=== PATIENT | male | born 1950 ===

== ENCOUNTER 2020-10-08 19:02 | Inpatient (IN) | payer MEDICARE ==
[~2020-10-08] VITALS: Ht 172.7 cm; Wt 64.8 kg
[2020-10-08 20:00] VITALS: BP 137/70
--- NOTE | 2020-10-08 20:15 | NUR ---
The patient, OLGA LIDIA MCCABE, 70 y/o, M admitted by SRINIVAS PERES MD, was given written information regarding hospital policies, unit procedures and contact persons. Pt arrived via EMS with soft restraints on a gurney. Pt was aggressive and combative with EMT's on ride her. Pt continued to be aggressive and combative upon admission. notified of pts behaviors. Orders received Haldol 5mg prn 4hrs until pt calms down. Called for report from [facility]. Talked to Mariana who took care of pt the previous night. Mariana reported that the pt can be aggressive and combative if approached to quickly and no not bombard him. Pt is known to yell and scream at time can also be verbally abusive. Also pt is demanding of his space. Valuables were checked and vitals obtained. Pt is currently in bed will continue to monitor.
[2020-10-08] MEDS: VALPROATE ACID 250 MG/5 ML ORAL SOLUTION PO SCH ×2 (21:30→22:54)
[2020-10-08] MEDS ORDERED: chlorproMAZINE HCL 25 MG TABLET PO SCH (21:30)
[2020-10-08] MEDS ORDERED: chlorproMAZINE HCL 10 MG TABLET PO SCH (21:30)
[2020-10-08 22:26] VITALS: BP 146/72
[2020-10-08] MEDS: metFORMIN 500 MG TABLET PO SCH (22:54)
[2020-10-08] MEDS: amLODIPine BESYLATE 10 MG TABLET PO SCH (22:54)
[2020-10-08] MEDS: LOSARTAN 50 MG TABLET. PO SCH (22:54)
[2020-10-08] MEDS: ZIPRASIDONE 60 MG CAPSULE. PO SCH (22:54)
[2020-10-08] MEDS: chlorproMAZINE HCL 25 MG TABLET PO SCH (22:55)
[2020-10-08] MEDS: INSULIN GLARGINE SYRINGE. SQ SCH (22:56)
--- NOTE | 2020-10-09 01:08 | NUR ---
Pt can be very demanding of his space. Pt will be cooperative if given what he wants when he wants it. Things will be done at his pace when he wants and how he wants them done.
[2020-10-09] MEDS ORDERED: METF500T16 PO ×2 (01:40→12:40)
[2020-10-09] MEDS ORDERED: LEVO100T PO (01:40)
[2020-10-09] MEDS ORDERED: TAMS0.4C97 PO (01:40)
[2020-10-09] MEDS ORDERED: CHLO50TA6 PO ×3 (01:40→12:40)
[2020-10-09] MEDS ORDERED: CLON0.1T PO (01:40)
[2020-10-09] MEDS ORDERED: LIOT50TA5 PO (01:40)
[2020-10-09] MEDS ORDERED: INSU100V8 SQ (01:40)
[2020-10-09] MEDS ORDERED: DEXTROSE 50% 25 GM / 50ML DISP.SYRIN. IV PRN (01:45)
[2020-10-09] MEDS: HALOPERIDOL LACT 5 MG/ML VIAL. IM PRN (03:36)
[2020-10-09 04:19] LABS: BILIRUBIN,URINE NEG (NEG); CLARITY,URINE CLEAR; COLOR,URINE YELLOW; GLUCOSE,URINE NEG (NEG)
[2020-10-09 04:20] LABS: BACTERIA,URINE 0 /HPF (0-FEW); NITRITE,URINE NEG (NEG); RBC,URINE OCC /HPF (0-2); SQUAMOUS EPITHELIAL CELL,UR OCC /LPF; UROBILINOGEN,URINE 0.2 mg/dL (0.2 mg/dL); WBC,URINE OCC /HPF (0-4)
--- NOTE | 2020-10-09 04:49 | NUR ---
Pt received haldol per order due to pt not staying in bed, throwing objects in room and yelling at staff. Pt is currently awake in bed. Will continue to monitor.
[2020-10-09 05:09] VITALS: BP 135/72
[2020-10-09 05:53] LABS: BASO % 1 % (0-3); EOS # 0.1 x10^3/uL (0.0-0.7); EOS % 2 % (0-3); HEMATOCRIT 31.9 % (39.0-53.0); HEMOGLOBIN 10.5 g/dL (13.0-17.5); LYMPH # 2.1 x10^3/uL (1.0-4.8); LYMPH % 34 % (24-48); MEAN CORPUSCULAR HEMOGLOBIN 31 pg (25-35); MEAN CORPUSCULAR HGB CONC 33 g/dL (31-37); MEAN CORPUSCULAR VOLUME 95 fL (79-100); MONO # 0.8 x10^3/uL (0.0-1.1); MONO % 12 % (0-9); NEUT # 3.2 x10^3uL (1.8-7.7); NEUT % 51 % (31-73); PLATELET COUNT 294 x10^3/uL (140-400); RED BLOOD COUNT 3.37 x10^6/uL (4.30-5.70); RED CELL DISTRIBUTION WIDTH 14.1 % (11.5-14.5); WHITE BLOOD COUNT 6.3 x10^3/uL (4.0-11.0)
[2020-10-09 06:07] LABS: ALBUMIN 3.1 g/dL (3.4-5.0); ALBUMIN/GLOBULIN RATIO 0.8 (1.0-1.7); CALCIUM 8.8 mg/dL (8.5-10.1); CREATININE 1.2 mg/dL (0.7-1.3); GFR 59.9; MAGNESIUM 1.7 mg/dL (1.8-2.4); POTASSIUM 3.6 mmol/L (3.5-5.1); TOTAL BILIRUBIN 0.2 mg/dL (0.2-1.0); TOTAL PROTEIN 7.2 g/dL (6.4-8.2)
[2020-10-09 06:19] LABS: VAL ACID < 3 mcg/mL (50-100)
--- NOTE | 2020-10-09 06:27 | EKG ---
[address] [address] Test Date: 2020-10-09 Test Time: 05:09:59 Pat Name: OLGA LIDIA MCCABE Department: Room: 105 A Gender: M Solid Waste Manager: : [id number] Requested By: SRINIVAS PERES Order Number: [id number] Reading MD: Measurements Intervals [place] Rate: 77 P: MN: QRS: 47 QRSD: 88 T: 67 QT: 380 QTc: 432 Interpretive Statements IRREGULAR RHYTHM, NO P-WAVE FOUND QRS(T) CONTOUR ABNORMALITY CONSIDER ANTEROLATERAL MYOCARDIAL DAMAGE POSSIBLY ABNORMAL ECG RI6.01 No previous ECG available for comparison
[2020-10-09] MEDS: ZIPRASIDONE 60 MG CAPSULE. PO SCH ×2 (07:31→21:19)
[2020-10-09] MEDS: VALPROATE ACID 250 MG/5 ML ORAL SOLUTION PO SCH (07:31)
[2020-10-09] MEDS: LOSARTAN 50 MG TABLET. PO SCH ×2 (07:31→21:19)
[2020-10-09] MEDS: INSULIN LISPRO 300 UNITS/3 ML VIAL. SQ SCH ×3 (08:00→16:52)
[2020-10-09] MEDS: VALPROIC ACID 250 MG CAPSULE. PO SCH ×2 (08:31→21:20)
--- NOTE | 2020-10-09 11:14 | NUR ---
NSG NOTE; PT UP TO BATHROOM AFTER STOOL INCONTINENCE WHICH MORE BM IN TOILET. STEADY ON FEET. SITTING UP IN CHAIR AFTER GETTING CLEANED UP. PT RESPONDS BETTER TO STAFF SLOWLY APPROACHING HIM IN HIS ROOM AND USING QUIET RESPECTFUL SPEECH WHICH HE THEN USES. HE IS PARANOID AT TIMES WANTING STAFF TO WALK AHEAD OF HIM, NOT GO INTO HIS ROOM WHILE HE IS ON THE TOILET AND NOT TOUCHING HIS BED OR ITEMS ON HIS BEDSIDE TABLE.
[2020-10-09] MEDS ORDERED: LOSA50TA86 PO (11:56)
[2020-10-09] MEDS ORDERED: BENZ1TAB5 PO (11:56)
[2020-10-09] MEDS ORDERED: HYDR-2145 PO (11:56)
[2020-10-09] MEDS ORDERED: DIPHENHYDRAMINE 50 MG/ML IM (11:56)
[2020-10-09] MEDS ORDERED: INSU100I46 SQ (11:56)
[2020-10-09] MEDS ORDERED: METO25TA2 PO (11:56)
[2020-10-09] MEDS ORDERED: OXCA600T9 PO (11:56)
[2020-10-09] MEDS ORDERED: CHLORPROMAZINE 50 MG/2 ML IM (11:56)
[2020-10-09] MEDS ORDERED: LEVO75TA5 PO (11:56)
--- NOTE | 2020-10-09 12:22 | HP ---
ADMIT DATE: 10/08/2020 ATTENDING PHYSICIAN: Dr. Peres HISTORY OF PRESENT ILLNESS: We are asked to see this patient for medical admission prior to going to the Senior Behavior Unit. The patient is a 70-year-old gentleman who has been institutionalized most of his life. He comes from a assisted close to [place], [place]. He has a longstanding history of schizoaffective disorder with psychosis, Parkinson's disease, dementia, hypertension and debilitation. He spent a long time _[facility] hospital for many years. He has been refusing meds at the time, verbally aggressive and having behavioral issues. He is slated to go to the Senior Behavior Unit. PAST MEDICAL HISTORY: Significant for type 2 diabetes, essential hypertension and degenerative arthritis along with hypothyroidism. CURRENT MEDICATIONS: Reviewed. ALLERGIES: He has allergies to PORK CONTAINING PRODUCTS, LAMICTAL. CURRENT MEDICINES: Include amlodipine, chlorpromazine, dextrose, Haldol, insulin regular and Lantus, losartan, metformin, Depakote and Geodon. FAMILY HISTORY: Unobtainable. REVIEW OF SYSTEMS: Unobtainable due to the patient's confusion. PHYSICAL EXAMINATION: GENERAL: When I saw him, this is a pleasant demented gentleman. He is fixated on his bowel, spends a lot of time in the toilet. VITAL SIGNS: Showed a blood pressure of 135/72, pulse is 80 and regular. He is afebrile. Oxygen saturation 98% on room air. HEENT: Head is without trauma. Pupils are reactive. Sclerae nonicteric. Oropharynx clear. I did notice some tardive dyskinesia. NECK: Supple, no bruits identified. LUNGS: Good breath sounds. CARDIOVASCULAR: Showed distant heart tones. No gallops. ABDOMEN: Soft, no guarding or rebound tenderness. EXTREMITIES: Without edema. NEUROLOGIC: Pleasantly confused. Focally intact. He is ambulatory. We cannot assess a full neurologic exam due to the patient's psychiatric state. LABORATORY DATA: Admission hemoglobin was 10.5 g/dL with a white count of 6300. Electrolytes within normal range. Nonfasting blood sugar 111, creatinine 1.2. Transaminases are normal. Serology and coronavirus swab are pending at this time. ASSESSMENT: 1. A 70-year-old gentleman with longstanding schizoaffective disorder for most of his life. He has been institutionalized and hospitalized. 2. Type 2 diabetes mellitus with fairly good glucose control. 3. Essential hypertension. 4. Hypothyroidism. PLAN: 1. Admit to the inpatient unit. 2. Diet as tolerated. 3. Home meds were continued without any changes. 4. Await results of serology and coronavirus swabs. When those are available, he can go upstairs to the Senior Behavior Unit. SRINIVAS PERES MD DR: TADEO/néstor JOB#: [id number] / [id number]
[2020-10-09] MEDS ORDERED: CHLO100T6 PO (12:40)
[2020-10-09] MEDS ORDERED: INSU100I13 SQ (12:40)
[2020-10-09] MEDS ORDERED: TRAZ-120 PO (12:51)
[2020-10-09] MEDS ORDERED: VALP500S PO (12:51)
[2020-10-09] MEDS ORDERED: CALC625T PO (12:51)
[2020-10-09] MEDS ORDERED: ACET325T21 PO (12:51)
[2020-10-09] MEDS ORDERED: DIPH50CA PO (12:51)
[2020-10-09] MEDS ORDERED: KETO120S4 TP (12:51)
[2020-10-09] MEDS ORDERED: FERR325T14 PO (12:51)
[2020-10-09] MEDS ORDERED: DONE10TA7 PO (12:51)
[2020-10-09] MEDS ORDERED: ZIPR20CA2 PO (12:51)
[2020-10-09] MEDS ORDERED: HALO100A2 IM (12:51)
[2020-10-09] MEDS ORDERED: ACET500T68 PO (12:51)
[2020-10-09] MEDS ORDERED: AMLO-187 PO (12:51)
[2020-10-09] MEDS ORDERED: CALC-56 PO (12:51)
[2020-10-09 16:36] VITALS: BP 144/72
[2020-10-09 19:14] VITALS: BP 148/74
[2020-10-09 19:53] LABS: HDLC 51 mg/dL (40-60); LDLC 62 mg/dL (0-100); TRIGLYCERIDES 210 mg/dL (0-150); VLDLC 42 mg/dL (0-40)
[2020-10-09 19:54] LABS: THYROID STIM HORMONE (TSH) < 0.007 uIU/mL (0.358-3.740)
[2020-10-09] MEDS: chlorproMAZINE HCL 25 MG TABLET PO SCH (21:19)
[2020-10-09] MEDS: metFORMIN 500 MG TABLET PO SCH (21:19)
[2020-10-09] MEDS: amLODIPine BESYLATE 10 MG TABLET PO SCH (21:20)
[2020-10-09] MEDS: INSULIN GLARGINE SYRINGE. SQ SCH (21:21)
[2020-10-09 22:16] VITALS: BP 158/82
[2020-10-10 00:09] LABS: HEMOGLOBIN A1C 6.6 % (4.8-5.6)
[2020-10-10] MEDS: HALOPERIDOL LACT 5 MG/ML VIAL. IM PRN (05:22)
--- NOTE | 2020-10-10 05:40 | NUR ---
PT INCREASINGLY AGITATED THROUGH NIGHT. PT PHYSICALLY AND VERBALLY AGGRESSIVE W/ STAFF, ESPECIALLY WITH ATTEMPTS TO REDIRECT. PT DEMANDING TO HAVE A SHOWER, REPEATEDLY APPROACHING NURSE'S STATION WITHOUT MASK. WHEN STAFF INSTRUCTED PT TO PUT ON HIS MASK WHILE OUTSIDE OF PT ROOM, PT YELLING OUT. [facility] STAFF HERE TO ASSIST WITH DE-ESCALATION AND TRANSFER UPSTAIRS. PRN HALDOL IM GIVEN PER ORDER. PT ASSISTED X3 UP TO PSYCH UNIT. BEDSIDE REPORT GIVEN TO VASHTI MOON. ALL BELONGINGS SENT WITH PT.
[2020-10-10] MEDS ORDERED: SEMA1PEN3 SQ (08:03)
[2020-10-10] MEDS ORDERED: VITA1TAB31 PO (08:04)
== END 2020-10-10 05:40 | DRG 948 ==
LOC: 1 SOUTH 20:14
PROVIDERS: ADMIT Hospitalist; ATTEND Hospitalist
DX: R53.81 Other malaise (principal); G20 Parkinson's disease; F25.9 Schizoaffective disorder, unspecified; E03.9 Hypothyroidism, unspecified; I10 Essential (primary) hypertension; F02.80 Dementia in other diseases classified elsewhere, unspecified severity, without behavioral disturbance, psychotic disturbance, mood disturbance, and anxiety; E11.9 Type 2 diabetes mellitus without complications; M19.90 Unspecified osteoarthritis, unspecified site; Z20.822 Contact with and (suspected) exposure to COVID-19; Z79.899 Other long term (current) drug therapy; Z88.8 Allergy status to other drugs, medicaments and biological substances; Z91.018 Allergy to other foods
CPT/HCPCS: 36415; 80053; 80061; 80164; 81001; 82306; 82607; 82947; 83036; 83735; 84443; 85025; 85379; 86592; 93005; J1630; J1815; Q0161; U0003

== ENCOUNTER 2020-10-10 06:18 | Inpatient (IN) | payer MEDICARE, MEDICAID ==
[~2020-10-10] VITALS: Ht 172.7 cm; Wt 66.7 kg
[~2020-10-10 06:18] MED LIST: ACET325T21 PO; ACET500T68 PO; AMLO-187 PO; BENZ1TAB5 PO; CALC-56 PO; CALC625T PO; CHLO100T6 PO; CHLO50TA6 PO; CHLORPROMAZINE 50 MG/2 ML IM; CLON0.1T PO; DIPH50CA PO; DIPHENHYDRAMINE 50 MG/ML IM; DONE10TA7 PO; FERR325T14 PO; HALO100A2 IM; HYDR-2145 PO; INSU100I13 SQ; INSU100I46 SQ; INSU100V8 SQ; KETO120S4 TP; LEVO100T PO; LEVO75TA5 PO; LIOT50TA5 PO; LOSA50TA86 PO; METF500T16 PO; METO25TA2 PO; OXCA600T9 PO; TAMS0.4C97 PO; TRAZ-120 PO; VALP500S PO; ZIPR20CA2 PO
[2020-10-10] MEDS ORDERED: MAG HYDROX/AL HYDROX/SIMETH 30 ML ORAL.SUSP PO PRN (06:30)
[2020-10-10] MEDS ORDERED: MAGNESIUM HYDROXIDE 2,400 MG/30 ML ORAL.SUSP. PO PRN (06:30)
[2020-10-10] MEDS ORDERED: METHYL SALICYLATE/MENTHOL TOPICAL OINTMENT 57GM TUBE. TP PRN (06:30)
[2020-10-10] MEDS ORDERED: ACETAMINOPHEN 325 MG TABLET PO PRN ×2 (06:30→07:45)
--- NOTE | 2020-10-10 07:24 | NUR ---
Admission Note with Justification for Admission to [facility] Patient admitted to [facility] for protective oversight for emergency stabilization of acute psychiatric crisis. Pt admitted from: [address] Mode of arrival: wheel chair Accompanied By: [facility] Staff Precipitating behaviors that initiated intake and admission: failure of placement Description of failure of out patient attempts at stabilization in previous setting list behavior and medication trials: med adjutments etc Behaviors and assessment findings upon admission: agitated angry combative yelling violent. Plan: Admit for protective oversight for adjustment and stabilization of medications, behaviors and mood. Intense treatment regimen including groups, medication adjustments, therapy, consistent regimen for ADL's, self care, and sleep hygiene. Daily monitoring by Inpatient staff, Psychiatry, and Medical Physician.
[2020-10-10] MEDS ORDERED: cloNIDine HCL 0.1 MG TABLET PO PRN (07:45)
[2020-10-10] MEDS ORDERED: CHLORPROMAZINE IM PRN (07:45)
[2020-10-10] MEDS ORDERED: DIPHENHYDRAMINE HCL PO PRN (07:45)
[2020-10-10] MEDS ORDERED: DIPHENHYDRAMINE IM PRN (07:45)
[2020-10-10] MEDS ORDERED: ACETAMINOPHEN 500 MG TABLET PO PRN (07:45)
[2020-10-10] MEDS ORDERED: SEMA1PEN3 SQ (08:03)
[2020-10-10] MEDS ORDERED: VITA1TAB31 PO (08:04)
[2020-10-10] MEDS: NON FORMULARY ITEM (Semaglutide (Ozempic) 1 MG) SQ SCH (09:00)
[2020-10-10] MEDS ORDERED: FLU VACC QS 2020-21(6MOS+)/PF 0.5 ML SYRINGE. VAX IM ONE (09:00)
[2020-10-10] MEDS: KETOCONAZOLE 2% SHAMPOO 120ML BOTTLE. TP SCH (09:00)
[2020-10-10] MEDS: chlorproMAZINE HCL 25 MG TABLET PO SCH ×2 (09:00→21:09)
[2020-10-10] MEDS ORDERED: LIOTHYRONINE SODIUM PO SCH (09:00)
[2020-10-10] MEDS ORDERED: LEVOTHYROXINE 100 MCG TABLET PO SCH (09:00)
[2020-10-10] MEDS: NICOTINE 21MG PATCH. TD SCH (09:00)
[2020-10-10] MEDS ORDERED: NON FORMULARY ITEM (Vitamin D3/Vitamin K2 (D3 + K2 Dots 1,000 Units Tab) 1 TAB) PO SCH (09:00)
[2020-10-10] MEDS ORDERED: VALPROATE ACID 250 MG/5 ML ORAL SOLUTION PO SCH (09:30)
[2020-10-10] MEDS: INSULIN GLARGINE SYRINGE. SQ SCH ×2 (10:00→21:12)
--- NOTE | 2020-10-10 10:02 | NUR ---
Pt. denied smoking. Said he quit 40 years ago.
[2020-10-10] MEDS: hydroCHLOROthiazide 25 MG TABLET PO SCH (11:15)
[2020-10-10] MEDS: metFORMIN 500 MG TABLET PO SCH ×2 (11:16→18:11)
[2020-10-10] MEDS: CALCIUM POLYCARBOPHIL 625 MG TABLET PO SCH ×2 (11:16→20:57)
[2020-10-10] MEDS: TAMSULOSIN 0.4 MG CAP.ER.24H. PO SCH (11:16)
[2020-10-10] MEDS: ZIPRASIDONE 20 MG CAPSULE. PO SCH ×2 (11:16→21:04)
[2020-10-10] MEDS: CALCIUM CARB/VIT D3 500/200 TABLET PO SCH (11:16)
[2020-10-10] MEDS: BENZTROPINE MESYLATE 1 MG TABLET PO SCH (11:17)
[2020-10-10] MEDS: FERROUS SULFATE 325 MG TABLET. PO SCH ×2 (11:17→20:57)
[2020-10-10] MEDS: METOPROLOL SUCC 24HR ER 25 MG TAB.ER.24H. PO SCH (11:22)
[2020-10-10] MEDS: LOSARTAN 50 MG TABLET. PO SCH ×2 (11:22→20:57)
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
[2020-10-10] MEDS ORDERED: DEXTROSE 50% 25 GM / 50ML DISP.SYRIN. IV PRN (16:00)
[2020-10-10] MEDS: chlorproMAZINE HCL 25 MG TABLET PO PRN (16:08)
[2020-10-10] MEDS: INSULIN LISPRO 300 UNITS/3 ML VIAL. SQ SCH (17:00)
[2020-10-10] MEDS: CHOLECALCIFEROL (VITAMIN D3) 50,000 UNIT CAPSULE PO SCH (18:11)
--- NOTE | 2020-10-10 20:56 | HP ---
ADMIT DATE: 10/10/2020 PSYCHIATRIC ADMISSION HISTORY/EVALUATION This note covers elements not covered in my initial note 10/10/2020. IDENTIFYING DATA: The patient is a 70-year-old -[place] male referred to us from [facility] where he was at the nursing facility for about 1 week, having spent an extensive period of time prior to that at [facility] for his schizoaffective disorder, bipolar type, with psychotic features. At the facility, the patient was refusing his medications, being verbally aggressive, voicing suicidal ideation, agitated, combative, hallucinating and delusional. He had failed outpatient psychiatric interventions. Behaviors were deemed dangerous, unmanageable at the facility resulting in this referral. CHIEF COMPLAINT: "I came here today. I was in the [place]." HISTORY OF PRESENT ILLNESS: The patient has a long history of schizoaffective disorder, bipolar type. He has been residing at the nursing facility for about a week prior to which he was at [facility] for many months. He has been more psychotic, paranoid, having sleep and appetite changes, agitated, aggressive as noted above. He denies active suicidal ideation at this time. PAST PSYCHIATRIC HISTORY: As above. MEDICAL HISTORY: Positive for diabetes mellitus, hypertension, Parkinson's disease, memory deficits. He is a smoker. ALLERGIES: PORK AND LAMOTRIGINE. CODE STATUS: Full code. ACCU-CHEKS: Before meals and at bedtime. DIET: Diabetic, takes medications whole with water. Ambulates ad lakshmi. UA, 10/10/2020 was negative. CURRENT PSYCHOTROPICS: Thorazine 50 mg a.m., 300 mg at bedtime, 50 mg q. 6 hours p.r.n. psychosis; Aricept 10 mg at bedtime; Haldol 100 mg IM every 30 days; Trileptal 600 mg b.i.d.; trazodone 50 mg at bedtime p.r.n.; Depakene 1000 mg b.i.d., but valproic acid level is 15, subtherapeutic probably due to noncompliance and we will repeat it in 2 days. He is also on Geodon 60 mg b.i.d. and Zyprexa was added p.r.n. following admission and p.r.n. Thorazine was discontinued. We have been unable to get an EKG as I ordered because of the patient's marked paranoia, delusions about the EKG machine. FAMILY HISTORY: Noncontributory. SOCIAL HISTORY: No alcohol or drug abuse, physical, sexual or elder abuse history is noted. He is not known to be a perpetrator. REACTION TO HOSPITALIZATION: The patient accepting of it. ASSETS: Supportive living at the facility. He is reasonably cognitively intact, but has short-term memory deficits. MENTAL STATUS EXAMINATION: The patient was seen individually evening of 10/10/2020. He is oriented to himself and situation. Speech is coherent, abstraction fair, computation impaired, language function intact. He is quite paranoid, psychotic, distractable. No active suicidal or homicidal ideation. Short-term memory is impaired, remote is better. LABORATORY DATA: Reviewed. IMPRESSION: Schizoaffective disorder, bipolar type, mixed with psychotic features, mild cognitive impairment; anxiety disorder, unspecified; impulse control disorder, unspecified. Rest unchanged as noted above. PLAN: Admit to Geropsychiatry Unit at [facility]. I will see the patient daily individually from a psychiatric standpoint. Medical followup with Dr. Faria/Dr. Davis. Continue current psychotropics, stop the p.r.n. Thorazine. Get past psychiatric records from [facility]. Check an EKG. Repeat valproic acid level in 2 days since his initial level is probably subtherapeutic at 15 due to noncompliance. ESTIMATED LENGTH OF STAY: 10-12 days. DISPOSITION: Plans back to nursing facility when stable. MAN Rosanne REN MD DR: EVA/néstor JOB#: [id number] / [id number]
[2020-10-10] MEDS: DONEPEZIL HCL 10 MG TABLET PO SCH (21:11)
[2020-10-10] MEDS: amLODIPine BESYLATE 10 MG TABLET PO SCH (21:11)
[2020-10-10] MEDS: DIVALPROEX 125 MG CAP.SPRINK PO SCH (21:20)
[2020-10-10 22:42] VITALS: BP 159/76
--- NOTE | 2020-10-10 22:52 | PDOC ---
Exam Note: Devin Note: Please also refer to the separate dictated note~for this date of service dictated separately.~Patient seen individually. Discussed the patient with Nursing staff reviewed the chart.~Reviewed interim history and current functioning. Reviewed vital signs,~Labs/ Radiology~and current medications noted below. Continue current treatment with the changes noted in the dictated addendum note Assessment: Vital Signs/I&O: Vital Signs Date Time Temp Pulse Resp B/P (MAP) Pulse Ox O2 Delivery O2 Flow Rate FiO2 10/10/20 22:42 97.9 74 18 159/76 (103) 99 Labs: Laboratory Tests Test 10/10/20 11:43 10/10/20 17:09 10/10/20 19:10 Glucose (Fingerstick) 196 mg/dL (70-99) H 169 mg/dL (70-99) H 202 mg/dL (70-99) H Current Medications: Meds: Current Medications Medications (Trade) Dose Ordered Sig/Nancy Route PRN Reason Start Time Stop Time Status Last Admin Dose Admin Influenza Virus Vaccine Quadrival (Fluzone Quad Syringe) 0.5 ml ONCE ONCE VAX IM 10/10/20 09:00 10/10/20 09:01 DC 10/10/20 14:04 Amlodipine Besylate (Norvasc) 10 mg HS PO 10/10/20 21:00 10/10/20 21:11 Benztropine Mesylate (Cogentin) 1 mg DAILY PO 10/10/20 09:00 10/10/20 11:17 Calcium/Vitamin D (Oscal D 500mg/ 200uts) 1 tab DAILY PO 10/10/20 09:00 10/10/20 11:16 Calcium Polycarbophil (Fibercon) 625 mg BID PO 10/10/20 09:00 10/10/20 20:57 Donepezil HCl (Aricept) 10 mg HS PO 10/10/20 21:00 10/10/20 21:11 Ferrous Sulfate (Feosol) 325 mg BID PO 10/10/20 09:00 10/10/20 20:57 Hydrochlorothiazide (Hydrodiuril) 25 mg DAILY PO 10/10/20 09:00 10/10/20 11:15 Insulin Glargine (Lantus Syringe) 5 unit HS SQ 10/10/20 21:00 10/10/20 21:12 Losartan Potassium (Cozaar) 50 mg BID PO 10/10/20 09:00 10/10/20 20:57 Metformin HCl (Glucophage) 500 mg DAILYBFRSUP PO 10/10/20 17:00 10/10/20 18:11 Metformin HCl (Glucophage) 1,500 mg DAILY PO 10/10/20 09:00 10/10/20 11:16 Metoprolol Succinate (Toprol Xl) 25 mg DAILY PO 10/10/20 09:00 10/10/20 11:22 Tamsulosin HCl (Flomax) 0.4 mg DAILY PO 10/10/20 09:30 10/10/20 11:16 Ziprasidone (Geodon) 60 mg BID PO 10/10/20 09:30 10/10/20 21:04 Chlorpromazine HCl (Thorazine) 50 mg DAILY PO 10/10/20 09:00 10/10/20 09:00 Chlorpromazine HCl (Thorazine) 50 mg PRN Q6HRS PRN PO AGITATION 10/10/20 09:00 10/10/20 16:08 Chlorpromazine HCl (Thorazine) 300 mg HS PO 10/10/20 21:00 10/10/20 21:09 Insulin Glargine (Lantus Syringe) 8 unit DAILY SQ 10/10/20 10:00 10/10/20 10:00 Oxcarbazepine (Trileptal) 600 mg BID PO 10/10/20 09:30 10/10/20 20:57 Valproic Acid (Depakene) 1,000 mg BID PO 10/10/20 09:30 10/10/20 20:12 DC 10/10/20 11:15 Vitamin D (Vitamin D3) 50,000 unit WEEKLY PO 10/10/20 17:30 10/10/20 18:11 Divalproex Sodium (Depakote Sprinkles) 1,000 mg HS PO 10/10/20 21:00 10/10/20 21:20 I have reviewed the current psychotropics carefully including drug interactions. Risk benefit ratio favors no change other than as noted in my dictated progress note. Diagnosis: Problems: (1) Schizoaffective disorder, bipolar type (2) Bipolar disorder, current episode mixed, severe, with psychotic features (3) Anxiety disorder, unspecified (4) Impulse control disorder, unspecified (5) Mild cognitive impairment KALEN REN MD Oct 10, 2020 22:52
--- NOTE | 2020-10-11 00:06 | CONS ---
DATE OF CONSULTATION: 10/10/2020 REASON FOR CONSULTATION: Medical management. HISTORY OF PRESENT ILLNESS: The patient is a 70-year-old -[place] male patient who was residing at [facility] close to [place], [place]. He has a longstanding history of schizoaffective disorder with psychosis, Parkinson's disease, dementia, hypertension and debilitation. He spent a long time at [facility] for [facility], has been refusing meds at this time, verbally aggressive and having behavioral issues. He was admitted to Medical Surgical Unit in [address] [place] [address] in [facility] where he was screened for coronavirus while not detectable and was admitted to [facility] Unit for inpatient psychiatric stabilization. The patient himself does not really give any useful information. PAST MEDICAL HISTORY: Significant for type 2 diabetes mellitus, essential hypertension, degenerative arthritis, hypothyroidism and Parkinson's disease. PAST SURGICAL HISTORY: Unobtainable. ALLERGIES: He is allergic to PORK CONTAINING PRODUCTS and LAMICTAL. FAMILY HISTORY: Unobtainable. SOCIAL HISTORY: He is apparently a resident at [facility]iary close to [place], [place]. No further information available. MEDICATIONS: He is currently on following medications: He is on haloperidol decanoate 100 mg intramuscular every month, levothyroxine 75 mcg once a day, chlorpromazine 300 mg at bedtime, Lantus insulin 5 units at bedtime, Aricept 10 mg at bedtime, amlodipine besylate 10 mg at bedtime. He is on Humalog insulin as insulin sliding scale 3 times a day before meals, metformin 500 mg once a day and Lantus insulin 8 units daily in the morning, valproic acid 1000 mg twice a day, oxcarbazepine, Trileptal 600 mg twice a day, ziprasidone 60 mg twice a day, tamsulosin 0.4 mg daily. He is on vitamin D one tablet once a day, Ozempic 1 mg once a week, liothyronine sodium or Cytomel one tablet daily. He is on chlorpromazine 50 mg every 6 hours, chlorpromazine 50 mg daily, metoprolol succinate 25 mg once a day, metformin 1500 mg daily, losartan potassium 50 mg twice a day, levothyroxine 100 mcg twice a day and levothyroxine sodium 100 mcg daily, ketoconazole or Nizoral shampoo applied every other day, hydrochlorothiazide 25 mg daily, ferrous sulfate 325 mg twice a day, calcium carbonate 625 mg twice a day, calcium with vitamin D daily, benztropine mesylate 1 mg daily and nicotine patch 21 mg topically daily. He is also on trazodone 50 mg at bedtime, clonidine 0.1 mg as needed for agitation, acetaminophen 500 mg every 6 hours, Mylanta 15 mL after meals and milk of magnesia 30 mL p.o. daily p.r.n. for constipation, and acetaminophen 650 mg every 6 hours as needed. PHYSICAL EXAMINATION: GENERAL: On examining him, he looked well and was clearly in no apparent respiratory distress. VITAL SIGNS: His heart rate was 102, blood pressure was 150/68, temperature was 98.2, respiratory rate 20, and oxygen saturation was 97% on room air. HEAD, EYES, EARS, NOSE AND THROAT: Showed normocephalic, atraumatic. NECK: Supple. HEART: Normal first and second heart sounds. No gallop, rub or murmur. CHEST: Clear to auscultation. No crepitation or rhonchi. ABDOMEN: Scaphoid, soft, nontender. NEUROLOGIC: He was grossly intact. LABORATORY DATA: Showed a white cell count 6300, hemoglobin 10.5, hematocrit 32, MCV 95, and a platelet count 294,000 with normal manual differential. His chemistry showed a serum sodium of 144, potassium 3.6, chloride 106, bicarbonate 24, anion gap of 14, BUN 26, creatinine 1.2, estimated GFR was 59 mL per minute, his glucose 164. Hemoglobin A1c was 6.6, calcium was 8.8, magnesium was 1.7. Total bilirubin, AST, ALT, alkaline phosphatase were normal. Total protein 7.2, albumin 3.1. Serum triglycerides were 210, total cholesterol 155, LDL cholesterol was 62, VLDL was 42, HDL was 51 and the ratio was 3. His vitamin B12 was 457 pg/mL and 25-hydroxy vitamin D was 23, which is low. TSH was almost undetectable at less than 0.007. His D-dimer was 0.64. Urinalysis was essentially unremarkable. Toxic screen was also unremarkable and his treponema pallidum antibodies were nonreactive and coronavirus PCR was not detectable. ASSESSMENT AND PLAN: In summary, this is a 70-year-old -[place] male patient who was admitted on account of having longstanding schizoaffective disorder with psychosis. He has been refusing medication at times verbally aggressive and having behavioral issues and was admitted to [facility] Unit for inpatient psychiatric stabilization. Medically, the patient has type 2 diabetes mellitus that seemed to be reasonably controlled. His hemoglobin A1c was 6.6%. Blood pressure seems to be also reasonably controlled. He seemed to be biochemically thyrotoxic. His TSH is 0.007. He is on a huge amount of both liothyronine and levothyroxine. In fact, he is getting 75 mcg together with levothyroxine 100 mcg. PLAN: My plan is to check his T3, T4, free T4 and probably discontinue the liothyronine and also cut down his levothyroxine. His vitamin D is also low and he probably needs supplements. Thank you, Dr. Rogers for allowing me to participate in the care of this patient. JENISE FAN MD DR: CARMELITA/néstor JOB#: [id number] / [id number]
--- NOTE | 2020-10-11 00:07 | NUR ---
Patient watching tv in television while listening to tablet with headphones. He was polite and cooperative, interactive and med compliant. Patient took medications whole with water. Patient asked for coke over ice and had it for a snack. He was in bed listening to music on the tablet and has gone to sleep. Patient was talking about [place] and told nurse several times that he is a "self med" man. It was determined that he was saying he gives himself medications and does not need help. 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 He also stated that "October 29 will be his discharge day". Patient refused the depakene, he does not drink red beverages. Switched to depakote sprinkles and he was compliant.
[2020-10-11 00:10] LABS: THYROXINE 4.2 ug/dL (4.5-12.0)
[2020-10-11] MEDS: traZODone 50 MG TABLET. PO PRN (01:37)
[2020-10-11] MEDS: chlorproMAZINE HCL 25 MG TABLET PO PRN (01:38)
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
[2020-10-11 05:44] VITALS: BP 160/84
[2020-10-11] MEDS ORDERED: LEVOTHYROXINE 75 MCG TABLET PO SCH (06:00)
[2020-10-11] MEDS: INSULIN LISPRO 300 UNITS/3 ML VIAL. SQ SCH ×3 (08:00→17:00)
[2020-10-11] MEDS: CALCIUM CARB/VIT D3 500/200 TABLET PO SCH (08:30)
[2020-10-11] MEDS: BENZTROPINE MESYLATE 1 MG TABLET PO SCH (08:30)
[2020-10-11] MEDS: ZIPRASIDONE 20 MG CAPSULE. PO SCH ×2 (08:30→21:44)
[2020-10-11] MEDS: metFORMIN 500 MG TABLET PO SCH ×2 (08:30→17:26)
[2020-10-11] MEDS: TAMSULOSIN 0.4 MG CAP.ER.24H. PO SCH (08:30)
[2020-10-11] MEDS: METOPROLOL SUCC 24HR ER 25 MG TAB.ER.24H. PO SCH (08:31)
[2020-10-11] MEDS: FERROUS SULFATE 325 MG TABLET. PO SCH ×2 (08:31→21:44)
[2020-10-11] MEDS: CALCIUM POLYCARBOPHIL 625 MG TABLET PO SCH ×2 (08:31→21:45)
[2020-10-11] MEDS: LOSARTAN 50 MG TABLET. PO SCH ×2 (08:31→21:45)
[2020-10-11] MEDS: hydroCHLOROthiazide 25 MG TABLET PO SCH (08:32)
[2020-10-11] MEDS: LEVOTHYROXINE 175 MCG TABLET PO SCH (08:41)
[2020-10-11] MEDS: chlorproMAZINE HCL 25 MG TABLET PO SCH ×2 (08:42→21:50)
[2020-10-11] MEDS: INSULIN GLARGINE SYRINGE. SQ SCH ×2 (09:00→21:51)
[2020-10-11] MEDS ORDERED: LIOTHYRONINE 5 MCG TABLET. PO SCH (09:00)
[2020-10-11] MEDS: NICOTINE 21MG PATCH. TD SCH ×2 (09:00→11:14)
--- NOTE | 2020-10-11 09:29 | NUR ---
Pt has been appropriate on the unit so far. Absent of disruptive or intimidating behaviors on the unit. His thought process still appears disorganized, at times he will switch from one topic of conversation to another unrelated one. He has been compliant with medications while this nurse stood by and appeared pre-occupied with another task so he could remain focused on his medications and not distracted by me. His interactions with staff and other patients have been appropriate so far; no need for verbal redirection or PRN medications thus far. Will pass on to next shift.
--- NOTE | 2020-10-11 11:27 | NUR ---
WEEKLY ACTIVITY THERAPY NOTE Date of Admission: 10/10/20 Date of AT Assessment: TBD Precipitating behaviors that initiated intake and admission: failure of placement Goal aimed: TBD Initial Goal: TBD Weekly progress towards goal: NA Group participation level: 1 mod Weekly highlights: arrived on unit, shared and answered questions Thursday Behaviors observed: repeated al debra, guarded m&m bowl Thursday Plan: meet/ assess Pt Beneficial adaptations:
--- NOTE | 2020-10-11 13:36 | NUR ---
Pt's gait is becoming more unsteady as the day goes by. On 10/10 (yesterday) he was amb ad lakshmi without difficulty or need of assistance. He is now amb with a hard lean; holding onto the wall and railing, requesting staff assistance to amb. When providing assistance he will lean heavily which in turn will pull/push staff in the direction his body is going. Upon admission mouth/tongue/arm wiggling was observable (possible TD or EPS). Will pass on to Dr Rogers and the next shift. Will pass on to current nursing staff to be present when pt attempts to amb and to not amb unsupervised.
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
[2020-10-11 16:31] VITALS: BP 132/75
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
--- NOTE | 2020-10-11 21:04 | PDOC ---
Exam Note: Devin Note: Please also refer to the separate dictated note~for this date of service dictated separately.~Patient seen individually. Discussed the patient with Nursing staff reviewed the chart.~Reviewed interim history and current functioning. Reviewed vital signs,~Labs/ Radiology~and current medications noted below. Continue current treatment with the changes noted in the dictated addendum note Assessment: Vital Signs/I&O: Vital Signs Date Time Temp Pulse Resp B/P (MAP) Pulse Ox O2 Delivery O2 Flow Rate FiO2 10/11/20 16:31 98.7 87 20 132/75 (94) 97 10/11/20 05:44 Room Air I & O 10/10/20 10/10/20 10/11/20 15:00 23:00 07:00 Intake Total 600 ml 840 ml Balance 600 ml 840 ml Labs: Laboratory Tests Test 10/11/20 06:23 10/11/20 07:51 10/11/20 12:20 10/11/20 17:13 Free Thyroxine 0.67 ng/dL (0.76-1.46) L Free Triiodothyronine (T3) pg/mL 1.57 pg/mL (2.18-3.98) L Glucose (Fingerstick) 145 mg/dL (70-99) H 162 mg/dL (70-99) H 119 mg/dL (70-99) H Test 10/11/20 19:23 Glucose (Fingerstick) 154 mg/dL (70-99) H Current Medications: Meds: Laboratory Tests Test 10/11/20 06:23 10/11/20 07:51 10/11/20 12:20 10/11/20 17:13 Free Thyroxine 0.67 ng/dL Free Triiodothyronine (T3) pg/mL 1.57 pg/mL Glucose (Fingerstick) 145 mg/dL 162 mg/dL 119 mg/dL Test 10/11/20 19:23 Glucose (Fingerstick) 154 mg/dL Current Medications Medications (Trade) Dose Ordered Sig/Nancy Route PRN Reason Start Time Stop Time Status Last Admin Dose Admin Acetaminophen (Tylenol) 650 mg PRN Q6HRS PRN PO MILD PAIN / TEMP > 100.3'F 10/10/20 06:30 10/10/20 17:40 DC Multi-Ingredient Ointment (Analgesic [place]) 1 nayla PRN QID PRN TP MUSCLE PAIN 10/10/20 06:30 Al Hydroxide/Mg Hydroxide (Mylanta Plus Xs) 15 ml PRN AFTMEALHC PRN PO DYSPEPSIA 10/10/20 06:30 Magnesium Hydroxide (Milk Of Magnesia) 2,400 mg PRN QHS PRN PO CONSTIPATION 10/10/20 06:30 Nicotine (Nicoderm Cq 21mg Patch) 1 patch DAILY TD 10/10/20 09:00 Influenza Virus Vaccine Quadrival (Fluzone Quad Syringe) 0.5 ml ONCE ONCE VAX IM 10/10/20 09:00 10/10/20 09:01 DC 10/10/20 14:04 Acetaminophen (Tylenol) 650 mg PRN DAILY PRN PO PAIN OR FEVER 10/10/20 07:45 10/10/20 17:40 DC Acetaminophen (Tylenol) 500 mg PRN Q6HRS PRN PO MILD PAIN / TEMP > 100.3'F 10/10/20 07:45 Amlodipine Besylate (Norvasc) 10 mg HS PO 10/10/20 21:00 10/10/20 21:11 Benztropine Mesylate (Cogentin) 1 mg DAILY PO 10/10/20 09:00 10/11/20 08:30 Calcium/Vitamin D (Oscal D 500mg/ 200uts) 1 tab DAILY PO 10/10/20 09:00 10/11/20 08:30 Calcium Polycarbophil (Fibercon) 625 mg BID PO 10/10/20 09:00 10/11/20 08:31 Clonidine HCl (Catapres) 0.1 mg PRN Q1HR PRN PO AGITATION 10/10/20 07:45 Donepezil HCl (Aricept) 10 mg HS PO 10/10/20 21:00 10/10/20 21:11 Ferrous Sulfate (Feosol) 325 mg BID PO 10/10/20 09:00 10/11/20 08:31 Hydrochlorothiazide (Hydrodiuril) 25 mg DAILY PO 10/10/20 09:00 10/11/20 08:32 Insulin Glargine (Lantus Syringe) 5 unit HS SQ 10/10/20 21:00 10/10/20 21:12 Ketoconazole (Nizoral 2% Shampoo) 1 nayla QODAY TP 10/10/20 09:00 Levothyroxine Sodium (Synthroid) 75 mcg DAILY06 PO 10/11/20 06:00 UNV Levothyroxine Sodium (Synthroid) 100 mcg DAILY PO 10/10/20 09:00 10/11/20 05:50 DC Losartan Potassium (Cozaar) 50 mg BID PO 10/10/20 09:00 10/11/20 08:31 Metformin HCl (Glucophage) 500 mg DAILYBFRSUP PO 10/10/20 17:00 10/11/20 17:26 Metformin HCl (Glucophage) 1,500 mg DAILY PO 10/10/20 09:00 10/11/20 08:30 Metoprolol Succinate (Toprol Xl) 25 mg DAILY PO 10/10/20 09:00 10/11/20 08:31 Tamsulosin HCl (Flomax) 0.4 mg DAILY PO 10/10/20 09:30 10/11/20 08:30 Trazodone HCl (Desyrel) 50 mg PRN QHS PRN PO SLEEP AID 10/10/20 07:45 10/11/20 01:37 Ziprasidone (Geodon) 60 mg BID PO 10/10/20 09:30 10/11/20 08:30 Chlorpromazine HCl (Thorazine) 50 mg DAILY PO 10/10/20 09:00 10/11/20 08:42 Chlorpromazine HCl (Thorazine) 50 mg PRN Q6HRS PRN PO AGITATION 10/10/20 09:00 10/11/20 10:04 DC 10/11/20 01:38 Chlorpromazine HCl (Thorazine) 300 mg HS PO 10/10/20 21:00 10/10/20 21:09 Non-Formulary Medication (Diphenhydramine Hcl ) 1 cap Q6HRS PRN PO AGITATION 10/10/20 07:45 UNV Haloperidol Decanoate (Haldol Decanoate Im Extended Release) 100 mg QMONTH IM 10/26/20 09:00 Insulin Glargine (Lantus Syringe) 8 unit DAILY SQ 10/10/20 10:00 10/11/20 09:00 Non-Formulary Medication (Liothyronine Sodium (Cytomel)) 1 tab DAILY PO 10/10/20 09:00 10/11/20 07:29 DC Oxcarbazepine (Trileptal) 600 mg BID PO 10/10/20 09:30 10/11/20 08:30 Valproic Acid (Depakene) 1,000 mg BID PO 10/10/20 09:30 10/10/20 20:12 DC 10/10/20 11:15 Non-Formulary Medication ([[id number]/ 2ML] ) 50 mg Q6HRS PRN IM AGITATION 10/10/20 07:45 UNV Non-Formulary Medication ([[id number]/ Ml] ) 50 mg Q6HRS PRN IM AGITATION 10/10/20 07:45 UNV Non-Formulary Medication (Semaglutide (Ozempic)) 1 mg WEEKLY SQ 10/10/20 09:00 UNV Non-Formulary Medication (Vitamin D3/ Vitamin K2 (D3 + K2 Dots 1,000 Units Tab)) 1 tab DAILY PO 10/10/20 09:00 10/10/20 17:36 DC Insulin Human Lispro (HumaLOG) 0-4 UNITS TIDWMEALS SQ 10/10/20 17:00 Dextrose (Dextrose 50%-Water Syringe) 12.5 gm PRN Q15MIN PRN IV SEE COMMENTS 10/10/20 16:00 Vitamin D (Vitamin D3) 50,000 unit WEEKLY PO 10/10/20 17:30 10/10/20 18:11 Olanzapine (ZyPREXA ZYDIS) 5 mg PRN Q2HRS PRN PO PSYCHOSIS 10/10/20 18:00 10/11/20 01:38 Divalproex Sodium (Depakote Sprinkles) 1,000 mg HS PO 10/10/20 21:00 10/10/20 21:20 Levothyroxine Sodium (Synthroid) 175 mcg DAILY06 PO 10/11/20 07:30 10/11/20 08:41 Liothyronine Sodium (Cytomel) 50 mcg DAILY PO 10/11/20 09:00 10/11/20 10:48 DC Clozapine (Clozaril) 25 mg HS PO 10/11/20 21:00 Ascorbic Acid (Vitamin C) 500 mg BID PO 10/11/20 21:00 Current Medications Medications (Trade) Dose Ordered Sig/Nancy Route PRN Reason Start Time Stop Time Status Last Admin Dose Admin Levothyroxine Sodium (Synthroid) 175 mcg DAILY06 PO 10/11/20 07:30 10/11/20 08:41 I have reviewed the current psychotropics carefully including drug interactions. Risk benefit ratio favors no change other than as noted in my dictated progress note. Diagnosis: Problems: (1) Schizoaffective disorder, bipolar type (2) Impulse control disorder, unspecified (3) Mild cognitive impairment (4) Anxiety disorder, unspecified (5) Bipolar disorder, current episode mixed, severe, with psychotic features KALEN REN MD Oct 11, 2020 21:04
[2020-10-11] MEDS: amLODIPine BESYLATE 10 MG TABLET PO SCH (21:44)
[2020-10-11] MEDS: DIVALPROEX 125 MG CAP.SPRINK PO SCH (21:45)
[2020-10-11] MEDS: DONEPEZIL HCL 10 MG TABLET PO SCH (21:45)
[2020-10-11] MEDS: cloZAPine 25 MG TABLET PO SCH (21:50)
[2020-10-11] MEDS: ASCORBIC ACID 500 MG TABLET PO SCH (21:50)
--- NOTE | 2020-10-12 00:40 | NUR ---
Nursing Note The patient was located in his room when approached for medication pass and assessment. The patient was resistive and argumentative. The patient bargained for several minutes and would only take his medication if given 2 desmond. The patient received two desmond and was compliant with his medication whole. The patient refused to answer assessment questions. The patient is currently asleep in his room.
[2020-10-12] MEDS: LEVOTHYROXINE 175 MCG TABLET PO SCH (05:52)
[2020-10-12 06:12] VITALS: BP 185/77
[2020-10-12] MEDS: INSULIN LISPRO 300 UNITS/3 ML VIAL. SQ SCH ×3 (07:42→17:00)
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
[2020-10-12] MEDS: CALCIUM CARB/VIT D3 500/200 TABLET PO SCH (08:50)
[2020-10-12] MEDS: metFORMIN 500 MG TABLET PO SCH ×2 (08:50→17:07)
[2020-10-12] MEDS: ZIPRASIDONE 20 MG CAPSULE. PO SCH ×2 (08:50→21:07)
[2020-10-12] MEDS: METOPROLOL SUCC 24HR ER 25 MG TAB.ER.24H. PO SCH (08:51)
[2020-10-12] MEDS: CALCIUM POLYCARBOPHIL 625 MG TABLET PO SCH ×2 (08:51→21:08)
[2020-10-12] MEDS: ASCORBIC ACID 500 MG TABLET PO SCH ×2 (08:51→21:10)
[2020-10-12] MEDS: BENZTROPINE MESYLATE 1 MG TABLET PO SCH (08:51)
[2020-10-12] MEDS: FERROUS SULFATE 325 MG TABLET. PO SCH ×2 (08:51→21:09)
[2020-10-12] MEDS: chlorproMAZINE HCL 25 MG TABLET PO SCH ×2 (08:51→21:13)
[2020-10-12] MEDS: LOSARTAN 50 MG TABLET. PO SCH ×2 (08:51→21:10)
[2020-10-12] MEDS: TAMSULOSIN 0.4 MG CAP.ER.24H. PO SCH (08:51)
[2020-10-12] MEDS: hydroCHLOROthiazide 25 MG TABLET PO SCH (08:52)
[2020-10-12] MEDS: KETOCONAZOLE 2% SHAMPOO 120ML BOTTLE. TP SCH (09:00)
[2020-10-12] MEDS: INSULIN GLARGINE SYRINGE. SQ SCH ×2 (09:00→21:15)
--- NOTE | 2020-10-12 09:23 | NUR ---
Pt has been resistant and argumentative with nursing staff regarding cares, in particular medication compliance. Morning medications given with pop by this nurse d/t pt's preference of the drink and apparent bargaining of medication compliance with style advisor nurse concerning the drink. Pt refused to take medications with pop, stating he wanted water instead. Pop switched with water, to which pt then refused to take medications with water and wanted pop instead. Pt has been displaying a frequent pattern of bargaining and playing a game with staff regarding medications. Medication compliance reinforced to pt and this nurse set clear boundaries of expectations of pt, including not playing games concerning treatment compliance. Pt began to yell in a threatening/intimidating manner to which this nurse stepped back and replied that I would not engage in a conversation that was hostile in nature. Pt began to engage in rambling self talk out loud about pop for approx 5 minutes until he complied and took medications. Pop was given to pt afterwords by this nurse. He would not answer assessment questions; but has been absent of overt SI/HI behaviors. He has displayed verbal aggression, but not physical so far. He ate 100% of his breakfast, appetite appears adequate. His morning dose of Insulin per sliding scale has been held d/t pt's CBG being below sliding scale range (145). Will pass on to next shift
--- NOTE | 2020-10-12 14:30 | NUR ---
PSYCHOSOCIAL ASSESSMENT ADMISSION DATE: 10/10/20 CONTACT INFORMATION: DPOA/Guardian Contact Name: Natalie Paredes Contact Address: [place], [place] Contact Phone #: ETHNIC ORIGIN: REASONS FOR ADMISSION: Aggressive Agitated Combative Delusions Hallucinations Suicidal ideation Other ADDITIONAL ADMISSION COMMENTS: According to the intake, pt was refusing meds at times, verbally aggressive, using foul language, suicidal, agitated, combative, physically aggressive, hallucinating and delusional REASON FOR ADMISSION IN PATIENT/FAMILY'S OWN WORDS: He had a change from an environment he got comfortable in. PATIENT/FAMILY EXPECTATIONS FOR ADMISSION: Medication and behavioral mgmt LIVING SITUATION: Patient lives with: Fdc Other living arrangements: Contact Name: [facility] Contact Address: [employer] [facility]; [place], [place] Contact Phone #: Contact Fax #: FAMILY RELATIONS: Marital Status: Single # of Marriages: 0 # of Children: 1 [facility] Family Support: Unavailable Additional Comments r/t Family: Pt has a court appointed guardian. Pt has a dtr who does not live in the area. SIGNIFICANT PSYCHIATRIC/MEDICAL HISTORY: Psychiatric/Treatment History: Pt lived in [facility] for over 2 years until they decided that he was ready to leave. Pertinent Family History: Unknown HISTORICAL DATA: Childhood Environment: Other-see below Childhood Environment Additional Comments: Unknown about pt environment. Pt has mentioned a brother but moved on to a different subject. Trauma History: None Is Trauma: Additional Comments: Unknown Drug Abuse History last 12 months: No Comment: PERSONAL HISTORY: Vocational history: Unknown service: Y unsure of branch and how long [employer]-Is[employer] background: Unknown Sexual orientation: Heterosexual Educational Level: Unknown Past/Present Interests/Hobbies: Unknown Financial support/resources: SS Disability VA Benefits Monthly income: Person handling finances: Pt has a court appointed conservator Do you have a history of legal problems: N Cultural considerations: None SOCIAL RELATIONSHIPS-CURRENT/PAST: Psychiatrist: None PCP: Lc Cao Counselor/Therapist: None [facility]: [facility] Support Group: None Customer Liaison/Retail Leader: GENESIS at [facility] and [facility] Other relationships: SW at [facility] STRENGTHS & WEAKNESSES: Patient's strengths: Other Ambulatory Other patient strengths: Patient's weaknesses: Poor family support Impulsive Health problems Physically Aggressive Verbally Aggressive Other patient weaknesses: PRELIMINARY PLAN OF TREATMENT: Preliminary plan: Dec. Hallucination/Delus Promote Coping Skill Medication Stabilization Monitor Med Effects Dec. Outbursts Dec. Aggression Other preliminary treatment comments: DISCHARGE PLANNING: Discharge planning/disposition: Current Living Arrange. Additional discharge needs identified: ADDITIONAL INFORMATION: Other Pertinent Data: SW contacted pt guardian to get further information on pt. Pt guardian was appointed to pt case almost 11 years ago. Pt was at a different place at the time he came into care in [facility]. Once pt was placed in [facility], pt guardian felt it was the best place for him. But because he was doing so well; the team there thought that he needed to try in a "less restrictive environment". Natalie felt that was a bad idea and believes this is exactly what is happening. She reports that often times, he wants to return to [facility] and get his own apartment; however, he does not thrive in that environment and needs the structure. Natalie is concerned that the facility is not going to take him back; however, it was noted on the intake, pt facility is quoted that they are taking pt back once stabilized. GENESIS will continue to update Natalie on pt progression.
[2020-10-12 15:34] VITALS: BP 137/79
[2020-10-12] MEDS: cloZAPine 25 MG TABLET PO SCH (21:08)
[2020-10-12] MEDS: DONEPEZIL HCL 10 MG TABLET PO SCH (21:08)
--- NOTE | 2020-10-12 21:08 | PDOC ---
Exam Note: Devin Note: Please also refer to the separate dictated note~for this date of service dictated separately.~Patient seen individually. Discussed the patient with Nursing staff reviewed the chart.~Reviewed interim history and current functioning. Reviewed vital signs,~Labs/ Radiology~and current medications noted below. Continue current treatment with the changes noted in the dictated addendum note Assessment: Vital Signs/I&O: Vital Signs Date Time Temp Pulse Resp B/P (MAP) Pulse Ox O2 Delivery O2 Flow Rate FiO2 10/12/20 15:34 97.8 79 20 137/79 (98) 98 Room Air I & O 10/11/20 10/11/20 10/12/20 15:00 23:00 07:00 Intake Total 840 ml 480 ml Balance 840 ml 480 ml Labs: Laboratory Tests Test 10/12/20 07:29 10/12/20 12:03 10/12/20 17:06 10/12/20 19:21 Glucose (Fingerstick) 145 mg/dL (70-99) H 182 mg/dL (70-99) H 164 mg/dL (70-99) H 198 mg/dL (70-99) H Current Medications: Meds: Laboratory Tests Test 10/12/20 07:29 10/12/20 12:03 10/12/20 17:06 10/12/20 19:21 Glucose (Fingerstick) 145 mg/dL 182 mg/dL 164 mg/dL 198 mg/dL Current Medications Medications (Trade) Dose Ordered Sig/Nancy Route PRN Reason Start Time Stop Time Status Last Admin Dose Admin Acetaminophen (Tylenol) 650 mg PRN Q6HRS PRN PO MILD PAIN / TEMP > 100.3'F 10/10/20 06:30 10/10/20 17:40 DC Multi-Ingredient Ointment (Analgesic [place]) 1 nayla PRN QID PRN TP MUSCLE PAIN 10/10/20 06:30 Al Hydroxide/Mg Hydroxide (Mylanta Plus Xs) 15 ml PRN AFTMEALHC PRN PO DYSPEPSIA 10/10/20 06:30 Magnesium Hydroxide (Milk Of Magnesia) 2,400 mg PRN QHS PRN PO CONSTIPATION 10/10/20 06:30 Nicotine (Nicoderm Cq 21mg Patch) 1 patch DAILY TD 10/10/20 09:00 Influenza Virus Vaccine Quadrival (Fluzone Quad Syringe) 0.5 ml ONCE ONCE VAX IM 10/10/20 09:00 10/10/20 09:01 DC 10/10/20 14:04 Acetaminophen (Tylenol) 650 mg PRN DAILY PRN PO PAIN OR FEVER 10/10/20 07:45 10/10/20 17:40 DC Acetaminophen (Tylenol) 500 mg PRN Q6HRS PRN PO MILD PAIN / TEMP > 100.3'F 10/10/20 07:45 Amlodipine Besylate (Norvasc) 10 mg HS PO 10/10/20 21:00 10/11/20 21:44 Benztropine Mesylate (Cogentin) 1 mg DAILY PO 10/10/20 09:00 10/12/20 08:51 Calcium/Vitamin D (Oscal D 500mg/ 200uts) 1 tab DAILY PO 10/10/20 09:00 10/12/20 08:50 Calcium Polycarbophil (Fibercon) 625 mg BID PO 10/10/20 09:00 10/12/20 08:51 Clonidine HCl (Catapres) 0.1 mg PRN Q1HR PRN PO AGITATION 10/10/20 07:45 Donepezil HCl (Aricept) 10 mg HS PO 10/10/20 21:00 10/11/20 21:45 Ferrous Sulfate (Feosol) 325 mg BID PO 10/10/20 09:00 10/12/20 08:51 Hydrochlorothiazide (Hydrodiuril) 25 mg DAILY PO 10/10/20 09:00 10/12/20 08:52 Insulin Glargine (Lantus Syringe) 5 unit HS SQ 10/10/20 21:00 10/11/20 21:51 Ketoconazole (Nizoral 2% Shampoo) 1 nayla QODAY TP 10/10/20 09:00 Levothyroxine Sodium (Synthroid) 75 mcg DAILY06 PO 10/11/20 06:00 UNV Levothyroxine Sodium (Synthroid) 100 mcg DAILY PO 10/10/20 09:00 10/11/20 05:50 DC Losartan Potassium (Cozaar) 50 mg BID PO 10/10/20 09:00 10/12/20 08:51 Metformin HCl (Glucophage) 500 mg DAILYBFRSUP PO 10/10/20 17:00 10/12/20 17:07 Metformin HCl (Glucophage) 1,500 mg DAILY PO 10/10/20 09:00 10/12/20 08:50 Metoprolol Succinate (Toprol Xl) 25 mg DAILY PO 10/10/20 09:00 10/12/20 08:51 Tamsulosin HCl (Flomax) 0.4 mg DAILY PO 10/10/20 09:30 10/12/20 08:51 Trazodone HCl (Desyrel) 50 mg PRN QHS PRN PO SLEEP AID 10/10/20 07:45 10/11/20 01:37 Ziprasidone (Geodon) 60 mg BID PO 10/10/20 09:30 10/12/20 08:50 Chlorpromazine HCl (Thorazine) 50 mg DAILY PO 10/10/20 09:00 10/12/20 08:51 Chlorpromazine HCl (Thorazine) 50 mg PRN Q6HRS PRN PO AGITATION 10/10/20 09:00 10/11/20 10:04 DC 10/11/20 01:38 Chlorpromazine HCl (Thorazine) 300 mg HS PO 10/10/20 21:00 10/11/20 21:50 Non-Formulary Medication (Diphenhydramine Hcl ) 1 cap Q6HRS PRN PO AGITATION 10/10/20 07:45 UNV Haloperidol Decanoate (Haldol Decanoate Im Extended Release) 100 mg QMONTH IM 10/26/20 09:00 Insulin Glargine (Lantus Syringe) 8 unit DAILY SQ 10/10/20 10:00 10/12/20 09:00 Non-Formulary Medication (Liothyronine Sodium (Cytomel)) 1 tab DAILY PO 10/10/20 09:00 10/11/20 07:29 DC Oxcarbazepine (Trileptal) 600 mg BID PO 10/10/20 09:30 10/12/20 08:51 Valproic Acid (Depakene) 1,000 mg BID PO 10/10/20 09:30 10/10/20 20:12 DC 10/10/20 11:15 Non-Formulary Medication ([[id number]/ 2ML] ) 50 mg Q6HRS PRN IM AGITATION 10/10/20 07:45 UNV Non-Formulary Medication ([Awquxlnucfkv39lt/ Ml] ) 50 mg Q6HRS PRN IM AGITATION 10/10/20 07:45 UNV Non-Formulary Medication (Semaglutide (Ozempic)) 1 mg WEEKLY SQ 10/10/20 09:00 UNV Non-Formulary Medication (Vitamin D3/ Vitamin K2 (D3 + K2 Dots 1,000 Units Tab)) 1 tab DAILY PO 10/10/20 09:00 10/10/20 17:36 DC Insulin Human Lispro (HumaLOG) 0-4 UNITS TIDWMEALS SQ 10/10/20 17:00 Dextrose (Dextrose 50%-Water Syringe) 12.5 gm PRN Q15MIN PRN IV SEE COMMENTS 10/10/20 16:00 Vitamin D (Vitamin D3) 50,000 unit WEEKLY PO 10/10/20 17:30 10/10/20 18:11 Olanzapine (ZyPREXA ZYDIS) 5 mg PRN Q2HRS PRN PO PSYCHOSIS 10/10/20 18:00 10/11/20 01:38 Divalproex Sodium (Depakote Sprinkles) 1,000 mg HS PO 10/10/20 21:00 10/11/20 21:45 Levothyroxine Sodium (Synthroid) 175 mcg DAILY06 PO 10/11/20 07:30 10/12/20 05:52 Liothyronine Sodium (Cytomel) 50 mcg DAILY PO 10/11/20 09:00 10/11/20 10:48 DC Clozapine (Clozaril) 25 mg HS PO 10/11/20 21:00 10/11/20 21:50 Ascorbic Acid (Vitamin C) 500 mg BID PO 10/11/20 21:00 10/12/20 08:51 I have reviewed the current psychotropics carefully including drug interactions. Risk benefit ratio favors no change other than as noted in my dictated progress note. Diagnosis: Problems: (1) Schizoaffective disorder, bipolar type (2) Impulse control disorder, unspecified (3) Mild cognitive impairment (4) Anxiety disorder, unspecified (5) Bipolar disorder, current episode mixed, severe, with psychotic features KALEN REN MD Oct 12, 2020 21:08
[2020-10-12] MEDS: DIVALPROEX 125 MG CAP.SPRINK PO SCH (21:11)
[2020-10-12] MEDS: amLODIPine BESYLATE 10 MG TABLET PO SCH (21:11)
--- NOTE | 2020-10-12 23:09 | NUR ---
The patient was located in the day room on assumption of care, watching TV with his peers. Took his medications whole after rambling on for a bit. Very difficult to understand patients speech. The patient refused to answer assessment questions. Refused to take a shower, becoming very agitated and yelling loudly. Does not appear to be experiencing any pain or discomfort. He is currently sitting quietly in his room. Will continue to monitor.
[2020-10-13] MEDS: LEVOTHYROXINE 175 MCG TABLET PO SCH (04:45)
--- NOTE | 2020-10-13 06:40 | NUR ---
Patient woke up at 0300, walked to the [facility] nurses station, and yelled loudly at the CN, unintelligible. This nurse walked down and asked the patient to return to his room. He responded "I am always up at this time, every day!" He then closed his eyes and continued to sit on the chair. He got up several minutes later, yelled unintelligibly to the CNAs again, and walked back to his room. During morning get-ups, CNAs noted patient to be awake in his chair. He had been incontinent of a very large amount of urine, and his pants were soaked. When asked to change, patient became very angry, gesturing and yelling and attempting to intimidate staff. He stated "I ain't putting no fucking diaper on, there's rods in it. Who are you anyway, the FBI coming to kill me? Room 07, [facility]!" Patient was given sprite with Zydis in it at that time. (0445) Decision to allow PRN to take effect and for patient to deescalate before attempting again to get him to change into clean clothing. This nurse approached him approximately 45 minutes later, and asked him if he would please change into clean clothing. He insisted he was unable to do so and demanded that this nurse do it for him. Nurse responded that she would need more staff to assist, and patient yelled loudly "Not that fucking white pau, I don't want him touching me." Male RN and this nurse continued to try to convince the patient to change independently, and he just continued to ramble nonsensically. Intermittently yelling loudly and making threatening gestures. Staff assist of 5 required to change patient into clean clothing. He was able to wrench his left hand free briefly and ripped off staff members glasses. Once patient changed, this nurse and male RN escorted patient to the [facility]. He -weighted chcf down the hallway, and staff carried him the remainder of the way. He is presently in the [facility], pacing, yelling, swearing, insulting staff. Will continue to monitor and report to oncoming staff.
[2020-10-13] MEDS: INSULIN LISPRO 300 UNITS/3 ML VIAL. SQ SCH ×3 (08:00→16:55)
[2020-10-13] MEDS: CALCIUM POLYCARBOPHIL 625 MG TABLET PO SCH ×2 (08:17→19:55)
[2020-10-13] MEDS: ZIPRASIDONE 20 MG CAPSULE. PO SCH (08:17)
[2020-10-13] MEDS: CALCIUM CARB/VIT D3 500/200 TABLET PO SCH (08:17)
[2020-10-13] MEDS: metFORMIN 500 MG TABLET PO SCH ×2 (08:17→17:00)
[2020-10-13] MEDS: METOPROLOL SUCC 24HR ER 25 MG TAB.ER.24H. PO SCH (08:18)
[2020-10-13] MEDS: ASCORBIC ACID 500 MG TABLET PO SCH ×2 (08:18→19:55)
[2020-10-13] MEDS: hydroCHLOROthiazide 25 MG TABLET PO SCH (08:18)
[2020-10-13] MEDS: LOSARTAN 50 MG TABLET. PO SCH ×2 (08:19→19:56)
[2020-10-13] MEDS: NICOTINE 21MG PATCH. TD SCH (08:19)
[2020-10-13] MEDS: FERROUS SULFATE 325 MG TABLET. PO SCH ×2 (08:19→19:55)
[2020-10-13] MEDS: BENZTROPINE MESYLATE 1 MG TABLET PO SCH (08:19)
[2020-10-13] MEDS: TAMSULOSIN 0.4 MG CAP.ER.24H. PO SCH (08:19)
[2020-10-13] MEDS: chlorproMAZINE HCL 25 MG TABLET PO SCH ×2 (08:22→19:53)
[2020-10-13] MEDS: INSULIN GLARGINE SYRINGE. SQ SCH ×2 (09:00→19:58)
[2020-10-13 10:13] LABS: VAL ACID 61 mcg/mL (50-100)
[2020-10-13 16:05] VITALS: BP 161/74
--- NOTE | 2020-10-13 16:55 | NUR ---
Pt drowsy on and off today. Has been compliant with meds and cares. Compliant with shower. Pt more awake this marc and is more verbal. Will continue to monitor.
[2020-10-13] MEDS: DIVALPROEX 125 MG CAP.SPRINK PO SCH (19:51)
[2020-10-13] MEDS: ZIPRASIDONE 60 MG CAPSULE. PO SCH (19:54)
[2020-10-13] MEDS: amLODIPine BESYLATE 10 MG TABLET PO SCH (19:55)
[2020-10-13] MEDS: DONEPEZIL HCL 10 MG TABLET PO SCH (19:57)
[2020-10-13] MEDS: cloZAPine 25 MG TABLET PO SCH (19:57)
[2020-10-13] MEDS: traZODone 50 MG TABLET. PO PRN (19:57)
--- NOTE | 2020-10-13 20:56 | PDOC ---
Exam Note: Devin Note: Please also refer to the separate dictated note~for this date of service dictated separately.~Patient seen individually. Discussed the patient with Nursing staff reviewed the chart.~Reviewed interim history and current functioning. Reviewed vital signs,~Labs/ Radiology~and current medications noted below. Continue current treatment with the changes noted in the dictated addendum note Assessment: Vital Signs/I&O: Vital Signs Date Time Temp Pulse Resp B/P (MAP) Pulse Ox O2 Delivery O2 Flow Rate FiO2 10/13/20 19:56 89 161/74 10/13/20 16:05 97.4 17 97 Room Air I & O 10/12/20 10/12/20 10/13/20 15:00 23:00 07:00 Intake Total 925 ml 720 ml Balance 925 ml 720 ml Labs: Laboratory Tests Test 10/13/20 07:30 10/13/20 09:50 10/13/20 11:38 10/13/20 16:41 Glucose (Fingerstick) 158 mg/dL (70-99) H 211 mg/dL (70-99) H 116 mg/dL (70-99) H Valproic Acid Level 61 mcg/mL (50-100) Valproic Acid Last Dose Date 10/12/2020 Valproic Acid Last Dose Time 2100 Test 10/13/20 19:17 Glucose (Fingerstick) 228 mg/dL (70-99) H Current Medications: Meds: Current Medications Medications (Trade) Dose Ordered Sig/Nancy Route PRN Reason Start Time Stop Time Status Last Admin Dose Admin Ziprasidone (Geodon) 60 mg BID PO 10/13/20 21:00 10/13/20 19:54 I have reviewed the current psychotropics carefully including drug interactions. Risk benefit ratio favors no change other than as noted in my dictated progress note. Diagnosis: Problems: (1) Schizoaffective disorder, bipolar type (2) Impulse control disorder, unspecified (3) Mild cognitive impairment (4) Anxiety disorder, unspecified (5) Bipolar disorder, current episode mixed, severe, with psychotic features KALEN REN MD Oct 13, 2020 20:56
--- NOTE | 2020-10-13 22:40 | NUR ---
The patient was located outside the [facility] on assumption of care, sitting and eating a snack. Took his medications whole after rambling on for a bit. Very difficult to understand patients speech. He continues to be very demanding and continues to attempt to intimidate staff into doing what he wants. The patient refused to answer assessment questions. Patient incontinent of urine and very resistive to being changed, but was less combative and agitated than previous attempts. He overflowed his toilet, having flushed paper towels down it. Very large puddle of water on the floor, coming out from under the door. He was angry at staff who responded to clean up the mess. Does not appear to be experiencing any pain or discomfort. He is currently sitting quietly in his room. Will continue to monitor.
[2020-10-14] MEDS: LEVOTHYROXINE 175 MCG TABLET PO SCH (04:58)
[2020-10-14 06:23] VITALS: BP 177/75
[2020-10-14] MEDS: TAMSULOSIN 0.4 MG CAP.ER.24H. PO SCH (07:56)
[2020-10-14] MEDS: CALCIUM CARB/VIT D3 500/200 TABLET PO SCH (07:56)
[2020-10-14] MEDS: METOPROLOL SUCC 24HR ER 25 MG TAB.ER.24H. PO SCH (07:56)
[2020-10-14] MEDS: metFORMIN 500 MG TABLET PO SCH ×2 (07:56→17:00)
[2020-10-14] MEDS: CALCIUM POLYCARBOPHIL 625 MG TABLET PO SCH ×2 (07:56→20:19)
[2020-10-14] MEDS: hydroCHLOROthiazide 25 MG TABLET PO SCH (07:57)
[2020-10-14] MEDS: ZIPRASIDONE 60 MG CAPSULE. PO SCH ×2 (07:57→20:19)
[2020-10-14] MEDS: FERROUS SULFATE 325 MG TABLET. PO SCH ×2 (07:57→20:20)
[2020-10-14] MEDS: LOSARTAN 50 MG TABLET. PO SCH ×2 (07:57→20:23)
[2020-10-14] MEDS: NICOTINE 21MG PATCH. TD SCH (07:58)
[2020-10-14] MEDS: ASCORBIC ACID 500 MG TABLET PO SCH ×2 (07:58→20:21)
[2020-10-14] MEDS: BENZTROPINE MESYLATE 1 MG TABLET PO SCH (07:58)
[2020-10-14] MEDS: chlorproMAZINE HCL 25 MG TABLET PO SCH ×2 (07:58→20:25)
[2020-10-14] MEDS: INSULIN LISPRO 300 UNITS/3 ML VIAL. SQ SCH ×3 (08:00→17:00)
[2020-10-14] MEDS: KETOCONAZOLE 2% SHAMPOO 120ML BOTTLE. TP SCH (08:01)
--- NOTE | 2020-10-14 08:30 | PDOC ---
Exam Note: Devin Note: This note is a late entry for 10/12/2020 covers elements not covered in my initial note. Subjective: The patient was seen individually in the evening of 10/12/2020 with Carlene MOON, discussed and reviewed the chart. He slept 4-1/2 hours previous night. Previous night he was arguing loudly with the nursing staff, abrasive. He was constantly obsessed about wanting pop and food. He is tolerating Clozaril. Valproic acid level is 13 subtherapeutic and Depakote is being adjusted. Review of Systems: No CV, , pulmonary, eye system symptoms on review. Reliability poor. Mental Status Exam: The patient is oriented to himself and situation. Speech rapid, low in volume, difficult to understand at times. Attention span is short. Mood and affect remains labile. No suicidal or homicidal ideation. He is very paranoid, suspicious. Laboratory Data: Reviewed. Impression: Schizoaffective disorder bipolar type mixed with psychotic features. Anxiety disorder unspecified. Impulse control disorder unspecified. Plan: Continue current psychotropics. We are gradually adjusting the Clozaril and Depakote is being adjusted post labs level. Assessment: Vital Signs/I&O: Vital Signs Date Time Temp Pulse Resp B/P (MAP) Pulse Ox O2 Delivery O2 Flow Rate FiO2 10/14/20 07:57 95 177/75 10/14/20 06:23 97.5 20 97 10/13/20 16:05 Room Air I & O 10/13/20 10/13/20 10/14/20 15:00 23:00 07:00 Intake Total 600 ml 840 ml Balance 600 ml 840 ml Labs: Laboratory Tests Test 10/13/20 09:50 10/13/20 11:38 10/13/20 16:41 10/13/20 19:17 Valproic Acid Level 61 mcg/mL (50-100) Valproic Acid Last Dose Date 10/12/2020 Valproic Acid Last Dose Time 2100 Glucose (Fingerstick) 211 mg/dL (70-99) H 116 mg/dL (70-99) H 228 mg/dL (70-99) H Test 10/14/20 08:13 Glucose (Fingerstick) 101 mg/dL (70-99) H Current Medications: Meds: Laboratory Tests Test 10/13/20 09:50 10/13/20 11:38 10/13/20 16:41 10/13/20 19:17 Valproic Acid (Depakene) Level 61 mcg/mL Valproic Acid Last Dose Date 10/12/2020 Valproic Acid Last Dose Time 2100 Glucose (Fingerstick) 211 mg/dL 116 mg/dL 228 mg/dL Test 10/14/20 08:13 Glucose (Fingerstick) 101 mg/dL Current Medications Medications (Trade) Dose Ordered Sig/Nancy Route PRN Reason Start Time Stop Time Status Last Admin Dose Admin Acetaminophen (Tylenol) 650 mg PRN Q6HRS PRN PO MILD PAIN / TEMP > 100.3'F 10/10/20 06:30 10/10/20 17:40 DC Multi-Ingredient Ointment (Analgesic [place]) 1 nayla PRN QID PRN TP MUSCLE PAIN 10/10/20 06:30 Al Hydroxide/Mg Hydroxide (Mylanta Plus Xs) 15 ml PRN AFTMEALHC PRN PO DYSPEPSIA 10/10/20 06:30 Magnesium Hydroxide (Milk Of Magnesia) 2,400 mg PRN QHS PRN PO CONSTIPATION 10/10/20 06:30 Nicotine (Nicoderm Cq 21mg Patch) 1 patch DAILY TD 10/10/20 09:00 10/14/20 07:58 Influenza Virus Vaccine Quadrival (Fluzone Quad Syringe) 0.5 ml ONCE ONCE VAX IM 10/10/20 09:00 10/10/20 09:01 DC 10/10/20 14:04 Acetaminophen (Tylenol) 650 mg PRN DAILY PRN PO PAIN OR FEVER 10/10/20 07:45 10/10/20 17:40 DC Acetaminophen (Tylenol) 500 mg PRN Q6HRS PRN PO MILD PAIN / TEMP > 100.3'F 10/10/20 07:45 Amlodipine Besylate (Norvasc) 10 mg HS PO 10/10/20 21:00 10/13/20 19:55 Benztropine Mesylate (Cogentin) 1 mg DAILY PO 10/10/20 09:00 10/14/20 07:58 Calcium/Vitamin D (Oscal D 500mg/ 200uts) 1 tab DAILY PO 10/10/20 09:00 10/14/20 07:56 Calcium Polycarbophil (Fibercon) 625 mg BID PO 10/10/20 09:00 10/14/20 07:56 Clonidine HCl (Catapres) 0.1 mg PRN Q1HR PRN PO AGITATION 10/10/20 07:45 Donepezil HCl (Aricept) 10 mg HS PO 10/10/20 21:00 10/13/20 19:57 Ferrous Sulfate (Feosol) 325 mg BID PO 10/10/20 09:00 10/14/20 07:57 Hydrochlorothiazide (Hydrodiuril) 25 mg DAILY PO 10/10/20 09:00 10/14/20 07:57 Insulin Glargine (Lantus Syringe) 5 unit HS SQ 10/10/20 21:00 10/13/20 19:58 Ketoconazole (Nizoral 2% Shampoo) 1 nayla QODAY TP 10/10/20 09:00 10/14/20 08:01 Levothyroxine Sodium (Synthroid) 75 mcg DAILY06 PO 10/11/20 06:00 UNV Levothyroxine Sodium (Synthroid) 100 mcg DAILY PO 10/10/20 09:00 10/11/20 05:50 DC Losartan Potassium (Cozaar) 50 mg BID PO 10/10/20 09:00 10/14/20 07:57 Metformin HCl (Glucophage) 500 mg DAILYBFRSUP PO 10/10/20 17:00 10/13/20 17:00 Metformin HCl (Glucophage) 1,500 mg DAILY PO 10/10/20 09:00 10/14/20 07:56 Metoprolol Succinate (Toprol Xl) 25 mg DAILY PO 10/10/20 09:00 10/14/20 07:56 Tamsulosin HCl (Flomax) 0.4 mg DAILY PO 10/10/20 09:30 10/14/20 07:56 Trazodone HCl (Desyrel) 50 mg PRN QHS PRN PO SLEEP AID 10/10/20 07:45 10/13/20 19:57 Ziprasidone (Geodon) 60 mg BID PO 10/10/20 09:30 10/13/20 14:38 DC 10/13/20 08:17 Chlorpromazine HCl (Thorazine) 50 mg DAILY PO 10/10/20 09:00 10/14/20 07:58 Chlorpromazine HCl (Thorazine) 50 mg PRN Q6HRS PRN PO AGITATION 10/10/20 09:00 10/11/20 10:04 DC 10/11/20 01:38 Chlorpromazine HCl (Thorazine) 300 mg HS PO 10/10/20 21:00 10/13/20 19:53 Non-Formulary Medication (Diphenhydramine Hcl ) 1 cap Q6HRS PRN PO AGITATION 10/10/20 07:45 UNV Haloperidol Decanoate (Haldol Decanoate Im Extended Release) 100 mg QMONTH IM 10/26/20 09:00 Insulin Glargine (Lantus Syringe) 8 unit DAILY SQ 10/10/20 10:00 10/13/20 09:00 Non-Formulary Medication (Liothyronine Sodium (Cytomel)) 1 tab DAILY PO 10/10/20 09:00 10/11/20 07:29 DC Oxcarbazepine (Trileptal) 600 mg BID PO 10/10/20 09:30 10/14/20 07:57 Valproic Acid (Depakene) 1,000 mg BID PO 10/10/20 09:30 10/10/20 20:12 DC 10/10/20 11:15 Non-Formulary Medication ([[id number]/ 2ML] ) 50 mg Q6HRS PRN IM AGITATION 10/10/20 07:45 UNV Non-Formulary Medication ([[id number]/ Ml] ) 50 mg Q6HRS PRN IM AGITATION 10/10/20 07:45 UNV Non-Formulary Medication (Semaglutide (Ozempic)) 1 mg WEEKLY SQ 10/10/20 09:00 UNV Non-Formulary Medication (Vitamin D3/ Vitamin K2 (D3 + K2 Dots 1,000 Units Tab)) 1 tab DAILY PO 10/10/20 09:00 10/10/20 17:36 DC Insulin Human Lispro (HumaLOG) 0-4 UNITS TIDWMEALS SQ 10/10/20 17:00 Dextrose (Dextrose 50%-Water Syringe) 12.5 gm PRN Q15MIN PRN IV SEE COMMENTS 10/10/20 16:00 Vitamin D (Vitamin D3) 50,000 unit WEEKLY PO 10/10/20 17:30 10/10/20 18:11 Olanzapine (ZyPREXA ZYDIS) 5 mg PRN Q2HRS PRN PO PSYCHOSIS 10/10/20 18:00 10/13/20 19:57 Divalproex Sodium (Depakote Sprinkles) 1,000 mg HS PO 10/10/20 21:00 10/13/20 19:51 Levothyroxine Sodium (Synthroid) 175 mcg DAILY06 PO 10/11/20 07:30 10/14/20 04:58 Liothyronine Sodium (Cytomel) 50 mcg DAILY PO 10/11/20 09:00 10/11/20 10:48 DC Clozapine (Clozaril) 25 mg HS PO 10/11/20 21:00 10/13/20 19:57 Ascorbic Acid (Vitamin C) 500 mg BID PO 10/11/20 21:00 10/14/20 07:58 Ziprasidone (Geodon) 60 mg BID PO 10/13/20 21:00 10/14/20 07:57 Current Medications Medications (Trade) Dose Ordered Sig/Nancy Route PRN Reason Start Time Stop Time Status Last Admin Dose Admin Ziprasidone (Geodon) 60 mg BID PO 10/13/20 21:00 10/14/20 07:57 I have reviewed the current psychotropics carefully including drug interactions. Risk benefit ratio favors no change other than as noted in my dictated progress note. Diagnosis: Problems: (1) Schizoaffective disorder, bipolar type (2) Impulse control disorder, unspecified (3) Mild cognitive impairment (4) Anxiety disorder, unspecified (5) Bipolar disorder, current episode mixed, severe, with psychotic features KALEN REN MD Oct 14, 2020 08:30
--- NOTE | 2020-10-14 08:45 | PDOC ---
Exam Note: Devin Note: This note is a late entry for 10/13/2020 covers elements not covered in my initial note. Subjective: The patient was seen individually in the evening of 10/13/2020 with Carlene MOON, discussed and reviewed the chart. He slept 4-1/4 hours previous night. He is somewhat sedated today. Previous night he had to be [address] hallway to reduce stimuli and he was yelling since 3 a.m. this morning. He did eat breakfast, took a shower and compliant with his medications. Review of Systems: No CV, , pulmonary, eye system symptoms on review. Mental Status Exam: The patient is oriented to himself and situation. I met with him at length. He remains extremely paranoid and this was evident as I met with him. Abstraction is fair. Computation is impaired. Attention span is short. Mood and affect remains somewhat labile. Laboratory Data: Reviewed. Impression: Schizoaffective disorder bipolar type mixed with psychotic features. Anxiety disorder unspecified. Impulse control disorder unspecified. Plan: No change from initial note. Assessment: Vital Signs/I&O: Vital Signs Date Time Temp Pulse Resp B/P (MAP) Pulse Ox O2 Delivery O2 Flow Rate FiO2 10/14/20 07:57 95 177/75 10/14/20 06:23 97.5 20 97 10/13/20 16:05 Room Air I & O 10/13/20 10/13/20 10/14/20 14:59 22:59 06:59 Intake Total 600 ml 840 ml Balance 600 ml 840 ml Labs: Laboratory Tests Test 10/13/20 09:50 10/13/20 11:38 10/13/20 16:41 10/13/20 19:17 Valproic Acid Level 61 mcg/mL (50-100) Valproic Acid Last Dose Date 10/12/2020 Valproic Acid Last Dose Time 2100 Glucose (Fingerstick) 211 mg/dL (70-99) H 116 mg/dL (70-99) H 228 mg/dL (70-99) H Test 10/14/20 08:13 Glucose (Fingerstick) 101 mg/dL (70-99) H Current Medications: Meds: Laboratory Tests Test 10/13/20 09:50 10/13/20 11:38 10/13/20 16:41 10/13/20 19:17 Valproic Acid (Depakene) Level 61 mcg/mL Valproic Acid Last Dose Date 10/12/2020 Valproic Acid Last Dose Time 2100 Glucose (Fingerstick) 211 mg/dL 116 mg/dL 228 mg/dL Test 10/14/20 08:13 Glucose (Fingerstick) 101 mg/dL Current Medications Medications (Trade) Dose Ordered Sig/Nancy Route PRN Reason Start Time Stop Time Status Last Admin Dose Admin Acetaminophen (Tylenol) 650 mg PRN Q6HRS PRN PO MILD PAIN / TEMP > 100.3'F 10/10/20 06:30 10/10/20 17:40 DC Multi-Ingredient Ointment (Analgesic [place]) 1 nayla PRN QID PRN TP MUSCLE PAIN 10/10/20 06:30 Al Hydroxide/Mg Hydroxide (Mylanta Plus Xs) 15 ml PRN AFTMEALHC PRN PO DYSPEPSIA 10/10/20 06:30 Magnesium Hydroxide (Milk Of Magnesia) 2,400 mg PRN QHS PRN PO CONSTIPATION 10/10/20 06:30 Nicotine (Nicoderm Cq 21mg Patch) 1 patch DAILY TD 10/10/20 09:00 10/14/20 07:58 Influenza Virus Vaccine Quadrival (Fluzone Quad Syringe) 0.5 ml ONCE ONCE VAX IM 10/10/20 09:00 10/10/20 09:01 DC 10/10/20 14:04 Acetaminophen (Tylenol) 650 mg PRN DAILY PRN PO PAIN OR FEVER 10/10/20 07:45 10/10/20 17:40 DC Acetaminophen (Tylenol) 500 mg PRN Q6HRS PRN PO MILD PAIN / TEMP > 100.3'F 10/10/20 07:45 Amlodipine Besylate (Norvasc) 10 mg HS PO 10/10/20 21:00 10/13/20 19:55 Benztropine Mesylate (Cogentin) 1 mg DAILY PO 10/10/20 09:00 10/14/20 07:58 Calcium/Vitamin D (Oscal D 500mg/ 200uts) 1 tab DAILY PO 10/10/20 09:00 10/14/20 07:56 Calcium Polycarbophil (Fibercon) 625 mg BID PO 10/10/20 09:00 10/14/20 07:56 Clonidine HCl (Catapres) 0.1 mg PRN Q1HR PRN PO AGITATION 10/10/20 07:45 Donepezil HCl (Aricept) 10 mg HS PO 10/10/20 21:00 10/13/20 19:57 Ferrous Sulfate (Feosol) 325 mg BID PO 10/10/20 09:00 10/14/20 07:57 Hydrochlorothiazide (Hydrodiuril) 25 mg DAILY PO 10/10/20 09:00 10/14/20 07:57 Insulin Glargine (Lantus Syringe) 5 unit HS SQ 10/10/20 21:00 10/13/20 19:58 Ketoconazole (Nizoral 2% Shampoo) 1 nayla QODAY TP 10/10/20 09:00 10/14/20 08:01 Levothyroxine Sodium (Synthroid) 75 mcg DAILY06 PO 10/11/20 06:00 UNV Levothyroxine Sodium (Synthroid) 100 mcg DAILY PO 10/10/20 09:00 10/11/20 05:50 DC Losartan Potassium (Cozaar) 50 mg BID PO 10/10/20 09:00 10/14/20 07:57 Metformin HCl (Glucophage) 500 mg DAILYBFRSUP PO 10/10/20 17:00 10/13/20 17:00 Metformin HCl (Glucophage) 1,500 mg DAILY PO 10/10/20 09:00 10/14/20 07:56 Metoprolol Succinate (Toprol Xl) 25 mg DAILY PO 10/10/20 09:00 10/14/20 07:56 Tamsulosin HCl (Flomax) 0.4 mg DAILY PO 10/10/20 09:30 10/14/20 07:56 Trazodone HCl (Desyrel) 50 mg PRN QHS PRN PO SLEEP AID 10/10/20 07:45 10/13/20 19:57 Ziprasidone (Geodon) 60 mg BID PO 10/10/20 09:30 10/13/20 14:38 DC 10/13/20 08:17 Chlorpromazine HCl (Thorazine) 50 mg DAILY PO 10/10/20 09:00 10/14/20 07:58 Chlorpromazine HCl (Thorazine) 50 mg PRN Q6HRS PRN PO AGITATION 10/10/20 09:00 10/11/20 10:04 DC 10/11/20 01:38 Chlorpromazine HCl (Thorazine) 300 mg HS PO 10/10/20 21:00 10/13/20 19:53 Non-Formulary Medication (Diphenhydramine Hcl ) 1 cap Q6HRS PRN PO AGITATION 10/10/20 07:45 UNV Haloperidol Decanoate (Haldol Decanoate Im Extended Release) 100 mg QMONTH IM 10/26/20 09:00 Insulin Glargine (Lantus Syringe) 8 unit DAILY SQ 10/10/20 10:00 10/13/20 09:00 Non-Formulary Medication (Liothyronine Sodium (Cytomel)) 1 tab DAILY PO 10/10/20 09:00 10/11/20 07:29 DC Oxcarbazepine (Trileptal) 600 mg BID PO 10/10/20 09:30 10/14/20 07:57 Valproic Acid (Depakene) 1,000 mg BID PO 10/10/20 09:30 10/10/20 20:12 DC 10/10/20 11:15 Non-Formulary Medication ([Orgsswlaottr51vy/ 2ML] ) 50 mg Q6HRS PRN IM AGITATION 10/10/20 07:45 UNV Non-Formulary Medication ([Expnmksjltjj84lg/ Ml] ) 50 mg Q6HRS PRN IM AGITATION 10/10/20 07:45 UNV Non-Formulary Medication (Semaglutide (Ozempic)) 1 mg WEEKLY SQ 10/10/20 09:00 UNV Non-Formulary Medication (Vitamin D3/ Vitamin K2 (D3 + K2 Dots 1,000 Units Tab)) 1 tab DAILY PO 10/10/20 09:00 10/10/20 17:36 DC Insulin Human Lispro (HumaLOG) 0-4 UNITS TIDWMEALS SQ 10/10/20 17:00 Dextrose (Dextrose 50%-Water Syringe) 12.5 gm PRN Q15MIN PRN IV SEE COMMENTS 10/10/20 16:00 Vitamin D (Vitamin D3) 50,000 unit WEEKLY PO 10/10/20 17:30 10/10/20 18:11 Olanzapine (ZyPREXA ZYDIS) 5 mg PRN Q2HRS PRN PO PSYCHOSIS 10/10/20 18:00 10/13/20 19:57 Divalproex Sodium (Depakote Sprinkles) 1,000 mg HS PO 10/10/20 21:00 10/13/20 19:51 Levothyroxine Sodium (Synthroid) 175 mcg DAILY06 PO 10/11/20 07:30 10/14/20 04:58 Liothyronine Sodium (Cytomel) 50 mcg DAILY PO 10/11/20 09:00 10/11/20 10:48 DC Clozapine (Clozaril) 25 mg HS PO 10/11/20 21:00 10/13/20 19:57 Ascorbic Acid (Vitamin C) 500 mg BID PO 10/11/20 21:00 10/14/20 07:58 Ziprasidone (Geodon) 60 mg BID PO 10/13/20 21:00 10/14/20 07:57 Current Medications Medications (Trade) Dose Ordered Sig/Nancy Route PRN Reason Start Time Stop Time Status Last Admin Dose Admin Ziprasidone (Geodon) 60 mg BID PO 10/13/20 21:00 10/14/20 07:57 I have reviewed the current psychotropics carefully including drug interactions. Risk benefit ratio favors no change other than as noted in my dictated progress note. Diagnosis: Problems: (1) Schizoaffective disorder, bipolar type (2) Impulse control disorder, unspecified (3) Mild cognitive impairment (4) Anxiety disorder, unspecified (5) Bipolar disorder, current episode mixed, severe, with psychotic features KALEN REN MD Oct 14, 2020 08:45
[2020-10-14] MEDS: INSULIN GLARGINE SYRINGE. SQ SCH ×2 (09:00→20:18)
[2020-10-14 09:11] LABS: THYROXINE 4.7 ug/dL (4.5-12.0)
[2020-10-14 15:52] VITALS: BP 186/78
--- NOTE | 2020-10-14 19:11 | NUR ---
Pt up adl to meals and groups. Has been compliant and very polite with staff. Has been extra drowsy intermittently. Was found asleep on toilet.
[2020-10-14] MEDS: traZODone 50 MG TABLET. PO PRN (20:20)
[2020-10-14] MEDS: amLODIPine BESYLATE 10 MG TABLET PO SCH (20:21)
[2020-10-14] MEDS: DONEPEZIL HCL 10 MG TABLET PO SCH (20:22)
[2020-10-14] MEDS: cloZAPine 25 MG TABLET PO SCH (20:22)
[2020-10-14] MEDS: DIVALPROEX 125 MG CAP.SPRINK PO SCH (20:27)
--- NOTE | 2020-10-14 22:00 | PDOC ---
Exam Note: Devin Note: Please also refer to the separate dictated note~for this date of service dictated separately.~Patient seen individually. Discussed the patient with Nursing staff reviewed the chart.~Reviewed interim history and current functioning. Reviewed vital signs,~Labs/ Radiology~and current medications noted below. Continue current treatment with the changes noted in the dictated addendum note Assessment: Vital Signs/I&O: Vital Signs Date Time Temp Pulse Resp B/P (MAP) Pulse Ox O2 Delivery O2 Flow Rate FiO2 10/14/20 20:23 74 186/78 10/14/20 15:52 97.6 19 100 10/13/20 16:05 Room Air I & O 10/13/20 10/13/20 10/14/20 15:00 23:00 07:00 Intake Total 600 ml 840 ml Balance 600 ml 840 ml Labs: Laboratory Tests Test 10/14/20 08:13 10/14/20 11:42 10/14/20 17:26 10/14/20 19:40 Glucose (Fingerstick) 101 mg/dL (70-99) H 148 mg/dL (70-99) H 156 mg/dL (70-99) H 199 mg/dL (70-99) H Current Medications: I have reviewed the current psychotropics carefully including drug interactions. Risk benefit ratio favors no change other than as noted in my dictated progress note. Diagnosis: Problems: (1) Schizoaffective disorder, bipolar type (2) Impulse control disorder, unspecified (3) Mild cognitive impairment (4) Anxiety disorder, unspecified (5) Bipolar disorder, current episode mixed, severe, with psychotic features KALEN REN MD Oct 14, 2020 22:00
--- NOTE | 2020-10-14 23:37 | NUR ---
Patient located outside the [facility] on assumption of care, sitting quietly. He was compliant with assessments and medications whole. Speech is more intelligible this evening. Patient very polite and cooperative, saying please and thank you. Patient continues to mess around with his toilet, though. Tried flushing a styrofoam cup down the toilet and clogged it up again. No agitation or outbursts so far this shift. Patient denies any pain or discomfort. He appears to be sleeping comfortably at present time. Will continue to monitor.
[2020-10-15] MEDS: LEVOTHYROXINE 175 MCG TABLET PO SCH (05:10)
[2020-10-15 06:43] VITALS: BP 160/81
[2020-10-15 07:11] LABS: BASO % 1 % (0-3); EOS # 0.2 x10^3/uL (0.0-0.7); EOS % 4 % (0-3); HEMATOCRIT 30.7 % (39.0-53.0); HEMOGLOBIN 10.1 g/dL (13.0-17.5); LYMPH # 2.5 x10^3/uL (1.0-4.8); LYMPH % 42 % (24-48); MEAN CORPUSCULAR HEMOGLOBIN 31 pg (25-35); MEAN CORPUSCULAR HGB CONC 33 g/dL (31-37); MEAN CORPUSCULAR VOLUME 95 fL (79-100); MONO # 0.6 x10^3/uL (0.0-1.1); MONO % 10 % (0-9); NEUT # 2.7 x10^3uL (1.8-7.7); NEUT % 44 % (31-73); PLATELET COUNT 332 x10^3/uL (140-400); RED BLOOD COUNT 3.25 x10^6/uL (4.30-5.70); RED CELL DISTRIBUTION WIDTH 14.2 % (11.5-14.5); WHITE BLOOD COUNT 6.1 x10^3/uL (4.0-11.0)
[2020-10-15] MEDS: INSULIN LISPRO 300 UNITS/3 ML VIAL. SQ SCH ×3 (08:00→17:00)
--- NOTE | 2020-10-15 08:00 | NUR ---
PT IS LOCATED IN DINING ROOM AT TIME OF ASSESSMENT AND MEDICATION ADMINISTRATION. PT IS PLEASANT AND COOPERATIVE WITH STAFF. PT IS COMPLIANT WITH MEDICATIONS WHOLE WITH WATER. PT IS RESTING IN DAY ROOM AT THIS TIME WILL CONTINUE TO MONITOR.
[2020-10-15] MEDS: hydroCHLOROthiazide 25 MG TABLET PO SCH (08:18)
[2020-10-15] MEDS: ZIPRASIDONE 60 MG CAPSULE. PO SCH ×2 (08:18→21:05)
[2020-10-15] MEDS: TAMSULOSIN 0.4 MG CAP.ER.24H. PO SCH (08:18)
[2020-10-15] MEDS: NICOTINE 21MG PATCH. TD SCH (08:18)
[2020-10-15] MEDS: LOSARTAN 50 MG TABLET. PO SCH ×2 (08:19→21:04)
[2020-10-15] MEDS: CALCIUM POLYCARBOPHIL 625 MG TABLET PO SCH ×2 (08:19→21:03)
[2020-10-15] MEDS: ASCORBIC ACID 500 MG TABLET PO SCH ×2 (08:20→21:04)
[2020-10-15] MEDS: CALCIUM CARB/VIT D3 500/200 TABLET PO SCH (08:20)
[2020-10-15] MEDS: METOPROLOL SUCC 24HR ER 25 MG TAB.ER.24H. PO SCH (08:21)
[2020-10-15] MEDS: FERROUS SULFATE 325 MG TABLET. PO SCH ×2 (08:21→21:03)
[2020-10-15] MEDS: BENZTROPINE MESYLATE 1 MG TABLET PO SCH (08:21)
[2020-10-15] MEDS: metFORMIN 500 MG TABLET PO SCH ×2 (08:22→17:00)
[2020-10-15] MEDS: chlorproMAZINE HCL 25 MG TABLET PO SCH ×2 (08:23→21:09)
[2020-10-15] MEDS: INSULIN GLARGINE SYRINGE. SQ SCH ×2 (08:39→21:18)
--- NOTE | 2020-10-15 08:52 | PDOC ---
Exam Note: Devin Note: This note is a late entry for 10/14/2020 covers elements not covered in my initial note. Subjective: The patient was seen individually in the evening of 10/14/2020 with Carlene MOON, discussed and reviewed the chart. He slept 4-1/4 hours previous night. The patients TSH was extremely low, somewhat hyperthyroid. Dr. Faria stopped the Cytomel, reduced the Synthroid. We will repeat the TSH and follow. He has been somewhat drowsy at times, slept off in the toilet. Review of Systems: No CV, , pulmonary, eye system symptoms on review. Mental Status Exam: The patient is oriented to himself and situation. He is able to recognize as doctor. Abstraction is fair. Computation is impaired. Attention span is short. Mood and affect remains withdrawn. He remains paranoid, rambling in his speech. Laboratory Data: Reviewed. Impression: Schizoaffective disorder bipolar type mixed with psychotic features. Anxiety disorder unspecified. Impulse control disorder unspecified. Plan: Continue to adjust his Clozaril. We will check CBC, absolute neutrophil counts on 10/15/20. Increase Clozaril further, then reduce some of his other antipsychotics. Rest unchanged. Assessment: Vital Signs/I&O: Vital Signs Date Time Temp Pulse Resp B/P (MAP) Pulse Ox O2 Delivery O2 Flow Rate FiO2 10/15/20 08:21 76 160/81 10/15/20 06:43 97.9 18 99 Room Air I & O 10/14/20 10/14/20 10/15/20 15:00 23:00 07:00 Intake Total 600 ml 480 ml Balance 600 ml 480 ml Labs: Laboratory Tests Test 10/14/20 11:42 10/14/20 17:26 10/14/20 19:40 10/15/20 06:59 Glucose (Fingerstick) 148 mg/dL (70-99) H 156 mg/dL (70-99) H 199 mg/dL (70-99) H White Blood Count 6.1 x10^3/uL (4.0-11.0) Red Blood Count 3.25 x10^6/uL (4.30-5.70) L Hemoglobin 10.1 g/dL (13.0-17.5) L Hematocrit 30.7 % (39.0-53.0) L Mean Corpuscular Volume 95 fL (79-100) Mean Corpuscular Hemoglobin 31 pg (25-35) Mean Corpuscular Hemoglobin Concent 33 g/dL (31-37) Red Cell Distribution Width 14.2 % (11.5-14.5) Platelet Count 332 x10^3/uL (140-400) Neutrophils (%) (Auto) 44 % (31-73) Lymphocytes (%) (Auto) 42 % (24-48) Monocytes (%) (Auto) 10 % (0-9) H Eosinophils (%) (Auto) 4 % (0-3) H Basophils (%) (Auto) 1 % (0-3) Neutrophils # (Auto) 2.7 x10^3uL (1.8-7.7) Lymphocytes # (Auto) 2.5 x10^3/uL (1.0-4.8) Monocytes # (Auto) 0.6 x10^3/uL (0.0-1.1) Eosinophils # (Auto) 0.2 x10^3/uL (0.0-0.7) Basophils # (Auto) 0.0 x10^3/uL (0.0-0.2) Test 10/15/20 07:58 Glucose (Fingerstick) 264 mg/dL (70-99) H Current Medications: Meds: Laboratory Tests Test 10/14/20 11:42 10/14/20 17:26 10/14/20 19:40 10/15/20 06:59 Glucose (Fingerstick) 148 mg/dL 156 mg/dL 199 mg/dL White Blood Count 6.1 x10^3/uL Red Blood Count 3.25 x10^6/uL Hemoglobin 10.1 g/dL Hematocrit 30.7 % Mean Corpuscular Volume 95 fL Mean Corpuscular Hemoglobin 31 pg Mean Corpuscular Hemoglobin Concent 33 g/dL Red Cell Distribution Width 14.2 % Platelet Count 332 x10^3/uL Neutrophils (%) (Auto) 44 % Lymphocytes (%) (Auto) 42 % Monocytes (%) (Auto) 10 % Eosinophils (%) (Auto) 4 % Basophils (%) (Auto) 1 % Neutrophils # (Auto) 2.7 x10^3uL Lymphocytes # (Auto) 2.5 x10^3/uL Monocytes # (Auto) 0.6 x10^3/uL Eosinophils # (Auto) 0.2 x10^3/uL Basophils # (Auto) 0.0 x10^3/uL Test 10/15/20 07:58 Glucose (Fingerstick) 264 mg/dL Current Medications Medications (Trade) Dose Ordered Sig/Nancy Route PRN Reason Start Time Stop Time Status Last Admin Dose Admin Acetaminophen (Tylenol) 650 mg PRN Q6HRS PRN PO MILD PAIN / TEMP > 100.3'F 10/10/20 06:30 10/10/20 17:40 DC Multi-Ingredient Ointment (Analgesic [place]) 1 nayla PRN QID PRN TP MUSCLE PAIN 10/10/20 06:30 Al Hydroxide/Mg Hydroxide (Mylanta Plus Xs) 15 ml PRN AFTMEALHC PRN PO DYSPEPSIA 10/10/20 06:30 Magnesium Hydroxide (Milk Of Magnesia) 2,400 mg PRN QHS PRN PO CONSTIPATION 10/10/20 06:30 Nicotine (Nicoderm Cq 21mg Patch) 1 patch DAILY TD 10/10/20 09:00 10/15/20 08:18 Influenza Virus Vaccine Quadrival (Fluzone Quad [id number] Syringe) 0.5 ml ONCE ONCE VAX IM 10/10/20 09:00 10/10/20 09:01 DC 10/10/20 14:04 Acetaminophen (Tylenol) 650 mg PRN DAILY PRN PO PAIN OR FEVER 10/10/20 07:45 10/10/20 17:40 DC Acetaminophen (Tylenol) 500 mg PRN Q6HRS PRN PO MILD PAIN / TEMP > 100.3'F 10/10/20 07:45 Amlodipine Besylate (Norvasc) 10 mg HS PO 10/10/20 21:00 10/14/20 20:21 Benztropine Mesylate (Cogentin) 1 mg DAILY PO 10/10/20 09:00 10/15/20 08:21 Calcium/Vitamin D (Oscal D 500mg/ 200uts) 1 tab DAILY PO 10/10/20 09:00 10/15/20 08:20 Calcium Polycarbophil (Fibercon) 625 mg BID PO 10/10/20 09:00 10/15/20 08:19 Clonidine HCl (Catapres) 0.1 mg PRN Q1HR PRN PO AGITATION 10/10/20 07:45 Donepezil HCl (Aricept) 10 mg HS PO 10/10/20 21:00 10/14/20 20:22 Ferrous Sulfate (Feosol) 325 mg BID PO 10/10/20 09:00 10/15/20 08:21 Hydrochlorothiazide (Hydrodiuril) 25 mg DAILY PO 10/10/20 09:00 10/15/20 08:18 Insulin Glargine (Lantus Syringe) 5 unit HS SQ 10/10/20 21:00 10/14/20 20:18 Ketoconazole (Nizoral 2% Shampoo) 1 nayla QODAY TP 10/10/20 09:00 10/14/20 08:01 Levothyroxine Sodium (Synthroid) 75 mcg DAILY06 PO 10/11/20 06:00 UNV Levothyroxine Sodium (Synthroid) 100 mcg DAILY PO 10/10/20 09:00 10/11/20 05:50 DC Losartan Potassium (Cozaar) 50 mg BID PO 10/10/20 09:00 10/15/20 08:19 Metformin HCl (Glucophage) 500 mg DAILYBFRSUP PO 10/10/20 17:00 10/14/20 17:00 Metformin HCl (Glucophage) 1,500 mg DAILY PO 10/10/20 09:00 10/15/20 08:22 Metoprolol Succinate (Toprol Xl) 25 mg DAILY PO 10/10/20 09:00 10/15/20 08:21 Tamsulosin HCl (Flomax) 0.4 mg DAILY PO 10/10/20 09:30 10/15/20 08:18 Trazodone HCl (Desyrel) 50 mg PRN QHS PRN PO SLEEP AID 10/10/20 07:45 10/14/20 20:20 Ziprasidone (Geodon) 60 mg BID PO 10/10/20 09:30 10/13/20 14:38 DC 10/13/20 08:17 Chlorpromazine HCl (Thorazine) 50 mg DAILY PO 10/10/20 09:00 10/15/20 08:23 Chlorpromazine HCl (Thorazine) 50 mg PRN Q6HRS PRN PO AGITATION 10/10/20 09:00 10/11/20 10:04 DC 10/11/20 01:38 Chlorpromazine HCl (Thorazine) 300 mg HS PO 10/10/20 21:00 10/14/20 20:25 Non-Formulary Medication (Diphenhydramine Hcl ) 1 cap Q6HRS PRN PO AGITATION 10/10/20 07:45 UNV Haloperidol Decanoate (Haldol Decanoate Im Extended Release) 100 mg QMONTH IM 10/26/20 09:00 Insulin Glargine (Lantus Syringe) 8 unit DAILY SQ 10/10/20 10:00 10/15/20 08:39 Non-Formulary Medication (Liothyronine Sodium (Cytomel)) 1 tab DAILY PO 10/10/20 09:00 10/11/20 07:29 DC Oxcarbazepine (Trileptal) 600 mg BID PO 10/10/20 09:30 10/15/20 08:19 Valproic Acid (Depakene) 1,000 mg BID PO 10/10/20 09:30 10/10/20 20:12 DC 10/10/20 11:15 Non-Formulary Medication ([Pjrajfkmunao43gl/ 2ML] ) 50 mg Q6HRS PRN IM AGITATION 10/10/20 07:45 UNV Non-Formulary Medication ([Wavfqmykhtlg66ly/ Ml] ) 50 mg Q6HRS PRN IM AGITATION 10/10/20 07:45 UNV Non-Formulary Medication (Semaglutide (Ozempic)) 1 mg WEEKLY SQ 10/10/20 09:00 UNV Non-Formulary Medication (Vitamin D3/ Vitamin K2 (D3 + K2 Dots 1,000 Units Tab)) 1 tab DAILY PO 10/10/20 09:00 10/10/20 17:36 DC Insulin Human Lispro (HumaLOG) 0-4 UNITS TIDWMEALS SQ 10/10/20 17:00 Dextrose (Dextrose 50%-Water Syringe) 12.5 gm PRN Q15MIN PRN IV SEE COMMENTS 10/10/20 16:00 Vitamin D (Vitamin D3) 50,000 unit WEEKLY PO 10/10/20 17:30 10/10/20 18:11 Olanzapine (ZyPREXA ZYDIS) 5 mg PRN Q2HRS PRN PO PSYCHOSIS 10/10/20 18:00 10/13/20 19:57 Divalproex Sodium (Depakote Sprinkles) 1,000 mg HS PO 10/10/20 21:00 10/14/20 20:27 Levothyroxine Sodium (Synthroid) 175 mcg DAILY06 PO 10/11/20 07:30 10/15/20 05:10 Liothyronine Sodium (Cytomel) 50 mcg DAILY PO 10/11/20 09:00 10/11/20 10:48 DC Clozapine (Clozaril) 25 mg HS PO 10/11/20 21:00 10/14/20 20:22 Ascorbic Acid (Vitamin C) 500 mg BID PO 10/11/20 21:00 10/15/20 08:20 Ziprasidone (Geodon) 60 mg BID PO 10/13/20 21:00 10/15/20 08:18 I have reviewed the current psychotropics carefully including drug interactions. Risk benefit ratio favors no change other than as noted in my dictated progress note. Diagnosis: Problems: (1) Schizoaffective disorder, bipolar type (2) Impulse control disorder, unspecified (3) Mild cognitive impairment (4) Anxiety disorder, unspecified (5) Bipolar disorder, current episode mixed, severe, with psychotic features KALEN REN MD Oct 15, 2020 08:52
[2020-10-15 15:32] VITALS: BP 152/77
[2020-10-15 21:00] VITALS: BP 171/80
[2020-10-15] MEDS: DONEPEZIL HCL 10 MG TABLET PO SCH (21:03)
[2020-10-15] MEDS: DIVALPROEX 125 MG CAP.SPRINK PO SCH (21:03)
[2020-10-15] MEDS: amLODIPine BESYLATE 10 MG TABLET PO SCH (21:04)
[2020-10-15] MEDS: cloZAPine 25 MG TABLET PO SCH (21:07)
--- NOTE | 2020-10-15 22:07 | PDOC ---
Exam Note: Devin Note: Please also refer to the separate dictated note~for this date of service dictated separately.~Patient seen individually. Discussed the patient with Nursing staff reviewed the chart.~Reviewed interim history and current functioning. Reviewed vital signs,~Labs/ Radiology~and current medications noted below. Continue current treatment with the changes noted in the dictated addendum note Assessment: Vital Signs/I&O: Vital Signs Date Time Temp Pulse Resp B/P (MAP) Pulse Ox O2 Delivery O2 Flow Rate FiO2 10/15/20 21:04 89 195/78 10/15/20 15:32 98.8 18 97 10/15/20 06:43 Room Air I & O 10/14/20 10/14/20 10/15/20 15:00 23:00 07:00 Intake Total 600 ml 480 ml Balance 600 ml 480 ml Labs: Laboratory Tests Test 10/15/20 06:59 10/15/20 07:58 10/15/20 11:43 10/15/20 17:11 White Blood Count 6.1 x10^3/uL (4.0-11.0) Red Blood Count 3.25 x10^6/uL (4.30-5.70) L Hemoglobin 10.1 g/dL (13.0-17.5) L Hematocrit 30.7 % (39.0-53.0) L Mean Corpuscular Volume 95 fL (79-100) Mean Corpuscular Hemoglobin 31 pg (25-35) Mean Corpuscular Hemoglobin Concent 33 g/dL (31-37) Red Cell Distribution Width 14.2 % (11.5-14.5) Platelet Count 332 x10^3/uL (140-400) Neutrophils (%) (Auto) 44 % (31-73) Lymphocytes (%) (Auto) 42 % (24-48) Monocytes (%) (Auto) 10 % (0-9) H Eosinophils (%) (Auto) 4 % (0-3) H Basophils (%) (Auto) 1 % (0-3) Neutrophils # (Auto) 2.7 x10^3uL (1.8-7.7) Lymphocytes # (Auto) 2.5 x10^3/uL (1.0-4.8) Monocytes # (Auto) 0.6 x10^3/uL (0.0-1.1) Eosinophils # (Auto) 0.2 x10^3/uL (0.0-0.7) Basophils # (Auto) 0.0 x10^3/uL (0.0-0.2) Glucose (Fingerstick) 264 mg/dL (70-99) H 117 mg/dL (70-99) H 131 mg/dL (70-99) H Test 10/15/20 19:00 Glucose (Fingerstick) 311 mg/dL (70-99) H Current Medications: Meds: Current Medications Medications (Trade) Dose Ordered Sig/Nancy Route PRN Reason Start Time Stop Time Status Last Admin Dose Admin Clozapine (Clozaril) 50 mg HS PO 10/15/20 21:00 10/15/20 21:07 I have reviewed the current psychotropics carefully including drug interactions. Risk benefit ratio favors no change other than as noted in my dictated progress note. Diagnosis: Problems: (1) Schizoaffective disorder, bipolar type (2) Impulse control disorder, unspecified (3) Mild cognitive impairment (4) Anxiety disorder, unspecified (5) Bipolar disorder, current episode mixed, severe, with psychotic features KALEN REN MD Oct 15, 2020 22:07
--- NOTE | 2020-10-16 00:03 | NUR ---
Patient had been in the day room and then went to his room where he sat in the dark. Patient compliant with medications, it took him a long time to swallow them all. Patient has a pronounced tremor to left hand and leg. He does not seem to be aware of it. Patient calm and cooperative this shift.
--- NOTE | 2020-10-16 03:45 | NUR ---
Patient had an incontinent episode of stool in his bed, in his clothes and it also clogged his toilet. Patient was laying on the floor (he laid down) in the entrance of his bathroom, he was very resistive to get up and go to shower to clean up. Staff encouraged patient to get up into the shower chair and then he was showered. Linens were changed and room was cleaned. Patient was slightly resistive in the shower but was not combative. After shower patient did not want to lay back down and he is now sitting in the chair in his room.
[2020-10-16] MEDS: LEVOTHYROXINE 175 MCG TABLET PO SCH (05:06)
[2020-10-16] MEDS: LOSARTAN 50 MG TABLET. PO SCH ×2 (05:06→21:03)
--- NOTE | 2020-10-16 05:06 | NUR ---
Patients morning BP 195/78 P 89. Will give 0900 Losartan now and advise dayshift nurse that patients BP's have been trending up.
[2020-10-16 06:02] VITALS: BP 171/80
[2020-10-16] MEDS: INSULIN LISPRO 300 UNITS/3 ML VIAL. SQ SCH ×3 (08:00→17:00)
[2020-10-16] MEDS: NICOTINE 21MG PATCH. TD SCH (08:36)
[2020-10-16] MEDS: BENZTROPINE MESYLATE 1 MG TABLET PO SCH (08:36)
[2020-10-16] MEDS: metFORMIN 500 MG TABLET PO SCH ×2 (08:36→17:00)
[2020-10-16] MEDS: ZIPRASIDONE 60 MG CAPSULE. PO SCH ×2 (08:36→20:36)
[2020-10-16] MEDS: FERROUS SULFATE 325 MG TABLET. PO SCH ×2 (08:36→20:36)
[2020-10-16] MEDS: METOPROLOL SUCC 24HR ER 25 MG TAB.ER.24H. PO SCH ×2 (08:36→18:00)
[2020-10-16] MEDS: CALCIUM POLYCARBOPHIL 625 MG TABLET PO SCH ×2 (08:36→20:35)
[2020-10-16] MEDS: hydroCHLOROthiazide 25 MG TABLET PO SCH (08:36)
[2020-10-16] MEDS: ASCORBIC ACID 500 MG TABLET PO SCH ×2 (08:37→20:36)
[2020-10-16] MEDS: TAMSULOSIN 0.4 MG CAP.ER.24H. PO SCH (08:37)
[2020-10-16] MEDS: CALCIUM CARB/VIT D3 500/200 TABLET PO SCH (08:37)
[2020-10-16] MEDS: INSULIN GLARGINE SYRINGE. SQ SCH ×2 (08:50→21:02)
[2020-10-16] MEDS: KETOCONAZOLE 2% SHAMPOO 120ML BOTTLE. TP SCH (08:52)
--- NOTE | 2020-10-16 10:56 | PDOC ---
Exam Note: Devin Note: This note is a late entry for 10/15/2020 covers elements not covered in my initial note. Subjective: The patient was seen individually in the evening of 10/15/2020 with Debi MOON, discussed and reviewed the chart. He slept 4-3/4 hours previous night. The patient is doing better, still remains psychotic, hyperverbal in his speech. He has been ambulating, leaning forward somewhat. WBC is 6.1, neutrophil is 44%. Absolute neutrophil count is within normal limits and we will increase Clozaril from 25 mg h.s. to 50 mg h.s. Review of Systems: No CV, , pulmonary, eye system symptoms on review. Mental Status Exam: The patient is oriented to himself and situation. Speech is low in rate and rhythm, rapid, difficult to understand. Abstraction is fair. Computation is impaired. Language function is intact. Attention span is short. Mood and affect somewhat labile. He can be threatening at times but seems slightly improved. Laboratory Data: Reviewed. Impression: Schizoaffective disorder bipolar type mixed with psychotic features. Anxiety disorder unspecified. Impulse control disorder unspecified. Plan: We will increase Clozaril to 50 mg h.s. Follow absolute neutrophil counts. Discontinue the a.m Thorazine. Hopefully we can stabilize his antipsychotics to minimize any extrapyramidal side effects causing his gait disturbance, most likely culprit would be Haldol and second likely the Thorazine. Geodon is being tapered to be discontinued. We will adjust further as clinically indicated. Valproic acid level is 61 therapeutic. Maintain Depakote unchanged. Assessment: Vital Signs/I&O: Vital Signs Date Time Temp Pulse Resp B/P (MAP) Pulse Ox O2 Delivery O2 Flow Rate FiO2 10/16/20 08:36 91 171/80 10/16/20 06:02 97.7 20 99 Room Air I & O 10/15/20 10/15/20 10/16/20 14:59 22:59 06:59 Intake Total 840 ml 480 ml Balance 840 ml 480 ml Labs: Laboratory Tests Test 10/15/20 11:43 10/15/20 17:11 10/15/20 19:00 10/16/20 08:14 Glucose (Fingerstick) 117 mg/dL (70-99) H 131 mg/dL (70-99) H 311 mg/dL (70-99) H 150 mg/dL (70-99) H Current Medications: Meds: Laboratory Tests Test 10/15/20 11:43 10/15/20 17:11 10/15/20 19:00 10/16/20 08:14 Glucose (Fingerstick) 117 mg/dL 131 mg/dL 311 mg/dL 150 mg/dL Current Medications Medications (Trade) Dose Ordered Sig/Nancy Route PRN Reason Start Time Stop Time Status Last Admin Dose Admin Acetaminophen (Tylenol) 650 mg PRN Q6HRS PRN PO MILD PAIN / TEMP > 100.3'F 10/10/20 06:30 10/10/20 17:40 DC Multi-Ingredient Ointment (Analgesic [place]) 1 nayla PRN QID PRN TP MUSCLE PAIN 10/10/20 06:30 Al Hydroxide/Mg Hydroxide (Mylanta Plus Xs) 15 ml PRN AFTMEALHC PRN PO DYSPEPSIA 10/10/20 06:30 Magnesium Hydroxide (Milk Of Magnesia) 2,400 mg PRN QHS PRN PO CONSTIPATION 10/10/20 06:30 Nicotine (Nicoderm Cq 21mg Patch) 1 patch DAILY TD 10/10/20 09:00 10/16/20 08:36 Influenza Virus Vaccine Quadrival (Fluzone Quad Syringe) 0.5 ml ONCE ONCE VAX IM 10/10/20 09:00 10/10/20 09:01 DC 10/10/20 14:04 Acetaminophen (Tylenol) 650 mg PRN DAILY PRN PO PAIN OR FEVER 10/10/20 07:45 10/10/20 17:40 DC Acetaminophen (Tylenol) 500 mg PRN Q6HRS PRN PO MILD PAIN / TEMP > 100.3'F 10/10/20 07:45 Amlodipine Besylate (Norvasc) 10 mg HS PO 10/10/20 21:00 10/15/20 21:04 Benztropine Mesylate (Cogentin) 1 mg DAILY PO 10/10/20 09:00 10/16/20 08:36 Calcium/Vitamin D (Oscal D 500mg/ 200uts) 1 tab DAILY PO 10/10/20 09:00 10/16/20 08:37 Calcium Polycarbophil (Fibercon) 625 mg BID PO 10/10/20 09:00 10/16/20 08:36 Clonidine HCl (Catapres) 0.1 mg PRN Q1HR PRN PO AGITATION 10/10/20 07:45 Donepezil HCl (Aricept) 10 mg HS PO 10/10/20 21:00 10/15/20 21:03 Ferrous Sulfate (Feosol) 325 mg BID PO 10/10/20 09:00 10/16/20 08:36 Hydrochlorothiazide (Hydrodiuril) 25 mg DAILY PO 10/10/20 09:00 10/16/20 08:36 Insulin Glargine (Lantus Syringe) 5 unit HS SQ 10/10/20 21:00 10/15/20 21:18 Ketoconazole (Nizoral 2% Shampoo) 1 nayla QODAY TP 10/10/20 09:00 10/16/20 08:52 Levothyroxine Sodium (Synthroid) 75 mcg DAILY06 PO 10/11/20 06:00 UNV Levothyroxine Sodium (Synthroid) 100 mcg DAILY PO 10/10/20 09:00 10/11/20 05:50 DC Losartan Potassium (Cozaar) 50 mg BID PO 10/10/20 09:00 10/16/20 05:06 Metformin HCl (Glucophage) 500 mg DAILYBFRSUP PO 10/10/20 17:00 10/15/20 17:00 Metformin HCl (Glucophage) 1,500 mg DAILY PO 10/10/20 09:00 10/16/20 08:36 Metoprolol Succinate (Toprol Xl) 25 mg DAILY PO 10/10/20 09:00 10/16/20 08:36 Tamsulosin HCl (Flomax) 0.4 mg DAILY PO 10/10/20 09:30 10/16/20 08:37 Trazodone HCl (Desyrel) 50 mg PRN QHS PRN PO SLEEP AID 10/10/20 07:45 10/14/20 20:20 Ziprasidone (Geodon) 60 mg BID PO 10/10/20 09:30 10/13/20 14:38 DC 10/13/20 08:17 Chlorpromazine HCl (Thorazine) 50 mg DAILY PO 10/10/20 09:00 10/15/20 17:56 DC 10/15/20 08:23 Chlorpromazine HCl (Thorazine) 50 mg PRN Q6HRS PRN PO AGITATION 10/10/20 09:00 10/11/20 10:04 DC 10/11/20 01:38 Chlorpromazine HCl (Thorazine) 300 mg HS PO 10/10/20 21:00 10/15/20 21:09 Non-Formulary Medication (Diphenhydramine Hcl ) 1 cap Q6HRS PRN PO AGITATION 10/10/20 07:45 UNV Haloperidol Decanoate (Haldol Decanoate Im Extended Release) 100 mg QMONTH IM 10/26/20 09:00 Insulin Glargine (Lantus Syringe) 8 unit DAILY SQ 10/10/20 10:00 10/16/20 08:50 Non-Formulary Medication (Liothyronine Sodium (Cytomel)) 1 tab DAILY PO 10/10/20 09:00 10/11/20 07:29 DC Oxcarbazepine (Trileptal) 600 mg BID PO 10/10/20 09:30 10/16/20 08:36 Valproic Acid (Depakene) 1,000 mg BID PO 10/10/20 09:30 10/10/20 20:12 DC 10/10/20 11:15 Non-Formulary Medication ([Wwisxdulvrox51so/ 2ML] ) 50 mg Q6HRS PRN IM AGITATION 10/10/20 07:45 UNV Non-Formulary Medication ([[id number]/ Ml] ) 50 mg Q6HRS PRN IM AGITATION 10/10/20 07:45 UNV Non-Formulary Medication (Semaglutide (Ozempic)) 1 mg WEEKLY SQ 10/10/20 09:00 UNV Non-Formulary Medication (Vitamin D3/ Vitamin K2 (D3 + K2 Dots 1,000 Units Tab)) 1 tab DAILY PO 10/10/20 09:00 10/10/20 17:36 DC Insulin Human Lispro (HumaLOG) 0-4 UNITS TIDWMEALS SQ 10/10/20 17:00 Dextrose (Dextrose 50%-Water Syringe) 12.5 gm PRN Q15MIN PRN IV SEE COMMENTS 10/10/20 16:00 Vitamin D (Vitamin D3) 50,000 unit WEEKLY PO 10/10/20 17:30 3/10/21 18:11 Olanzapine (ZyPREXA ZYDIS) 5 mg PRN Q2HRS PRN PO PSYCHOSIS 10/10/20 18:00 10/13/20 19:57 Divalproex Sodium (Depakote Sprinkles) 1,000 mg HS PO 10/10/20 21:00 10/15/20 21:03 Levothyroxine Sodium (Synthroid) 175 mcg DAILY06 PO 10/11/20 07:30 10/16/20 05:06 Liothyronine Sodium (Cytomel) 50 mcg DAILY PO 10/11/20 09:00 10/11/20 10:48 DC Clozapine (Clozaril) 25 mg HS PO 10/11/20 21:00 10/15/20 17:52 DC 10/14/20 20:22 Ascorbic Acid (Vitamin C) 500 mg BID PO 10/11/20 21:00 10/16/20 08:37 Ziprasidone (Geodon) 60 mg BID PO 10/13/20 21:00 10/16/20 08:36 Clozapine (Clozaril) 50 mg HS PO 10/15/20 21:00 10/15/20 21:07 Current Medications Medications (Trade) Dose Ordered Sig/Nancy Route PRN Reason Start Time Stop Time Status Last Admin Dose Admin Clozapine (Clozaril) 50 mg HS PO 10/15/20 21:00 10/15/20 21:07 I have reviewed the current psychotropics carefully including drug interactions. Risk benefit ratio favors no change other than as noted in my dictated progress note. Diagnosis: Problems: (1) Schizoaffective disorder, bipolar type (2) Impulse control disorder, unspecified (3) Mild cognitive impairment (4) Anxiety disorder, unspecified (5) Bipolar disorder, current episode mixed, severe, with psychotic features KALEN REN MD Oct 16, 2020 10:56
--- NOTE | 2020-10-16 13:59 | NUR ---
SW sent over all updated notes to pt facility. GENESIS will follow up with staff tomorrow re: a more defined discharge date and plan.
[2020-10-16 16:23] VITALS: BP 190/83
[2020-10-16] MEDS: cloZAPine 25 MG TABLET PO SCH (20:35)
[2020-10-16] MEDS: DONEPEZIL HCL 10 MG TABLET PO SCH (20:35)
[2020-10-16] MEDS: DIVALPROEX 125 MG CAP.SPRINK PO SCH (20:35)
[2020-10-16] MEDS: chlorproMAZINE HCL 25 MG TABLET PO SCH (20:59)
[2020-10-16] MEDS: amLODIPine BESYLATE 10 MG TABLET PO SCH (21:03)
[2020-10-16 21:04] VITALS: BP 186/73
--- NOTE | 2020-10-16 22:00 | PDOC ---
Exam Note: Devin Note: Please also refer to the separate dictated note~for this date of service dictated separately.~Patient seen individually. Discussed the patient with Nursing staff reviewed the chart.~Reviewed interim history and current functioning. Reviewed vital signs,~Labs/ Radiology~and current medications noted below. Continue current treatment with the changes noted in the dictated addendum note Assessment: Vital Signs/I&O: Vital Signs Date Time Temp Pulse Resp B/P (MAP) Pulse Ox O2 Delivery O2 Flow Rate FiO2 10/16/20 21:04 81 186/73 (110) 10/16/20 16:23 98.5 18 98 10/16/20 06:02 Room Air I & O 10/15/20 10/15/20 10/16/20 15:00 23:00 07:00 Intake Total 840 ml 480 ml Balance 840 ml 480 ml Labs: Laboratory Tests Test 10/16/20 08:14 10/16/20 11:28 10/16/20 17:03 10/16/20 19:04 Glucose (Fingerstick) 150 mg/dL (70-99) H 256 mg/dL (70-99) H 203 mg/dL (70-99) H 261 mg/dL (70-99) H Current Medications: Meds: Current Medications Medications (Trade) Dose Ordered Sig/Nancy Route PRN Reason Start Time Stop Time Status Last Admin Dose Admin Metoprolol Succinate (Toprol Xl) 50 mg DAILY PO 10/16/20 18:00 10/16/20 18:00 I have reviewed the current psychotropics carefully including drug interactions. Risk benefit ratio favors no change other than as noted in my dictated progress note. Diagnosis: Problems: (1) Schizoaffective disorder, bipolar type (2) Impulse control disorder, unspecified (3) Mild cognitive impairment (4) Anxiety disorder, unspecified (5) Bipolar disorder, current episode mixed, severe, with psychotic features KALEN REN MD Oct 16, 2020 22:00
--- NOTE | 2020-10-17 00:09 | NUR ---
Patient is more cooperative than he was last night. Patient took medications whole, he dumped them into his mouth all at one time. Patient told nurse that he wanted to be called "Keith Sierra or Keith Midnight Rigo". Patient has a pronounced tremor to left hand and right foot while at rest.
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
[2020-10-17] MEDS: LEVOTHYROXINE 175 MCG TABLET PO SCH (05:33)
[2020-10-17 06:05] VITALS: BP 137/76
[2020-10-17] MEDS: INSULIN LISPRO 300 UNITS/3 ML VIAL. SQ SCH ×3 (08:00→17:00)
[2020-10-17] MEDS: ZIPRASIDONE 60 MG CAPSULE. PO SCH ×2 (08:22→19:44)
[2020-10-17] MEDS: CALCIUM POLYCARBOPHIL 625 MG TABLET PO SCH ×2 (08:23→19:44)
[2020-10-17] MEDS: METOPROLOL SUCC 24HR ER 25 MG TAB.ER.24H. PO SCH (08:23)
[2020-10-17] MEDS: ASCORBIC ACID 500 MG TABLET PO SCH ×2 (08:23→19:43)
[2020-10-17] MEDS: LOSARTAN 50 MG TABLET. PO SCH ×2 (08:24→19:44)
[2020-10-17] MEDS: FERROUS SULFATE 325 MG TABLET. PO SCH ×2 (08:24→19:43)
[2020-10-17] MEDS: metFORMIN 500 MG TABLET PO SCH ×2 (08:24→17:00)
[2020-10-17] MEDS: BENZTROPINE MESYLATE 1 MG TABLET PO SCH (08:24)
[2020-10-17] MEDS: TAMSULOSIN 0.4 MG CAP.ER.24H. PO SCH (08:25)
[2020-10-17] MEDS: CHOLECALCIFEROL (VITAMIN D3) 50,000 UNIT CAPSULE PO SCH (08:25)
[2020-10-17] MEDS: chlorproMAZINE HCL 25 MG TABLET PO SCH (08:25)
[2020-10-17] MEDS: CALCIUM CARB/VIT D3 500/200 TABLET PO SCH (08:25)
[2020-10-17] MEDS: hydroCHLOROthiazide 25 MG TABLET PO SCH (08:26)
[2020-10-17] MEDS: NICOTINE 21MG PATCH. TD SCH (08:35)
[2020-10-17] MEDS: NON FORMULARY ITEM (Semaglutide (Ozempic) 1 MG) SQ SCH (09:00)
[2020-10-17] MEDS: INSULIN GLARGINE SYRINGE. SQ SCH ×2 (09:00→21:13)
--- NOTE | 2020-10-17 09:08 | PDOC ---
Exam Note: Devin Note: This note is a late entry for 10/16/2020 covers elements not covered in my initial note. Subjective: The patient was seen individually in the evening of 10/16/2020 with Nereyda MOON, discussed and reviewed the chart. He slept 5-1/2 hours previous night. The patient has had a large bowel movement, was incontinent around 3.30 a.m. He clogged the toilet demanding, yelling, screaming but then seemed to settle down. He was uncooperative for a repeat EKG for QT corrected interval but previous one on 10/06 showed QTc of 429 which is unremarkable. Review of Systems: Positive for some tiredness. No CV, , pulmonary, eye system symptoms on review. Mental Status Exam: The patient is reasonably oriented. Speech is coherent, low in volume. Abstraction is fair. Computation is impaired. Language function is intact. No suicidal or homicidal ideation. He remains somewhat paranoid. Laboratory Data: Reviewed. Impression: Schizoaffective disorder bipolar type mixed with psychotic features. Anxiety disorder unspecified. Impulse control disorder unspecified. Plan: No change from initial note. Assessment: Vital Signs/I&O: Vital Signs Date Time Temp Pulse Resp B/P (MAP) Pulse Ox O2 Delivery O2 Flow Rate FiO2 10/17/20 08:24 71 137/76 10/17/20 06:05 97.2 20 99 10/16/20 06:02 Room Air I & O 10/16/20 10/16/20 10/17/20 15:00 23:00 07:00 Intake Total 840 ml 600 ml Balance 840 ml 600 ml Labs: Laboratory Tests Test 10/16/20 11:28 10/16/20 17:03 10/16/20 19:04 10/17/20 07:55 Glucose (Fingerstick) 256 mg/dL (70-99) H 203 mg/dL (70-99) H 261 mg/dL (70-99) H 177 mg/dL (70-99) H Current Medications: Meds: Current Medications Medications (Trade) Dose Ordered Sig/Nancy Route PRN Reason Start Time Stop Time Status Last Admin Dose Admin Metoprolol Succinate (Toprol Xl) 50 mg DAILY PO 10/16/20 18:00 10/17/20 08:23 I have reviewed the current psychotropics carefully including drug interactions. Risk benefit ratio favors no change other than as noted in my dictated progress note. Diagnosis: Problems: (1) Schizoaffective disorder, bipolar type (2) Impulse control disorder, unspecified (3) Mild cognitive impairment (4) Anxiety disorder, unspecified (5) Bipolar disorder, current episode mixed, severe, with psychotic features KALEN REN MD Oct 17, 2020 09:08
--- NOTE | 2020-10-17 12:22 | NUR ---
Patient in dining room at time of assessment. Patient is cooperative and calm. takes his medications whole with no problems. Patient has no complaints this AM. Patient can be irritable at times and does tend to blurt things out at times. He is hard to understand at times as well. There are no further concerns at this time.
--- NOTE | 2020-10-17 15:15 | NUR ---
Patient in room at time of assessment. Patient is alert and can answer some orientation questions. He is calm and cooperative but irritable and agitated at times. Patient stays out of room until ready for lunch, Takes medication whole fine with no problem. Patient has no further problems at this time.
[2020-10-17 16:01] VITALS: BP 113/68
[2020-10-17] MEDS: DONEPEZIL HCL 10 MG TABLET PO SCH (19:43)
[2020-10-17] MEDS: amLODIPine BESYLATE 10 MG TABLET PO SCH (19:44)
[2020-10-17] MEDS: cloZAPine 25 MG TABLET PO SCH (19:44)
[2020-10-17] MEDS: DIVALPROEX 125 MG CAP.SPRINK PO SCH (19:45)
--- NOTE | 2020-10-17 22:11 | PDOC ---
Exam Note: Devin Note: Please also refer to the separate dictated note~for this date of service dictated separately.~Patient seen individually. Discussed the patient with Nursing staff reviewed the chart.~Reviewed interim history and current functioning. Reviewed vital signs,~Labs/ Radiology~and current medications noted below. Continue current treatment with the changes noted in the dictated addendum note Assessment: Vital Signs/I&O: Vital Signs Date Time Temp Pulse Resp B/P (MAP) Pulse Ox O2 Delivery O2 Flow Rate FiO2 10/17/20 19:44 75 113/68 10/17/20 16:01 98.2 20 97 Room Air I & O 10/16/20 10/16/20 10/17/20 15:00 23:00 07:00 Intake Total 840 ml 600 ml Balance 840 ml 600 ml Labs: Laboratory Tests Test 10/17/20 07:55 10/17/20 11:27 10/17/20 17:14 10/17/20 19:07 Glucose (Fingerstick) 177 mg/dL (70-99) H 202 mg/dL (70-99) H 133 mg/dL (70-99) H 234 mg/dL (70-99) H Current Medications: I have reviewed the current psychotropics carefully including drug interactions. Risk benefit ratio favors no change other than as noted in my dictated progress note. Diagnosis: Problems: (1) Schizoaffective disorder, bipolar type (2) Impulse control disorder, unspecified (3) Mild cognitive impairment (4) Anxiety disorder, unspecified (5) Bipolar disorder, current episode mixed, severe, with psychotic features KALEN REN MD Oct 17, 2020 22:11
--- NOTE | 2020-10-17 23:08 | NUR ---
Pt located in the dayroom this evening watching TV. Pt refused assessment questions, however was compliant with whole medications. No agitation or aggression this evening. Pt currently sleeping in bed.
[2020-10-18 05:50] VITALS: BP 165/69
[2020-10-18] MEDS: LEVOTHYROXINE 175 MCG TABLET PO SCH (05:55)
[2020-10-18] MEDS: INSULIN LISPRO 300 UNITS/3 ML VIAL. SQ SCH ×3 (08:00→17:00)
--- NOTE | 2020-10-18 08:35 | PDOC ---
Exam Note: Devin Note: This note is a late entry for 10/17/2020 covers elements not covered in my initial note. Subjective: The patient was seen individually in the evening of 10/17/2020 with Larisa MOON, discussed and reviewed the chart. He slept 1-1/2 hours previous night. The patient did reasonably well previous night, less anxious today, woke up early. He is obsessed and paranoid, feels he is having court on Thursday. Review of Systems: No CV, , pulmonary, eye system symptoms on review. Mental Status Exam: The patient is reasonably oriented. Speech is coherent, low in volume, rapid at times, difficult to understand. Abstraction is fair. Computation is impaired. Language function is intact. Mood and affect remains somewhat labile. He remains paranoid, not aggressive. Laboratory Data: Reviewed. Impression: Schizoaffective disorder bipolar type mixed with psychotic features. Anxiety disorder unspecified. Impulse control disorder unspecified. Plan: No change from initial note. Adjust further as clinically indicated. Assessment: Vital Signs/I&O: Vital Signs Date Time Temp Pulse Resp B/P (MAP) Pulse Ox O2 Delivery O2 Flow Rate FiO2 10/18/20 05:50 97.0 73 18 165/69 (101) 98 10/17/20 16:01 Room Air I & O 10/17/20 10/17/20 10/18/20 15:00 23:00 07:00 Intake Total 440 ml 120 ml Balance 440 ml 120 ml Labs: Laboratory Tests Test 10/17/20 11:27 10/17/20 17:14 10/17/20 19:07 10/18/20 07:51 Glucose (Fingerstick) 202 mg/dL (70-99) H 133 mg/dL (70-99) H 234 mg/dL (70-99) H 74 mg/dL (70-99) Current Medications: Meds: Laboratory Tests Test 10/17/20 11:27 10/17/20 17:14 10/17/20 19:07 10/18/20 07:51 Glucose (Fingerstick) 202 mg/dL 133 mg/dL 234 mg/dL 74 mg/dL Current Medications Medications (Trade) Dose Ordered Sig/Nancy Route PRN Reason Start Time Stop Time Status Last Admin Dose Admin Acetaminophen (Tylenol) 650 mg PRN Q6HRS PRN PO MILD PAIN / TEMP > 100.3'F 10/10/20 06:30 10/10/20 17:40 DC Multi-Ingredient Ointment (Analgesic [place]) 1 nayla PRN QID PRN TP MUSCLE PAIN 10/10/20 06:30 Al Hydroxide/Mg Hydroxide (Mylanta Plus Xs) 15 ml PRN AFTMEALHC PRN PO DYSPEPSIA 10/10/20 06:30 Magnesium Hydroxide (Milk Of Magnesia) 2,400 mg PRN QHS PRN PO CONSTIPATION 10/10/20 06:30 Nicotine (Nicoderm Cq 21mg Patch) 1 patch DAILY TD 10/10/20 09:00 10/18/20 01:35 DC 10/17/20 08:35 Influenza Virus Vaccine Quadrival (Fluzone Quad Syringe) 0.5 ml ONCE ONCE VAX IM 10/10/20 09:00 10/10/20 09:01 DC 10/10/20 14:04 Acetaminophen (Tylenol) 650 mg PRN DAILY PRN PO PAIN OR FEVER 10/10/20 07:45 10/10/20 17:40 DC Acetaminophen (Tylenol) 500 mg PRN Q6HRS PRN PO MILD PAIN / TEMP > 100.3'F 10/10/20 07:45 10/17/20 02:51 Amlodipine Besylate (Norvasc) 10 mg HS PO 10/10/20 21:00 10/17/20 19:44 Benztropine Mesylate (Cogentin) 1 mg DAILY PO 10/10/20 09:00 10/17/20 08:24 Calcium/Vitamin D (Oscal D 500mg/ 200uts) 1 tab DAILY PO 10/10/20 09:00 10/17/20 08:25 Calcium Polycarbophil (Fibercon) 625 mg BID PO 10/10/20 09:00 10/17/20 19:44 Clonidine HCl (Catapres) 0.1 mg PRN Q1HR PRN PO AGITATION 10/10/20 07:45 Donepezil HCl (Aricept) 10 mg HS PO 10/10/20 21:00 10/17/20 19:43 Ferrous Sulfate (Feosol) 325 mg BID PO 10/10/20 09:00 10/17/20 19:43 Hydrochlorothiazide (Hydrodiuril) 25 mg DAILY PO 10/10/20 09:00 10/17/20 08:26 Insulin Glargine (Lantus Syringe) 5 unit HS SQ 10/10/20 21:00 10/17/20 21:13 Ketoconazole (Nizoral 2% Shampoo) 1 nayla QODAY TP 10/10/20 09:00 10/16/20 08:52 Levothyroxine Sodium (Synthroid) 75 mcg DAILY06 PO 10/11/20 06:00 UNV Levothyroxine Sodium (Synthroid) 100 mcg DAILY PO 10/10/20 09:00 10/11/20 05:50 DC Losartan Potassium (Cozaar) 50 mg BID PO 10/10/20 09:00 10/17/20 19:44 Metformin HCl (Glucophage) 500 mg DAILYBFRSUP PO 10/10/20 17:00 10/17/20 17:00 Metformin HCl (Glucophage) 1,500 mg DAILY PO 10/10/20 09:00 10/17/20 08:24 Metoprolol Succinate (Toprol Xl) 25 mg DAILY PO 10/10/20 09:00 10/16/20 17:59 DC 10/16/20 08:36 Tamsulosin HCl (Flomax) 0.4 mg DAILY PO 10/10/20 09:30 10/17/20 08:25 Trazodone HCl (Desyrel) 50 mg PRN QHS PRN PO SLEEP AID 10/10/20 07:45 10/14/20 20:20 Ziprasidone (Geodon) 60 mg BID PO 10/10/20 09:30 10/13/20 14:38 DC 10/13/20 08:17 Chlorpromazine HCl (Thorazine) 50 mg DAILY PO 10/10/20 09:00 10/15/20 17:56 DC 10/15/20 08:23 Chlorpromazine HCl (Thorazine) 50 mg PRN Q6HRS PRN PO AGITATION 10/10/20 09:00 10/11/20 10:04 DC 10/11/20 01:38 Chlorpromazine HCl (Thorazine) 300 mg HS PO 10/10/20 21:00 10/17/20 08:25 Non-Formulary Medication (Diphenhydramine Hcl ) 1 cap Q6HRS PRN PO AGITATION 10/10/20 07:45 UNV Haloperidol Decanoate (Haldol Decanoate Im Extended Release) 100 mg QMONTH IM 10/26/20 09:00 Insulin Glargine (Lantus Syringe) 8 unit DAILY SQ 10/10/20 10:00 10/17/20 09:00 Non-Formulary Medication (Liothyronine Sodium (Cytomel)) 1 tab DAILY PO 10/10/20 09:00 10/11/20 07:29 DC Oxcarbazepine (Trileptal) 600 mg BID PO 10/10/20 09:30 10/17/20 19:44 Valproic Acid (Depakene) 1,000 mg BID PO 10/10/20 09:30 10/10/20 20:12 DC 10/10/20 11:15 Non-Formulary Medication ([Ljaslyrpyzfc14qq/ 2ML] ) 50 mg Q6HRS PRN IM AGITATION 10/10/20 07:45 UNV Non-Formulary Medication ([Ksopxdcminsg41sa/ Ml] ) 50 mg Q6HRS PRN IM AGITATION 10/10/20 07:45 UNV Non-Formulary Medication (Semaglutide (Ozempic)) 1 mg WEEKLY SQ 10/10/20 09:00 UNV Non-Formulary Medication (Vitamin D3/ Vitamin K2 (D3 + K2 Dots 1,000 Units Tab)) 1 tab DAILY PO 10/10/20 09:00 10/10/20 17:36 DC Insulin Human Lispro (HumaLOG) 0-4 UNITS TIDWMEALS SQ 10/10/20 17:00 10/16/20 12:00 Dextrose (Dextrose 50%-Water Syringe) 12.5 gm PRN Q15MIN PRN IV SEE COMMENTS 10/10/20 16:00 Vitamin D (Vitamin D3) 50,000 unit WEEKLY PO 10/10/20 17:30 10/17/20 08:25 Olanzapine (ZyPREXA ZYDIS) 5 mg PRN Q2HRS PRN PO PSYCHOSIS 10/10/20 18:00 10/17/20 08:24 Divalproex Sodium (Depakote Sprinkles) 1,000 mg HS PO 10/10/20 21:00 10/17/20 19:45 Levothyroxine Sodium (Synthroid) 175 mcg DAILY06 PO 10/11/20 07:30 10/18/20 05:55 Liothyronine Sodium (Cytomel) 50 mcg DAILY PO 10/11/20 09:00 10/11/20 10:48 DC Clozapine (Clozaril) 25 mg HS PO 10/11/20 21:00 10/15/20 17:52 DC 10/14/20 20:22 Ascorbic Acid (Vitamin C) 500 mg BID PO 10/11/20 21:00 10/17/20 19:43 Ziprasidone (Geodon) 60 mg BID PO 10/13/20 21:00 10/17/20 19:44 Clozapine (Clozaril) 50 mg HS PO 10/15/20 21:00 10/17/20 19:44 Metoprolol Succinate (Toprol Xl) 50 mg DAILY PO 10/16/20 18:00 10/17/20 08:23 Nicotine (Nicoderm Cq 14mg Patch) 1 patch DAILY TD 10/18/20 09:00 I have reviewed the current psychotropics carefully including drug interactions. Risk benefit ratio favors no change other than as noted in my dictated progress note. Diagnosis: Problems: (1) Schizoaffective disorder, bipolar type (2) Impulse control disorder, unspecified (3) Mild cognitive impairment (4) Anxiety disorder, unspecified (5) Bipolar disorder, current episode mixed, severe, with psychotic features KALEN REN MD Oct 18, 2020 08:35
[2020-10-18] MEDS: KETOCONAZOLE 2% SHAMPOO 120ML BOTTLE. TP SCH (09:00)
[2020-10-18] MEDS: INSULIN GLARGINE SYRINGE. SQ SCH ×2 (09:00→21:03)
[2020-10-18] MEDS: metFORMIN 500 MG TABLET PO SCH ×2 (09:13→17:23)
[2020-10-18] MEDS: NICOTINE 14MG PATCH. TD SCH (09:13)
[2020-10-18] MEDS: hydroCHLOROthiazide 25 MG TABLET PO SCH (09:13)
[2020-10-18] MEDS: CALCIUM CARB/VIT D3 500/200 TABLET PO SCH (09:14)
[2020-10-18] MEDS: METOPROLOL SUCC 24HR ER 25 MG TAB.ER.24H. PO SCH (09:14)
[2020-10-18] MEDS: LOSARTAN 50 MG TABLET. PO SCH ×2 (09:14→20:39)
[2020-10-18] MEDS: ZIPRASIDONE 60 MG CAPSULE. PO SCH ×2 (09:14→20:38)
[2020-10-18] MEDS: BENZTROPINE MESYLATE 1 MG TABLET PO SCH (09:14)
[2020-10-18] MEDS: ASCORBIC ACID 500 MG TABLET PO SCH ×2 (09:14→20:38)
[2020-10-18] MEDS: CALCIUM POLYCARBOPHIL 625 MG TABLET PO SCH ×2 (09:14→20:38)
[2020-10-18] MEDS: TAMSULOSIN 0.4 MG CAP.ER.24H. PO SCH (09:14)
[2020-10-18] MEDS: FERROUS SULFATE 325 MG TABLET. PO SCH ×2 (09:14→20:38)
--- NOTE | 2020-10-18 11:14 | NUR ---
Nursing note: Pt was in his room at time of AM med pass and assessment. He was asleep in his chair but awoke pleasantly to his name and was compliant with his meds whole. Pt was very calm throughout interaction with no yelling. He was allowed to continue resting quietly in the chair in his room. Will continue to monitor.
--- NOTE | 2020-10-18 11:53 | NUR ---
WEEKLY ACTIVITY THERAPY NOTE Date of Admission: 10/10/2020 Date of AT Assessment: 10/11/20 Precipitating behaviors that initiated intake and admission: failure of placement Goal aimed: increase socialization and relaxation skills Initial Goal: Pt will participate in at least three individual or group Activity Therapy sessions per week. Weekly progress towards goal: doubled, 01/03 Group participation level: 1 mod, 5 min Weekly highlights: sang during 60's bingo, talked about dealing with change Thursday Behaviors observed: loud during Thursday, fixated on al debra Thursday, referring to AT as Keith during Thursday group, combative with staff during Thursday group Plan: no change to goal at this time Beneficial adaptations:
[2020-10-18 13:10] LABS: THYROXINE 4.4 ug/dL (4.5-12.0)
--- NOTE | 2020-10-18 13:15 | TX PLAN ---
Interdisciplinary Tx Plan Admission Information Oct 10, 2020 at 06:18 Legal Status (on Admission): Voluntary DPOA/Guardian Name: Natalie Paredes Contact Other [facility] Contact Verified Code Status: Full Code Allergies: Coded Allergies: Pork/Porcine Containing Products (Verified Allergy, Unknown, 10/08/20) lamotrigine (Verified Allergy, Unknown, 10/08/20) Diagnoses Primary Diagnosis: Schizoaffective D/O, Bipolar type mixed with psychotic features Reasons for Admission: Aggressive, Delusions, Agitated, Hallucinations, Suicidal ideation, Combative, Other Problem in Patient's Words: He had a change from an environment he got comfortable in. Additional Admission Comments: According to the intake, pt was refusing meds at times, verbally aggressive, using foul language, suicidal, agitated, combative, physically aggressive, hallucinating and delusional Problems Active Problems: verbally aggressive resistive to cares agitated delusional Inactive Problems: mostly medication compliant Pt Strengths/Limitations Ability for [place]: Poor Cognitive Functioning/Ability: Poor Communication Skills/Ability: Poor Financial Resources: Fair Insight/Judgement: Poor Intellectual Ability: Poor Physical Health: Fair Social Skills: Fair Stability in Family: Poor Stability in School/Work: Poor Verbal Skills: Poor Discharge Criteria Discharge Criteria: No need for close observ., Adequate arrangements @DC, Improved behavior, Improved mood/thought Preliminary Discharge Plan Preliminary DC Plan: Current Living Arrange. Special Precautions Fall Risk: Low Initial D/C Plan Pt to return to placement at [facility]. Identified Discharge Needs: Psychiatric services Currently Utilized Resources Currently Utilized Resources/P: Primary Care Physician Referrals Community Resources: Psychiatric services Identified Problems/Hx/Goals Objectives/Short-Term Goals Short Term Goals: Dec. Aggression, Dec. Hallucination/Delus, Dec. Outbursts, Medication Stabilization, Monitor Med Effects, Promote Coping Skill Short Term Goals in Patient's: N/A Interventions/Frequency Staff Interventions/Frequency&: Psychiatrist to assess pt at least 3x per week for medication management. Social Work to assess pt at least 2x per week to identify barriers to care and discharge planning goals. Nursing to assess medication effects, behavior management and completion of 15 minute checks. Encourage group participation in activities (if applicable) or 1:1 engagement based off activity department goals. History Vocational History: Unknown Education: Unknown Community Follow-up Primary Care Physician Community Provider/Family Inpu: Pt has had a court appointed guardian for the last 11 years. It is the guardian's belief that she should have never been moved from [facility]. Treatment Plan Explained Patient/Exotic Dancer had this treatment plan explained to him/her as indicated by the signature below and has been given the opportunity to ask questions and make suggestions: Date: Patient/Exotic Dancer Signature: Patient/Exotic Dancer Decline: No (Guardian is available as needed.) Status Update Update Pt first Interdisciplinary Treatment Team was 10/11. Today, pt is eating roughly 75% of meals and sleeping on average 3.75 hours per night. Pt tends to be mostly compliant with medications, but at times restless and agit ated. Pt can be combative with staff during cares and found at times, verbally aggressive. Pt has attended 6 activity groups with minimal to moderate participation. Pt was found to be singing loudly to the music and often heard talking about Al Marshall. Upon admission, it was found that pt had Thyroid toxicity and had his Synthroid decreased and other medications evaluated. Pt is to return to [facility] once stable. MYKEL URIARTE Oct 18, 2020 13:15
[2020-10-18 14:01] LABS: FREE T4 0.59 ng/dL (0.76-1.46); THYROID STIM HORMONE (TSH) 0.044 uIU/mL (0.358-3.740)
[2020-10-18 16:11] VITALS: BP 165/73
--- NOTE | 2020-10-18 16:40 | NUR ---
Pt requested to speak with SW as she walked down the hallway. SW approached pt and had to lean into pt as he was speaking in a low murmur. He reported to SW that she looked very pretty today and proceeded to inform SW that he know that she is his dtr. SW questioned how old his dtr was and he reported that SW was 13 and pt himself was 25 years old. He stated "you look more and more like your grandma everyday". Pt then requested to have another bracelet as the one around his wrist was too small. SW notified staff of pt request. Pt asked SW how long before dinner and thanked SW for her time. "Don't be a stranger and come talk to your Dad more often".
[2020-10-18] MEDS: cloZAPine 25 MG TABLET PO SCH (20:39)
[2020-10-18] MEDS: DONEPEZIL HCL 10 MG TABLET PO SCH (20:40)
[2020-10-18] MEDS: amLODIPine BESYLATE 10 MG TABLET PO SCH (20:40)
[2020-10-18] MEDS: DIVALPROEX 125 MG CAP.SPRINK PO SCH (20:41)
[2020-10-18] MEDS: chlorproMAZINE HCL 25 MG TABLET PO SCH (20:42)
--- NOTE | 2020-10-18 21:33 | PDOC ---
Exam Note: Devin Note: Please also refer to the separate dictated note~for this date of service dictated separately.~Patient seen individually. Discussed the patient with Nursing staff reviewed the chart.~Reviewed interim history and current functioning. Reviewed vital signs,~Labs/ Radiology~and current medications noted below. Continue current treatment with the changes noted in the dictated addendum note Assessment: Vital Signs/I&O: Vital Signs Date Time Temp Pulse Resp B/P (MAP) Pulse Ox O2 Delivery O2 Flow Rate FiO2 10/18/20 20:40 83 165/73 10/18/20 16:11 97.6 16 99 Room Air I & O 10/17/20 10/17/20 10/18/20 15:00 23:00 07:00 Intake Total 440 ml 120 ml Balance 440 ml 120 ml Labs: Laboratory Tests Test 10/18/20 05:55 10/18/20 07:51 10/18/20 11:56 10/18/20 16:36 Thyroid Stimulating Hormone (TSH) 0.044 uIU/mL (0.358-3.740) Free Thyroxine 0.59 ng/dL (0.76-1.46) L Thyroxine (T4) 4.4 ug/dL (4.5-12.0) L Total Triiodothyronine (TT3) 54 ng/dL (71-180) L Glucose (Fingerstick) 74 mg/dL (70-99) 160 mg/dL (70-99) H 110 mg/dL (70-99) H Test 10/18/20 19:10 Glucose (Fingerstick) 183 mg/dL (70-99) H Current Medications: Meds: Current Medications Medications (Trade) Dose Ordered Sig/Nancy Route PRN Reason Start Time Stop Time Status Last Admin Dose Admin Nicotine (Nicoderm Cq 14mg Patch) 1 patch DAILY TD 10/18/20 09:00 10/18/20 09:13 Ziprasidone (Geodon) 60 mg QHS PO 10/18/20 21:00 10/21/20 23:00 10/18/20 20:38 I have reviewed the current psychotropics carefully including drug interactions. Risk benefit ratio favors no change other than as noted in my dictated progress note. Diagnosis: Problems: (1) Schizoaffective disorder, bipolar type (2) Impulse control disorder, unspecified (3) Mild cognitive impairment (4) Anxiety disorder, unspecified (5) Bipolar disorder, current episode mixed, severe, with psychotic features KALEN REN MD Oct 18, 2020 21:33
--- NOTE | 2020-10-18 23:38 | NUR ---
Patient located outside the [facility] nurses station on assumption of care, sitting quietly. He was compliant with assessments and medications whole. Patient very polite and cooperative, saying please and thank you. No agitation or outbursts so far this shift. Patient denies any pain or discomfort. He appears to be sleeping comfortably at present time. Will continue to monitor.
[2020-10-19] MEDS: LEVOTHYROXINE 175 MCG TABLET PO SCH (05:17)
--- NOTE | 2020-10-19 05:55 | NUR ---
Patient was supposed to take a shower last night. He asked if he could take one in the morning, telling AMELIA "I pinky promise that I will take a shower." Patient woke up in an irritable mood, and refused the shower. This nurse approached him and explained that I would be returning in 15 minutes to administer his thyroid medication, and asked if he would take a shower afterwards, to which he agreed if he could have some cola. Told him he would get cola AFTER his shower. When I returned with his medication, he regressed to previous behavior when I walked over to throw away his medication cup, suddenly yelling out "Get the hell away from my window, Earlene! What the hell do you think you're doing?" This nurse explained the patient that I was just disposing of the trash. Explained Covid swab procedure to patient, and he angrily refused, stating "There's a fucking needle on that isn't there? I ain't taking no needles. I'll knock you out." Tried to reassure the patient that it was standard procedure and that there were no needles involved. Continued to refuse. Will continue to monitor and report to oncoming staff.
[2020-10-19 06:00] VITALS: BP 132/80
[2020-10-19 06:17] LABS: BASO % 1 % (0-3); EOS # 0.2 x10^3/uL (0.0-0.7); EOS % 3 % (0-3); HEMOGLOBIN 10.4 g/dL (13.0-17.5); LYMPH # 3.3 x10^3/uL (1.0-4.8); LYMPH % 51 % (24-48); MEAN CORPUSCULAR HEMOGLOBIN 31 pg (25-35); MEAN CORPUSCULAR HGB CONC 32 g/dL (31-37); MEAN CORPUSCULAR VOLUME 95 fL (79-100); MONO # 0.7 x10^3/uL (0.0-1.1); MONO % 10 % (0-9); NEUT # 2.3 x10^3uL (1.8-7.7); NEUT % 35 % (31-73); PLATELET COUNT 300 x10^3/uL (140-400); RED BLOOD COUNT 3.38 x10^6/uL (4.30-5.70); RED CELL DISTRIBUTION WIDTH 14.5 % (11.5-14.5); WHITE BLOOD COUNT 6.5 x10^3/uL (4.0-11.0)
[2020-10-19 06:34] LABS: ALBUMIN 3.2 g/dL (3.4-5.0); ALBUMIN/GLOBULIN RATIO 0.7 (1.0-1.7); CREATININE 1.1 mg/dL (0.7-1.3); GFR 66.2; POTASSIUM 4.3 mmol/L (3.5-5.1); TOTAL BILIRUBIN 0.2 mg/dL (0.2-1.0); TOTAL PROTEIN 7.6 g/dL (6.4-8.2)
[2020-10-19] MEDS: INSULIN LISPRO 300 UNITS/3 ML VIAL. SQ SCH ×3 (08:00→17:00)
[2020-10-19] MEDS: NICOTINE 14MG PATCH. TD SCH (08:41)
[2020-10-19] MEDS: ASCORBIC ACID 500 MG TABLET PO SCH ×2 (08:41→21:14)
[2020-10-19] MEDS: TAMSULOSIN 0.4 MG CAP.ER.24H. PO SCH (08:41)
[2020-10-19] MEDS: CALCIUM CARB/VIT D3 500/200 TABLET PO SCH (08:42)
[2020-10-19] MEDS: FERROUS SULFATE 325 MG TABLET. PO SCH ×2 (08:42→21:14)
[2020-10-19] MEDS: BENZTROPINE MESYLATE 1 MG TABLET PO SCH (08:42)
[2020-10-19] MEDS: hydroCHLOROthiazide 25 MG TABLET PO SCH (08:42)
[2020-10-19] MEDS: CALCIUM POLYCARBOPHIL 625 MG TABLET PO SCH ×2 (08:42→21:14)
[2020-10-19] MEDS: METOPROLOL SUCC 24HR ER 25 MG TAB.ER.24H. PO SCH (08:43)
[2020-10-19] MEDS: LOSARTAN 50 MG TABLET. PO SCH ×2 (08:43→21:15)
[2020-10-19] MEDS: metFORMIN 500 MG TABLET PO SCH ×2 (08:45→16:58)
[2020-10-19] MEDS: INSULIN GLARGINE SYRINGE. SQ SCH ×2 (08:48→21:00)
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
--- NOTE | 2020-10-19 15:25 | NUR ---
Nursing note: Pt in the hallway at time of AM med pass and assessment. He was calm, med compliant and cooperative at that time. He quickly became angry when mentioned to him that a COVID swab was needed. Pt was allowed time to calm down and attempt at a later time. Pt calmed, but became angry at lunch when he was given Adger Cola instead of Coca-Cola. Pt was escorted to the quiet whatley after becoming combative towards staff in the dining [place]. PRN was given with good effect. Pt was later compliant with his COVID swab and replied "thank you" after it was complete. Pt is now sitting quietly in the day room. Will continue to monitor.
[2020-10-19 15:49] VITALS: BP 175/76
[2020-10-19] MEDS: chlorproMAZINE HCL 25 MG TABLET PO SCH ×2 (18:15→21:17)
[2020-10-19] MEDS: DONEPEZIL HCL 10 MG TABLET PO SCH (21:00)
[2020-10-19] MEDS: cloZAPine 25 MG TABLET PO SCH (21:14)
[2020-10-19] MEDS: traZODone 50 MG TABLET. PO PRN (21:14)
[2020-10-19] MEDS: amLODIPine BESYLATE 10 MG TABLET PO SCH (21:15)
[2020-10-19] MEDS: ZIPRASIDONE 60 MG CAPSULE. PO SCH (21:15)
[2020-10-19] MEDS: DIVALPROEX 125 MG CAP.SPRINK PO SCH (21:16)
--- NOTE | 2020-10-19 22:09 | PDOC ---
Exam Note: Devin Note: Please also refer to the separate dictated note~for this date of service dictated separately.~Patient seen individually. Discussed the patient with Nursing staff reviewed the chart.~Reviewed interim history and current functioning. Reviewed vital signs,~Labs/ Radiology~and current medications noted below. Continue current treatment with the changes noted in the dictated addendum note Assessment: Vital Signs/I&O: Vital Signs Date Time Temp Pulse Resp B/P (MAP) Pulse Ox O2 Delivery O2 Flow Rate FiO2 10/19/20 21:15 81 175/76 10/19/20 15:49 97.1 16 96 Room Air I & O 10/18/20 10/18/20 10/19/20 15:00 23:00 07:00 Intake Total 480 ml 600 ml Balance 480 ml 600 ml Labs: Laboratory Tests Test 10/19/20 06:05 10/19/20 07:50 10/19/20 11:50 10/19/20 16:49 White Blood Count 6.5 x10^3/uL (4.0-11.0) Red Blood Count 3.38 x10^6/uL (4.30-5.70) L Hemoglobin 10.4 g/dL (13.0-17.5) L Hematocrit 32.0 % (39.0-53.0) L Mean Corpuscular Volume 95 fL (79-100) Mean Corpuscular Hemoglobin 31 pg (25-35) Mean Corpuscular Hemoglobin Concent 32 g/dL (31-37) Red Cell Distribution Width 14.5 % (11.5-14.5) Platelet Count 300 x10^3/uL (140-400) Neutrophils (%) (Auto) 35 % (31-73) Lymphocytes (%) (Auto) 51 % (24-48) H Monocytes (%) (Auto) 10 % (0-9) H Eosinophils (%) (Auto) 3 % (0-3) Basophils (%) (Auto) 1 % (0-3) Neutrophils # (Auto) 2.3 x10^3uL (1.8-7.7) Lymphocytes # (Auto) 3.3 x10^3/uL (1.0-4.8) Monocytes # (Auto) 0.7 x10^3/uL (0.0-1.1) Eosinophils # (Auto) 0.2 x10^3/uL (0.0-0.7) Basophils # (Auto) 0.0 x10^3/uL (0.0-0.2) Sodium Level 144 mmol/L (136-145) Potassium Level 4.3 mmol/L (3.5-5.1) Chloride Level 106 mmol/L (98-107) Carbon Dioxide Level 29 mmol/L (21-32) Anion Gap 9 (6-14) Blood Urea Nitrogen 26 mg/dL (8-26) Creatinine 1.1 mg/dL (0.7-1.3) Estimated GFR (Cockcroft-Gault) 66.2 BUN/Creatinine Ratio 24 (6-20) H Glucose Level 115 mg/dL (70-99) H Calcium Level 9.0 mg/dL (8.5-10.1) Total Bilirubin 0.2 mg/dL (0.2-1.0) Aspartate Amino Transferase (AST) 20 U/L (15-37) Alanine Aminotransferase (ALT) 24 U/L (16-63) Alkaline Phosphatase 97 U/L (46-116) Total Protein 7.6 g/dL (6.4-8.2) Albumin 3.2 g/dL (3.4-5.0) L Albumin/Globulin Ratio 0.7 (1.0-1.7) L Glucose (Fingerstick) 89 mg/dL (70-99) 90 mg/dL (70-99) 89 mg/dL (70-99) Test 10/19/20 19:57 Glucose (Fingerstick) 103 mg/dL (70-99) H Current Medications: Meds: Current Medications Medications (Trade) Dose Ordered Sig/Nancy Route PRN Reason Start Time Stop Time Status Last Admin Dose Admin Chlorpromazine HCl (Thorazine) 50 mg DAILY PO 10/19/20 18:00 10/19/20 18:15 I have reviewed the current psychotropics carefully including drug interactions. Risk benefit ratio favors no change other than as noted in my dictated progress note. Diagnosis: Problems: (1) Schizoaffective disorder, bipolar type (2) Impulse control disorder, unspecified (3) Mild cognitive impairment (4) Anxiety disorder, unspecified (5) Bipolar disorder, current episode mixed, severe, with psychotic features KALEN REN MD Oct 19, 2020 22:09
--- NOTE | 2020-10-19 23:36 | NUR ---
Patient located outside the [facility] nurses station on assumption of care, sitting quietly. He was compliant with assessments and medications whole. Patient very polite and cooperative, saying please and thank you. No agitation or outbursts so far this shift. Patient denies any pain or discomfort. He appears to be sleeping comfortably at present time. Will continue to monitor.
[2020-10-20] MEDS: LEVOTHYROXINE 175 MCG TABLET PO SCH (04:51)
[2020-10-20 06:16] VITALS: BP 165/77
[2020-10-20] MEDS: INSULIN LISPRO 300 UNITS/3 ML VIAL. SQ SCH ×3 (08:00→17:00)
[2020-10-20] MEDS: METOPROLOL SUCC 24HR ER 25 MG TAB.ER.24H. PO SCH (08:18)
[2020-10-20] MEDS: hydroCHLOROthiazide 25 MG TABLET PO SCH (08:19)
[2020-10-20] MEDS: metFORMIN 500 MG TABLET PO SCH ×2 (08:19→17:10)
[2020-10-20] MEDS: CALCIUM CARB/VIT D3 500/200 TABLET PO SCH (08:19)
[2020-10-20] MEDS: FERROUS SULFATE 325 MG TABLET. PO SCH ×2 (08:20→20:31)
[2020-10-20] MEDS: CALCIUM POLYCARBOPHIL 625 MG TABLET PO SCH ×2 (08:20→20:32)
[2020-10-20] MEDS: LOSARTAN 50 MG TABLET. PO SCH ×2 (08:20→20:34)
[2020-10-20] MEDS: TAMSULOSIN 0.4 MG CAP.ER.24H. PO SCH (08:20)
[2020-10-20] MEDS: ASCORBIC ACID 500 MG TABLET PO SCH ×2 (08:20→20:32)
[2020-10-20] MEDS: BENZTROPINE MESYLATE 1 MG TABLET PO SCH (08:20)
[2020-10-20] MEDS: cloZAPine 25 MG TABLET PO SCH (08:23)
[2020-10-20] MEDS: NICOTINE 14MG PATCH. TD SCH (08:26)
[2020-10-20] MEDS: chlorproMAZINE HCL 25 MG TABLET PO SCH ×2 (08:26→20:35)
[2020-10-20] MEDS: KETOCONAZOLE 2% SHAMPOO 120ML BOTTLE. TP SCH (09:00)
--- NOTE | 2020-10-20 09:23 | PDOC ---
Exam Note: Devin Note: This note is a late entry for 10/19/2020 covers elements not covered in my initial note. Subjective: The patient was seen individually in the evening of 10/19/2020 with Brittanie MOON, discussed and reviewed the chart. He slept 3-3/4 hours previous night. Overall per nursing report, the patient has had a rough day. He has been paranoid, psychotic, agitated, threatening, combative. Staff attempted to give him p.r.n. by offering him a Coca Cola but he was not accepting this. He refused COVID swab initially and had to be in the [facility] due to his marked agitation and marked mood lability. He was shouting in the dining room at dinner time. Review of Systems: No CV, , pulmonary, eye system symptoms on review. Mental Status Exam: The patient is reasonably oriented to himself and situation. Speech is coherent, rapid, low in volume. Abstraction is fair. Computation is impaired. Language function is intact. Mood and affect remains labile. He remains quite psychotic, paranoid. No suicidal or homicidal ideation. Laboratory Data: Reviewed. Impression: Schizoaffective disorder bipolar type mixed with psychotic features. Anxiety disorder unspecified. Impulse control disorder unspecified. Plan: No change from initial note. We will restart Thorazine 50 mg a.m. Continue rest unchanged. Geodon is being reduced and we will continue with this as we are increasing the Clozaril. Valproic acid level is therapeutic. Adjust further as clinically indicated. Assessment: Vital Signs/I&O: Vital Signs Date Time Temp Pulse Resp B/P (MAP) Pulse Ox O2 Delivery O2 Flow Rate FiO2 10/20/20 08:20 69 165/77 10/20/20 06:16 97.1 16 98 10/19/20 15:49 Room Air I & O 10/19/20 10/19/20 10/20/20 15:00 23:00 07:00 Intake Total 600 ml 480 ml Balance 600 ml 480 ml Labs: Laboratory Tests Test 10/19/20 11:50 10/19/20 16:49 10/19/20 19:57 10/20/20 07:47 Glucose (Fingerstick) 90 mg/dL (70-99) 89 mg/dL (70-99) 103 mg/dL (70-99) H 161 mg/dL (70-99) H Current Medications: Meds: Current Medications Medications (Trade) Dose Ordered Sig/Nancy Route PRN Reason Start Time Stop Time Status Last Admin Dose Admin Chlorpromazine HCl (Thorazine) 50 mg DAILY PO 10/19/20 18:00 10/20/20 08:26 I have reviewed the current psychotropics carefully including drug interactions. Risk benefit ratio favors no change other than as noted in my dictated progress note. Diagnosis: Problems: (1) Schizoaffective disorder, bipolar type (2) Impulse control disorder, unspecified (3) Mild cognitive impairment (4) Anxiety disorder, unspecified (5) Bipolar disorder, current episode mixed, severe, with psychotic features KALEN REN MD Oct 20, 2020 09:23
[2020-10-20] MEDS: INSULIN GLARGINE SYRINGE. SQ SCH ×2 (10:22→20:40)
[2020-10-20 15:58] VITALS: BP 158/88
--- NOTE | 2020-10-20 18:10 | NUR ---
Pt irritable in am. Didn't want to take meds because he thought the nurse put his nicotine on wrong. Another staff member was able to get pt to take his meds. Has been pleasant rest of day.
[2020-10-20] MEDS: DIVALPROEX 125 MG CAP.SPRINK PO SCH (20:31)
[2020-10-20] MEDS: amLODIPine BESYLATE 10 MG TABLET PO SCH (20:33)
[2020-10-20] MEDS: ZIPRASIDONE 60 MG CAPSULE. PO SCH (20:33)
[2020-10-20] MEDS: traZODone 50 MG TABLET. PO PRN (20:34)
[2020-10-20] MEDS: DONEPEZIL HCL 10 MG TABLET PO SCH (20:34)
--- NOTE | 2020-10-20 21:31 | PDOC ---
Exam Note: Devin Note: Please also refer to the separate dictated note~for this date of service dictated separately.~Patient seen individually. Discussed the patient with Nursing staff reviewed the chart.~Reviewed interim history and current functioning. Reviewed vital signs,~Labs/ Radiology~and current medications noted below. Continue current treatment with the changes noted in the dictated addendum note Assessment: Vital Signs/I&O: Vital Signs Date Time Temp Pulse Resp B/P (MAP) Pulse Ox O2 Delivery O2 Flow Rate FiO2 10/20/20 20:34 74 158/88 10/20/20 15:58 97.8 18 98 Room Air I & O 10/19/20 10/19/20 10/20/20 15:00 23:00 07:00 Intake Total 600 ml 480 ml Balance 600 ml 480 ml Labs: Laboratory Tests Test 10/20/20 07:47 10/20/20 12:16 10/20/20 17:16 10/20/20 19:21 Glucose (Fingerstick) 161 mg/dL (70-99) H 113 mg/dL (70-99) H 113 mg/dL (70-99) H 132 mg/dL (70-99) H Current Medications: Meds: Laboratory Tests Test 10/20/20 07:47 10/20/20 12:16 10/20/20 17:16 10/20/20 19:21 Glucose (Fingerstick) 161 mg/dL 113 mg/dL 113 mg/dL 132 mg/dL Current Medications Medications (Trade) Dose Ordered Sig/Nancy Route PRN Reason Start Time Stop Time Status Last Admin Dose Admin Acetaminophen (Tylenol) 650 mg PRN Q6HRS PRN PO MILD PAIN / TEMP > 100.3'F 10/10/20 06:30 10/10/20 17:40 DC Multi-Ingredient Ointment (Analgesic [place]) 1 nayla PRN QID PRN TP MUSCLE PAIN 10/10/20 06:30 Al Hydroxide/Mg Hydroxide (Mylanta Plus Xs) 15 ml PRN AFTMEALHC PRN PO DYSPEPSIA 10/10/20 06:30 Magnesium Hydroxide (Milk Of Magnesia) 2,400 mg PRN QHS PRN PO CONSTIPATION 10/10/20 06:30 Nicotine (Nicoderm Cq 21mg Patch) 1 patch DAILY TD 10/10/20 09:00 10/18/20 01:35 DC 10/17/20 08:35 Influenza Virus Vaccine Quadrival (Fluzone Quad Syringe) 0.5 ml ONCE ONCE VAX IM 10/10/20 09:00 10/10/20 09:01 DC 10/10/20 14:04 Acetaminophen (Tylenol) 650 mg PRN DAILY PRN PO PAIN OR FEVER 10/10/20 07:45 10/10/20 17:40 DC Acetaminophen (Tylenol) 500 mg PRN Q6HRS PRN PO MILD PAIN / TEMP > 100.3'F 10/10/20 07:45 10/17/20 02:51 Amlodipine Besylate (Norvasc) 10 mg HS PO 10/10/20 21:00 10/20/20 20:33 Benztropine Mesylate (Cogentin) 1 mg DAILY PO 10/10/20 09:00 10/20/20 08:20 Calcium/Vitamin D (Oscal D 500mg/ 200uts) 1 tab DAILY PO 10/10/20 09:00 10/20/20 08:19 Calcium Polycarbophil (Fibercon) 625 mg BID PO 10/10/20 09:00 10/20/20 20:32 Clonidine HCl (Catapres) 0.1 mg PRN Q1HR PRN PO AGITATION 10/10/20 07:45 Donepezil HCl (Aricept) 10 mg HS PO 10/10/20 21:00 10/20/20 20:34 Ferrous Sulfate (Feosol) 325 mg BID PO 10/10/20 09:00 10/20/20 20:31 Hydrochlorothiazide (Hydrodiuril) 25 mg DAILY PO 10/10/20 09:00 10/20/20 08:19 Insulin Glargine (Lantus Syringe) 5 unit HS SQ 10/10/20 21:00 10/20/20 20:40 Ketoconazole (Nizoral 2% Shampoo) 1 nayla QODAY TP 10/10/20 09:00 10/18/20 09:00 Levothyroxine Sodium (Synthroid) 75 mcg DAILY06 PO 10/11/20 06:00 UNV Levothyroxine Sodium (Synthroid) 100 mcg DAILY PO 10/10/20 09:00 10/11/20 05:50 DC Losartan Potassium (Cozaar) 50 mg BID PO 10/10/20 09:00 10/20/20 20:34 Metformin HCl (Glucophage) 500 mg DAILYBFRSUP PO 10/10/20 17:00 10/20/20 17:10 Metformin HCl (Glucophage) 1,500 mg DAILY PO 10/10/20 09:00 10/20/20 08:19 Metoprolol Succinate (Toprol Xl) 25 mg DAILY PO 10/10/20 09:00 10/16/20 17:59 DC 10/16/20 08:36 Tamsulosin HCl (Flomax) 0.4 mg DAILY PO 10/10/20 09:30 10/20/20 08:20 Trazodone HCl (Desyrel) 50 mg PRN QHS PRN PO SLEEP AID 10/10/20 07:45 10/20/20 20:34 Ziprasidone (Geodon) 60 mg BID PO 10/10/20 09:30 10/13/20 14:38 DC 10/13/20 08:17 Chlorpromazine HCl (Thorazine) 50 mg DAILY PO 10/10/20 09:00 10/15/20 17:56 DC 10/15/20 08:23 Chlorpromazine HCl (Thorazine) 50 mg PRN Q6HRS PRN PO AGITATION 10/10/20 09:00 10/11/20 10:04 DC 10/11/20 01:38 Chlorpromazine HCl (Thorazine) 300 mg HS PO 10/10/20 21:00 10/20/20 20:35 Non-Formulary Medication (Diphenhydramine Hcl ) 1 cap Q6HRS PRN PO AGITATION 10/10/20 07:45 UNV Haloperidol Decanoate (Haldol Decanoate Im Extended Release) 100 mg QMONTH IM 10/26/20 09:00 Insulin Glargine (Lantus Syringe) 8 unit DAILY SQ 10/10/20 10:00 10/20/20 10:22 Non-Formulary Medication (Liothyronine Sodium (Cytomel)) 1 tab DAILY PO 10/10/20 09:00 10/11/20 07:29 DC Oxcarbazepine (Trileptal) 600 mg BID PO 10/10/20 09:30 10/20/20 20:33 Valproic Acid (Depakene) 1,000 mg BID PO 10/10/20 09:30 10/10/20 20:12 DC 10/10/20 11:15 Non-Formulary Medication ([Xwltlauyogmg16mw/ 2ML] ) 50 mg Q6HRS PRN IM AGITATION 10/10/20 07:45 UNV Non-Formulary Medication ([Mknrewbxvydi26br/ Ml] ) 50 mg Q6HRS PRN IM AGITATION 10/10/20 07:45 UNV Non-Formulary Medication (Semaglutide (Ozempic)) 1 mg WEEKLY SQ 10/10/20 09:00 UNV Non-Formulary Medication (Vitamin D3/ Vitamin K2 (D3 + K2 Dots 1,000 Units Tab)) 1 tab DAILY PO 10/10/20 09:00 10/10/20 17:36 DC Insulin Human Lispro (HumaLOG) 0-4 UNITS TIDWMEALS SQ 10/10/20 17:00 10/16/20 12:00 Dextrose (Dextrose 50%-Water Syringe) 12.5 gm PRN Q15MIN PRN IV SEE COMMENTS 10/10/20 16:00 Vitamin D (Vitamin D3) 50,000 unit WEEKLY PO 10/10/20 17:30 10/17/20 08:25 Olanzapine (ZyPREXA ZYDIS) 5 mg PRN Q2HRS PRN PO PSYCHOSIS 10/10/20 18:00 10/20/20 20:30 Divalproex Sodium (Depakote Sprinkles) 1,000 mg HS PO 10/10/20 21:00 10/20/20 20:31 Levothyroxine Sodium (Synthroid) 175 mcg DAILY06 PO 10/11/20 07:30 10/20/20 04:51 Liothyronine Sodium (Cytomel) 50 mcg DAILY PO 10/11/20 09:00 10/11/20 10:48 DC Clozapine (Clozaril) 25 mg HS PO 10/11/20 21:00 10/15/20 17:52 DC 10/14/20 20:22 Ascorbic Acid (Vitamin C) 500 mg BID PO 10/11/20 21:00 10/20/20 20:32 Ziprasidone (Geodon) 60 mg BID PO 10/13/20 21:00 10/18/20 11:27 DC 10/18/20 09:14 Clozapine (Clozaril) 50 mg HS PO 10/15/20 21:00 10/20/20 08:23 Metoprolol Succinate (Toprol Xl) 50 mg DAILY PO 10/16/20 18:00 10/20/20 08:18 Nicotine (Nicoderm Cq 14mg Patch) 1 patch DAILY TD 10/18/20 09:00 10/20/20 08:26 Ziprasidone (Geodon) 60 mg QHS PO 10/18/20 21:00 10/21/20 23:00 10/20/20 20:33 Chlorpromazine HCl (Thorazine) 50 mg DAILY PO 10/19/20 18:00 10/20/20 08:26 I have reviewed the current psychotropics carefully including drug interactions. Risk benefit ratio favors no change other than as noted in my dictated progress note. Diagnosis: Problems: (1) Schizoaffective disorder, bipolar type (2) Impulse control disorder, unspecified (3) Mild cognitive impairment (4) Anxiety disorder, unspecified (5) Bipolar disorder, current episode mixed, severe, with psychotic features KALEN REN MD Oct 20, 2020 21:31
--- NOTE | 2020-10-20 23:18 | NUR ---
Patient located outside the [facility] nurses station on assumption of care, sitting quietly. He was compliant with assessments and medications whole. Patient very polite and cooperative, saying please and thank you. No agitation or outbursts so far this shift. Patient denies any pain or discomfort. He appears to be sleeping comfortably at present time. Will continue to monitor.
[2020-10-21] MEDS: LEVOTHYROXINE 175 MCG TABLET PO SCH (05:01)
[2020-10-21 06:35] VITALS: BP 128/73
[2020-10-21] MEDS: NICOTINE 14MG PATCH. TD SCH (07:51)
[2020-10-21] MEDS: ASCORBIC ACID 500 MG TABLET PO SCH ×2 (07:51→20:37)
[2020-10-21] MEDS: LOSARTAN 50 MG TABLET. PO SCH ×2 (07:51→20:36)
[2020-10-21] MEDS: CALCIUM CARB/VIT D3 500/200 TABLET PO SCH (07:51)
[2020-10-21] MEDS: BENZTROPINE MESYLATE 1 MG TABLET PO SCH (07:51)
[2020-10-21] MEDS: metFORMIN 500 MG TABLET PO SCH ×2 (07:52→17:00)
[2020-10-21] MEDS: METOPROLOL SUCC 24HR ER 25 MG TAB.ER.24H. PO SCH (07:52)
[2020-10-21] MEDS: hydroCHLOROthiazide 25 MG TABLET PO SCH (07:53)
[2020-10-21] MEDS: TAMSULOSIN 0.4 MG CAP.ER.24H. PO SCH (07:53)
[2020-10-21] MEDS: FERROUS SULFATE 325 MG TABLET. PO SCH ×2 (07:53→20:36)
[2020-10-21] MEDS: CALCIUM POLYCARBOPHIL 625 MG TABLET PO SCH ×2 (07:53→20:37)
[2020-10-21] MEDS: INSULIN GLARGINE SYRINGE. SQ SCH ×2 (07:54→20:41)
[2020-10-21] MEDS: chlorproMAZINE HCL 25 MG TABLET PO SCH ×2 (07:57→20:37)
[2020-10-21] MEDS: INSULIN LISPRO 300 UNITS/3 ML VIAL. SQ SCH ×3 (08:00→17:00)
[2020-10-21 16:13] VITALS: BP 186/68
--- NOTE | 2020-10-21 16:50 | NUR ---
Pt up adl to meals and day room. Has been compliant with meds and cares. Was irritable after lunch. Zydis given. Has been more pleasant this afternoon.
[2020-10-21] MEDS: ZIPRASIDONE 60 MG CAPSULE. PO SCH (20:36)
[2020-10-21] MEDS: DIVALPROEX 125 MG CAP.SPRINK PO SCH (20:36)
[2020-10-21] MEDS: cloZAPine 25 MG TABLET PO SCH (20:36)
[2020-10-21] MEDS: DONEPEZIL HCL 10 MG TABLET PO SCH (20:36)
[2020-10-21] MEDS: amLODIPine BESYLATE 10 MG TABLET PO SCH (20:37)
[2020-10-21] MEDS: traZODone 50 MG TABLET. PO PRN (20:42)
--- NOTE | 2020-10-21 22:10 | PDOC ---
Exam Note: Devin Note: Please also refer to the separate dictated note~for this date of service dictated separately.~Patient seen individually. Discussed the patient with Nursing staff reviewed the chart.~Reviewed interim history and current functioning. Reviewed vital signs,~Labs/ Radiology~and current medications noted below. Continue current treatment with the changes noted in the dictated addendum note Assessment: Vital Signs/I&O: Vital Signs Date Time Temp Pulse Resp B/P (MAP) Pulse Ox O2 Delivery O2 Flow Rate FiO2 10/21/20 20:37 83 186/68 10/21/20 16:13 98.1 18 97 10/21/20 06:35 Room Air I & O 10/20/20 10/20/20 10/21/20 15:00 23:00 07:00 Intake Total 720 ml 720 ml Balance 720 ml 720 ml Labs: Laboratory Tests Test 10/21/20 08:16 10/21/20 12:13 10/21/20 17:26 10/21/20 19:40 Glucose (Fingerstick) 215 mg/dL (70-99) H 131 mg/dL (70-99) H 141 mg/dL (70-99) H 275 mg/dL (70-99) H Current Medications: Meds: Laboratory Tests Test 10/21/20 08:16 10/21/20 12:13 10/21/20 17:26 10/21/20 19:40 Glucose (Fingerstick) 215 mg/dL 131 mg/dL 141 mg/dL 275 mg/dL Current Medications Medications (Trade) Dose Ordered Sig/Nancy Route PRN Reason Start Time Stop Time Status Last Admin Dose Admin Acetaminophen (Tylenol) 650 mg PRN Q6HRS PRN PO MILD PAIN / TEMP > 100.3'F 10/10/20 06:30 10/10/20 17:40 DC Multi-Ingredient Ointment (Analgesic [place]) 1 nayla PRN QID PRN TP MUSCLE PAIN 10/10/20 06:30 Al Hydroxide/Mg Hydroxide (Mylanta Plus Xs) 15 ml PRN AFTMEALHC PRN PO DYSPEPSIA 10/10/20 06:30 Magnesium Hydroxide (Milk Of Magnesia) 2,400 mg PRN QHS PRN PO CONSTIPATION 10/10/20 06:30 Nicotine (Nicoderm Cq 21mg Patch) 1 patch DAILY TD 10/10/20 09:00 10/18/20 01:35 DC 10/17/20 08:35 Influenza Virus Vaccine Quadrival (Fluzone Quad Syringe) 0.5 ml ONCE ONCE VAX IM 10/10/20 09:00 10/10/20 09:01 DC 10/10/20 14:04 Acetaminophen (Tylenol) 650 mg PRN DAILY PRN PO PAIN OR FEVER 10/10/20 07:45 10/10/20 17:40 DC Acetaminophen (Tylenol) 500 mg PRN Q6HRS PRN PO MILD PAIN / TEMP > 100.3'F 10/10/20 07:45 10/17/20 02:51 Amlodipine Besylate (Norvasc) 10 mg HS PO 10/10/20 21:00 10/21/20 20:37 Benztropine Mesylate (Cogentin) 1 mg DAILY PO 10/10/20 09:00 10/21/20 07:51 Calcium/Vitamin D (Oscal D 500mg/ 200uts) 1 tab DAILY PO 10/10/20 09:00 10/21/20 07:51 Calcium Polycarbophil (Fibercon) 625 mg BID PO 10/10/20 09:00 10/21/20 20:37 Clonidine HCl (Catapres) 0.1 mg PRN Q1HR PRN PO AGITATION 10/10/20 07:45 Donepezil HCl (Aricept) 10 mg HS PO 10/10/20 21:00 10/21/20 20:36 Ferrous Sulfate (Feosol) 325 mg BID PO 10/10/20 09:00 10/21/20 20:36 Hydrochlorothiazide (Hydrodiuril) 25 mg DAILY PO 10/10/20 09:00 10/21/20 07:53 Insulin Glargine (Lantus Syringe) 5 unit HS SQ 10/10/20 21:00 10/21/20 20:41 Ketoconazole (Nizoral 2% Shampoo) 1 nayla QODAY TP 10/10/20 09:00 10/18/20 09:00 Levothyroxine Sodium (Synthroid) 75 mcg DAILY06 PO 10/11/20 06:00 UNV Levothyroxine Sodium (Synthroid) 100 mcg DAILY PO 10/10/20 09:00 10/11/20 05:50 DC Losartan Potassium (Cozaar) 50 mg BID PO 10/10/20 09:00 10/21/20 20:36 Metformin HCl (Glucophage) 500 mg DAILYBFRSUP PO 10/10/20 17:00 10/21/20 17:00 Metformin HCl (Glucophage) 1,500 mg DAILY PO 10/10/20 09:00 10/21/20 07:52 Metoprolol Succinate (Toprol Xl) 25 mg DAILY PO 10/10/20 09:00 10/16/20 17:59 DC 10/16/20 08:36 Tamsulosin HCl (Flomax) 0.4 mg DAILY PO 10/10/20 09:30 10/21/20 07:53 Trazodone HCl (Desyrel) 50 mg PRN QHS PRN PO SLEEP AID 10/10/20 07:45 10/21/20 20:42 Ziprasidone (Geodon) 60 mg BID PO 10/10/20 09:30 10/13/20 14:38 DC 10/13/20 08:17 Chlorpromazine HCl (Thorazine) 50 mg DAILY PO 10/10/20 09:00 10/15/20 17:56 DC 10/15/20 08:23 Chlorpromazine HCl (Thorazine) 50 mg PRN Q6HRS PRN PO AGITATION 10/10/20 09:00 10/11/20 10:04 DC 10/11/20 01:38 Chlorpromazine HCl (Thorazine) 300 mg HS PO 10/10/20 21:00 10/21/20 20:37 Non-Formulary Medication (Diphenhydramine Hcl ) 1 cap Q6HRS PRN PO AGITATION 10/10/20 07:45 UNV Haloperidol Decanoate (Haldol Decanoate Im Extended Release) 100 mg QMONTH IM 10/26/20 09:00 Insulin Glargine (Lantus Syringe) 8 unit DAILY SQ 10/10/20 10:00 10/21/20 07:54 Non-Formulary Medication (Liothyronine Sodium (Cytomel)) 1 tab DAILY PO 10/10/20 09:00 10/11/20 07:29 DC Oxcarbazepine (Trileptal) 600 mg BID PO 10/10/20 09:30 10/21/20 20:36 Valproic Acid (Depakene) 1,000 mg BID PO 10/10/20 09:30 10/10/20 20:12 DC 10/10/20 11:15 Non-Formulary Medication ([Mdarifmtxcpi33hb/ 2ML] ) 50 mg Q6HRS PRN IM AGITATION 10/10/20 07:45 UNV Non-Formulary Medication ([Nfbaqfpnsuch94nx/ Ml] ) 50 mg Q6HRS PRN IM AGITATION 10/10/20 07:45 UNV Non-Formulary Medication (Semaglutide (Ozempic)) 1 mg WEEKLY SQ 10/10/20 09:00 UNV Non-Formulary Medication (Vitamin D3/ Vitamin K2 (D3 + K2 Dots 1,000 Units Tab)) 1 tab DAILY PO 10/10/20 09:00 10/10/20 17:36 DC Insulin Human Lispro (HumaLOG) 0-4 UNITS TIDWMEALS SQ 10/10/20 17:00 10/16/20 12:00 Dextrose (Dextrose 50%-Water Syringe) 12.5 gm PRN Q15MIN PRN IV SEE COMMENTS 10/10/20 16:00 Vitamin D (Vitamin D3) 50,000 unit WEEKLY PO 10/10/20 17:30 10/17/20 08:25 Olanzapine (ZyPREXA ZYDIS) 5 mg PRN Q2HRS PRN PO PSYCHOSIS 10/10/20 18:00 10/21/20 20:42 Divalproex Sodium (Depakote Sprinkles) 1,000 mg HS PO 10/10/20 21:00 10/21/20 20:36 Levothyroxine Sodium (Synthroid) 175 mcg DAILY06 PO 10/11/20 07:30 10/21/20 05:01 Liothyronine Sodium (Cytomel) 50 mcg DAILY PO 10/11/20 09:00 10/11/20 10:48 DC Clozapine (Clozaril) 25 mg HS PO 10/11/20 21:00 10/15/20 17:52 DC 10/14/20 20:22 Ascorbic Acid (Vitamin C) 500 mg BID PO 10/11/20 21:00 10/21/20 20:37 Ziprasidone (Geodon) 60 mg BID PO 10/13/20 21:00 10/18/20 11:27 DC 10/18/20 09:14 Clozapine (Clozaril) 50 mg HS PO 10/15/20 21:00 10/21/20 20:36 Metoprolol Succinate (Toprol Xl) 50 mg DAILY PO 10/16/20 18:00 10/21/20 07:52 Nicotine (Nicoderm Cq 14mg Patch) 1 patch DAILY TD 10/18/20 09:00 10/21/20 07:51 Ziprasidone (Geodon) 60 mg QHS PO 10/18/20 21:00 10/21/20 23:00 10/21/20 20:36 Chlorpromazine HCl (Thorazine) 50 mg DAILY PO 10/19/20 18:00 10/21/20 07:57 I have reviewed the current psychotropics carefully including drug interactions. Risk benefit ratio favors no change other than as noted in my dictated progress note. Diagnosis: Problems: (1) Schizoaffective disorder, bipolar type (2) Impulse control disorder, unspecified (3) Mild cognitive impairment (4) Anxiety disorder, unspecified (5) Bipolar disorder, current episode mixed, severe, with psychotic features KALEN REN MD Oct 21, 2020 22:10
[2020-10-22] MEDS: LEVOTHYROXINE 175 MCG TABLET PO SCH (05:58)
[2020-10-22 06:22] LABS: BASO % 1 % (0-3); EOS # 0.1 x10^3/uL (0.0-0.7); EOS % 2 % (0-3); HEMATOCRIT 30.8 % (39.0-53.0); LYMPH # 3.1 x10^3/uL (1.0-4.8); LYMPH % 50 % (24-48); MEAN CORPUSCULAR HEMOGLOBIN 30 pg (25-35); MEAN CORPUSCULAR HGB CONC 32 g/dL (31-37); MEAN CORPUSCULAR VOLUME 94 fL (79-100); MONO # 0.7 x10^3/uL (0.0-1.1); MONO % 11 % (0-9); NEUT # 2.3 x10^3uL (1.8-7.7); NEUT % 37 % (31-73); PLATELET COUNT 260 x10^3/uL (140-400); RED CELL DISTRIBUTION WIDTH 13.8 % (11.5-14.5); WHITE BLOOD COUNT 6.3 x10^3/uL (4.0-11.0)
[2020-10-22 06:35] LABS: ALBUMIN 3.1 g/dL (3.4-5.0); ALBUMIN/GLOBULIN RATIO 0.7 (1.0-1.7); CALCIUM 9.5 mg/dL (8.5-10.1); GFR 73.9; POTASSIUM 4.7 mmol/L (3.5-5.1); TOTAL BILIRUBIN 0.1 mg/dL (0.2-1.0); TOTAL PROTEIN 7.3 g/dL (6.4-8.2)
[2020-10-22 06:53] VITALS: BP 148/95
[2020-10-22] MEDS: TAMSULOSIN 0.4 MG CAP.ER.24H. PO SCH (07:31)
[2020-10-22] MEDS: METOPROLOL SUCC 24HR ER 25 MG TAB.ER.24H. PO SCH (07:32)
[2020-10-22] MEDS: hydroCHLOROthiazide 25 MG TABLET PO SCH (07:33)
[2020-10-22] MEDS: ASCORBIC ACID 500 MG TABLET PO SCH ×2 (07:33→21:04)
[2020-10-22] MEDS: NICOTINE 14MG PATCH. TD SCH (07:33)
[2020-10-22] MEDS: CALCIUM CARB/VIT D3 500/200 TABLET PO SCH (07:33)
[2020-10-22] MEDS: metFORMIN 500 MG TABLET PO SCH ×2 (07:33→17:03)
[2020-10-22] MEDS: LOSARTAN 50 MG TABLET. PO SCH ×2 (07:33→21:01)
[2020-10-22] MEDS: BENZTROPINE MESYLATE 1 MG TABLET PO SCH (07:33)
[2020-10-22] MEDS: CALCIUM POLYCARBOPHIL 625 MG TABLET PO SCH ×2 (07:33→21:00)
[2020-10-22] MEDS: FERROUS SULFATE 325 MG TABLET. PO SCH ×2 (07:33→21:03)
--- NOTE | 2020-10-22 07:35 | NUR ---
pt was standing outside of nurse station screaming at staff for breakfast. staff informed pt that breakfast was in 30 min. pt continued to scream at staff. staff asked pt to stop yelling and go chill out in his room. pt then screamed at staff to "fuck off" and that he did not have to listen to us. pt raised hand to staff as if he was going to hit staff. staff then assisted pt to the locked [place], while doing so pt kicked, scratched, grabbed staffs arm breaking through the skin. once in the [place], pt grabbed staffs leg pulling them to the floor. staff left the locked what[place], leaving pt sitting down to calm down.
[2020-10-22] MEDS: chlorproMAZINE HCL 25 MG TABLET PO SCH ×2 (07:40→21:04)
[2020-10-22] MEDS: KETOCONAZOLE 2% SHAMPOO 120ML BOTTLE. TP SCH (07:47)
[2020-10-22] MEDS: INSULIN LISPRO 300 UNITS/3 ML VIAL. SQ SCH ×3 (08:00→17:00)
[2020-10-22] MEDS: INSULIN GLARGINE SYRINGE. SQ SCH ×2 (09:44→21:00)
--- NOTE | 2020-10-22 12:52 | NUR ---
Nursing note: Pt awake at shift change demanding to go into the dining room for breakfast. Pt was informed that breakfast was not for another hour, but he continued to demand to go into the dining room. He became increasingly agitated and aggressive with staff. Pt was escorted to the quiet what[place] where he proceeded to grab staff and scratched [employer]'s arm. Pt continued to yell and call staff names. Pt was given a PRN along with AM meds. He calmly took his meds and was cooperative with assessment, but was angry with staff and stated "they cut my throat". Pt was eventually able to relax and was brought to the day room. He is currently in the dining room eating lunch. Will continue to monitor.
[2020-10-22 15:50] VITALS: BP 155/71
[2020-10-22] MEDS: amLODIPine BESYLATE 10 MG TABLET PO SCH (21:01)
[2020-10-22] MEDS: cloZAPine 25 MG TABLET PO SCH (21:03)
[2020-10-22] MEDS: DONEPEZIL HCL 10 MG TABLET PO SCH (21:03)
[2020-10-22] MEDS: DIVALPROEX 125 MG CAP.SPRINK PO SCH (21:04)
--- NOTE | 2020-10-22 22:03 | PDOC ---
Exam Note: Devin Note: Please also refer to the separate dictated note~for this date of service dictated separately.~Patient seen individually. Discussed the patient with Nursing staff reviewed the chart.~Reviewed interim history and current functioning. Reviewed vital signs,~Labs/ Radiology~and current medications noted below. Continue current treatment with the changes noted in the dictated addendum note Assessment: Vital Signs/I&O: Vital Signs Date Time Temp Pulse Resp B/P (MAP) Pulse Ox O2 Delivery O2 Flow Rate FiO2 10/22/20 21:01 71 155/71 10/22/20 15:50 98.1 19 100 10/21/20 06:35 Room Air I & O 10/21/20 10/21/20 10/22/20 15:00 23:00 07:00 Intake Total 560 ml 240 ml Balance 560 ml 240 ml Labs: Laboratory Tests Test 10/22/20 06:10 10/22/20 09:21 10/22/20 12:00 10/22/20 17:10 White Blood Count 6.3 x10^3/uL (4.0-11.0) Red Blood Count 3.30 x10^6/uL (4.30-5.70) L Hemoglobin 10.0 g/dL (13.0-17.5) L Hematocrit 30.8 % (39.0-53.0) L Mean Corpuscular Volume 94 fL (79-100) Mean Corpuscular Hemoglobin 30 pg (25-35) Mean Corpuscular Hemoglobin Concent 32 g/dL (31-37) Red Cell Distribution Width 13.8 % (11.5-14.5) Platelet Count 260 x10^3/uL (140-400) Neutrophils (%) (Auto) 37 % (31-73) Lymphocytes (%) (Auto) 50 % (24-48) H Monocytes (%) (Auto) 11 % (0-9) H Eosinophils (%) (Auto) 2 % (0-3) Basophils (%) (Auto) 1 % (0-3) Neutrophils # (Auto) 2.3 x10^3uL (1.8-7.7) Lymphocytes # (Auto) 3.1 x10^3/uL (1.0-4.8) Monocytes # (Auto) 0.7 x10^3/uL (0.0-1.1) Eosinophils # (Auto) 0.1 x10^3/uL (0.0-0.7) Basophils # (Auto) 0.0 x10^3/uL (0.0-0.2) Sodium Level 145 mmol/L (136-145) Potassium Level 4.7 mmol/L (3.5-5.1) Chloride Level 106 mmol/L (98-107) Carbon Dioxide Level 33 mmol/L (21-32) H Anion Gap 6 (6-14) Blood Urea Nitrogen 19 mg/dL (8-26) Creatinine 1.0 mg/dL (0.7-1.3) Estimated GFR (Cockcroft-Gault) 73.9 BUN/Creatinine Ratio 19 (6-20) Glucose Level 105 mg/dL (70-99) H Calcium Level 9.5 mg/dL (8.5-10.1) Total Bilirubin 0.1 mg/dL (0.2-1.0) L Aspartate Amino Transferase (AST) 30 U/L (15-37) Alanine Aminotransferase (ALT) 39 U/L (16-63) Alkaline Phosphatase 108 U/L (46-116) Total Protein 7.3 g/dL (6.4-8.2) Albumin 3.1 g/dL (3.4-5.0) L Albumin/Globulin Ratio 0.7 (1.0-1.7) L Glucose (Fingerstick) 115 mg/dL (70-99) H 110 mg/dL (70-99) H 124 mg/dL (70-99) H Test 10/22/20 19:08 Glucose (Fingerstick) 191 mg/dL (70-99) H Current Medications: Meds: Current Medications Medications (Trade) Dose Ordered Sig/Nancy Route PRN Reason Start Time Stop Time Status Last Admin Dose Admin Clozapine (Clozaril) 75 mg HS PO 10/22/20 21:00 10/22/20 21:03 Oxcarbazepine (Trileptal) 900 mg BID PO 10/22/20 21:00 10/22/20 21:03 I have reviewed the current psychotropics carefully including drug interactions. Risk benefit ratio favors no change other than as noted in my dictated progress note. Diagnosis: Problems: (1) Schizoaffective disorder, bipolar type (2) Impulse control disorder, unspecified (3) Mild cognitive impairment (4) Anxiety disorder, unspecified (5) Bipolar disorder, current episode mixed, severe, with psychotic features KALEN REN MD Oct 22, 2020 22:03
--- NOTE | 2020-10-23 03:12 | NUR ---
Nursing Note The patient was located in the day room for his assessment and medication pass. The patient was disorganized and was difficult to assess due to flight of ideas and labile mood. The patient took his medication whole. The patient was agitated after HS and refused to dress himself. Patient was told he needed to dress himself and eventually he did cloth himself. Patient is currently located in his room laying in bed.
[2020-10-23] MEDS: LEVOTHYROXINE 175 MCG TABLET PO SCH (05:33)
[2020-10-23 06:10] VITALS: BP 159/85
[2020-10-23] MEDS: INSULIN LISPRO 300 UNITS/3 ML VIAL. SQ SCH ×3 (08:00→16:56)
[2020-10-23] MEDS: NICOTINE 14MG PATCH. TD SCH (08:24)
[2020-10-23] MEDS: BENZTROPINE MESYLATE 1 MG TABLET PO SCH (08:24)
[2020-10-23] MEDS: ASCORBIC ACID 500 MG TABLET PO SCH ×2 (08:25→21:16)
[2020-10-23] MEDS: FERROUS SULFATE 325 MG TABLET. PO SCH ×2 (08:25→21:16)
[2020-10-23] MEDS: CALCIUM POLYCARBOPHIL 625 MG TABLET PO SCH ×2 (08:25→21:16)
[2020-10-23] MEDS: CALCIUM CARB/VIT D3 500/200 TABLET PO SCH (08:26)
[2020-10-23] MEDS: hydroCHLOROthiazide 25 MG TABLET PO SCH (08:26)
[2020-10-23] MEDS: METOPROLOL SUCC 24HR ER 25 MG TAB.ER.24H. PO SCH (08:26)
[2020-10-23] MEDS: metFORMIN 500 MG TABLET PO SCH ×2 (08:26→17:27)
[2020-10-23] MEDS: TAMSULOSIN 0.4 MG CAP.ER.24H. PO SCH (08:26)
[2020-10-23] MEDS: LOSARTAN 50 MG TABLET. PO SCH ×2 (08:26→21:16)
[2020-10-23] MEDS: chlorproMAZINE HCL 25 MG TABLET PO SCH ×2 (08:27→21:15)
--- NOTE | 2020-10-23 08:40 | PDOC ---
Exam Note: Devin Note: This note is a late entry for 10/20/2020 covers elements not covered in my initial note. Subjective: The patient was seen individually in the morning of 10/20/2020 with Carlene MOON, discussed and reviewed the chart. He slept 4 hours previous night. The patient has been intermittently psychotic, cursing at staff, agitated, especially around breakfast. Review of Systems: No CV, , pulmonary, eye system symptoms on review. Mental Status Exam: The patient is reasonably oriented to himself and situation. Speech is coherent. Abstraction is fair. Computation is impaired. Language function is intact. Mood and affect remains labile. He remains psychotic. No suicidal or homicidal ideation. Laboratory Data: Reviewed. Impression: Schizoaffective disorder bipolar type mixed with psychotic features. Anxiety disorder unspecified. Impulse control disorder unspecified. Plan: We will continue to increase the Clozaril after weekly blood counts and absolute neutrophil counts. He remains psychotic but I think as the Clozaril is adjusted this should stabilize. Assessment: Vital Signs/I&O: Vital Signs Date Time Temp Pulse Resp B/P (MAP) Pulse Ox O2 Delivery O2 Flow Rate FiO2 10/23/20 08:26 70 159/85 10/23/20 06:10 97.2 16 97 10/21/20 06:35 Room Air I & O 10/22/20 10/22/20 10/23/20 15:00 23:00 07:00 Intake Total 960 ml 720 ml Balance 960 ml 720 ml Labs: Laboratory Tests Test 10/22/20 09:21 10/22/20 12:00 10/22/20 17:10 10/22/20 19:08 Glucose (Fingerstick) 115 mg/dL (70-99) H 110 mg/dL (70-99) H 124 mg/dL (70-99) H 191 mg/dL (70-99) H Test 10/23/20 08:00 Glucose (Fingerstick) 117 mg/dL (70-99) H Current Medications: Meds: Laboratory Tests Test 10/22/20 09:21 10/22/20 12:00 10/22/20 17:10 10/22/20 19:08 Glucose (Fingerstick) 115 mg/dL 110 mg/dL 124 mg/dL 191 mg/dL Test 10/23/20 08:00 Glucose (Fingerstick) 117 mg/dL Current Medications Medications (Trade) Dose Ordered Sig/Nancy Route PRN Reason Start Time Stop Time Status Last Admin Dose Admin Acetaminophen (Tylenol) 650 mg PRN Q6HRS PRN PO MILD PAIN / TEMP > 100.3'F 10/10/20 06:30 10/10/20 17:40 DC Multi-Ingredient Ointment (Analgesic [place]) 1 nayla PRN QID PRN TP MUSCLE PAIN 10/10/20 06:30 Al Hydroxide/Mg Hydroxide (Mylanta Plus Xs) 15 ml PRN AFTMEALHC PRN PO DYSPEPSIA 10/10/20 06:30 Magnesium Hydroxide (Milk Of Magnesia) 2,400 mg PRN QHS PRN PO CONSTIPATION 10/10/20 06:30 Nicotine (Nicoderm Cq 21mg Patch) 1 patch DAILY TD 10/10/20 09:00 10/18/20 01:35 DC 10/17/20 08:35 Influenza Virus Vaccine Quadrival (Fluzone Quad Syringe) 0.5 ml ONCE ONCE VAX IM 10/10/20 09:00 10/10/20 09:01 DC 10/10/20 14:04 Acetaminophen (Tylenol) 650 mg PRN DAILY PRN PO PAIN OR FEVER 10/10/20 07:45 10/10/20 17:40 DC Acetaminophen (Tylenol) 500 mg PRN Q6HRS PRN PO MILD PAIN / TEMP > 100.3'F 10/10/20 07:45 10/17/20 02:51 Amlodipine Besylate (Norvasc) 10 mg HS PO 10/10/20 21:00 10/22/20 21:01 Benztropine Mesylate (Cogentin) 1 mg DAILY PO 10/10/20 09:00 10/23/20 08:24 Calcium/Vitamin D (Oscal D 500mg/ 200uts) 1 tab DAILY PO 10/10/20 09:00 10/23/20 08:26 Calcium Polycarbophil (Fibercon) 625 mg BID PO 10/10/20 09:00 10/23/20 08:25 Clonidine HCl (Catapres) 0.1 mg PRN Q1HR PRN PO AGITATION 10/10/20 07:45 Donepezil HCl (Aricept) 10 mg HS PO 10/10/20 21:00 10/22/20 21:03 Ferrous Sulfate (Feosol) 325 mg BID PO 10/10/20 09:00 10/23/20 08:25 Hydrochlorothiazide (Hydrodiuril) 25 mg DAILY PO 10/10/20 09:00 10/23/20 08:26 Insulin Glargine (Lantus Syringe) 5 unit HS SQ 10/10/20 21:00 10/22/20 21:00 Ketoconazole (Nizoral 2% Shampoo) 1 nayla QODAY TP 10/10/20 09:00 10/22/20 07:47 Levothyroxine Sodium (Synthroid) 75 mcg DAILY06 PO 10/11/20 06:00 UNV Levothyroxine Sodium (Synthroid) 100 mcg DAILY PO 10/10/20 09:00 10/11/20 05:50 DC Losartan Potassium (Cozaar) 50 mg BID PO 10/10/20 09:00 10/23/20 08:26 Metformin HCl (Glucophage) 500 mg DAILYBFRSUP PO 10/10/20 17:00 10/22/20 17:03 Metformin HCl (Glucophage) 1,500 mg DAILY PO 10/10/20 09:00 10/23/20 08:26 Metoprolol Succinate (Toprol Xl) 25 mg DAILY PO 10/10/20 09:00 10/16/20 17:59 DC 10/16/20 08:36 Tamsulosin HCl (Flomax) 0.4 mg DAILY PO 10/10/20 09:30 10/23/20 08:26 Trazodone HCl (Desyrel) 50 mg PRN QHS PRN PO SLEEP AID 10/10/20 07:45 10/21/20 20:42 Ziprasidone (Geodon) 60 mg BID PO 10/10/20 09:30 10/13/20 14:38 DC 10/13/20 08:17 Chlorpromazine HCl (Thorazine) 50 mg DAILY PO 10/10/20 09:00 10/15/20 17:56 DC 10/15/20 08:23 Chlorpromazine HCl (Thorazine) 50 mg PRN Q6HRS PRN PO AGITATION 10/10/20 09:00 10/11/20 10:04 DC 10/11/20 01:38 Chlorpromazine HCl (Thorazine) 300 mg HS PO 10/10/20 21:00 10/22/20 21:04 Non-Formulary Medication (Diphenhydramine Hcl ) 1 cap Q6HRS PRN PO AGITATION 10/10/20 07:45 UNV Haloperidol Decanoate (Haldol Decanoate Im Extended Release) 100 mg QMONTH IM 10/26/20 09:00 Insulin Glargine (Lantus Syringe) 8 unit DAILY SQ 10/10/20 10:00 10/22/20 09:44 Non-Formulary Medication (Liothyronine Sodium (Cytomel)) 1 tab DAILY PO 10/10/20 09:00 10/11/20 07:29 DC Oxcarbazepine (Trileptal) 600 mg BID PO 10/10/20 09:30 10/22/20 17:52 DC 10/22/20 07:32 Valproic Acid (Depakene) 1,000 mg BID PO 10/10/20 09:30 10/10/20 20:12 DC 10/10/20 11:15 Non-Formulary Medication ([[id number]/ 2ML] ) 50 mg Q6HRS PRN IM AGITATION 10/10/20 07:45 UNV Non-Formulary Medication ([Bqkecsshkadh71ji/ Ml] ) 50 mg Q6HRS PRN IM AGITATION 10/10/20 07:45 UNV Non-Formulary Medication (Semaglutide (Ozempic)) 1 mg WEEKLY SQ 10/10/20 09:00 UNV Non-Formulary Medication (Vitamin D3/ Vitamin K2 (D3 + K2 Dots 1,000 Units Tab)) 1 tab DAILY PO 10/10/20 09:00 10/10/20 17:36 DC Insulin Human Lispro (HumaLOG) 0-4 UNITS TIDWMEALS SQ 10/10/20 17:00 10/16/20 12:00 Dextrose (Dextrose 50%-Water Syringe) 12.5 gm PRN Q15MIN PRN IV SEE COMMENTS 10/10/20 16:00 Vitamin D (Vitamin D3) 50,000 unit WEEKLY PO 10/10/20 17:30 10/17/20 08:25 Olanzapine (ZyPREXA ZYDIS) 5 mg PRN Q2HRS PRN PO PSYCHOSIS 10/10/20 18:00 10/23/20 08:26 Divalproex Sodium (Depakote Sprinkles) 1,000 mg HS PO 10/10/20 21:00 10/22/20 21:04 Levothyroxine Sodium (Synthroid) 175 mcg DAILY06 PO 10/11/20 07:30 10/23/20 05:33 Liothyronine Sodium (Cytomel) 50 mcg DAILY PO 10/11/20 09:00 10/11/20 10:48 DC Clozapine (Clozaril) 25 mg HS PO 10/11/20 21:00 10/15/20 17:52 DC 10/14/20 20:22 Ascorbic Acid (Vitamin C) 500 mg BID PO 10/11/20 21:00 10/23/20 08:25 Ziprasidone (Geodon) 60 mg BID PO 10/13/20 21:00 10/18/20 11:27 DC 10/18/20 09:14 Clozapine (Clozaril) 50 mg HS PO 10/15/20 21:00 10/22/20 17:52 DC 10/21/20 20:36 Metoprolol Succinate (Toprol Xl) 50 mg DAILY PO 10/16/20 18:00 10/23/20 08:26 Nicotine (Nicoderm Cq 14mg Patch) 1 patch DAILY TD 10/18/20 09:00 10/23/20 08:24 Ziprasidone (Geodon) 60 mg QHS PO 10/18/20 21:00 10/21/20 23:00 DC 10/21/20 20:36 Chlorpromazine HCl (Thorazine) 50 mg DAILY PO 10/19/20 18:00 10/23/20 08:27 Clozapine (Clozaril) 75 mg HS PO 10/22/20 21:00 10/22/20 21:03 Oxcarbazepine (Trileptal) 900 mg BID PO 10/22/20 21:00 10/23/20 08:25 Current Medications Medications (Trade) Dose Ordered Sig/Nancy Route PRN Reason Start Time Stop Time Status Last Admin Dose Admin Clozapine (Clozaril) 75 mg HS PO 10/22/20 21:00 10/22/20 21:03 Oxcarbazepine (Trileptal) 900 mg BID PO 10/22/20 21:00 10/23/20 08:25 I have reviewed the current psychotropics carefully including drug interactions. Risk benefit ratio favors no change other than as noted in my dictated progress note. Diagnosis: Problems: (1) Schizoaffective disorder, bipolar type (2) Impulse control disorder, unspecified (3) Mild cognitive impairment (4) Anxiety disorder, unspecified (5) Bipolar disorder, current episode mixed, severe, with psychotic features KALEN REN MD Oct 23, 2020 08:40
--- NOTE | 2020-10-23 08:57 | PDOC ---
Exam Note: Devin Note: This note is a late entry for 10/21/2020 covers elements not covered in my initial note. Subjective: The patient was seen individually in the evening of 10/21/2020 with Carlene MOON, discussed and reviewed the chart. He slept 4 hours previous night. He is labile in his mood. He is pleasant at times and agitated, restless, quite irritable previous night. He remains hyperverbal with low volume of speech but rapid. Review of Systems: No CV, , pulmonary, eye system symptoms on review. Mental Status Exam: The patient is reasonably oriented to himself and sit uation. Speech is coherent, rapid, low in volume. Abstraction is fair. Computation is impaired. Language function is intact. Mood and affect remains paranoid. He remains quite psychotic, paranoid. No suicidal or homicidal ideation. Laboratory Data: Reviewed. Impression: Schizoaffective disorder bipolar type mixed with psychotic features. Anxiety disorder unspecified. Impulse control disorder unspecified. Plan: No change from initial note. We will continue to increase the patients Clozaril after weekly absolute neutrophil counts till the psychosis and mood lability stabilizes. Assessment: Vital Signs/I&O: Vital Signs Date Time Temp Pulse Resp B/P (MAP) Pulse Ox O2 Delivery O2 Flow Rate FiO2 10/23/20 08:26 70 159/85 10/23/20 06:10 97.2 16 97 10/21/20 06:35 Room Air I & O 10/22/20 10/22/20 10/23/20 14:59 22:59 06:59 Intake Total 960 ml 720 ml Balance 960 ml 720 ml Labs: Laboratory Tests Test 10/22/20 09:21 10/22/20 12:00 10/22/20 17:10 10/22/20 19:08 Glucose (Fingerstick) 115 mg/dL (70-99) H 110 mg/dL (70-99) H 124 mg/dL (70-99) H 191 mg/dL (70-99) H Test 10/23/20 08:00 Glucose (Fingerstick) 117 mg/dL (70-99) H Current Medications: Meds: Laboratory Tests Test 10/22/20 09:21 10/22/20 12:00 10/22/20 17:10 10/22/20 19:08 Glucose (Fingerstick) 115 mg/dL 110 mg/dL 124 mg/dL 191 mg/dL Test 10/23/20 08:00 Glucose (Fingerstick) 117 mg/dL Current Medications Medications (Trade) Dose Ordered Sig/Nancy Route PRN Reason Start Time Stop Time Status Last Admin Dose Admin Acetaminophen (Tylenol) 650 mg PRN Q6HRS PRN PO MILD PAIN / TEMP > 100.3'F 10/10/20 06:30 10/10/20 17:40 DC Multi-Ingredient Ointment (Analgesic [place]) 1 nayla PRN QID PRN TP MUSCLE PAIN 10/10/20 06:30 Al Hydroxide/Mg Hydroxide (Mylanta Plus Xs) 15 ml PRN AFTMEALHC PRN PO DYSPEPSIA 10/10/20 06:30 Magnesium Hydroxide (Milk Of Magnesia) 2,400 mg PRN QHS PRN PO CONSTIPATION 10/10/20 06:30 Nicotine (Nicoderm Cq 21mg Patch) 1 patch DAILY TD 10/10/20 09:00 10/18/20 01:35 DC 10/17/20 08:35 Influenza Virus Vaccine Quadrival (Fluzone Quad Syringe) 0.5 ml ONCE ONCE VAX IM 10/10/20 09:00 10/10/20 09:01 DC 10/10/20 14:04 Acetaminophen (Tylenol) 650 mg PRN DAILY PRN PO PAIN OR FEVER 10/10/20 07:45 10/10/20 17:40 DC Acetaminophen (Tylenol) 500 mg PRN Q6HRS PRN PO MILD PAIN / TEMP > 100.3'F 10/10/20 07:45 10/17/20 02:51 Amlodipine Besylate (Norvasc) 10 mg HS PO 10/10/20 21:00 10/22/20 21:01 Benztropine Mesylate (Cogentin) 1 mg DAILY PO 10/10/20 09:00 10/23/20 08:24 Calcium/Vitamin D (Oscal D 500mg/ 200uts) 1 tab DAILY PO 10/10/20 09:00 10/23/20 08:26 Calcium Polycarbophil (Fibercon) 625 mg BID PO 10/10/20 09:00 10/23/20 08:25 Clonidine HCl (Catapres) 0.1 mg PRN Q1HR PRN PO AGITATION 10/10/20 07:45 Donepezil HCl (Aricept) 10 mg HS PO 10/10/20 21:00 10/22/20 21:03 Ferrous Sulfate (Feosol) 325 mg BID PO 10/10/20 09:00 10/23/20 08:25 Hydrochlorothiazide (Hydrodiuril) 25 mg DAILY PO 10/10/20 09:00 10/23/20 08:26 Insulin Glargine (Lantus Syringe) 5 unit HS SQ 10/10/20 21:00 10/22/20 21:00 Ketoconazole (Nizoral 2% Shampoo) 1 nayla QODAY TP 10/10/20 09:00 10/22/20 07:47 Levothyroxine Sodium (Synthroid) 75 mcg DAILY06 PO 10/11/20 06:00 UNV Levothyroxine Sodium (Synthroid) 100 mcg DAILY PO 10/10/20 09:00 10/11/20 05:50 DC Losartan Potassium (Cozaar) 50 mg BID PO 10/10/20 09:00 10/23/20 08:26 Metformin HCl (Glucophage) 500 mg DAILYBFRSUP PO 10/10/20 17:00 10/22/20 17:03 Metformin HCl (Glucophage) 1,500 mg DAILY PO 10/10/20 09:00 10/23/20 08:26 Metoprolol Succinate (Toprol Xl) 25 mg DAILY PO 10/10/20 09:00 10/16/20 17:59 DC 10/16/20 08:36 Tamsulosin HCl (Flomax) 0.4 mg DAILY PO 10/10/20 09:30 10/23/20 08:26 Trazodone HCl (Desyrel) 50 mg PRN QHS PRN PO SLEEP AID 10/10/20 07:45 10/21/20 20:42 Ziprasidone (Geodon) 60 mg BID PO 10/10/20 09:30 10/13/20 14:38 DC 10/13/20 08:17 Chlorpromazine HCl (Thorazine) 50 mg DAILY PO 10/10/20 09:00 10/15/20 17:56 DC 10/15/20 08:23 Chlorpromazine HCl (Thorazine) 50 mg PRN Q6HRS PRN PO AGITATION 10/10/20 09:00 10/11/20 10:04 DC 10/11/20 01:38 Chlorpromazine HCl (Thorazine) 300 mg HS PO 10/10/20 21:00 10/22/20 21:04 Non-Formulary Medication (Diphenhydramine Hcl ) 1 cap Q6HRS PRN PO AGITATION 10/10/20 07:45 UNV Haloperidol Decanoate (Haldol Decanoate Im Extended Release) 100 mg QMONTH IM 10/26/20 09:00 Insulin Glargine (Lantus Syringe) 8 unit DAILY SQ 10/10/20 10:00 10/22/20 09:44 Non-Formulary Medication (Liothyronine Sodium (Cytomel)) 1 tab DAILY PO 10/10/20 09:00 10/11/20 07:29 DC Oxcarbazepine (Trileptal) 600 mg BID PO 10/10/20 09:30 10/22/20 17:52 DC 10/22/20 07:32 Valproic Acid (Depakene) 1,000 mg BID PO 10/10/20 09:30 10/10/20 20:12 DC 10/10/20 11:15 Non-Formulary Medication ([[id number]/ 2ML] ) 50 mg Q6HRS PRN IM AGITATION 10/10/20 07:45 UNV Non-Formulary Medication ([Brvxrulfiaok74jf/ Ml] ) 50 mg Q6HRS PRN IM AGITATION 10/10/20 07:45 UNV Non-Formulary Medication (Semaglutide (Ozempic)) 1 mg WEEKLY SQ 10/10/20 09:00 UNV Non-Formulary Medication (Vitamin D3/ Vitamin K2 (D3 + K2 Dots 1,000 Units Tab)) 1 tab DAILY PO 10/10/20 09:00 10/10/20 17:36 DC Insulin Human Lispro (HumaLOG) 0-4 UNITS TIDWMEALS SQ 10/10/20 17:00 10/16/20 12:00 Dextrose (Dextrose 50%-Water Syringe) 12.5 gm PRN Q15MIN PRN IV SEE COMMENTS 10/10/20 16:00 Vitamin D (Vitamin D3) 50,000 unit WEEKLY PO 10/10/20 17:30 10/17/20 08:25 Olanzapine (ZyPREXA ZYDIS) 5 mg PRN Q2HRS PRN PO PSYCHOSIS 10/10/20 18:00 10/23/20 08:26 Divalproex Sodium (Depakote Sprinkles) 1,000 mg HS PO 10/10/20 21:00 10/22/20 21:04 Levothyroxine Sodium (Synthroid) 175 mcg DAILY06 PO 10/11/20 07:30 10/23/20 05:33 Liothyronine Sodium (Cytomel) 50 mcg DAILY PO 10/11/20 09:00 10/11/20 10:48 DC Clozapine (Clozaril) 25 mg HS PO 10/11/20 21:00 10/15/20 17:52 DC 10/14/20 20:22 Ascorbic Acid (Vitamin C) 500 mg BID PO 10/11/20 21:00 10/23/20 08:25 Ziprasidone (Geodon) 60 mg BID PO 10/13/20 21:00 10/18/20 11:27 DC 10/18/20 09:14 Clozapine (Clozaril) 50 mg HS PO 10/15/20 21:00 10/22/20 17:52 DC 10/21/20 20:36 Metoprolol Succinate (Toprol Xl) 50 mg DAILY PO 10/16/20 18:00 10/23/20 08:26 Nicotine (Nicoderm Cq 14mg Patch) 1 patch DAILY TD 10/18/20 09:00 10/23/20 08:24 Ziprasidone (Geodon) 60 mg QHS PO 10/18/20 21:00 10/21/20 23:00 DC 10/21/20 20:36 Chlorpromazine HCl (Thorazine) 50 mg DAILY PO 10/19/20 18:00 10/23/20 08:27 Clozapine (Clozaril) 75 mg HS PO 10/22/20 21:00 10/22/20 21:03 Oxcarbazepine (Trileptal) 900 mg BID PO 10/22/20 21:00 10/23/20 08:25 Current Medications Medications (Trade) Dose Ordered Sig/Nancy Route PRN Reason Start Time Stop Time Status Last Admin Dose Admin Clozapine (Clozaril) 75 mg HS PO 10/22/20 21:00 10/22/20 21:03 Oxcarbazepine (Trileptal) 900 mg BID PO 10/22/20 21:00 10/23/20 08:25 I have reviewed the current psychotropics carefully including drug interactions. Risk benefit ratio favors no change other than as noted in my dictated progress note. Diagnosis: Problems: (1) Schizoaffective disorder, bipolar type (2) Impulse control disorder, unspecified (3) Mild cognitive impairment (4) Anxiety disorder, unspecified (5) Bipolar disorder, current episode mixed, severe, with psychotic features KALEN REN MD Oct 23, 2020 08:57
--- NOTE | 2020-10-23 09:19 | PDOC ---
Exam Note: Devin Note: This note is a late entry for 10/22/2020 covers elements not covered in my initial note. Subjective: The patient was seen individually in the evening of 10/22/2020 with Brittanie MOON, discussed and reviewed the chart. He slept 2-3/4 hours previous night. He was quite agitated this morning. Reportedly in a bad mood. Last night he urinated on the floor in his room, aggressive and staff were there to clean it and change him since he was wet. He was yelling and cursing in the dining room, grabbing at [employer]OR[employer] staff member when he was taken to the [facility] and pulled the staff member down to the floor, yelling later. Review of Systems: No CV, , pulmonary, eye system symptoms on review. Mental Status Exam: The patient is oriented to himself and situation. Speech is coherent, rapid at times. Abstraction is fair. Computation is impaired. Language function is intact. Attention span is short. Mood and affect extremely labile and is quite paranoid. Laboratory Data: Reviewed. Impression: Schizoaffective disorder bipolar type mixed with psychotic features. Anxiety disorder unspecified. Impulse control disorder unspecified. Plan: Increase Trileptal from 600 mg b.i.d. to 900 mg b.i.d. Absolute neutrophil count is 2300. We will increase Clozaril from 50 mg h.s. to 75 mg h.s. Valproic acid level is therapeutic at 61. Adjust further as clinically indicated. Assessment: Vital Signs/I&O: Vital Signs Date Time Temp Pulse Resp B/P (MAP) Pulse Ox O2 Delivery O2 Flow Rate FiO2 10/23/20 08:26 70 159/85 10/23/20 06:10 97.2 16 97 10/21/20 06:35 Room Air I & O 10/22/20 10/22/20 10/23/20 15:00 23:00 07:00 Intake Total 960 ml 720 ml Balance 960 ml 720 ml Labs: Laboratory Tests Test 10/22/20 09:21 10/22/20 12:00 10/22/20 17:10 10/22/20 19:08 Glucose (Fingerstick) 115 mg/dL (70-99) H 110 mg/dL (70-99) H 124 mg/dL (70-99) H 191 mg/dL (70-99) H Test 10/23/20 08:00 Glucose (Fingerstick) 117 mg/dL (70-99) H Current Medications: Meds: Laboratory Tests Test 10/22/20 09:21 10/22/20 12:00 10/22/20 17:10 10/22/20 19:08 Glucose (Fingerstick) 115 mg/dL 110 mg/dL 124 mg/dL 191 mg/dL Test 10/23/20 08:00 Glucose (Fingerstick) 117 mg/dL Current Medications Medications (Trade) Dose Ordered Sig/Nancy Route PRN Reason Start Time Stop Time Status Last Admin Dose Admin Acetaminophen (Tylenol) 650 mg PRN Q6HRS PRN PO MILD PAIN / TEMP > 100.3'F 10/10/20 06:30 10/10/20 17:40 DC Multi-Ingredient Ointment (Analgesic [place]) 1 nayla PRN QID PRN TP MUSCLE PAIN 10/10/20 06:30 Al Hydroxide/Mg Hydroxide (Mylanta Plus Xs) 15 ml PRN AFTMEALHC PRN PO DYSPEPSIA 10/10/20 06:30 Magnesium Hydroxide (Milk Of Magnesia) 2,400 mg PRN QHS PRN PO CONSTIPATION 10/10/20 06:30 Nicotine (Nicoderm Cq 21mg Patch) 1 patch DAILY TD 10/10/20 09:00 10/18/20 01:35 DC 10/17/20 08:35 Influenza Virus Vaccine Quadrival (Fluzone Quad [id number] Syringe) 0.5 ml ONCE ONCE VAX IM 10/10/20 09:00 10/10/20 09:01 DC 10/10/20 14:04 Acetaminophen (Tylenol) 650 mg PRN DAILY PRN PO PAIN OR FEVER 10/10/20 07:45 10/10/20 17:40 DC Acetaminophen (Tylenol) 500 mg PRN Q6HRS PRN PO MILD PAIN / TEMP > 100.3'F 10/10/20 07:45 10/17/20 02:51 Amlodipine Besylate (Norvasc) 10 mg HS PO 10/10/20 21:00 10/22/20 21:01 Benztropine Mesylate (Cogentin) 1 mg DAILY PO 10/10/20 09:00 10/23/20 08:24 Calcium/Vitamin D (Oscal D 500mg/ 200uts) 1 tab DAILY PO 10/10/20 09:00 10/23/20 08:26 Calcium Polycarbophil (Fibercon) 625 mg BID PO 10/10/20 09:00 10/23/20 08:25 Clonidine HCl (Catapres) 0.1 mg PRN Q1HR PRN PO AGITATION 10/10/20 07:45 Donepezil HCl (Aricept) 10 mg HS PO 10/10/20 21:00 10/22/20 21:03 Ferrous Sulfate (Feosol) 325 mg BID PO 10/10/20 09:00 10/23/20 08:25 Hydrochlorothiazide (Hydrodiuril) 25 mg DAILY PO 10/10/20 09:00 10/23/20 08:26 Insulin Glargine (Lantus Syringe) 5 unit HS SQ 10/10/20 21:00 10/22/20 21:00 Ketoconazole (Nizoral 2% Shampoo) 1 nayla QODAY TP 10/10/20 09:00 10/22/20 07:47 Levothyroxine Sodium (Synthroid) 75 mcg DAILY06 PO 10/11/20 06:00 UNV Levothyroxine Sodium (Synthroid) 100 mcg DAILY PO 10/10/20 09:00 10/11/20 05:50 DC Losartan Potassium (Cozaar) 50 mg BID PO 10/10/20 09:00 10/23/20 08:26 Metformin HCl (Glucophage) 500 mg DAILYBFRSUP PO 10/10/20 17:00 10/22/20 17:03 Metformin HCl (Glucophage) 1,500 mg DAILY PO 10/10/20 09:00 10/23/20 08:26 Metoprolol Succinate (Toprol Xl) 25 mg DAILY PO 10/10/20 09:00 10/16/20 17:59 DC 10/16/20 08:36 Tamsulosin HCl (Flomax) 0.4 mg DAILY PO 10/10/20 09:30 10/23/20 08:26 Trazodone HCl (Desyrel) 50 mg PRN QHS PRN PO SLEEP AID 10/10/20 07:45 10/21/20 20:42 Ziprasidone (Geodon) 60 mg BID PO 10/10/20 09:30 10/13/20 14:38 DC 10/13/20 08:17 Chlorpromazine HCl (Thorazine) 50 mg DAILY PO 10/10/20 09:00 10/15/20 17:56 DC 10/15/20 08:23 Chlorpromazine HCl (Thorazine) 50 mg PRN Q6HRS PRN PO AGITATION 10/10/20 09:00 10/11/20 10:04 DC 10/11/20 01:38 Chlorpromazine HCl (Thorazine) 300 mg HS PO 10/10/20 21:00 10/22/20 21:04 Non-Formulary Medication (Diphenhydramine Hcl ) 1 cap Q6HRS PRN PO AGITATION 10/10/20 07:45 UNV Haloperidol Decanoate (Haldol Decanoate Im Extended Release) 100 mg QMONTH IM 10/26/20 09:00 Insulin Glargine (Lantus Syringe) 8 unit DAILY SQ 10/10/20 10:00 10/22/20 09:44 Non-Formulary Medication (Liothyronine Sodium (Cytomel)) 1 tab DAILY PO 10/10/20 09:00 10/11/20 07:29 DC Oxcarbazepine (Trileptal) 600 mg BID PO 10/10/20 09:30 10/22/20 17:52 DC 10/22/20 07:32 Valproic Acid (Depakene) 1,000 mg BID PO 10/10/20 09:30 10/10/20 20:12 DC 10/10/20 11:15 Non-Formulary Medication ([Inmxjerivcwt52up/ 2ML] ) 50 mg Q6HRS PRN IM AGITATION 10/10/20 07:45 UNV Non-Formulary Medication ([Klnoyhldztvw28yh/ Ml] ) 50 mg Q6HRS PRN IM AGITATION 10/10/20 07:45 UNV Non-Formulary Medication (Semaglutide (Ozempic)) 1 mg WEEKLY SQ 10/10/20 09:00 UNV Non-Formulary Medication (Vitamin D3/ Vitamin K2 (D3 + K2 Dots 1,000 Units Tab)) 1 tab DAILY PO 10/10/20 09:00 10/10/20 17:36 DC Insulin Human Lispro (HumaLOG) 0-4 UNITS TIDWMEALS SQ 10/10/20 17:00 10/16/20 12:00 Dextrose (Dextrose 50%-Water Syringe) 12.5 gm PRN Q15MIN PRN IV SEE COMMENTS 10/10/20 16:00 Vitamin D (Vitamin D3) 50,000 unit WEEKLY PO 10/10/20 17:30 10/17/20 08:25 Olanzapine (ZyPREXA ZYDIS) 5 mg PRN Q2HRS PRN PO PSYCHOSIS 10/10/20 18:00 10/23/20 08:26 Divalproex Sodium (Depakote Sprinkles) 1,000 mg HS PO 10/10/20 21:00 10/22/20 21:04 Levothyroxine Sodium (Synthroid) 175 mcg DAILY06 PO 10/11/20 07:30 10/23/20 05:33 Liothyronine Sodium (Cytomel) 50 mcg DAILY PO 10/11/20 09:00 10/11/20 10:48 DC Clozapine (Clozaril) 25 mg HS PO 10/11/20 21:00 10/15/20 17:52 DC 10/14/20 20:22 Ascorbic Acid (Vitamin C) 500 mg BID PO 10/11/20 21:00 10/23/20 08:25 Ziprasidone (Geodon) 60 mg BID PO 10/13/20 21:00 10/18/20 11:27 DC 10/18/20 09:14 Clozapine (Clozaril) 50 mg HS PO 10/15/20 21:00 10/22/20 17:52 DC 10/21/20 20:36 Metoprolol Succinate (Toprol Xl) 50 mg DAILY PO 10/16/20 18:00 10/23/20 08:26 Nicotine (Nicoderm Cq 14mg Patch) 1 patch DAILY TD 10/18/20 09:00 10/23/20 08:24 Ziprasidone (Geodon) 60 mg QHS PO 10/18/20 21:00 10/21/20 23:00 DC 10/21/20 20:36 Chlorpromazine HCl (Thorazine) 50 mg DAILY PO 10/19/20 18:00 10/23/20 08:27 Clozapine (Clozaril) 75 mg HS PO 10/22/20 21:00 10/22/20 21:03 Oxcarbazepine (Trileptal) 900 mg BID PO 10/22/20 21:00 10/23/20 08:25 Current Medications Medications (Trade) Dose Ordered Sig/Nancy Route PRN Reason Start Time Stop Time Status Last Admin Dose Admin Clozapine (Clozaril) 75 mg HS PO 10/22/20 21:00 10/22/20 21:03 Oxcarbazepine (Trileptal) 900 mg BID PO 10/22/20 21:00 10/23/20 08:25 I have reviewed the current psychotropics carefully including drug interactions. Risk benefit ratio favors no change other than as noted in my dictated progress note. Diagnosis: Problems: (1) Schizoaffective disorder, bipolar type (2) Impulse control disorder, unspecified (3) Mild cognitive impairment (4) Anxiety disorder, unspecified (5) Bipolar disorder, current episode mixed, severe, with psychotic features KALEN REN MD Oct 23, 2020 09:19
[2020-10-23] MEDS: INSULIN GLARGINE SYRINGE. SQ SCH ×2 (09:29→21:00)
--- NOTE | 2020-10-23 11:15 | NUR ---
Nursing note: Pt in day room at time of AM med pass and assessment. He is pleasant, med compliant and cooperative. Pt has no complaints at time of assessment. He is currently asleep in the day room. Will continue to monitor.
[2020-10-23 16:31] VITALS: BP 132/79
[2020-10-23] MEDS: DONEPEZIL HCL 10 MG TABLET PO SCH (21:16)
[2020-10-23] MEDS: amLODIPine BESYLATE 10 MG TABLET PO SCH (21:16)
[2020-10-23] MEDS: DIVALPROEX 125 MG CAP.SPRINK PO SCH (21:16)
[2020-10-23] MEDS: cloZAPine 25 MG TABLET PO SCH (21:16)
--- NOTE | 2020-10-23 22:06 | PDOC ---
Exam Note: Devin Note: Please also refer to the separate dictated note~for this date of service dictated separately.~Patient seen individually. Discussed the patient with Nursing staff reviewed the chart.~Reviewed interim history and current functioning. Reviewed vital signs,~Labs/ Radiology~and current medications noted below. Continue current treatment with the changes noted in the dictated addendum note Assessment: Vital Signs/I&O: Vital Signs Date Time Temp Pulse Resp B/P (MAP) Pulse Ox O2 Delivery O2 Flow Rate FiO2 10/23/20 21:16 78 132/79 10/23/20 16:31 97.8 18 99 10/21/20 06:35 Room Air I & O 10/22/20 10/22/20 10/23/20 15:00 23:00 07:00 Intake Total 960 ml 720 ml Balance 960 ml 720 ml Labs: Laboratory Tests Test 10/23/20 08:00 10/23/20 11:26 10/23/20 16:40 10/23/20 19:16 Glucose (Fingerstick) 117 mg/dL (70-99) H 142 mg/dL (70-99) H 74 mg/dL (70-99) 136 mg/dL (70-99) H Current Medications: Meds: Laboratory Tests Test 10/23/20 08:00 10/23/20 11:26 10/23/20 16:40 10/23/20 19:16 Glucose (Fingerstick) 117 mg/dL 142 mg/dL 74 mg/dL 136 mg/dL Current Medications Medications (Trade) Dose Ordered Sig/Nancy Route PRN Reason Start Time Stop Time Status Last Admin Dose Admin Acetaminophen (Tylenol) 650 mg PRN Q6HRS PRN PO MILD PAIN / TEMP > 100.3'F 10/10/20 06:30 10/10/20 17:40 DC Multi-Ingredient Ointment (Analgesic [employer]) 1 nayla PRN QID PRN TP MUSCLE PAIN 10/10/20 06:30 Al Hydroxide/Mg Hydroxide (Mylanta Plus Xs) 15 ml PRN AFTMEALHC PRN PO DYSPEPSIA 10/10/20 06:30 Magnesium Hydroxide (Milk Of Magnesia) 2,400 mg PRN QHS PRN PO CONSTIPATION 10/10/20 06:30 Nicotine (Nicoderm Cq 21mg Patch) 1 patch DAILY TD 10/10/20 09:00 10/18/20 01:35 DC 10/17/20 08:35 Influenza Virus Vaccine Quadrival (Fluzone Quad Syringe) 0.5 ml ONCE ONCE VAX IM 10/10/20 09:00 10/10/20 09:01 DC 10/10/20 14:04 Acetaminophen (Tylenol) 650 mg PRN DAILY PRN PO PAIN OR FEVER 10/10/20 07:45 10/10/20 17:40 DC Acetaminophen (Tylenol) 500 mg PRN Q6HRS PRN PO MILD PAIN / TEMP > 100.3'F 10/10/20 07:45 10/17/20 02:51 Amlodipine Besylate (Norvasc) 10 mg HS PO 10/10/20 21:00 10/23/20 21:16 Benztropine Mesylate (Cogentin) 1 mg DAILY PO 10/10/20 09:00 10/23/20 08:24 Calcium/Vitamin D (Oscal D 500mg/ 200uts) 1 tab DAILY PO 10/10/20 09:00 10/23/20 08:26 Calcium Polycarbophil (Fibercon) 625 mg BID PO 10/10/20 09:00 10/23/20 21:16 Clonidine HCl (Catapres) 0.1 mg PRN Q1HR PRN PO AGITATION 10/10/20 07:45 Donepezil HCl (Aricept) 10 mg HS PO 10/10/20 21:00 10/23/20 21:16 Ferrous Sulfate (Feosol) 325 mg BID PO 10/10/20 09:00 10/23/20 21:16 Hydrochlorothiazide (Hydrodiuril) 25 mg DAILY PO 10/10/20 09:00 10/23/20 08:26 Insulin Glargine (Lantus Syringe) 5 unit HS SQ 10/10/20 21:00 10/23/20 21:00 Ketoconazole (Nizoral 2% Shampoo) 1 nayla QODAY TP 10/10/20 09:00 10/22/20 07:47 Levothyroxine Sodium (Synthroid) 75 mcg DAILY06 PO 10/11/20 06:00 UNV Levothyroxine Sodium (Synthroid) 100 mcg DAILY PO 10/10/20 09:00 10/11/20 05:50 DC Losartan Potassium (Cozaar) 50 mg BID PO 10/10/20 09:00 10/23/20 21:16 Metformin HCl (Glucophage) 500 mg DAILYBFRSUP PO 10/10/20 17:00 10/23/20 17:27 Metformin HCl (Glucophage) 1,500 mg DAILY PO 10/10/20 09:00 10/23/20 08:26 Metoprolol Succinate (Toprol Xl) 25 mg DAILY PO 10/10/20 09:00 10/16/20 17:59 DC 10/16/20 08:36 Tamsulosin HCl (Flomax) 0.4 mg DAILY PO 10/10/20 09:30 10/23/20 08:26 Trazodone HCl (Desyrel) 50 mg PRN QHS PRN PO SLEEP AID 10/10/20 07:45 10/21/20 20:42 Ziprasidone (Geodon) 60 mg BID PO 10/10/20 09:30 10/13/20 14:38 DC 10/13/20 08:17 Chlorpromazine HCl (Thorazine) 50 mg DAILY PO 10/10/20 09:00 10/15/20 17:56 DC 10/15/20 08:23 Chlorpromazine HCl (Thorazine) 50 mg PRN Q6HRS PRN PO AGITATION 10/10/20 09:00 10/11/20 10:04 DC 10/11/20 01:38 Chlorpromazine HCl (Thorazine) 300 mg HS PO 10/10/20 21:00 10/23/20 21:15 Non-Formulary Medication (Diphenhydramine Hcl ) 1 cap Q6HRS PRN PO AGITATION 10/10/20 07:45 UNV Haloperidol Decanoate (Haldol Decanoate Im Extended Release) 100 mg QMONTH IM 10/26/20 09:00 Insulin Glargine (Lantus Syringe) 8 unit DAILY SQ 10/10/20 10:00 10/23/20 09:29 Non-Formulary Medication (Liothyronine Sodium (Cytomel)) 1 tab DAILY PO 10/10/20 09:00 10/11/20 07:29 DC Oxcarbazepine (Trileptal) 600 mg BID PO 10/10/20 09:30 10/22/20 17:52 DC 10/22/20 07:32 Valproic Acid (Depakene) 1,000 mg BID PO 10/10/20 09:30 10/10/20 20:12 DC 10/10/20 11:15 Non-Formulary Medication ([[id number]/ 2ML] ) 50 mg Q6HRS PRN IM AGITATION 10/10/20 07:45 UNV Non-Formulary Medication ([[id number]/ Ml] ) 50 mg Q6HRS PRN IM AGITATION 10/10/20 07:45 UNV Non-Formulary Medication (Semaglutide (Ozempic)) 1 mg WEEKLY SQ 10/10/20 09:00 UNV Non-Formulary Medication (Vitamin D3/ Vitamin K2 (D3 + K2 Dots 1,000 Units Tab)) 1 tab DAILY PO 10/10/20 09:00 10/10/20 17:36 DC Insulin Human Lispro (HumaLOG) 0-4 UNITS TIDWMEALS SQ 10/10/20 17:00 10/16/20 12:00 Dextrose (Dextrose 50%-Water Syringe) 12.5 gm PRN Q15MIN PRN IV SEE COMMENTS 10/10/20 16:00 Vitamin D (Vitamin D3) 50,000 unit WEEKLY PO 10/10/20 17:30 10/17/20 08:25 Olanzapine (ZyPREXA ZYDIS) 5 mg PRN Q2HRS PRN PO PSYCHOSIS 10/10/20 18:00 10/23/20 08:26 Divalproex Sodium (Depakote Sprinkles) 1,000 mg HS PO 10/10/20 21:00 10/23/20 21:16 Levothyroxine Sodium (Synthroid) 175 mcg DAILY06 PO 10/11/20 07:30 10/23/20 05:33 Liothyronine Sodium (Cytomel) 50 mcg DAILY PO 10/11/20 09:00 10/11/20 10:48 DC Clozapine (Clozaril) 25 mg HS PO 10/11/20 21:00 10/15/20 17:52 DC 10/14/20 20:22 Ascorbic Acid (Vitamin C) 500 mg BID PO 10/11/20 21:00 10/23/20 21:16 Ziprasidone (Geodon) 60 mg BID PO 10/13/20 21:00 10/18/20 11:27 DC 10/18/20 09:14 Clozapine (Clozaril) 50 mg HS PO 10/15/20 21:00 10/22/20 17:52 DC 10/21/20 20:36 Metoprolol Succinate (Toprol Xl) 50 mg DAILY PO 10/16/20 18:00 10/23/20 08:26 Nicotine (Nicoderm Cq 14mg Patch) 1 patch DAILY TD 10/18/20 09:00 10/23/20 08:24 Ziprasidone (Geodon) 60 mg QHS PO 10/18/20 21:00 10/21/20 23:00 DC 10/21/20 20:36 Chlorpromazine HCl (Thorazine) 50 mg DAILY PO 10/19/20 18:00 10/23/20 08:27 Clozapine (Clozaril) 75 mg HS PO 10/22/20 21:00 10/23/20 21:16 Oxcarbazepine (Trileptal) 900 mg BID PO 10/22/20 21:00 10/23/20 21:15 I have reviewed the current psychotropics carefully including drug interactions. Risk benefit ratio favors no change other than as noted in my dictated progress note. Diagnosis: Problems: (1) Schizoaffective disorder, bipolar type (2) Impulse control disorder, unspecified (3) Mild cognitive impairment (4) Anxiety disorder, unspecified (5) Bipolar disorder, current episode mixed, severe, with psychotic features KALEN REN MD Oct 23, 2020 22:06
--- NOTE | 2020-10-24 03:18 | NUR ---
Nursing Note The patient was calm and compliant with assessments and medications. The patient took his medication whole and was pleasant and appropriate during cares. The patient is currently sleeping in his room.
[2020-10-24] MEDS: LEVOTHYROXINE 175 MCG TABLET PO SCH ×2 (06:00→07:55)
[2020-10-24 06:24] VITALS: BP 140/78
[2020-10-24] MEDS: CALCIUM CARB/VIT D3 500/200 TABLET PO SCH ×2 (07:53→09:00)
[2020-10-24] MEDS: NICOTINE 14MG PATCH. TD SCH (07:54)
[2020-10-24] MEDS: hydroCHLOROthiazide 25 MG TABLET PO SCH ×2 (07:54→09:00)
[2020-10-24] MEDS: BENZTROPINE MESYLATE 1 MG TABLET PO SCH ×2 (07:54→09:00)
[2020-10-24] MEDS: METOPROLOL SUCC 24HR ER 25 MG TAB.ER.24H. PO SCH ×2 (07:54→09:00)
[2020-10-24] MEDS: FERROUS SULFATE 325 MG TABLET. PO SCH ×3 (07:54→21:28)
[2020-10-24] MEDS: TAMSULOSIN 0.4 MG CAP.ER.24H. PO SCH ×2 (07:54→09:00)
[2020-10-24] MEDS: LOSARTAN 50 MG TABLET. PO SCH ×3 (07:55→21:28)
[2020-10-24] MEDS: CALCIUM POLYCARBOPHIL 625 MG TABLET PO SCH ×3 (07:55→21:28)
[2020-10-24] MEDS: ASCORBIC ACID 500 MG TABLET PO SCH ×3 (07:56→21:28)
[2020-10-24] MEDS: chlorproMAZINE HCL 25 MG TABLET PO SCH ×3 (07:57→21:27)
[2020-10-24] MEDS: INSULIN GLARGINE SYRINGE. SQ SCH ×2 (07:58→22:17)
[2020-10-24] MEDS: NON FORMULARY ITEM (Semaglutide (Ozempic) 1 MG) SQ SCH (07:58)
[2020-10-24] MEDS: INSULIN LISPRO 300 UNITS/3 ML VIAL. SQ SCH ×3 (07:58→17:00)
[2020-10-24] MEDS: metFORMIN 500 MG TABLET PO SCH ×2 (07:58→17:21)
[2020-10-24] MEDS: KETOCONAZOLE 2% SHAMPOO 120ML BOTTLE. TP SCH (07:59)
[2020-10-24] MEDS: CHOLECALCIFEROL (VITAMIN D3) 50,000 UNIT CAPSULE PO SCH ×2 (08:01→09:00)
--- NOTE | 2020-10-24 09:02 | PDOC ---
Exam Note: Devin Note: This note is a late entry for 10/23/2020 covers elements not covered in my initial note. Subjective: The patient was seen individually in the evening of 10/23/2020 with Brittanie MOON, discussed and reviewed the chart. He slept 4-1/2 hours previous night. The patient has had occasional yelling, obsessive, paranoid, perhaps less so than before. He is more redirectable later. Review of Systems: No CV, , pulmonary, eye, ENT system symptoms on review. Mental Status Exam: The patient is oriented to himself and situation. Speech is coherent, low in volume, rapid. Abstraction is fair. Computation is impaired. Language function is intact. Attention span is short. Mood and affect remains somewhat anxious, labile. He is paranoid. No suicidal or homicidal ideation. Laboratory Data: Reviewed. Impression: Schizoaffective disorder bipolar type mixed with psychotic features. Anxiety disorder unspecified. Impulse control disorder unspecified. Plan: No change from initial note. We will continue to increase the Clozaril depending on the absolute neutrophil counts. Rest unchanged. Maintain Haldol Decanoate as well. Assessment: Vital Signs/I&O: Vital Signs Date Time Temp Pulse Resp B/P (MAP) Pulse Ox O2 Delivery O2 Flow Rate FiO2 10/24/20 07:55 73 140/78 10/24/20 06:24 97.2 18 100 10/21/20 06:35 Room Air I & O 10/23/20 10/23/20 10/24/20 15:00 23:00 07:00 Intake Total 720 ml 560 ml Balance 720 ml 560 ml Labs: Laboratory Tests Test 10/23/20 11:26 10/23/20 16:40 10/23/20 19:16 10/24/20 07:39 Glucose (Fingerstick) 142 mg/dL (70-99) H 74 mg/dL (70-99) 136 mg/dL (70-99) H 58 mg/dL (70-99) L Test 10/24/20 07:55 Glucose (Fingerstick) 64 mg/dL (70-99) L Current Medications: Meds: Laboratory Tests Test 10/23/20 11:26 10/23/20 16:40 10/23/20 19:16 10/24/20 07:39 Glucose (Fingerstick) 142 mg/dL 74 mg/dL 136 mg/dL 58 mg/dL Test 10/24/20 07:55 Glucose (Fingerstick) 64 mg/dL Current Medications Medications (Trade) Dose Ordered Sig/Nancy Route PRN Reason Start Time Stop Time Status Last Admin Dose Admin Acetaminophen (Tylenol) 650 mg PRN Q6HRS PRN PO MILD PAIN / TEMP > 100.3'F 10/10/20 06:30 10/10/20 17:40 DC Multi-Ingredient Ointment (Analgesic [place]) 1 anyla PRN QID PRN TP MUSCLE PAIN 10/10/20 06:30 Al Hydroxide/Mg Hydroxide (Mylanta Plus Xs) 15 ml PRN AFTMEALHC PRN PO DYSPEPSIA 10/10/20 06:30 Magnesium Hydroxide (Milk Of Magnesia) 2,400 mg PRN QHS PRN PO CONSTIPATION 10/10/20 06:30 Nicotine (Nicoderm Cq 21mg Patch) 1 patch DAILY TD 10/10/20 09:00 10/18/20 01:35 DC 10/17/20 08:35 Influenza Virus Vaccine Quadrival (Fluzone Quad Syringe) 0.5 ml ONCE ONCE VAX IM 10/10/20 09:00 10/10/20 09:01 DC 10/10/20 14:04 Acetaminophen (Tylenol) 650 mg PRN DAILY PRN PO PAIN OR FEVER 10/10/20 07:45 10/10/20 17:40 DC Acetaminophen (Tylenol) 500 mg PRN Q6HRS PRN PO MILD PAIN / TEMP > 100.3'F 10/10/20 07:45 10/17/20 02:51 Amlodipine Besylate (Norvasc) 10 mg HS PO 10/10/20 21:00 10/23/20 21:16 Benztropine Mesylate (Cogentin) 1 mg DAILY PO 10/10/20 09:00 10/24/20 07:54 Calcium/Vitamin D (Oscal D 500mg/ 200uts) 1 tab DAILY PO 10/10/20 09:00 10/24/20 07:53 Calcium Polycarbophil (Fibercon) 625 mg BID PO 10/10/20 09:00 10/24/20 07:55 Clonidine HCl (Catapres) 0.1 mg PRN Q1HR PRN PO AGITATION 10/10/20 07:45 Donepezil HCl (Aricept) 10 mg HS PO 10/10/20 21:00 10/23/20 21:16 Ferrous Sulfate (Feosol) 325 mg BID PO 10/10/20 09:00 10/24/20 07:54 Hydrochlorothiazide (Hydrodiuril) 25 mg DAILY PO 10/10/20 09:00 10/24/20 07:54 Insulin Glargine (Lantus Syringe) 5 unit HS SQ 10/10/20 21:00 10/23/20 21:00 Ketoconazole (Nizoral 2% Shampoo) 1 nayla QODAY TP 10/10/20 09:00 10/22/20 07:47 Levothyroxine Sodium (Synthroid) 75 mcg DAILY06 PO 10/11/20 06:00 UNV Levothyroxine Sodium (Synthroid) 100 mcg DAILY PO 10/10/20 09:00 10/11/20 05:50 DC Losartan Potassium (Cozaar) 50 mg BID PO 10/10/20 09:00 10/24/20 07:55 Metformin HCl (Glucophage) 500 mg DAILYBFRSUP PO 10/10/20 17:00 10/23/20 17:27 Metformin HCl (Glucophage) 1,500 mg DAILY PO 10/10/20 09:00 10/23/20 08:26 Metoprolol Succinate (Toprol Xl) 25 mg DAILY PO 10/10/20 09:00 10/16/20 17:59 DC 10/16/20 08:36 Tamsulosin HCl (Flomax) 0.4 mg DAILY PO 10/10/20 09:30 10/24/20 07:54 Trazodone HCl (Desyrel) 50 mg PRN QHS PRN PO SLEEP AID 10/10/20 07:45 10/21/20 20:42 Ziprasidone (Geodon) 60 mg BID PO 10/10/20 09:30 10/13/20 14:38 DC 10/13/20 08:17 Chlorpromazine HCl (Thorazine) 50 mg DAILY PO 10/10/20 09:00 10/15/20 17:56 DC 10/15/20 08:23 Chlorpromazine HCl (Thorazine) 50 mg PRN Q6HRS PRN PO AGITATION 10/10/20 09:00 10/11/20 10:04 DC 10/11/20 01:38 Chlorpromazine HCl (Thorazine) 300 mg HS PO 10/10/20 21:00 10/23/20 21:15 Non-Formulary Medication (Diphenhydramine Hcl ) 1 cap Q6HRS PRN PO AGITATION 10/10/20 07:45 UNV Haloperidol Decanoate (Haldol Decanoate Im Extended Release) 100 mg QMONTH IM 10/26/20 09:00 Insulin Glargine (Lantus Syringe) 8 unit DAILY SQ 10/10/20 10:00 10/23/20 09:29 Non-Formulary Medication (Liothyronine Sodium (Cytomel)) 1 tab DAILY PO 10/10/20 09:00 10/11/20 07:29 DC Oxcarbazepine (Trileptal) 600 mg BID PO 10/10/20 09:30 10/22/20 17:52 DC 10/22/20 07:32 Valproic Acid (Depakene) 1,000 mg BID PO 10/10/20 09:30 10/10/20 20:12 DC 10/10/20 11:15 Non-Formulary Medication ([[id number]/ 2ML] ) 50 mg Q6HRS PRN IM AGITATION 10/10/20 07:45 UNV Non-Formulary Medication ([Lgsfovcxmlpq23ek/ Ml] ) 50 mg Q6HRS PRN IM AGITATION 10/10/20 07:45 UNV Non-Formulary Medication (Semaglutide (Ozempic)) 1 mg WEEKLY SQ 10/10/20 09:00 UNV Non-Formulary Medication (Vitamin D3/ Vitamin K2 (D3 + K2 Dots 1,000 Units Tab)) 1 tab DAILY PO 10/10/20 09:00 10/10/20 17:36 DC Insulin Human Lispro (HumaLOG) 0-4 UNITS TIDWMEALS SQ 10/10/20 17:00 10/16/20 12:00 Dextrose (Dextrose 50%-Water Syringe) 12.5 gm PRN Q15MIN PRN IV SEE COMMENTS 10/10/20 16:00 Vitamin D (Vitamin D3) 50,000 unit WEEKLY PO 10/10/20 17:30 10/24/20 08:01 Olanzapine (ZyPREXA ZYDIS) 5 mg PRN Q2HRS PRN PO PSYCHOSIS 10/10/20 18:00 10/23/20 08:26 Divalproex Sodium (Depakote Sprinkles) 1,000 mg HS PO 10/10/20 21:00 10/23/20 21:16 Levothyroxine Sodium (Synthroid) 175 mcg DAILY06 PO 10/11/20 07:30 10/24/20 07:55 Liothyronine Sodium (Cytomel) 50 mcg DAILY PO 10/11/20 09:00 10/11/20 10:48 DC Clozapine (Clozaril) 25 mg HS PO 10/11/20 21:00 10/15/20 17:52 DC 10/14/20 20:22 Ascorbic Acid (Vitamin C) 500 mg BID PO 10/11/20 21:00 10/24/20 07:56 Ziprasidone (Geodon) 60 mg BID PO 10/13/20 21:00 10/18/20 11:27 DC 10/18/20 09:14 Clozapine (Clozaril) 50 mg HS PO 10/15/20 21:00 10/22/20 17:52 DC 10/21/20 20:36 Metoprolol Succinate (Toprol Xl) 50 mg DAILY PO 10/16/20 18:00 10/24/20 07:54 Nicotine (Nicoderm Cq 14mg Patch) 1 patch DAILY TD 10/18/20 09:00 10/24/20 07:54 Ziprasidone (Geodon) 60 mg QHS PO 10/18/20 21:00 10/21/20 23:00 DC 10/21/20 20:36 Chlorpromazine HCl (Thorazine) 50 mg DAILY PO 10/19/20 18:00 10/24/20 07:57 Clozapine (Clozaril) 75 mg HS PO 10/22/20 21:00 10/23/20 21:16 Oxcarbazepine (Trileptal) 900 mg BID PO 10/22/20 21:00 10/24/20 07:53 I have reviewed the current psychotropics carefully including drug interactions. Risk benefit ratio favors no change other than as noted in my dictated progress note. Diagnosis: Problems: (1) Schizoaffective disorder, bipolar type (2) Impulse control disorder, unspecified (3) Mild cognitive impairment (4) Anxiety disorder, unspecified (5) Bipolar disorder, current episode mixed, severe, with psychotic features KALEN REN MD Oct 24, 2020 09:02
--- NOTE | 2020-10-24 13:52 | NUR ---
NURSING NOTE PT HAS BEEN VERBALLY AGGRESSIVE ALL DAY. PT REFUSED MORNING MEDS X4 ATTEMPTS. PT YELLING, DEMANDING, REFUSING CARES. WILL NOTIFY DR REN DURING ROUNDS TO ASSESS NEED FOR IM INTERVENTION. ALL MORNING MEDICATIONS NON-ADMINISTERED. RED MANTILLA.
[2020-10-24 16:16] VITALS: BP 142/84
--- NOTE | 2020-10-24 17:15 | NUR ---
NURSING NOTE MEDICATIONS ORDER FOR HALDOL 10 MG DAILY IM TO BE GIVEN IN ADDITIN TO HALDOL DECONATE. PER DR REN, PHARMACY CONSULT TO CHECK FOR INTERACTION. SPOKE WITH JUDIE IN PHARMACY, INTERACTION WITH ARICEPT AND THORIZINE, WHICH IS A HOME MEDICATION AND PT CAME TO HOSPITAL ON THESE MEDICATIONS. PT HAS BEEN TOLERATING FINE WITH THE DECONATE. OKAY PER PHARMACY FOR APPROVAL. RED MANTILLA
[2020-10-24] MEDS: DIVALPROEX 125 MG CAP.SPRINK PO SCH (21:27)
[2020-10-24] MEDS: cloZAPine 25 MG TABLET PO SCH (21:28)
[2020-10-24] MEDS: amLODIPine BESYLATE 10 MG TABLET PO SCH (21:28)
[2020-10-24] MEDS: DONEPEZIL HCL 10 MG TABLET PO SCH (21:28)
--- NOTE | 2020-10-24 22:02 | PDOC ---
Exam Note: Devin Note: Please also refer to the separate dictated note~for this date of service dictated separately.~Patient seen individually. Discussed the patient with Nursing staff reviewed the chart.~Reviewed interim history and current functioning. Reviewed vital signs,~Labs/ Radiology~and current medications noted below. Continue current treatment with the changes noted in the dictated addendum note Assessment: Vital Signs/I&O: Vital Signs Date Time Temp Pulse Resp B/P (MAP) Pulse Ox O2 Delivery O2 Flow Rate FiO2 10/24/20 21:28 83 142/84 10/24/20 16:16 97.6 18 96 10/21/20 06:35 Room Air I & O 10/23/20 10/23/20 10/24/20 15:00 23:00 07:00 Intake Total 720 ml 560 ml Balance 720 ml 560 ml Labs: Laboratory Tests Test 10/24/20 07:39 10/24/20 07:55 10/24/20 12:05 10/24/20 17:03 Glucose (Fingerstick) 58 mg/dL (70-99) L 64 mg/dL (70-99) L 176 mg/dL (70-99) H 165 mg/dL (70-99) H Test 10/24/20 19:16 Glucose (Fingerstick) 204 mg/dL (70-99) H Current Medications: Meds: Laboratory Tests Test 10/24/20 07:39 10/24/20 07:55 10/24/20 12:05 10/24/20 17:03 Glucose (Fingerstick) 58 mg/dL 64 mg/dL 176 mg/dL 165 mg/dL Test 10/24/20 19:16 Glucose (Fingerstick) 204 mg/dL Current Medications Medications (Trade) Dose Ordered Sig/Nancy Route PRN Reason Start Time Stop Time Status Last Admin Dose Admin Acetaminophen (Tylenol) 650 mg PRN Q6HRS PRN PO MILD PAIN / TEMP > 100.3'F 10/10/20 06:30 10/10/20 17:40 DC Multi-Ingredient Ointment (Analgesic [place]) 1 nayla PRN QID PRN TP MUSCLE PAIN 10/10/20 06:30 Al Hydroxide/Mg Hydroxide (Mylanta Plus Xs) 15 ml PRN AFTMEALHC PRN PO DYSPEPSIA 10/10/20 06:30 Magnesium Hydroxide (Milk Of Magnesia) 2,400 mg PRN QHS PRN PO CONSTIPATION 10/10/20 06:30 Nicotine (Nicoderm Cq 21mg Patch) 1 patch DAILY TD 10/10/20 09:00 10/18/20 01:35 DC 10/17/20 08:35 Influenza Virus Vaccine Quadrival (Fluzone Quad [id number] Syringe) 0.5 ml ONCE ONCE VAX IM 10/10/20 09:00 10/10/20 09:01 DC 10/10/20 14:04 Acetaminophen (Tylenol) 650 mg PRN DAILY PRN PO PAIN OR FEVER 10/10/20 07:45 10/10/20 17:40 DC Acetaminophen (Tylenol) 500 mg PRN Q6HRS PRN PO MILD PAIN / TEMP > 100.3'F 10/10/20 07:45 10/17/20 02:51 Amlodipine Besylate (Norvasc) 10 mg HS PO 10/10/20 21:00 10/24/20 21:28 Benztropine Mesylate (Cogentin) 1 mg DAILY PO 10/10/20 09:00 10/23/20 08:24 Calcium/Vitamin D (Oscal D 500mg/ 200uts) 1 tab DAILY PO 10/10/20 09:00 10/23/20 08:26 Calcium Polycarbophil (Fibercon) 625 mg BID PO 10/10/20 09:00 10/24/20 21:28 Clonidine HCl (Catapres) 0.1 mg PRN Q1HR PRN PO AGITATION 10/10/20 07:45 Donepezil HCl (Aricept) 10 mg HS PO 10/10/20 21:00 10/24/20 21:28 Ferrous Sulfate (Feosol) 325 mg BID PO 10/10/20 09:00 10/24/20 21:28 Hydrochlorothiazide (Hydrodiuril) 25 mg DAILY PO 10/10/20 09:00 10/23/20 08:26 Insulin Glargine (Lantus Syringe) 5 unit HS SQ 10/10/20 21:00 10/23/20 21:00 Ketoconazole (Nizoral 2% Shampoo) 1 nayla QODAY TP 10/10/20 09:00 10/22/20 07:47 Levothyroxine Sodium (Synthroid) 75 mcg DAILY06 PO 10/11/20 06:00 UNV Levothyroxine Sodium (Synthroid) 100 mcg DAILY PO 10/10/20 09:00 10/11/20 05:50 DC Losartan Potassium (Cozaar) 50 mg BID PO 10/10/20 09:00 10/24/20 21:28 Metformin HCl (Glucophage) 500 mg DAILYBFRSUP PO 10/10/20 17:00 10/24/20 17:21 Metformin HCl (Glucophage) 1,500 mg DAILY PO 10/10/20 09:00 10/23/20 08:26 Metoprolol Succinate (Toprol Xl) 25 mg DAILY PO 10/10/20 09:00 10/16/20 17:59 DC 10/16/20 08:36 Tamsulosin HCl (Flomax) 0.4 mg DAILY PO 10/10/20 09:30 10/23/20 08:26 Trazodone HCl (Desyrel) 50 mg PRN QHS PRN PO SLEEP AID 10/10/20 07:45 10/21/20 20:42 Ziprasidone (Geodon) 60 mg BID PO 10/10/20 09:30 10/13/20 14:38 DC 10/13/20 08:17 Chlorpromazine HCl (Thorazine) 50 mg DAILY PO 10/10/20 09:00 10/15/20 17:56 DC 10/15/20 08:23 Chlorpromazine HCl (Thorazine) 50 mg PRN Q6HRS PRN PO AGITATION 10/10/20 09:00 10/11/20 10:04 DC 10/11/20 01:38 Chlorpromazine HCl (Thorazine) 300 mg HS PO 10/10/20 21:00 10/24/20 21:27 Non-Formulary Medication (Diphenhydramine Hcl ) 1 cap Q6HRS PRN PO AGITATION 10/10/20 07:45 UNV Haloperidol Decanoate (Haldol Decanoate Im Extended Release) 100 mg QMONTH IM 10/26/20 09:00 Insulin Glargine (Lantus Syringe) 8 unit DAILY SQ 10/10/20 10:00 10/23/20 09:29 Non-Formulary Medication (Liothyronine Sodium (Cytomel)) 1 tab DAILY PO 10/10/20 09:00 10/11/20 07:29 DC Oxcarbazepine (Trileptal) 600 mg BID PO 10/10/20 09:30 10/22/20 17:52 DC 10/22/20 07:32 Valproic Acid (Depakene) 1,000 mg BID PO 10/10/20 09:30 10/10/20 20:12 DC 10/10/20 11:15 Non-Formulary Medication ([[id number]/ 2ML] ) 50 mg Q6HRS PRN IM AGITATION 10/10/20 07:45 UNV Non-Formulary Medication ([Wbdsksjombps28qi/ Ml] ) 50 mg Q6HRS PRN IM AGITATION 10/10/20 07:45 UNV Non-Formulary Medication (Semaglutide (Ozempic)) 1 mg WEEKLY SQ 10/10/20 09:00 UNV Non-Formulary Medication (Vitamin D3/ Vitamin K2 (D3 + K2 Dots 1,000 Units Tab)) 1 tab DAILY PO 10/10/20 09:00 10/10/20 17:36 DC Insulin Human Lispro (HumaLOG) 0-4 UNITS TIDWMEALS SQ 10/10/20 17:00 10/16/20 12:00 Dextrose (Dextrose 50%-Water Syringe) 12.5 gm PRN Q15MIN PRN IV SEE COMMENTS 10/10/20 16:00 Vitamin D (Vitamin D3) 50,000 unit WEEKLY PO 10/10/20 17:30 10/17/20 08:25 Olanzapine (ZyPREXA ZYDIS) 5 mg PRN Q2HRS PRN PO PSYCHOSIS 10/10/20 18:00 10/23/20 08:26 Divalproex Sodium (Depakote Sprinkles) 1,000 mg HS PO 10/10/20 21:00 10/24/20 21:27 Levothyroxine Sodium (Synthroid) 175 mcg DAILY06 PO 10/11/20 07:30 10/23/20 05:33 Liothyronine Sodium (Cytomel) 50 mcg DAILY PO 10/11/20 09:00 10/11/20 10:48 DC Clozapine (Clozaril) 25 mg HS PO 10/11/20 21:00 10/15/20 17:52 DC 10/14/20 20:22 Ascorbic Acid (Vitamin C) 500 mg BID PO 10/11/20 21:00 10/24/20 21:28 Ziprasidone (Geodon) 60 mg BID PO 10/13/20 21:00 10/18/20 11:27 DC 10/18/20 09:14 Clozapine (Clozaril) 50 mg HS PO 10/15/20 21:00 10/22/20 17:52 DC 10/21/20 20:36 Metoprolol Succinate (Toprol Xl) 50 mg DAILY PO 10/16/20 18:00 10/23/20 08:26 Nicotine (Nicoderm Cq 14mg Patch) 1 patch DAILY TD 10/18/20 09:00 10/24/20 07:54 Ziprasidone (Geodon) 60 mg QHS PO 10/18/20 21:00 10/21/20 23:00 DC 10/21/20 20:36 Chlorpromazine HCl (Thorazine) 50 mg DAILY PO 10/19/20 18:00 10/23/20 08:27 Clozapine (Clozaril) 75 mg HS PO 10/22/20 21:00 10/24/20 21:28 Oxcarbazepine (Trileptal) 900 mg BID PO 10/22/20 21:00 10/24/20 21:28 Haloperidol Lactate (Haldol) 10 mg DAILY08 IM 10/25/20 08:00 I have reviewed the current psychotropics carefully including drug interactions. Risk benefit ratio favors no change other than as noted in my dictated progress note. Diagnosis: Problems: (1) Schizoaffective disorder, bipolar type (2) Impulse control disorder, unspecified (3) Mild cognitive impairment (4) Anxiety disorder, unspecified (5) Bipolar disorder, current episode mixed, severe, with psychotic features KALEN REN MD Oct 24, 2020 22:02
--- NOTE | 2020-10-25 03:00 | NUR ---
Nursing Note The patient was cooperative with HS medication and assessment. The patient took his medication whole. The patient was able to answer name only during his assessment. The patient was irritable with HS cares and adl. The patient yelled at staff when cleaning urine off of his bathroom floor.
[2020-10-25] MEDS: LEVOTHYROXINE 175 MCG TABLET PO SCH (05:35)
[2020-10-25 05:56] VITALS: BP 122/76
[2020-10-25] MEDS: INSULIN LISPRO 300 UNITS/3 ML VIAL. SQ SCH ×3 (08:00→16:34)
[2020-10-25] MEDS: NICOTINE 14MG PATCH. TD SCH (09:08)
[2020-10-25] MEDS: INSULIN GLARGINE SYRINGE. SQ SCH ×2 (09:08→19:52)
[2020-10-25] MEDS: CALCIUM POLYCARBOPHIL 625 MG TABLET PO SCH ×2 (09:08→19:48)
[2020-10-25] MEDS: metFORMIN 500 MG TABLET PO SCH ×2 (09:08→17:03)
[2020-10-25] MEDS: hydroCHLOROthiazide 25 MG TABLET PO SCH (09:09)
[2020-10-25] MEDS: TAMSULOSIN 0.4 MG CAP.ER.24H. PO SCH (09:09)
[2020-10-25] MEDS: LOSARTAN 50 MG TABLET. PO SCH ×2 (09:09→19:48)
[2020-10-25] MEDS: chlorproMAZINE HCL 25 MG TABLET PO SCH ×2 (09:09→19:49)
[2020-10-25] MEDS: CALCIUM CARB/VIT D3 500/200 TABLET PO SCH (09:10)
[2020-10-25] MEDS: FERROUS SULFATE 325 MG TABLET. PO SCH ×2 (09:10→19:48)
[2020-10-25] MEDS: BENZTROPINE MESYLATE 1 MG TABLET PO SCH (09:10)
[2020-10-25] MEDS: ASCORBIC ACID 500 MG TABLET PO SCH ×2 (09:10→19:48)
[2020-10-25] MEDS: METOPROLOL SUCC 24HR ER 25 MG TAB.ER.24H. PO SCH (09:10)
[2020-10-25] MEDS: HALOPERIDOL LACT 5 MG/ML VIAL. IM SCH (09:13)
--- NOTE | 2020-10-25 10:45 | NUR ---
WEEKLY ACTIVITY THERAPY NOTE Date of Admission: 10/10/2020 Date of AT Assessment: 10/11/20 Precipitating behaviors that initiated intake and admission: failure of placement Goal aimed: increase socialization and relaxation skills Initial Goal: Pt will participate in at least three individual or group Activity Therapy sessions per week. Weekly progress towards goal: did not achieve, 1/3 Group participation level: 1 min Weekly highlights: did one exercise Thursday morning Behaviors observed: withdrawn to room Plan: no change to goal Beneficial adaptations:
--- NOTE | 2020-10-25 12:21 | NUR ---
Nursing note: Pt in day room at time of AM med pass and assessment. He is med compliant and cooperative. Pt was agreeable to receiving both his insulin and Haldol IM injection. No agitation noted as of yet this shift. He is currently in the dining room eating lunch. Will continue to monitor.
[2020-10-25 15:45] VITALS: BP 156/72
--- NOTE | 2020-10-25 18:06 | TX PLAN ---
Interdisciplinary Tx Plan Admission Information Oct 10, 2020 at 06:18 Legal Status (on Admission): Voluntary DPOA/Guardian Name: Natalie Paredes Contact Other [facility] Contact Verified Code Status: Full Code Allergies: Coded Allergies: Pork/Porcine Containing Products (Verified Allergy, Unknown, 10/08/20) lamotrigine (Verified Allergy, Unknown, 10/08/20) Diagnoses Primary Diagnosis: Schizoaffective D/O, Bipolar type mixed with psychotic features Reasons for Admission: Aggressive, Delusions, Agitated, Hallucinations, Suicidal ideation, Combative, Other Problem in Patient's Words: He had a change from an environment he got comfortable in. Additional Admission Comments: According to the intake, pt was refusing meds at times, verbally aggressive, using foul language, suicidal, agitated, combative, physically aggressive, hallucinating and delusional Problems Active Problems: verbally aggressive resistive to cares agitated delusional Inactive Problems: mostly medication compliant Pt Strengths/Limitations Ability for [place]: Poor Cognitive Functioning/Ability: Poor Communication Skills/Ability: Poor Financial Resources: Fair Insight/Judgement: Poor Intellectual Ability: Poor Physical Health: Fair Social Skills: Fair Stability in Family: Poor Stability in School/Work: Poor Verbal Skills: Poor Discharge Criteria Discharge Criteria: No need for close observ., Adequate arrangements @DC, Improved behavior, Improved mood/thought Preliminary Discharge Plan Preliminary DC Plan: Current Living Arrange. Special Precautions Fall Risk: Low Initial D/C Plan Pt to return to placement at [facility]. Identified Discharge Needs: Psychiatric services Currently Utilized Resources Currently Utilized Resources/P: Primary Care Physician Referrals Community Resources: Psychiatric services Identified Problems/Hx/Goals Objectives/Short-Term Goals Short Term Goals: Dec. Aggression, Dec. Hallucination/Delus, Dec. Outbursts, Medication Stabilization, Monitor Med Effects, Promote Coping Skill Short Term Goals in Patient's: N/A Interventions/Frequency Staff Interventions/Frequency&: Psychiatrist to assess pt at least 3x per week for medication management. Social Work to assess pt at least 2x per week to identify barriers to care and discharge planning goals. Nursing to assess medication effects, behavior management and completion of 15 minute checks. Encourage group participation in activities (if applicable) or 1:1 engagement based off activity department goals. History Vocational History: Unknown Education: Unknown Community Follow-up Primary Care Physician Community Provider/Family Inpu: Pt has had a court appointed guardian for the last 11 years. It is the guardian's belief that she should have never been moved from [facility]. 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 Pt continues to be erratic in behaviors. Pt is mostly calm and cooperative; however, can switch to being combative with staff during cares or redirection. Pt was very psychotic in that he believe that people were trying to kill him and others on the unit. Pt is getting daily Haldol IM in hopes to help decrease psychosis. Pt will have the Clorazil increased at least two more times, placing pt discharge date roughly around the week of November 12. SW will update pt guardian and his facility of these plans and initiate discharge arrangements. MYKEL URIARTE Oct 25, 2020 18:06
[2020-10-25] MEDS: cloZAPine 25 MG TABLET PO SCH (19:48)
[2020-10-25] MEDS: amLODIPine BESYLATE 10 MG TABLET PO SCH (19:48)
[2020-10-25] MEDS: DONEPEZIL HCL 10 MG TABLET PO SCH (19:48)
[2020-10-25] MEDS: DIVALPROEX 125 MG CAP.SPRINK PO SCH (19:49)
[2020-10-25] MEDS: traZODone 50 MG TABLET. PO PRN (19:55)
--- NOTE | 2020-10-25 22:17 | PDOC ---
Exam Note: Devin Note: This note is a late entry for 10/24/2020 covers elements not covered in my initial note. Subjective: The patient was seen individually in the evening of 10/24/2020 with Arabella MOON, discussed and reviewed the chart. He slept 3-3/4 hours previous night. The patient has been refusing medications, extremely paranoid, hyperverbal, believes staff is trying to kill him. He is verbally abusive to staff. We will start him on Haldol IM 10 mg daily to assist with his psychosis. Review of Systems: No CV, , pulmonary, eye, ENT system symptoms on review. Mental Status Exam: The patient is oriented to himself and situation. He was running towards me as I was standing at the door of his room waiting to go in. He was quite paranoid, psychotic and processed this with him with very limited insight. Speech is coherent, very rapid, low in volume. Abstraction is fair. Computation is impaired. Language function is intact. Mood and affect labile, paranoid. No suicidal or homicidal ideation. Laboratory Data: Reviewed. Impression: Schizoaffective disorder bipolar type mixed with psychotic features. Anxiety disorder unspecified. Impulse control disorder unspecified. Plan: No change from initial note. Start the IM Haldol daily as noted. Rest unchanged for now. Continue to increase the Clozaril. Maintain Depakote. Valproic acid level is therapeutic at 61. Assessment: Vital Signs/I&O: Vital Signs Date Time Temp Pulse Resp B/P (MAP) Pulse Ox O2 Delivery O2 Flow Rate FiO2 10/25/20 19:48 85 156/72 10/25/20 15:45 98.6 18 100 10/21/20 06:35 Room Air I & O 10/24/20 10/24/20 10/25/20 15:00 23:00 07:00 Intake Total 840 ml 620 ml Balance 840 ml 620 ml Labs: Laboratory Tests Test 10/25/20 11:27 10/25/20 16:25 10/25/20 19:00 Glucose (Fingerstick) 230 mg/dL (70-99) H 112 mg/dL (70-99) H 203 mg/dL (70-99) H Current Medications: Meds: Laboratory Tests Test 10/25/20 11:27 10/25/20 16:25 10/25/20 19:00 Glucose (Fingerstick) 230 mg/dL 112 mg/dL 203 mg/dL Current Medications Medications (Trade) Dose Ordered Sig/Nancy Route PRN Reason Start Time Stop Time Status Last Admin Dose Admin Acetaminophen (Tylenol) 650 mg PRN Q6HRS PRN PO MILD PAIN / TEMP > 100.3'F 10/10/20 06:30 10/10/20 17:40 DC Multi-Ingredient Ointment (Analgesic [place]) 1 nayla PRN QID PRN TP MUSCLE PAIN 10/10/20 06:30 Al Hydroxide/Mg Hydroxide (Mylanta Plus Xs) 15 ml PRN AFTMEALHC PRN PO DYSPEPSIA 10/10/20 06:30 Magnesium Hydroxide (Milk Of Magnesia) 2,400 mg PRN QHS PRN PO CONSTIPATION 10/10/20 06:30 Nicotine (Nicoderm Cq 21mg Patch) 1 patch DAILY TD 10/10/20 09:00 10/18/20 01:35 DC 10/17/20 08:35 Influenza Virus Vaccine Quadrival (Fluzone Quad Syringe) 0.5 ml ONCE ONCE VAX IM 10/10/20 09:00 10/10/20 09:01 DC 10/10/20 14:04 Acetaminophen (Tylenol) 650 mg PRN DAILY PRN PO PAIN OR FEVER 10/10/20 07:45 10/10/20 17:40 DC Acetaminophen (Tylenol) 500 mg PRN Q6HRS PRN PO MILD PAIN / TEMP > 100.3'F 10/10/20 07:45 10/17/20 02:51 Amlodipine Besylate (Norvasc) 10 mg HS PO 10/10/20 21:00 10/25/20 19:48 Benztropine Mesylate (Cogentin) 1 mg DAILY PO 10/10/20 09:00 10/25/20 09:10 Calcium/Vitamin D (Oscal D 500mg/ 200uts) 1 tab DAILY PO 10/10/20 09:00 10/25/20 09:10 Calcium Polycarbophil (Fibercon) 625 mg BID PO 10/10/20 09:00 10/25/20 19:48 Clonidine HCl (Catapres) 0.1 mg PRN Q1HR PRN PO AGITATION 10/10/20 07:45 Donepezil HCl (Aricept) 10 mg HS PO 10/10/20 21:00 10/25/20 19:48 Ferrous Sulfate (Feosol) 325 mg BID PO 10/10/20 09:00 10/25/20 19:48 Hydrochlorothiazide (Hydrodiuril) 25 mg DAILY PO 10/10/20 09:00 10/25/20 09:09 Insulin Glargine (Lantus Syringe) 5 unit HS SQ 10/10/20 21:00 10/25/20 19:52 Ketoconazole (Nizoral 2% Shampoo) 1 nayla QODAY TP 10/10/20 09:00 10/22/20 07:47 Levothyroxine Sodium (Synthroid) 75 mcg DAILY06 PO 10/11/20 06:00 UNV Levothyroxine Sodium (Synthroid) 100 mcg DAILY PO 10/10/20 09:00 10/11/20 05:50 DC Losartan Potassium (Cozaar) 50 mg BID PO 10/10/20 09:00 10/25/20 19:48 Metformin HCl (Glucophage) 500 mg DAILYBFRSUP PO 10/10/20 17:00 10/25/20 17:03 Metformin HCl (Glucophage) 1,500 mg DAILY PO 10/10/20 09:00 10/25/20 09:08 Metoprolol Succinate (Toprol Xl) 25 mg DAILY PO 10/10/20 09:00 10/16/20 17:59 DC 10/16/20 08:36 Tamsulosin HCl (Flomax) 0.4 mg DAILY PO 10/10/20 09:30 10/25/20 09:09 Trazodone HCl (Desyrel) 50 mg PRN QHS PRN PO SLEEP AID 10/10/20 07:45 10/25/20 19:55 Ziprasidone (Geodon) 60 mg BID PO 10/10/20 09:30 10/13/20 14:38 DC 10/13/20 08:17 Chlorpromazine HCl (Thorazine) 50 mg DAILY PO 10/10/20 09:00 10/15/20 17:56 DC 10/15/20 08:23 Chlorpromazine HCl (Thorazine) 50 mg PRN Q6HRS PRN PO AGITATION 10/10/20 09:00 10/11/20 10:04 DC 10/11/20 01:38 Chlorpromazine HCl (Thorazine) 300 mg HS PO 10/10/20 21:00 10/25/20 19:49 Non-Formulary Medication (Diphenhydramine Hcl ) 1 cap Q6HRS PRN PO AGITATION 10/10/20 07:45 UNV Haloperidol Decanoate (Haldol Decanoate Im Extended Release) 100 mg QMONTH IM 10/26/20 09:00 Insulin Glargine (Lantus Syringe) 8 unit DAILY SQ 10/10/20 10:00 10/25/20 09:08 Non-Formulary Medication (Liothyronine Sodium (Cytomel)) 1 tab DAILY PO 10/10/20 09:00 10/11/20 07:29 DC Oxcarbazepine (Trileptal) 600 mg BID PO 10/10/20 09:30 10/22/20 17:52 DC 10/22/20 07:32 Valproic Acid (Depakene) 1,000 mg BID PO 10/10/20 09:30 10/10/20 20:12 DC 10/10/20 11:15 Non-Formulary Medication ([[id number]/ 2ML] ) 50 mg Q6HRS PRN IM AGITATION 10/10/20 07:45 UNV Non-Formulary Medication ([Edboqsjsrbhr02us/ Ml] ) 50 mg Q6HRS PRN IM AGITATION 10/10/20 07:45 UNV Non-Formulary Medication (Semaglutide (Ozempic)) 1 mg WEEKLY SQ 10/10/20 09:00 UNV Non-Formulary Medication (Vitamin D3/ Vitamin K2 (D3 + K2 Dots 1,000 Units Tab)) 1 tab DAILY PO 10/10/20 09:00 10/10/20 17:36 DC Insulin Human Lispro (HumaLOG) 0-4 UNITS TIDWMEALS SQ 10/10/20 17:00 10/16/20 12:00 Dextrose (Dextrose 50%-Water Syringe) 12.5 gm PRN Q15MIN PRN IV SEE COMMENTS 10/10/20 16:00 Vitamin D (Vitamin D3) 50,000 unit WEEKLY PO 10/10/20 17:30 10/17/20 08:25 Olanzapine (ZyPREXA ZYDIS) 5 mg PRN Q2HRS PRN PO PSYCHOSIS 10/10/20 18:00 10/23/20 08:26 Divalproex Sodium (Depakote Sprinkles) 1,000 mg HS PO 10/10/20 21:00 10/25/20 19:49 Levothyroxine Sodium (Synthroid) 175 mcg DAILY06 PO 10/11/20 07:30 10/25/20 05:35 Liothyronine Sodium (Cytomel) 50 mcg DAILY PO 10/11/20 09:00 10/11/20 10:48 DC Clozapine (Clozaril) 25 mg HS PO 10/11/20 21:00 10/15/20 17:52 DC 10/14/20 20:22 Ascorbic Acid (Vitamin C) 500 mg BID PO 10/11/20 21:00 10/25/20 19:48 Ziprasidone (Geodon) 60 mg BID PO 10/13/20 21:00 10/18/20 11:27 DC 10/18/20 09:14 Clozapine (Clozaril) 50 mg HS PO 10/15/20 21:00 10/22/20 17:52 DC 10/21/20 20:36 Metoprolol Succinate (Toprol Xl) 50 mg DAILY PO 10/16/20 18:00 10/25/20 09:10 Nicotine (Nicoderm Cq 14mg Patch) 1 patch DAILY TD 10/18/20 09:00 10/25/20 09:08 Ziprasidone (Geodon) 60 mg QHS PO 10/18/20 21:00 10/21/20 23:00 DC 10/21/20 20:36 Chlorpromazine HCl (Thorazine) 50 mg DAILY PO 10/19/20 18:00 10/25/20 09:09 Clozapine (Clozaril) 75 mg HS PO 10/22/20 21:00 10/25/20 19:48 Oxcarbazepine (Trileptal) 900 mg BID PO 10/22/20 21:00 10/25/20 19:47 Haloperidol Lactate (Haldol) 10 mg DAILY08 IM 10/25/20 08:00 10/25/20 09:13 Current Medications Medications (Trade) Dose Ordered Sig/Nancy Route PRN Reason Start Time Stop Time Status Last Admin Dose Admin Haloperidol Lactate (Haldol) 10 mg DAILY08 IM 10/25/20 08:00 10/25/20 09:13 I have reviewed the current psychotropics carefully including drug interactions. Risk benefit ratio favors no change other than as noted in my dictated progress note. Diagnosis: Problems: (1) Schizoaffective disorder, bipolar type (2) Impulse control disorder, unspecified (3) Mild cognitive impairment (4) Anxiety disorder, unspecified (5) Bipolar disorder, current episode mixed, severe, with psychotic features KALEN REN MD Oct 25, 2020 22:17
--- NOTE | 2020-10-25 22:18 | PDOC ---
Exam Note: Devin Note: Please also refer to the separate dictated note~for this date of service dictated separately.~Patient seen individually. Discussed the patient with Nursing staff reviewed the chart.~Reviewed interim history and current functioning. Reviewed vital signs,~Labs/ Radiology~and current medications noted below. Continue current treatment with the changes noted in the dictated addendum note Assessment: Vital Signs/I&O: Vital Signs Date Time Temp Pulse Resp B/P (MAP) Pulse Ox O2 Delivery O2 Flow Rate FiO2 10/25/20 19:48 85 156/72 10/25/20 15:45 98.6 18 100 10/21/20 06:35 Room Air I & O 10/24/20 10/24/20 10/25/20 15:00 23:00 07:00 Intake Total 840 ml 620 ml Balance 840 ml 620 ml Labs: Laboratory Tests Test 10/25/20 11:27 10/25/20 16:25 10/25/20 19:00 Glucose (Fingerstick) 230 mg/dL (70-99) H 112 mg/dL (70-99) H 203 mg/dL (70-99) H Current Medications: Meds: Laboratory Tests Test 10/25/20 11:27 10/25/20 16:25 10/25/20 19:00 Glucose (Fingerstick) 230 mg/dL 112 mg/dL 203 mg/dL Current Medications Medications (Trade) Dose Ordered Sig/Nancy Route PRN Reason Start Time Stop Time Status Last Admin Dose Admin Acetaminophen (Tylenol) 650 mg PRN Q6HRS PRN PO MILD PAIN / TEMP > 100.3'F 10/10/20 06:30 10/10/20 17:40 DC Multi-Ingredient Ointment (Analgesic [place]) 1 nayla PRN QID PRN TP MUSCLE PAIN 10/10/20 06:30 Al Hydroxide/Mg Hydroxide (Mylanta Plus Xs) 15 ml PRN AFTMEALHC PRN PO DYSPEPSIA 10/10/20 06:30 Magnesium Hydroxide (Milk Of Magnesia) 2,400 mg PRN QHS PRN PO CONSTIPATION 10/10/20 06:30 Nicotine (Nicoderm Cq 21mg Patch) 1 patch DAILY TD 10/10/20 09:00 10/18/20 01:35 DC 10/17/20 08:35 Influenza Virus Vaccine Quadrival (Fluzone Quad Syringe) 0.5 ml ONCE ONCE VAX IM 10/10/20 09:00 10/10/20 09:01 DC 10/10/20 14:04 Acetaminophen (Tylenol) 650 mg PRN DAILY PRN PO PAIN OR FEVER 10/10/20 07:45 10/10/20 17:40 DC Acetaminophen (Tylenol) 500 mg PRN Q6HRS PRN PO MILD PAIN / TEMP > 100.3'F 10/10/20 07:45 10/17/20 02:51 Amlodipine Besylate (Norvasc) 10 mg HS PO 10/10/20 21:00 10/25/20 19:48 Benztropine Mesylate (Cogentin) 1 mg DAILY PO 10/10/20 09:00 10/25/20 09:10 Calcium/Vitamin D (Oscal D 500mg/ 200uts) 1 tab DAILY PO 10/10/20 09:00 10/25/20 09:10 Calcium Polycarbophil (Fibercon) 625 mg BID PO 10/10/20 09:00 10/25/20 19:48 Clonidine HCl (Catapres) 0.1 mg PRN Q1HR PRN PO AGITATION 10/10/20 07:45 Donepezil HCl (Aricept) 10 mg HS PO 10/10/20 21:00 10/25/20 19:48 Ferrous Sulfate (Feosol) 325 mg BID PO 10/10/20 09:00 10/25/20 19:48 Hydrochlorothiazide (Hydrodiuril) 25 mg DAILY PO 10/10/20 09:00 10/25/20 09:09 Insulin Glargine (Lantus Syringe) 5 unit HS SQ 10/10/20 21:00 10/25/20 19:52 Ketoconazole (Nizoral 2% Shampoo) 1 nayla QODAY TP 10/10/20 09:00 10/22/20 07:47 Levothyroxine Sodium (Synthroid) 75 mcg DAILY06 PO 10/11/20 06:00 UNV Levothyroxine Sodium (Synthroid) 100 mcg DAILY PO 10/10/20 09:00 10/11/20 05:50 DC Losartan Potassium (Cozaar) 50 mg BID PO 10/10/20 09:00 10/25/20 19:48 Metformin HCl (Glucophage) 500 mg DAILYBFRSUP PO 10/10/20 17:00 10/25/20 17:03 Metformin HCl (Glucophage) 1,500 mg DAILY PO 10/10/20 09:00 10/25/20 09:08 Metoprolol Succinate (Toprol Xl) 25 mg DAILY PO 10/10/20 09:00 10/16/20 17:59 DC 10/16/20 08:36 Tamsulosin HCl (Flomax) 0.4 mg DAILY PO 10/10/20 09:30 10/25/20 09:09 Trazodone HCl (Desyrel) 50 mg PRN QHS PRN PO SLEEP AID 10/10/20 07:45 10/25/20 19:55 Ziprasidone (Geodon) 60 mg BID PO 10/10/20 09:30 10/13/20 14:38 DC 10/13/20 08:17 Chlorpromazine HCl (Thorazine) 50 mg DAILY PO 10/10/20 09:00 10/15/20 17:56 DC 10/15/20 08:23 Chlorpromazine HCl (Thorazine) 50 mg PRN Q6HRS PRN PO AGITATION 10/10/20 09:00 10/11/20 10:04 DC 10/11/20 01:38 Chlorpromazine HCl (Thorazine) 300 mg HS PO 10/10/20 21:00 10/25/20 19:49 Non-Formulary Medication (Diphenhydramine Hcl ) 1 cap Q6HRS PRN PO AGITATION 10/10/20 07:45 UNV Haloperidol Decanoate (Haldol Decanoate Im Extended Release) 100 mg QMONTH IM 10/26/20 09:00 Insulin Glargine (Lantus Syringe) 8 unit DAILY SQ 10/10/20 10:00 10/25/20 09:08 Non-Formulary Medication (Liothyronine Sodium (Cytomel)) 1 tab DAILY PO 10/10/20 09:00 10/11/20 07:29 DC Oxcarbazepine (Trileptal) 600 mg BID PO 10/10/20 09:30 10/22/20 17:52 DC 10/22/20 07:32 Valproic Acid (Depakene) 1,000 mg BID PO 10/10/20 09:30 10/10/20 20:12 DC 10/10/20 11:15 Non-Formulary Medication ([[id number]/ 2ML] ) 50 mg Q6HRS PRN IM AGITATION 10/10/20 07:45 UNV Non-Formulary Medication ([[id number]/ Ml] ) 50 mg Q6HRS PRN IM AGITATION 10/10/20 07:45 UNV Non-Formulary Medication (Semaglutide (Ozempic)) 1 mg WEEKLY SQ 10/10/20 09:00 UNV Non-Formulary Medication (Vitamin D3/ Vitamin K2 (D3 + K2 Dots 1,000 Units Tab)) 1 tab DAILY PO 10/10/20 09:00 10/10/20 17:36 DC Insulin Human Lispro (HumaLOG) 0-4 UNITS TIDWMEALS SQ 10/10/20 17:00 10/16/20 12:00 Dextrose (Dextrose 50%-Water Syringe) 12.5 gm PRN Q15MIN PRN IV SEE COMMENTS 10/10/20 16:00 Vitamin D (Vitamin D3) 50,000 unit WEEKLY PO 10/10/20 17:30 10/17/20 08:25 Olanzapine (ZyPREXA ZYDIS) 5 mg PRN Q2HRS PRN PO PSYCHOSIS 10/10/20 18:00 10/23/20 08:26 Divalproex Sodium (Depakote Sprinkles) 1,000 mg HS PO 10/10/20 21:00 10/25/20 19:49 Levothyroxine Sodium (Synthroid) 175 mcg DAILY06 PO 10/11/20 07:30 10/25/20 05:35 Liothyronine Sodium (Cytomel) 50 mcg DAILY PO 10/11/20 09:00 10/11/20 10:48 DC Clozapine (Clozaril) 25 mg HS PO 10/11/20 21:00 10/15/20 17:52 DC 10/14/20 20:22 Ascorbic Acid (Vitamin C) 500 mg BID PO 10/11/20 21:00 10/25/20 19:48 Ziprasidone (Geodon) 60 mg BID PO 10/13/20 21:00 10/18/20 11:27 DC 10/18/20 09:14 Clozapine (Clozaril) 50 mg HS PO 10/15/20 21:00 10/22/20 17:52 DC 10/21/20 20:36 Metoprolol Succinate (Toprol Xl) 50 mg DAILY PO 10/16/20 18:00 10/25/20 09:10 Nicotine (Nicoderm Cq 14mg Patch) 1 patch DAILY TD 10/18/20 09:00 10/25/20 09:08 Ziprasidone (Geodon) 60 mg QHS PO 10/18/20 21:00 10/21/20 23:00 DC 10/21/20 20:36 Chlorpromazine HCl (Thorazine) 50 mg DAILY PO 10/19/20 18:00 10/25/20 09:09 Clozapine (Clozaril) 75 mg HS PO 10/22/20 21:00 10/25/20 19:48 Oxcarbazepine (Trileptal) 900 mg BID PO 10/22/20 21:00 10/25/20 19:47 Haloperidol Lactate (Haldol) 10 mg DAILY08 IM 10/25/20 08:00 10/25/20 09:13 Current Medications Medications (Trade) Dose Ordered Sig/Nancy Route PRN Reason Start Time Stop Time Status Last Admin Dose Admin Haloperidol Lactate (Haldol) 10 mg DAILY08 IM 10/25/20 08:00 10/25/20 09:13 I have reviewed the current psychotropics carefully including drug interactions. Risk benefit ratio favors no change other than as noted in my dictated progress note. Diagnosis: Problems: (1) Schizoaffective disorder, bipolar type (2) Impulse control disorder, unspecified (3) Mild cognitive impairment (4) Anxiety disorder, unspecified (5) Bipolar disorder, current episode mixed, severe, with psychotic features KALEN REN MD Oct 25, 2020 22:18
--- NOTE | 2020-10-25 23:11 | NUR ---
Pt sitting quietly in the day room when approached this evening. Pt calm, disorganized, and confused. Pt cooperative with assessment and compliant with medications administered whole. No agitation or aggression noted thus far this shift.
--- NOTE | 2020-10-26 01:01 | NUR ---
Pt has been demanding snacks and water tonight. Staff has given him several snacks this evening and refilled his water multiple times. Pt yelling and swearing at staff, refusing to lie down. Pt states "I'm starving" and "I can't breathe". Staff has attempted several times to satisfy his requests and make him more comfortable but they have been unable to satisfy him. Pt put himself on the floor in front of the [facility] nurse's station and then became belligerent when staff helped him up and escorted him to his room. PRCarol Mahajan administered, room temperature adjusted per his request, and a snack provided. Pt has been educated multiple times on appropriate behaviors to no avail.
[2020-10-26] MEDS: LEVOTHYROXINE 175 MCG TABLET PO SCH ×2 (05:08→05:27)
--- NOTE | 2020-10-26 05:28 | NUR ---
Pt agitated, resistive this morning. Pt refusing to take his Synthroid, telling me to "get the hell out of my room", raising his voice, and calling me "the devil". I attempted to obtain a weekly nasal swab to test for COVID per protocol, pt raised his water bottle as if to strike me with it. At this time, I called for assistance. It took 3 staff members to obtain nasal swab, pt combative during this time, grabbing at staff hands and attempting to strike them. After obtaining nasal swab, pt calmed down some although he continued to yell. Pt was left in his room to de-escalate at this time.
[2020-10-26 06:14] VITALS: BP 154/82
[2020-10-26] MEDS: INSULIN LISPRO 300 UNITS/3 ML VIAL. SQ SCH ×3 (08:00→17:00)
[2020-10-26] MEDS: HALOPERIDOL LACT 5 MG/ML VIAL. IM SCH (08:24)
[2020-10-26] MEDS: hydroCHLOROthiazide 25 MG TABLET PO SCH (08:24)
[2020-10-26] MEDS: chlorproMAZINE HCL 25 MG TABLET PO SCH ×2 (08:25→20:05)
[2020-10-26] MEDS: CALCIUM CARB/VIT D3 500/200 TABLET PO SCH (08:25)
[2020-10-26] MEDS: LOSARTAN 50 MG TABLET. PO SCH ×2 (08:25→20:03)
[2020-10-26] MEDS: CALCIUM POLYCARBOPHIL 625 MG TABLET PO SCH ×2 (08:25→20:02)
[2020-10-26] MEDS: ASCORBIC ACID 500 MG TABLET PO SCH ×2 (08:25→20:03)
[2020-10-26] MEDS: METOPROLOL SUCC 24HR ER 25 MG TAB.ER.24H. PO SCH (08:26)
[2020-10-26] MEDS: BENZTROPINE MESYLATE 1 MG TABLET PO SCH (08:26)
[2020-10-26] MEDS: NICOTINE 14MG PATCH. TD SCH (08:27)
[2020-10-26] MEDS: FERROUS SULFATE 325 MG TABLET. PO SCH ×2 (08:27→20:05)
[2020-10-26] MEDS: metFORMIN 500 MG TABLET PO SCH ×2 (08:27→17:00)
[2020-10-26] MEDS: TAMSULOSIN 0.4 MG CAP.ER.24H. PO SCH (08:27)
[2020-10-26] MEDS: KETOCONAZOLE 2% SHAMPOO 120ML BOTTLE. TP SCH (08:30)
[2020-10-26] MEDS: INSULIN GLARGINE SYRINGE. SQ SCH ×2 (08:32→21:00)
[2020-10-26] MEDS ORDERED: HALOPERIDOL DECANOATE IM ER 100 MG/ML VIAL. IM SCH (09:00)
--- NOTE | 2020-10-26 09:19 | PDOC ---
Exam Note: Devin Note: This note is a late entry for 10/25/2020 covers elements not covered in my initial note. Subjective: The patient was reviewed in the morning of 10/25/2020 for a treatment team meeting with Mikayla Storm, Verona Lara and Laura (social organization professor), Ольга, activity therapy and Larisa MOON, discussed and reviewed the chart. He slept 6 hours previous night. Appetite is 100%. He was aggressive yesterday but less so today. He was also seen individually in the evening. Review of Systems: Ambulation impaired. No CV, , pulmonary, eye, ENT system symptoms on review. Mental Status Exam: The patient is oriented to himself and situation. He is less paranoid, as I met with him today. He is still somewhat obsessive, anxious, restless and distractible. Speech is coherent, very rapid, low in volume. Abstraction is fair. Computation is impaired. Language function is intact. Mood and affect anxious, paranoid. No suicidal or homicidal ideation. Laboratory Data: Reviewed. Impression: Schizoaffective disorder bipolar type mixed with psychotic features. Anxiety disorder unspecified. Impulse control disorder unspecified. Plan: No change from initial note. Assessment: Vital Signs/I&O: Vital Signs Date Time Temp Pulse Resp B/P (MAP) Pulse Ox O2 Delivery O2 Flow Rate FiO2 10/26/20 08:26 77 154/82 10/26/20 06:14 97.7 18 98 Room Air I & O 10/25/20 10/25/20 10/26/20 15:00 23:00 07:00 Intake Total 720 ml 840 ml Balance 720 ml 840 ml Labs: Laboratory Tests Test 10/25/20 11:27 10/25/20 16:25 10/25/20 19:00 10/26/20 07:38 Glucose (Fingerstick) 230 mg/dL (70-99) H 112 mg/dL (70-99) H 203 mg/dL (70-99) H 86 mg/dL (70-99) Current Medications: Meds: Laboratory Tests Test 10/25/20 11:27 10/25/20 16:25 10/25/20 19:00 10/26/20 07:38 Glucose (Fingerstick) 230 mg/dL 112 mg/dL 203 mg/dL 86 mg/dL Current Medications Medications (Trade) Dose Ordered Sig/Nancy Route PRN Reason Start Time Stop Time Status Last Admin Dose Admin Acetaminophen (Tylenol) 650 mg PRN Q6HRS PRN PO MILD PAIN / TEMP > 100.3'F 10/10/20 06:30 10/10/20 17:40 DC Multi-Ingredient Ointment (Analgesic [place]) 1 nayla PRN QID PRN TP MUSCLE PAIN 10/10/20 06:30 Al Hydroxide/Mg Hydroxide (Mylanta Plus Xs) 15 ml PRN AFTMEALHC PRN PO DYSPEPSIA 10/10/20 06:30 Magnesium Hydroxide (Milk Of Magnesia) 2,400 mg PRN QHS PRN PO CONSTIPATION 10/10/20 06:30 Nicotine (Nicoderm Cq 21mg Patch) 1 patch DAILY TD 10/10/20 09:00 10/18/20 01:35 DC 10/17/20 08:35 Influenza Virus Vaccine Quadrival (Fluzone Quad Syringe) 0.5 ml ONCE ONCE VAX IM 10/10/20 09:00 10/10/20 09:01 DC 10/10/20 14:04 Acetaminophen (Tylenol) 650 mg PRN DAILY PRN PO PAIN OR FEVER 10/10/20 07:45 10/10/20 17:40 DC Acetaminophen (Tylenol) 500 mg PRN Q6HRS PRN PO MILD PAIN / TEMP > 100.3'F 10/10/20 07:45 10/17/20 02:51 Amlodipine Besylate (Norvasc) 10 mg HS PO 10/10/20 21:00 10/25/20 19:48 Benztropine Mesylate (Cogentin) 1 mg DAILY PO 10/10/20 09:00 10/26/20 08:26 Calcium/Vitamin D (Oscal D 500mg/ 200uts) 1 tab DAILY PO 10/10/20 09:00 10/26/20 08:25 Calcium Polycarbophil (Fibercon) 625 mg BID PO 10/10/20 09:00 10/26/20 08:25 Clonidine HCl (Catapres) 0.1 mg PRN Q1HR PRN PO AGITATION 10/10/20 07:45 Donepezil HCl (Aricept) 10 mg HS PO 10/10/20 21:00 10/25/20 19:48 Ferrous Sulfate (Feosol) 325 mg BID PO 10/10/20 09:00 10/26/20 08:27 Hydrochlorothiazide (Hydrodiuril) 25 mg DAILY PO 10/10/20 09:00 10/26/20 08:24 Insulin Glargine (Lantus Syringe) 5 unit HS SQ 10/10/20 21:00 10/25/20 19:52 Ketoconazole (Nizoral 2% Shampoo) 1 nayla QODAY TP 10/10/20 09:00 10/22/20 07:47 Levothyroxine Sodium (Synthroid) 75 mcg DAILY06 PO 10/11/20 06:00 UNV Levothyroxine Sodium (Synthroid) 100 mcg DAILY PO 10/10/20 09:00 10/11/20 05:50 DC Losartan Potassium (Cozaar) 50 mg BID PO 10/10/20 09:00 10/26/20 08:25 Metformin HCl (Glucophage) 500 mg DAILYBFRSUP PO 10/10/20 17:00 10/25/20 17:03 Metformin HCl (Glucophage) 1,500 mg DAILY PO 10/10/20 09:00 10/26/20 08:27 Metoprolol Succinate (Toprol Xl) 25 mg DAILY PO 10/10/20 09:00 10/16/20 17:59 DC 10/16/20 08:36 Tamsulosin HCl (Flomax) 0.4 mg DAILY PO 10/10/20 09:30 10/26/20 08:27 Trazodone HCl (Desyrel) 50 mg PRN QHS PRN PO SLEEP AID 10/10/20 07:45 10/25/20 19:55 Ziprasidone (Geodon) 60 mg BID PO 10/10/20 09:30 10/13/20 14:38 DC 10/13/20 08:17 Chlorpromazine HCl (Thorazine) 50 mg DAILY PO 10/10/20 09:00 10/15/20 17:56 DC 10/15/20 08:23 Chlorpromazine HCl (Thorazine) 50 mg PRN Q6HRS PRN PO AGITATION 10/10/20 09:00 10/11/20 10:04 DC 10/11/20 01:38 Chlorpromazine HCl (Thorazine) 300 mg HS PO 10/10/20 21:00 10/25/20 19:49 Non-Formulary Medication (Diphenhydramine Hcl ) 1 cap Q6HRS PRN PO AGITATION 10/10/20 07:45 UNV Haloperidol Decanoate (Haldol Decanoate Im Extended Release) 100 mg QMONTH IM 10/26/20 09:00 Insulin Glargine (Lantus Syringe) 8 unit DAILY SQ 10/10/20 10:00 10/26/20 08:32 Non-Formulary Medication (Liothyronine Sodium (Cytomel)) 1 tab DAILY PO 10/10/20 09:00 10/11/20 07:29 DC Oxcarbazepine (Trileptal) 600 mg BID PO 10/10/20 09:30 10/22/20 17:52 DC 10/22/20 07:32 Valproic Acid (Depakene) 1,000 mg BID PO 10/10/20 09:30 10/10/20 20:12 DC 10/10/20 11:15 Non-Formulary Medication ([Ueoalwvhtohg25bt/ 2ML] ) 50 mg Q6HRS PRN IM AGITATION 10/10/20 07:45 UNV Non-Formulary Medication ([Aqyqffopxezw06na/ Ml] ) 50 mg Q6HRS PRN IM AGITATION 10/10/20 07:45 UNV Non-Formulary Medication (Semaglutide (Ozempic)) 1 mg WEEKLY SQ 10/10/20 09:00 UNV Non-Formulary Medication (Vitamin D3/ Vitamin K2 (D3 + K2 Dots 1,000 Units Tab)) 1 tab DAILY PO 10/10/20 09:00 10/10/20 17:36 DC Insulin Human Lispro (HumaLOG) 0-4 UNITS TIDWMEALS SQ 10/10/20 17:00 10/16/20 12:00 Dextrose (Dextrose 50%-Water Syringe) 12.5 gm PRN Q15MIN PRN IV SEE COMMENTS 10/10/20 16:00 Vitamin D (Vitamin D3) 50,000 unit WEEKLY PO 10/10/20 17:30 10/17/20 08:25 Olanzapine (ZyPREXA ZYDIS) 5 mg PRN Q2HRS PRN PO PSYCHOSIS 10/10/20 18:00 10/26/20 00:51 Divalproex Sodium (Depakote Sprinkles) 1,000 mg HS PO 10/10/20 21:00 10/25/20 19:49 Levothyroxine Sodium (Synthroid) 175 mcg DAILY06 PO 10/11/20 07:30 10/25/20 05:35 Liothyronine Sodium (Cytomel) 50 mcg DAILY PO 10/11/20 09:00 10/11/20 10:48 DC Clozapine (Clozaril) 25 mg HS PO 10/11/20 21:00 10/15/20 17:52 DC 10/14/20 20:22 Ascorbic Acid (Vitamin C) 500 mg BID PO 10/11/20 21:00 10/26/20 08:25 Ziprasidone (Geodon) 60 mg BID PO 10/13/20 21:00 10/18/20 11:27 DC 10/18/20 09:14 Clozapine (Clozaril) 50 mg HS PO 10/15/20 21:00 10/22/20 17:52 DC 10/21/20 20:36 Metoprolol Succinate (Toprol Xl) 50 mg DAILY PO 10/16/20 18:00 10/26/20 08:26 Nicotine (Nicoderm Cq 14mg Patch) 1 patch DAILY TD 10/18/20 09:00 10/26/20 08:27 Ziprasidone (Geodon) 60 mg QHS PO 10/18/20 21:00 10/21/20 23:00 DC 10/21/20 20:36 Chlorpromazine HCl (Thorazine) 50 mg DAILY PO 10/19/20 18:00 10/26/20 08:25 Clozapine (Clozaril) 75 mg HS PO 10/22/20 21:00 10/25/20 19:48 Oxcarbazepine (Trileptal) 900 mg BID PO 10/22/20 21:00 10/26/20 08:24 Haloperidol Lactate (Haldol) 10 mg DAILY08 IM 10/25/20 08:00 10/26/20 08:24 I have reviewed the current psychotropics carefully including drug interactions. Risk benefit ratio favors no change other than as noted in my dictated progress note. Diagnosis: Problems: (1) Schizoaffective disorder, bipolar type (2) Impulse control disorder, unspecified (3) Mild cognitive impairment (4) Anxiety disorder, unspecified (5) Bipolar disorder, current episode mixed, severe, with psychotic features KALEN REN MD Oct 26, 2020 09:19
[2020-10-26 16:05] VITALS: BP 161/70
--- NOTE | 2020-10-26 19:58 | NUR ---
Irritable and resistive in am. Refused meds. By lunch pt was compliant and appreciative and took meds. By supper pt again irritable and refused meds.
[2020-10-26] MEDS: cloZAPine 25 MG TABLET PO SCH (20:03)
[2020-10-26] MEDS: amLODIPine BESYLATE 10 MG TABLET PO SCH (20:03)
[2020-10-26] MEDS: DIVALPROEX 125 MG CAP.SPRINK PO SCH (20:04)
[2020-10-26] MEDS: DONEPEZIL HCL 10 MG TABLET PO SCH (20:05)
--- NOTE | 2020-10-26 21:49 | PDOC ---
Exam Note: Devin Note: Please also refer to the separate dictated note~for this date of service dictated separately.~Patient seen individually. Discussed the patient with Nursing staff reviewed the chart.~Reviewed interim history and current functioning. Reviewed vital signs,~Labs/ Radiology~and current medications noted below. Continue current treatment with the changes noted in the dictated addendum note Assessment: Vital Signs/I&O: Vital Signs Date Time Temp Pulse Resp B/P (MAP) Pulse Ox O2 Delivery O2 Flow Rate FiO2 10/26/20 20:03 70 161/70 10/26/20 16:05 98.2 16 97 Room Air I & O 10/25/20 10/25/20 10/26/20 15:00 23:00 07:00 Intake Total 720 ml 840 ml Balance 720 ml 840 ml Labs: Laboratory Tests Test 10/26/20 07:38 10/26/20 11:33 10/26/20 16:26 10/26/20 19:10 Glucose (Fingerstick) 86 mg/dL (70-99) 127 mg/dL (70-99) H 77 mg/dL (70-99) 134 mg/dL (70-99) H Current Medications: Meds: Laboratory Tests Test 10/26/20 07:38 10/26/20 11:33 10/26/20 16:26 10/26/20 19:10 Glucose (Fingerstick) 86 mg/dL 127 mg/dL 77 mg/dL 134 mg/dL Current Medications Medications (Trade) Dose Ordered Sig/Nancy Route PRN Reason Start Time Stop Time Status Last Admin Dose Admin Acetaminophen (Tylenol) 650 mg PRN Q6HRS PRN PO MILD PAIN / TEMP > 100.3'F 10/10/20 06:30 10/10/20 17:40 DC Multi-Ingredient Ointment (Analgesic [place]) 1 nayla PRN QID PRN TP MUSCLE PAIN 10/10/20 06:30 Al Hydroxide/Mg Hydroxide (Mylanta Plus Xs) 15 ml PRN AFTMEALHC PRN PO DYSPEPSIA 10/10/20 06:30 Magnesium Hydroxide (Milk Of Magnesia) 2,400 mg PRN QHS PRN PO CONSTIPATION 10/10/20 06:30 Nicotine (Nicoderm Cq 21mg Patch) 1 patch DAILY TD 10/10/20 09:00 10/18/20 01:35 DC 10/17/20 08:35 Influenza Virus Vaccine Quadrival (Fluzone Quad Syringe) 0.5 ml ONCE ONCE VAX IM 10/10/20 09:00 10/10/20 09:01 DC 10/10/20 14:04 Acetaminophen (Tylenol) 650 mg PRN DAILY PRN PO PAIN OR FEVER 10/10/20 07:45 10/10/20 17:40 DC Acetaminophen (Tylenol) 500 mg PRN Q6HRS PRN PO MILD PAIN / TEMP > 100.3'F 10/10/20 07:45 10/17/20 02:51 Amlodipine Besylate (Norvasc) 10 mg HS PO 10/10/20 21:00 10/26/20 20:03 Benztropine Mesylate (Cogentin) 1 mg DAILY PO 10/10/20 09:00 10/26/20 08:26 Calcium/Vitamin D (Oscal D 500mg/ 200uts) 1 tab DAILY PO 10/10/20 09:00 10/26/20 08:25 Calcium Polycarbophil (Fibercon) 625 mg BID PO 10/10/20 09:00 10/26/20 20:02 Clonidine HCl (Catapres) 0.1 mg PRN Q1HR PRN PO AGITATION 10/10/20 07:45 Donepezil HCl (Aricept) 10 mg HS PO 10/10/20 21:00 10/26/20 20:05 Ferrous Sulfate (Feosol) 325 mg BID PO 10/10/20 09:00 10/26/20 20:05 Hydrochlorothiazide (Hydrodiuril) 25 mg DAILY PO 10/10/20 09:00 10/26/20 08:24 Insulin Glargine (Lantus Syringe) 5 unit HS SQ 10/10/20 21:00 10/26/20 21:00 Ketoconazole (Nizoral 2% Shampoo) 1 nayla QODAY TP 10/10/20 09:00 10/22/20 07:47 Levothyroxine Sodium (Synthroid) 75 mcg DAILY06 PO 10/11/20 06:00 UNV Levothyroxine Sodium (Synthroid) 100 mcg DAILY PO 10/10/20 09:00 10/11/20 05:50 DC Losartan Potassium (Cozaar) 50 mg BID PO 10/10/20 09:00 10/26/20 20:03 Metformin HCl (Glucophage) 500 mg DAILYBFRSUP PO 10/10/20 17:00 10/26/20 17:00 Metformin HCl (Glucophage) 1,500 mg DAILY PO 10/10/20 09:00 10/26/20 08:27 Metoprolol Succinate (Toprol Xl) 25 mg DAILY PO 10/10/20 09:00 10/16/20 17:59 DC 10/16/20 08:36 Tamsulosin HCl (Flomax) 0.4 mg DAILY PO 10/10/20 09:30 10/26/20 08:27 Trazodone HCl (Desyrel) 50 mg PRN QHS PRN PO SLEEP AID 10/10/20 07:45 10/25/20 19:55 Ziprasidone (Geodon) 60 mg BID PO 10/10/20 09:30 10/13/20 14:38 DC 10/13/20 08:17 Chlorpromazine HCl (Thorazine) 50 mg DAILY PO 10/10/20 09:00 10/15/20 17:56 DC 10/15/20 08:23 Chlorpromazine HCl (Thorazine) 50 mg PRN Q6HRS PRN PO AGITATION 10/10/20 09:00 10/11/20 10:04 DC 10/11/20 01:38 Chlorpromazine HCl (Thorazine) 300 mg HS PO 10/10/20 21:00 10/26/20 20:05 Non-Formulary Medication (Diphenhydramine Hcl ) 1 cap Q6HRS PRN PO AGITATION 10/10/20 07:45 UNV Haloperidol Decanoate (Haldol Decanoate Im Extended Release) 100 mg QMONTH IM 10/26/20 09:00 10/26/20 09:00 Insulin Glargine (Lantus Syringe) 8 unit DAILY SQ 10/10/20 10:00 10/26/20 08:32 Non-Formulary Medication (Liothyronine Sodium (Cytomel)) 1 tab DAILY PO 10/10/20 09:00 10/11/20 07:29 DC Oxcarbazepine (Trileptal) 600 mg BID PO 10/10/20 09:30 10/22/20 17:52 DC 10/22/20 07:32 Valproic Acid (Depakene) 1,000 mg BID PO 10/10/20 09:30 10/10/20 20:12 DC 10/10/20 11:15 Non-Formulary Medication ([Pidpfhvrqzxr04rt/ 2ML] ) 50 mg Q6HRS PRN IM AGITATION 10/10/20 07:45 UNV Non-Formulary Medication ([[id number]/ Ml] ) 50 mg Q6HRS PRN IM AGITATION 10/10/20 07:45 UNV Non-Formulary Medication (Semaglutide (Ozempic)) 1 mg WEEKLY SQ 10/10/20 09:00 UNV Non-Formulary Medication (Vitamin D3/ Vitamin K2 (D3 + K2 Dots 1,000 Units Tab)) 1 tab DAILY PO 10/10/20 09:00 10/10/20 17:36 DC Insulin Human Lispro (HumaLOG) 0-4 UNITS TIDWMEALS SQ 10/10/20 17:00 10/16/20 12:00 Dextrose (Dextrose 50%-Water Syringe) 12.5 gm PRN Q15MIN PRN IV SEE COMMENTS 10/10/20 16:00 Vitamin D (Vitamin D3) 50,000 unit WEEKLY PO 10/10/20 17:30 10/17/20 08:25 Olanzapine (ZyPREXA ZYDIS) 5 mg PRN Q2HRS PRN PO PSYCHOSIS 10/10/20 18:00 10/26/20 00:51 Divalproex Sodium (Depakote Sprinkles) 1,000 mg HS PO 10/10/20 21:00 10/26/20 20:04 Levothyroxine Sodium (Synthroid) 175 mcg DAILY06 PO 10/11/20 07:30 10/25/20 05:35 Liothyronine Sodium (Cytomel) 50 mcg DAILY PO 10/11/20 09:00 10/11/20 10:48 DC Clozapine (Clozaril) 25 mg HS PO 10/11/20 21:00 10/15/20 17:52 DC 10/14/20 20:22 Ascorbic Acid (Vitamin C) 500 mg BID PO 10/11/20 21:00 10/26/20 20:03 Ziprasidone (Geodon) 60 mg BID PO 10/13/20 21:00 10/18/20 11:27 DC 10/18/20 09:14 Clozapine (Clozaril) 50 mg HS PO 10/15/20 21:00 10/22/20 17:52 DC 10/21/20 20:36 Metoprolol Succinate (Toprol Xl) 50 mg DAILY PO 10/16/20 18:00 10/26/20 08:26 Nicotine (Nicoderm Cq 14mg Patch) 1 patch DAILY TD 10/18/20 09:00 10/26/20 08:27 Ziprasidone (Geodon) 60 mg QHS PO 10/18/20 21:00 10/21/20 23:00 DC 10/21/20 20:36 Chlorpromazine HCl (Thorazine) 50 mg DAILY PO 10/19/20 18:00 10/26/20 08:25 Clozapine (Clozaril) 75 mg HS PO 10/22/20 21:00 10/26/20 20:03 Oxcarbazepine (Trileptal) 900 mg BID PO 10/22/20 21:00 10/26/20 20:02 Haloperidol Lactate (Haldol) 10 mg DAILY08 IM 10/25/20 08:00 10/26/20 08:24 Current Medications Medications (Trade) Dose Ordered Sig/Nancy Route PRN Reason Start Time Stop Time Status Last Admin Dose Admin Haloperidol Decanoate (Haldol Decanoate Im Extended Release) 100 mg QMONTH IM 10/26/20 09:00 10/26/20 09:00 I have reviewed the current psychotropics carefully including drug interactions. Risk benefit ratio favors no change other than as noted in my dictated progress note. Diagnosis: Problems: (1) Schizoaffective disorder, bipolar type (2) Impulse control disorder, unspecified (3) Mild cognitive impairment (4) Anxiety disorder, unspecified (5) Bipolar disorder, current episode mixed, severe, with psychotic features KALEN REN MD Oct 26, 2020 21:49
--- NOTE | 2020-10-27 01:44 | NUR ---
Pt sitting quietly in the hallway when approached this evening. Pt calm, disorganized, and confused. Pt cooperative with assessment and compliant with medications administered whole. No agitation or aggression noted thus far this shift.
[2020-10-27] MEDS: LEVOTHYROXINE 175 MCG TABLET PO SCH (05:31)
[2020-10-27 07:10] VITALS: BP 149/80
[2020-10-27] MEDS: INSULIN LISPRO 300 UNITS/3 ML VIAL. SQ SCH ×3 (08:00→17:00)
--- NOTE | 2020-10-27 08:53 | PDOC ---
Exam Note: Devin Note: This note is a late entry for 10/26/2020 covers elements not covered in my initial note. Subjective: The patient was seen individually in the evening of 10/26/2020 with Carlene MOON, discussed and reviewed the chart. He slept 4-1/2 hours previous night. The patient refused his meds in the morning, took them later. He was cooperative with taking intramuscular Haldol and did better after lunch, quite angry, labile in the evening. Review of Systems: Ambulation impaired. No CV, , pulmonary, eye, ENT system symptoms on review. Mental Status Exam: The patient is oriented to himself and situation. Speech is low in rate and rhythm, low in volume, rapid. Abstraction is fair. Computation is impaired. Language function is intact. Mood and affect remains somewhat labile, paranoid. No suicidal or homicidal ideation. He is quite easily distracted. Laboratory Data: Reviewed. Impression: Schizoaffective disorder bipolar type mixed with psychotic features. Anxiety disorder unspecified. Impulse control disorder unspecified. Plan: No change from initial note. We will continue to increase Clozaril as tolerated and once he is more stable, we will stop the scheduled IM Haldol. We are still awaiting records from [facility]. Dr. Harrell will be covering for me from Thursday through November 10, 2020. Assessment: Vital Signs/I&O: Vital Signs Date Time Temp Pulse Resp B/P (MAP) Pulse Ox O2 Delivery O2 Flow Rate FiO2 10/27/20 07:10 98.2 62 4 149/80 (103) 97 Room Air I & O 10/26/20 10/26/20 10/27/20 15:00 23:00 07:00 Intake Total 600 ml 400 ml Balance 600 ml 400 ml Labs: Laboratory Tests Test 10/26/20 11:33 10/26/20 16:26 10/26/20 19:10 10/27/20 07:26 Glucose (Fingerstick) 127 mg/dL (70-99) H 77 mg/dL (70-99) 134 mg/dL (70-99) H 170 mg/dL (70-99) H Current Medications: Meds: Laboratory Tests Test 10/26/20 11:33 10/26/20 16:26 3/26/21 19:10 10/27/20 07:26 Glucose (Fingerstick) 127 mg/dL 77 mg/dL 134 mg/dL 170 mg/dL Current Medications Medications (Trade) Dose Ordered Sig/Nancy Route PRN Reason Start Time Stop Time Status Last Admin Dose Admin Acetaminophen (Tylenol) 650 mg PRN Q6HRS PRN PO MILD PAIN / TEMP > 100.3'F 10/10/20 06:30 10/10/20 17:40 DC Multi-Ingredient Ointment (Analgesic [place]) 1 nayla PRN QID PRN TP MUSCLE PAIN 10/10/20 06:30 Al Hydroxide/Mg Hydroxide (Mylanta Plus Xs) 15 ml PRN AFTMEALHC PRN PO DYSPEPSIA 10/10/20 06:30 Magnesium Hydroxide (Milk Of Magnesia) 2,400 mg PRN QHS PRN PO CONSTIPATION 10/10/20 06:30 Nicotine (Nicoderm Cq 21mg Patch) 1 patch DAILY TD 10/10/20 09:00 10/18/20 01:35 DC 10/17/20 08:35 Influenza Virus Vaccine Quadrival (Fluzone Quad Syringe) 0.5 ml ONCE ONCE VAX IM 10/10/20 09:00 10/10/20 09:01 DC 10/10/20 14:04 Acetaminophen (Tylenol) 650 mg PRN DAILY PRN PO PAIN OR FEVER 10/10/20 07:45 10/10/20 17:40 DC Acetaminophen (Tylenol) 500 mg PRN Q6HRS PRN PO MILD PAIN / TEMP > 100.3'F 10/10/20 07:45 10/17/20 02:51 Amlodipine Besylate (Norvasc) 10 mg HS PO 10/10/20 21:00 10/26/20 20:03 Benztropine Mesylate (Cogentin) 1 mg DAILY PO 10/10/20 09:00 10/26/20 08:26 Calcium/Vitamin D (Oscal D 500mg/ 200uts) 1 tab DAILY PO 10/10/20 09:00 10/26/20 08:25 Calcium Polycarbophil (Fibercon) 625 mg BID PO 10/10/20 09:00 10/26/20 20:02 Clonidine HCl (Catapres) 0.1 mg PRN Q1HR PRN PO AGITATION 10/10/20 07:45 Donepezil HCl (Aricept) 10 mg HS PO 10/10/20 21:00 10/26/20 20:05 Ferrous Sulfate (Feosol) 325 mg BID PO 10/10/20 09:00 10/26/20 20:05 Hydrochlorothiazide (Hydrodiuril) 25 mg DAILY PO 10/10/20 09:00 10/26/20 08:24 Insulin Glargine (Lantus Syringe) 5 unit HS SQ 10/10/20 21:00 10/26/20 21:00 Ketoconazole (Nizoral 2% Shampoo) 1 nayla QODAY TP 10/10/20 09:00 10/22/20 07:47 Levothyroxine Sodium (Synthroid) 75 mcg DAILY06 PO 10/11/20 06:00 UNV Levothyroxine Sodium (Synthroid) 100 mcg DAILY PO 10/10/20 09:00 10/11/20 05:50 DC Losartan Potassium (Cozaar) 50 mg BID PO 10/10/20 09:00 10/26/20 20:03 Metformin HCl (Glucophage) 500 mg DAILYBFRSUP PO 10/10/20 17:00 10/26/20 17:00 Metformin HCl (Glucophage) 1,500 mg DAILY PO 10/10/20 09:00 10/26/20 08:27 Metoprolol Succinate (Toprol Xl) 25 mg DAILY PO 10/10/20 09:00 10/16/20 17:59 DC 10/16/20 08:36 Tamsulosin HCl (Flomax) 0.4 mg DAILY PO 10/10/20 09:30 10/26/20 08:27 Trazodone HCl (Desyrel) 50 mg PRN QHS PRN PO SLEEP AID 10/10/20 07:45 10/25/20 19:55 Ziprasidone (Geodon) 60 mg BID PO 10/10/20 09:30 10/13/20 14:38 DC 10/13/20 08:17 Chlorpromazine HCl (Thorazine) 50 mg DAILY PO 10/10/20 09:00 10/15/20 17:56 DC 10/15/20 08:23 Chlorpromazine HCl (Thorazine) 50 mg PRN Q6HRS PRN PO AGITATION 10/10/20 09:00 10/11/20 10:04 DC 10/11/20 01:38 Chlorpromazine HCl (Thorazine) 300 mg HS PO 10/10/20 21:00 10/26/20 20:05 Non-Formulary Medication (Diphenhydramine Hcl ) 1 cap Q6HRS PRN PO AGITATION 10/10/20 07:45 UNV Haloperidol Decanoate (Haldol Decanoate Im Extended Release) 100 mg QMONTH IM 10/26/20 09:00 10/26/20 09:00 Insulin Glargine (Lantus Syringe) 8 unit DAILY SQ 10/10/20 10:00 10/26/20 08:32 Non-Formulary Medication (Liothyronine Sodium (Cytomel)) 1 tab DAILY PO 10/10/20 09:00 10/11/20 07:29 DC Oxcarbazepine (Trileptal) 600 mg BID PO 10/10/20 09:30 10/22/20 17:52 DC 10/22/20 07:32 Valproic Acid (Depakene) 1,000 mg BID PO 10/10/20 09:30 10/10/20 20:12 DC 10/10/20 11:15 Non-Formulary Medication ([[id number]/ 2ML] ) 50 mg Q6HRS PRN IM AGITATION 10/10/20 07:45 UNV Non-Formulary Medication ([[id number]/ Ml] ) 50 mg Q6HRS PRN IM AGITATION 10/10/20 07:45 UNV Non-Formulary Medication (Semaglutide (Ozempic)) 1 mg WEEKLY SQ 10/10/20 09:00 UNV Non-Formulary Medication (Vitamin D3/ Vitamin K2 (D3 + K2 Dots 1,000 Units Tab)) 1 tab DAILY PO 10/10/20 09:00 10/10/20 17:36 DC Insulin Human Lispro (HumaLOG) 0-4 UNITS TIDWMEALS SQ 10/10/20 17:00 10/16/20 12:00 Dextrose (Dextrose 50%-Water Syringe) 12.5 gm PRN Q15MIN PRN IV SEE COMMENTS 10/10/20 16:00 Vitamin D (Vitamin D3) 50,000 unit WEEKLY PO 10/10/20 17:30 10/17/20 08:25 Olanzapine (ZyPREXA ZYDIS) 5 mg PRN Q2HRS PRN PO PSYCHOSIS 10/10/20 18:00 10/26/20 00:51 Divalproex Sodium (Depakote Sprinkles) 1,000 mg HS PO 10/10/20 21:00 10/26/20 20:04 Levothyroxine Sodium (Synthroid) 175 mcg DAILY06 PO 10/11/20 07:30 10/27/20 05:31 Liothyronine Sodium (Cytomel) 50 mcg DAILY PO 10/11/20 09:00 10/11/20 10:48 DC Clozapine (Clozaril) 25 mg HS PO 10/11/20 21:00 10/15/20 17:52 DC 10/14/20 20:22 Ascorbic Acid (Vitamin C) 500 mg BID PO 10/11/20 21:00 10/26/20 20:03 Ziprasidone (Geodon) 60 mg BID PO 10/13/20 21:00 10/18/20 11:27 DC 10/18/20 09:14 Clozapine (Clozaril) 50 mg HS PO 10/15/20 21:00 10/22/20 17:52 DC 10/21/20 20:36 Metoprolol Succinate (Toprol Xl) 50 mg DAILY PO 10/16/20 18:00 10/26/20 08:26 Nicotine (Nicoderm Cq 14mg Patch) 1 patch DAILY TD 10/18/20 09:00 10/26/20 08:27 Ziprasidone (Geodon) 60 mg QHS PO 10/18/20 21:00 10/21/20 23:00 DC 10/21/20 20:36 Chlorpromazine HCl (Thorazine) 50 mg DAILY PO 10/19/20 18:00 10/26/20 08:25 Clozapine (Clozaril) 75 mg HS PO 10/22/20 21:00 10/26/20 20:03 Oxcarbazepine (Trileptal) 900 mg BID PO 10/22/20 21:00 10/26/20 20:02 Haloperidol Lactate (Haldol) 10 mg DAILY08 IM 10/25/20 08:00 10/26/20 08:24 Current Medications Medications (Trade) Dose Ordered Sig/Nancy Route PRN Reason Start Time Stop Time Status Last Admin Dose Admin Haloperidol Decanoate (Haldol Decanoate Im Extended Release) 100 mg QMONTH IM 10/26/20 09:00 10/26/20 09:00 I have reviewed the current psychotropics carefully including drug interactions. Risk benefit ratio favors no change other than as noted in my dictated progress note. Diagnosis: Problems: (1) Schizoaffective disorder, bipolar type (2) Impulse control disorder, unspecified (3) Mild cognitive impairment (4) Anxiety disorder, unspecified (5) Bipolar disorder, current episode mixed, severe, with psychotic features KALEN REN MD Oct 27, 2020 08:53
[2020-10-27] MEDS: hydroCHLOROthiazide 25 MG TABLET PO SCH (08:55)
[2020-10-27] MEDS: CALCIUM CARB/VIT D3 500/200 TABLET PO SCH (08:55)
[2020-10-27] MEDS: LOSARTAN 50 MG TABLET. PO SCH ×2 (08:56→19:44)
[2020-10-27] MEDS: chlorproMAZINE HCL 25 MG TABLET PO SCH ×2 (08:56→19:45)
[2020-10-27] MEDS: metFORMIN 500 MG TABLET PO SCH ×2 (08:56→17:00)
[2020-10-27] MEDS: CALCIUM POLYCARBOPHIL 625 MG TABLET PO SCH ×2 (08:56→19:44)
[2020-10-27] MEDS: ASCORBIC ACID 500 MG TABLET PO SCH ×2 (08:56→19:43)
[2020-10-27] MEDS: TAMSULOSIN 0.4 MG CAP.ER.24H. PO SCH (08:57)
[2020-10-27] MEDS: BENZTROPINE MESYLATE 1 MG TABLET PO SCH (08:57)
[2020-10-27] MEDS: FERROUS SULFATE 325 MG TABLET. PO SCH ×2 (08:57→19:43)
[2020-10-27] MEDS: METOPROLOL SUCC 24HR ER 25 MG TAB.ER.24H. PO SCH (08:57)
[2020-10-27] MEDS: HALOPERIDOL LACT 5 MG/ML VIAL. IM SCH (08:58)
[2020-10-27] MEDS: NICOTINE 14MG PATCH. TD SCH (08:58)
[2020-10-27] MEDS: INSULIN GLARGINE SYRINGE. SQ SCH ×2 (09:00→19:46)
--- NOTE | 2020-10-27 16:33 | NUR ---
Pt up to meals. Has been compliant with meds nd cares. Has been pleasant thus far.
[2020-10-27 17:00] VITALS: BP 180/85
[2020-10-27] MEDS: amLODIPine BESYLATE 10 MG TABLET PO SCH (19:43)
[2020-10-27] MEDS: DIVALPROEX 125 MG CAP.SPRINK PO SCH (19:44)
[2020-10-27] MEDS: cloZAPine 25 MG TABLET PO SCH (19:44)
[2020-10-27] MEDS: traZODone 50 MG TABLET. PO PRN (19:44)
[2020-10-27] MEDS: DONEPEZIL HCL 10 MG TABLET PO SCH (19:44)
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
--- NOTE | 2020-10-28 04:28 | PN ---
DATE: 10/27/2020 SUBJECTIVE: The patient was seen today, met with the staff, chart reviewed. Staff reports continued behavior problems. ____ boundaries, explosive temper, constantly in argument with staff and residents. The patient also talking to himself. He has been in a long-term facility in the [facility]. Apparently, he was recently discharged and placed in a residual setting, they could ____ manage him. The patient also has marked involuntary movements of lips, tongue and also lower extremities. The patient is difficult to redirect. OBSERVATION: VITAL SIGNS: Temperature 97.9, blood pressure 137/76, pulse 72, respirations 20, O2 sat 96%. GENERAL: Slept about 6 hours last night. MEDICATIONS: The patient is currently on Haldol Decanoate 100 mg monthly, ____ 10 mg daily, Trileptal 900 mg b.i.d., Clozaril 75 mg at night, Thorazine 50 mg daily, Depakote 1000 mg at night, also Thorazine 300 mg at night, Aricept 10 mg daily. LABORATORY DATA: The patient's lab reviewed. Depakote level was 61. ASSESSMENT: Schizoaffective disorder, bipolar type, with psychotic features; anxiety disorder, unspecified; mild cognitive disorder. PLAN: To continue with the current treatment plan. LENGTH OF STAY: Ten days. DMITRY LONDON MD DR: THERESE/néstor JOB#: [id number] / [id number]
[2020-10-28] MEDS: LEVOTHYROXINE 175 MCG TABLET PO SCH (05:24)
[2020-10-28 06:12] VITALS: BP 111/70
[2020-10-28] MEDS: INSULIN LISPRO 300 UNITS/3 ML VIAL. SQ SCH ×3 (08:00→17:00)
[2020-10-28] MEDS: HALOPERIDOL LACT 5 MG/ML VIAL. IM SCH (08:23)
[2020-10-28] MEDS: ASCORBIC ACID 500 MG TABLET PO SCH ×2 (08:24→21:15)
[2020-10-28] MEDS: metFORMIN 500 MG TABLET PO SCH ×2 (08:24→17:00)
[2020-10-28] MEDS: BENZTROPINE MESYLATE 1 MG TABLET PO SCH (08:24)
[2020-10-28] MEDS: hydroCHLOROthiazide 25 MG TABLET PO SCH (08:24)
[2020-10-28] MEDS: TAMSULOSIN 0.4 MG CAP.ER.24H. PO SCH (08:25)
[2020-10-28] MEDS: CALCIUM POLYCARBOPHIL 625 MG TABLET PO SCH ×2 (08:25→21:20)
[2020-10-28] MEDS: CALCIUM CARB/VIT D3 500/200 TABLET PO SCH (08:25)
[2020-10-28] MEDS: FERROUS SULFATE 325 MG TABLET. PO SCH ×2 (08:25→21:11)
[2020-10-28] MEDS: LOSARTAN 50 MG TABLET. PO SCH ×2 (08:25→21:14)
[2020-10-28] MEDS: METOPROLOL SUCC 24HR ER 25 MG TAB.ER.24H. PO SCH (08:26)
[2020-10-28] MEDS: chlorproMAZINE HCL 25 MG TABLET PO SCH ×2 (08:27→21:10)
[2020-10-28] MEDS: NICOTINE 14MG PATCH. TD SCH (08:28)
[2020-10-28] MEDS: KETOCONAZOLE 2% SHAMPOO 120ML BOTTLE. TP SCH (08:29)
[2020-10-28] MEDS: INSULIN GLARGINE SYRINGE. SQ SCH ×2 (09:00→21:52)
[2020-10-28 16:33] VITALS: BP 177/91
--- NOTE | 2020-10-28 17:16 | NUR ---
Pt slept thru breakfast. Irritable at that time and refused meds. Pt still lirritable at lunch but did take meds. Has been very verbal this afternoon. Sister call and was asking for information about pt. Sister referred to SW to discuss how she could obtain information regarding pt condition. Sister stated she was not informed by his guardian that he was ever moved from [facility]. Sister stated the only reason she knew the pt was here is he attempted to call her from here.
[2020-10-28] MEDS: traZODone 50 MG TABLET. PO PRN (21:10)
[2020-10-28] MEDS: DONEPEZIL HCL 10 MG TABLET PO SCH (21:11)
[2020-10-28] MEDS: cloZAPine 25 MG TABLET PO SCH (21:14)
[2020-10-28] MEDS: amLODIPine BESYLATE 10 MG TABLET PO SCH (21:15)
[2020-10-28] MEDS: DIVALPROEX 125 MG CAP.SPRINK PO SCH (21:16)
--- NOTE | 2020-10-29 02:42 | PN ---
DATE: 10/28/2020 SUBJECTIVE: The patient was seen today, met with the staff, chart reviewed and also covering for Dr. Rogers. Staff reports increased behavior problems, constantly angry, talking continuously having significant mood swings and verbally abusive towards others. The patient also showing increased psychomotor activity and also involuntary movements, including slips of tongue. The patient is difficult to redirect. OBJECTIVE: VITAL SIGNS: Temperature 98.2, blood pressure 111/70, pulse 66, respirations 16, O2 sat 99%. GENERAL: Slept about 4 hours last night. MEDICATIONS: The patient's current medications reviewed. His medications include Haldol Decanoate 100 mg monthly IM. He is also getting Haldol 10 mg p.o. daily, Trileptal 900 mg twice a day, Clozaril 75 mg at night, chlorpromazine 50 mg daily, Depakote Sprinkles 1000 mg at night, Thorazine 300 mg at night, Aricept 10 mg daily, olanzapine 5 mg daily. The patient has problems with disorganized thinking and also having some involuntary movements. ASSESSMENT: 1. Schizoaffective disorder, bipolar type, with psychotic features. 2. Anxiety disorder, unspecified. 3. Mild cognitive disorder. PLAN: To continue with the treatment. LENGTH OF STAY: 10 days. DMITRY LONDON MD DR: THERESE/néstor JOB#: [id number] / [id number]
--- NOTE | 2020-10-29 03:35 | NUR ---
Nursing Note The patient was calm and cooperative with his assessment and medication pass. The patient took his medication whole. The patient was cooperative with his assessment and was able to answer name date and location. The patient was less irritable and was very pleasant this shift. The patient is currently sleeping in his room.
[2020-10-29] MEDS: LEVOTHYROXINE 175 MCG TABLET PO SCH (06:33)
[2020-10-29 06:47] VITALS: BP 105/64
[2020-10-29 07:12] LABS: BASO % 1 % (0-3); EOS # 0.1 x10^3/uL (0.0-0.7); EOS % 2 % (0-3); HEMATOCRIT 31.2 % (39.0-53.0); HEMOGLOBIN 10.2 g/dL (13.0-17.5); LYMPH # 2.9 x10^3/uL (1.0-4.8); LYMPH % 39 % (24-48); MEAN CORPUSCULAR HEMOGLOBIN 31 pg (25-35); MEAN CORPUSCULAR HGB CONC 33 g/dL (31-37); MEAN CORPUSCULAR VOLUME 96 fL (79-100); MONO # 0.7 x10^3/uL (0.0-1.1); MONO % 9 % (0-9); NEUT # 3.6 x10^3uL (1.8-7.7); NEUT % 49 % (31-73); PLATELET COUNT 303 x10^3/uL (140-400); RED BLOOD COUNT 3.25 x10^6/uL (4.30-5.70); RED CELL DISTRIBUTION WIDTH 14.2 % (11.5-14.5); WHITE BLOOD COUNT 7.4 x10^3/uL (4.0-11.0)
[2020-10-29 07:30] LABS: ALBUMIN 3.1 g/dL (3.4-5.0); ALBUMIN/GLOBULIN RATIO 0.8 (1.0-1.7); CALCIUM 9.1 mg/dL (8.5-10.1); GFR 73.9; POTASSIUM 5.1 mmol/L (3.5-5.1); TOTAL BILIRUBIN 0.1 mg/dL (0.2-1.0); TOTAL PROTEIN 7.1 g/dL (6.4-8.2)
[2020-10-29] MEDS: INSULIN LISPRO 300 UNITS/3 ML VIAL. SQ SCH ×3 (08:00→17:00)
[2020-10-29] MEDS: CALCIUM CARB/VIT D3 500/200 TABLET PO SCH (08:51)
[2020-10-29] MEDS: ASCORBIC ACID 500 MG TABLET PO SCH ×2 (08:51→20:56)
[2020-10-29] MEDS: METOPROLOL SUCC 24HR ER 25 MG TAB.ER.24H. PO SCH (08:52)
[2020-10-29] MEDS: BENZTROPINE MESYLATE 1 MG TABLET PO SCH (08:52)
[2020-10-29] MEDS: FERROUS SULFATE 325 MG TABLET. PO SCH ×2 (08:52→20:56)
[2020-10-29] MEDS: metFORMIN 500 MG TABLET PO SCH ×2 (08:52→17:35)
[2020-10-29] MEDS: CALCIUM POLYCARBOPHIL 625 MG TABLET PO SCH ×2 (08:52→20:57)
[2020-10-29] MEDS: hydroCHLOROthiazide 25 MG TABLET PO SCH (08:52)
[2020-10-29] MEDS: LOSARTAN 50 MG TABLET. PO SCH ×2 (08:52→20:57)
[2020-10-29] MEDS: TAMSULOSIN 0.4 MG CAP.ER.24H. PO SCH (08:52)
[2020-10-29] MEDS: chlorproMAZINE HCL 25 MG TABLET PO SCH ×2 (08:52→21:01)
[2020-10-29] MEDS: NICOTINE 14MG PATCH. TD SCH (08:53)
[2020-10-29] MEDS: HALOPERIDOL LACT 5 MG/ML VIAL. IM SCH (08:53)
[2020-10-29] MEDS: INSULIN GLARGINE SYRINGE. SQ SCH ×2 (09:32→21:06)
[2020-10-29 15:46] VITALS: BP 146/68
--- NOTE | 2020-10-29 17:46 | NUR ---
Nursing note: Pt has spent most of the shift in his room or sitting in the hallway. He has been med compliant and cooperative. No behaviors noted. Will continue to monitor.
[2020-10-29] MEDS: DIVALPROEX 125 MG CAP.SPRINK PO SCH (20:56)
[2020-10-29] MEDS: DONEPEZIL HCL 10 MG TABLET PO SCH (20:57)
[2020-10-29] MEDS: amLODIPine BESYLATE 10 MG TABLET PO SCH (20:57)
[2020-10-29] MEDS: cloZAPine 25 MG TABLET PO SCH (20:57)
--- NOTE | 2020-10-30 00:22 | PN ---
DATE: 10/29/2020 SUBJECTIVE: The patient's behavior remains the same, hyperactive, restless, loud with increased psychomotor activity, also having involuntary movements, including orofacial dyskinesia. OBJECTIVE: VITAL SIGNS: Temperature 96.5, blood pressure 105/64, pulse 73, respirations 16, O2 sat 99%. GENERAL: Slept about 6 hours last night. The patient has problems following directions, distracted easily, also exhibiting some memory problems. Also, he has been hallucinating, talking to himself, also intrusive and demanding. MEDICATIONS: The patient's current medications include Haldol Decanoate 100 mg IM monthly. Also, he is on oral Haldol 10 mg daily, Trileptal 900 mg twice a day, also on Clozaril 75 mg at night, chlorpromazine 50 mg daily, Depakote Sprinkles 1000 mg at night. He is also on Thorazine 300 mg at night. He is also on Aricept 10 mg daily and olanzapine 5 mg daily. ASSESSMENT: 1. Schizoaffective disorder, bipolar type, with psychotic features. 2. Anxiety disorder, unspecified. 3. Mild cognitive disorder. PLAN: To continue with the treatment. LENGTH OF STAY: 10 days. DMITRY LONDON MD DR: THERESE/néstor JOB#: [id number] / [id number]
--- NOTE | 2020-10-30 04:36 | NUR ---
Nursing Note The patient was calm and compliant with medications and his assessment. The patient was alert to name, date and location. The patient took his medication whole. The patient was agitated during cares in the car construction superintendent but was able to be redirected and eventually allowed staff to help him change clothes. The patient is currently sleeping in his room.
[2020-10-30] MEDS: LEVOTHYROXINE 175 MCG TABLET PO SCH (05:26)
[2020-10-30 06:06] VITALS: BP 113/72
[2020-10-30] MEDS: INSULIN LISPRO 300 UNITS/3 ML VIAL. SQ SCH ×3 (08:00→17:00)
[2020-10-30] MEDS: KETOCONAZOLE 2% SHAMPOO 120ML BOTTLE. TP SCH (09:00)
[2020-10-30] MEDS: CALCIUM CARB/VIT D3 500/200 TABLET PO SCH (09:38)
[2020-10-30] MEDS: ASCORBIC ACID 500 MG TABLET PO SCH ×2 (09:38→21:22)
[2020-10-30] MEDS: HALOPERIDOL LACT 5 MG/ML VIAL. IM SCH (09:38)
[2020-10-30] MEDS: METOPROLOL SUCC 24HR ER 25 MG TAB.ER.24H. PO SCH (09:38)
[2020-10-30] MEDS: hydroCHLOROthiazide 25 MG TABLET PO SCH (09:38)
[2020-10-30] MEDS: chlorproMAZINE HCL 25 MG TABLET PO SCH ×2 (09:39→21:25)
[2020-10-30] MEDS: FERROUS SULFATE 325 MG TABLET. PO SCH ×2 (09:39→21:23)
[2020-10-30] MEDS: metFORMIN 500 MG TABLET PO SCH ×2 (09:39→17:38)
[2020-10-30] MEDS: LOSARTAN 50 MG TABLET. PO SCH ×2 (09:39→21:24)
[2020-10-30] MEDS: TAMSULOSIN 0.4 MG CAP.ER.24H. PO SCH (09:39)
[2020-10-30] MEDS: CALCIUM POLYCARBOPHIL 625 MG TABLET PO SCH ×2 (09:39→21:22)
[2020-10-30] MEDS: BENZTROPINE MESYLATE 1 MG TABLET PO SCH (09:39)
[2020-10-30] MEDS: NICOTINE 14MG PATCH. TD SCH (09:40)
[2020-10-30] MEDS: INSULIN GLARGINE SYRINGE. SQ SCH ×2 (09:42→21:32)
[2020-10-30 16:17] VITALS: BP 149/77
--- NOTE | 2020-10-30 16:50 | NUR ---
Nursing note: Pt has been in his room for most of the shift, occasionally sitting in the chairs positioned in the hallway. He is pleasant, med compliant and cooperative. Pt denies having any pain/concerns. He is currently in the dining room getting ready for supper. Will continue to monitor.
[2020-10-30] MEDS: DIVALPROEX 125 MG CAP.SPRINK PO SCH (21:21)
[2020-10-30] MEDS: DONEPEZIL HCL 10 MG TABLET PO SCH (21:21)
[2020-10-30] MEDS: amLODIPine BESYLATE 10 MG TABLET PO SCH (21:23)
[2020-10-30] MEDS: cloZAPine 25 MG TABLET PO SCH (21:23)
--- NOTE | 2020-10-31 00:20 | NUR ---
Nursing Note The patient was located in his room for his assessment and medication pass. The patient took his medication whole. The patient was able to answer name, date and location. The patient was pleasant during interactions this shift. The patient is currently sleeping in his room.
--- NOTE | 2020-10-31 02:09 | PN ---
DATE: 10/30/2020 SUBJECTIVE: The patient was seen today, met with the staff, chart reviewed, also covering for Dr. Rogers. The patient's behavior slightly improved, less agitated and also showing some improvement with his mood swings and anger issues. OBJECTIVE: VITAL SIGNS: Temperature 97.6, blood pressure 113/72, pulse 72, respirations 20, O2 sat 94%. GENERAL: Slept about 5 hours last night. The patient's appetite is fair. LABORATORY DATA: The patient's lab reviewed and his blood sugar fluctuates. ASSESSMENT: 1. Schizoaffective disorder, bipolar type, with psychotic features. 2. Anxiety disorder, unspecified. 3. Mild cognitive disorder. PLAN: To continue with the treatment. Length of stay is 10 days. The patient is awaiting for placement. DIMTRY LONDON MD DR: THERESE/néstor JOB#: [id number] / [id number]
[2020-10-31] MEDS: LEVOTHYROXINE 175 MCG TABLET PO SCH (05:57)
[2020-10-31 06:29] VITALS: BP 143/78
[2020-10-31] MEDS: CHOLECALCIFEROL (VITAMIN D3) 50,000 UNIT CAPSULE PO SCH (07:54)
[2020-10-31] MEDS: FERROUS SULFATE 325 MG TABLET. PO SCH ×2 (07:55→19:38)
[2020-10-31] MEDS: TAMSULOSIN 0.4 MG CAP.ER.24H. PO SCH (07:55)
[2020-10-31] MEDS: metFORMIN 500 MG TABLET PO SCH ×2 (07:55→17:28)
[2020-10-31] MEDS: BENZTROPINE MESYLATE 1 MG TABLET PO SCH (07:55)
[2020-10-31] MEDS: CALCIUM POLYCARBOPHIL 625 MG TABLET PO SCH ×2 (07:55→19:38)
[2020-10-31] MEDS: ASCORBIC ACID 500 MG TABLET PO SCH ×2 (07:55→19:38)
[2020-10-31] MEDS: LOSARTAN 50 MG TABLET. PO SCH ×2 (07:55→19:39)
[2020-10-31] MEDS: CALCIUM CARB/VIT D3 500/200 TABLET PO SCH (07:55)
[2020-10-31] MEDS: METOPROLOL SUCC 24HR ER 25 MG TAB.ER.24H. PO SCH (07:56)
[2020-10-31] MEDS: NICOTINE 14MG PATCH. TD SCH ×2 (07:56→09:00)
[2020-10-31] MEDS: HALOPERIDOL LACT 5 MG/ML VIAL. IM SCH (07:56)
[2020-10-31] MEDS: hydroCHLOROthiazide 25 MG TABLET PO SCH (07:56)
[2020-10-31] MEDS: chlorproMAZINE HCL 25 MG TABLET PO SCH ×2 (07:57→19:40)
[2020-10-31] MEDS: INSULIN LISPRO 300 UNITS/3 ML VIAL. SQ SCH ×3 (08:00→17:00)
[2020-10-31] MEDS: INSULIN GLARGINE SYRINGE. SQ SCH ×2 (09:00→21:14)
--- NOTE | 2020-10-31 13:20 | NUR ---
Nursing note: Pt very agitated at shift change, laying in his bed with no clothes and no brief on. Pt refusing to get dressed and yelling at staff demanding them to get out of his room. Pt's AM meds were attempted to be given, but pt refused. Staff x3 assisted in giving pt his IM Haldol. We were unable to obtain his blood glucose level this AM, so insulin was held. Pt continued to be demanding, yelling racial remarks at staff and saying "Go serve your white people!" Pt was given a clean brief and clean clothes but proceeded to throw them at staff. Pt's meds were held and attempted to be given several different times. Pt refused each time. After multiple attempts and lots of encouragement from several staff members, pt eventually was compliant in taking his meds, but he refused his nicotine patch. He is currently sitting quietly in his room. Will continue to monitor.
--- NOTE | 2020-10-31 13:30 | NUR ---
GENESIS contacted pt guardian, Natalie, to let her know that SW received a fiduciary letter from [facility]. Natalie requested to have SW send the letter to her if at all possible. GENESIS gave Natalie an update on how pt is doing. Natalie really feels that pt needs to be at [facility] despite their belief that he needs to be integrated into the community. That has been his home for years and does not anticipate him being stable in any other environment.
[2020-10-31 19:17] VITALS: BP 151/74
[2020-10-31] MEDS: DONEPEZIL HCL 10 MG TABLET PO SCH (19:38)
[2020-10-31] MEDS: cloZAPine 25 MG TABLET PO SCH (19:38)
[2020-10-31] MEDS: amLODIPine BESYLATE 10 MG TABLET PO SCH (19:39)
[2020-10-31] MEDS: DIVALPROEX 125 MG CAP.SPRINK PO SCH (19:39)
--- NOTE | 2020-11-01 00:21 | PN ---
DATE: 10/31/2020 SUBJECTIVE: The patient was seen today, met with the staff, chart reviewed and also covering for Dr. Rogers. Staff reports his behavior is daily gotten worse over the past 24 hours. He is getting extremely paranoid, suspicious. The patient also difficult to redirect. The patient constantly talking to himself and irritable, rosas and respond to external stimuli with irritation and anger. OBSERVATION: VITAL SIGNS: Temperature 97.8, blood pressure 149/77, pulse 68, respirations 20, O2 sat 99%. MEDICATIONS: The patient's current medications include Haldol Decanoate 100 mg monthly, Haldol 10 mg p.o. or IM daily, Trileptal 900 mg b.i.d., trazodone 75 mg at night, Thorazine 50 mg daily, Depakote 1000 mg at night, Thorazine 300 mg at night, Aricept 10 mg at night. ASSESSMENT: 1. Schizoaffective disorder, bipolar type, with psychotic features. 2. Anxiety disorder, unspecified. 3. Mild cognitive disorder. PLAN: To continue with the treatment. LENGTH OF STAY: Ten days. DMITRY LONDON MD DR: THERESE/néstor JOB#: [id number] / [id number]
--- NOTE | 2020-11-01 02:13 | NUR ---
Pt sitting in day room when approached. Pt has been yelling, demanding, and sarcastic this evening. Pt has been yelling at staff and yelling at Guardian on the phone, demanding snacks and "pop". When asked to calm down and stop yelling, pt stated "I'm not yelling". Pt attempted to tell me that he would not take his HS medications until he got his snacks. I explained to him that he would get his snacks after taking his medications. While waiting for the snack cart, pt yelling "I want some food. I want some meat". Staff once again told pt that he would need to calm down. Once calm, pt was provided with several snacks. Pt cooperative with assessment and compliant with medications administered whole. Pt later yelling at staff because his bed was not low enough. Staff adjusted the height of his bed and he eventually calmed and went back to bed.
[2020-11-01] MEDS: LEVOTHYROXINE 175 MCG TABLET PO SCH (05:18)
[2020-11-01 06:25] VITALS: BP 176/75
[2020-11-01] MEDS: HALOPERIDOL LACT 5 MG/ML VIAL. IM SCH ×2 (08:00→08:42)
[2020-11-01] MEDS: chlorproMAZINE HCL 25 MG TABLET PO SCH ×2 (08:40→19:55)
[2020-11-01] MEDS: CALCIUM CARB/VIT D3 500/200 TABLET PO SCH (08:40)
[2020-11-01] MEDS: FERROUS SULFATE 325 MG TABLET. PO SCH ×2 (08:40→19:49)
[2020-11-01] MEDS: METOPROLOL SUCC 24HR ER 25 MG TAB.ER.24H. PO SCH (08:40)
[2020-11-01] MEDS: metFORMIN 500 MG TABLET PO SCH ×2 (08:40→18:01)
[2020-11-01] MEDS: BENZTROPINE MESYLATE 1 MG TABLET PO SCH (08:40)
[2020-11-01] MEDS: hydroCHLOROthiazide 25 MG TABLET PO SCH (08:40)
[2020-11-01] MEDS: CALCIUM POLYCARBOPHIL 625 MG TABLET PO SCH ×2 (08:40→19:49)
[2020-11-01] MEDS: ASCORBIC ACID 500 MG TABLET PO SCH ×2 (08:40→19:50)
[2020-11-01] MEDS: NICOTINE 14MG PATCH. TD SCH (08:41)
[2020-11-01] MEDS: TAMSULOSIN 0.4 MG CAP.ER.24H. PO SCH (08:41)
[2020-11-01] MEDS: LOSARTAN 50 MG TABLET. PO SCH ×2 (08:41→19:50)
[2020-11-01] MEDS: KETOCONAZOLE 2% SHAMPOO 120ML BOTTLE. TP SCH (08:42)
[2020-11-01] MEDS: INSULIN LISPRO 300 UNITS/3 ML VIAL. SQ SCH ×3 (08:42→17:00)
[2020-11-01] MEDS: INSULIN GLARGINE SYRINGE. SQ SCH ×2 (09:31→19:54)
--- NOTE | 2020-11-01 10:57 | NUR ---
WEEKLY ACTIVITY THERAPY NOTE Date of Admission: 10/10/2020 Date of AT Assessment: 10/11/20 Precipitating behaviors that initiated intake and admission: failure of placement Goal aimed: increase socialization and relaxation skills Initial Goal: Pt will participate in at least three individual or group Activity Therapy sessions per week. Weekly progress towards goal: did not achieve, none Group participation level: none Weekly highlights: Behaviors observed: isolate to room or sleeping in hallway Plan: change goal to:Pt will participate in at least three individual or group Activity Therapy sessions before discharge. Beneficial adaptations:
[2020-11-01] MEDS: HALOPERIDOL 5 MG TABLET PO SCH (10:58)
--- NOTE | 2020-11-01 12:26 | TX PLAN ---
Interdisciplinary Tx Plan Admission Information Oct 10, 2020 at 06:18 Legal Status (on Admission): Voluntary DPOA/Guardian Name: Natalie Paredes Contact Other [facility] Contact Verified Code Status: Full Code Allergies: Coded Allergies: Pork/Porcine Containing Products (Verified Allergy, Unknown, 10/08/20) lamotrigine (Verified Allergy, Unknown, 10/08/20) Diagnoses Primary Diagnosis: Schizoaffective D/O, Bipolar type mixed with psychotic features Reasons for Admission: Aggressive, Delusions, Agitated, Hallucinations, Suicidal ideation, Combative, Other Problem in Patient's Words: He had a change from an environment he got comfortable in. Additional Admission Comments: According to the intake, pt was refusing meds at times, verbally aggressive, using foul language, suicidal, agitated, combative, physically aggressive, hallucinating and delusional Problems Active Problems: verbally aggressive resistive to cares agitated delusional Inactive Problems: mostly medication compliant Pt Strengths/Limitations Ability for Arlee: Poor Cognitive Functioning/Ability: Poor Communication Skills/Ability: Poor Financial Resources: Fair Insight/Judgement: Poor Intellectual Ability: Poor Physical Health: Fair Social Skills: Fair Stability in Family: Poor Stability in School/Work: Poor Verbal Skills: Poor Discharge Criteria Discharge Criteria: No need for close observ., Adequate arrangements @DC, Improved behavior, Improved mood/thought Preliminary Discharge Plan Preliminary DC Plan: Current Living Arrange. Special Precautions Fall Risk: Low Initial D/C Plan Pt to return to placement at [facility]. Identified Discharge Needs: Psychiatric services Currently Utilized Resources Currently Utilized Resources/P: Primary Care Physician Referrals Community Resources: Psychiatric services Identified Problems/Hx/Goals Objectives/Short-Term Goals Short Term Goals: Dec. Aggression, Dec. Hallucination/Delus, Dec. Outbursts, Medication Stabilization, Monitor Med Effects, Promote Coping Skill Short Term Goals in Patient's: N/A Interventions/Frequency Staff Interventions/Frequency&: Psychiatrist to assess pt at least 3x per week for medication management. Social Work to assess pt at least 2x per week to identify barriers to care and discharge planning goals. Nursing to assess medication effects, behavior management and completion of 15 minute checks. Encourage group participation in activities (if applicable) or 1:1 engagement based off activity department goals. History Vocational History: Unknown Education: Unknown Community Follow-up Primary Care Physician Community Provider/Family Inpu: Pt has had a court appointed guardian for the last 11 years. It is the guardian's belief that she should have never been moved from [facility]. Treatment Plan Explained Patient/Nursing Project Coordinator had this treatment plan explained to him/her as indicated by the signature below and has been given the opportunity to ask questions and make suggestions: Date: Patient/Nursing Project Coordinator Signature: Status Update Update Pt is eating between 75-100% of meals and sleeping on average 5 hours per night. Pt continues to display a labile mood, yelling at staff and patients but no physical. Pt does not want the Haldol shot but was willing to take an oral dose. Pt will get an increase in his Clozaril on Thursday with a potential discharge for the week after next. SW will continue to update pt guardian and the facility on pt discharge. No other concerns have been noted. MYKEL URIARTE Nov 01, 2020 12:26
[2020-11-01 16:24] VITALS: BP 165/77
--- NOTE | 2020-11-01 18:15 | NUR ---
NSG NOTE; CALM TODAY. TALKS ALOT TO HIMSELF COMPLIANT WITH ASSESSMENT, CARES AND MEDS TODAY
[2020-11-01] MEDS: cloZAPine 25 MG TABLET PO SCH (19:48)
[2020-11-01] MEDS: DIVALPROEX 125 MG CAP.SPRINK PO SCH (19:49)
[2020-11-01] MEDS: amLODIPine BESYLATE 10 MG TABLET PO SCH (19:50)
[2020-11-01] MEDS: DONEPEZIL HCL 10 MG TABLET PO SCH (19:50)
--- NOTE | 2020-11-01 22:57 | PN ---
DATE: 11/01/2020 SUBJECTIVE: The patient was seen today, met with the staff, chart reviewed, and covering for Dr. Rogers. The patient's behavior fluctuates. The patient has periods of agitation, talkative, paranoid, talking to self and also irritable, rosas, sometimes difficult to redirect. The patient continues to be paranoid with disorganized thinking. OBSERVATION: VITAL SIGNS: Stable. MEDICATIONS: The patient is currently on Haldol Decanoate 100 mg monthly, Haldol 10 mg p.o. daily, Trileptal ___ mg b.i.d., trazodone 75 mg at night, Depakote 500 mg 2 at night, Thorazine 300 mg at night and Aricept 10 mg at night. ASSESSMENT: 1. Schizoaffective disorder, bipolar type, with psychotic features. 2. Anxiety disorder, unspecified. 3. Mild cognitive disorder. PLAN: To continue with the current treatment. LENGTH OF STAY: 7 days. Awaiting for placement. DMITRY LONDON MD DR: THERESE/néstor JOB#: [id number] / [id number]
[2020-11-02] MEDS: LEVOTHYROXINE 175 MCG TABLET PO SCH (05:43)
[2020-11-02 06:31] VITALS: BP 159/83
[2020-11-02] MEDS: CALCIUM POLYCARBOPHIL 625 MG TABLET PO SCH ×2 (07:57→20:09)
[2020-11-02] MEDS: LOSARTAN 50 MG TABLET. PO SCH ×2 (07:57→20:11)
[2020-11-02] MEDS: ASCORBIC ACID 500 MG TABLET PO SCH ×2 (07:57→20:07)
[2020-11-02] MEDS: CALCIUM CARB/VIT D3 500/200 TABLET PO SCH (07:57)
[2020-11-02] MEDS: HALOPERIDOL 5 MG TABLET PO SCH (07:58)
[2020-11-02] MEDS: hydroCHLOROthiazide 25 MG TABLET PO SCH (07:58)
[2020-11-02] MEDS: FERROUS SULFATE 325 MG TABLET. PO SCH ×2 (07:58→20:06)
[2020-11-02] MEDS: metFORMIN 500 MG TABLET PO SCH ×2 (07:58→17:24)
[2020-11-02] MEDS: BENZTROPINE MESYLATE 1 MG TABLET PO SCH (07:58)
[2020-11-02] MEDS: NICOTINE 14MG PATCH. TD SCH (07:59)
[2020-11-02] MEDS: METOPROLOL SUCC 24HR ER 25 MG TAB.ER.24H. PO SCH (07:59)
[2020-11-02] MEDS: TAMSULOSIN 0.4 MG CAP.ER.24H. PO SCH (07:59)
[2020-11-02] MEDS: INSULIN LISPRO 300 UNITS/3 ML VIAL. SQ SCH ×3 (08:00→17:00)
[2020-11-02] MEDS: chlorproMAZINE HCL 25 MG TABLET PO SCH ×2 (08:02→20:13)
[2020-11-02] MEDS: INSULIN GLARGINE SYRINGE. SQ SCH ×2 (11:27→20:17)
[2020-11-02 15:50] VITALS: BP 130/72
--- NOTE | 2020-11-02 16:38 | NUR ---
NSG NOTE; MINOR AGITATION NOTED BRIEFLY THIS AFTERNOON WHEN PT WAS NOT ALLOWED TO ENTER THE DINING ROOM. HE WAS VERY VOCAL AND LOUD BUT SETTLED DOWN AFTER 10 MINUTES. MED COMPLIANT TODAY
[2020-11-02] MEDS: traZODone 50 MG TABLET. PO PRN (20:06)
[2020-11-02] MEDS: amLODIPine BESYLATE 10 MG TABLET PO SCH (20:07)
[2020-11-02] MEDS: cloZAPine 25 MG TABLET PO SCH (20:09)
[2020-11-02] MEDS: DONEPEZIL HCL 10 MG TABLET PO SCH (20:11)
[2020-11-02] MEDS: DIVALPROEX 125 MG CAP.SPRINK PO SCH (20:12)
--- NOTE | 2020-11-02 21:19 | PN ---
DATE: 11/02/2020 SUBJECTIVE: The patient was seen today, met with the staff, chart reviewed and also covering for Dr. Rogers. The patient continued to exhibit behavior problems, loud, abusive, talking to himself, at times hollering. The patient tends to isolate himself. The patient is still paranoid, delusional and disorganized thinking. OBSERVATION: VITAL SIGNS: Temperature 97.3, blood pressure 159/83, pulse 76, respirations 20, O2 sat 97%. GENERAL: Slept about 7 hours last night. CURRENT MEDICATIONS: The patient's current medications include Haldol 10 mg daily p.o., Haldol Decanoate 100 mg IM monthly, Trileptal 900 mg twice a day, Clozaril 75 mg at night, Thorazine 50 mg daily, Depakote 1000 mg at night, Thorazine 300 mg at night, olanzapine 5 mg q. 2 hours p.r.n. The patient is not having any side effects to medications. The patient's lab reviewed. No change from prior levels. ASSESSMENT: 1. Schizoaffective disorder, bipolar type, with psychotic features. 2. Anxiety disorder, unspecified. 3. Mild cognitive disorder. PLAN: To continue with the current treatment. LENGTH OF STAY: 7 days. He is awaiting for placement. DMITRY LONDON MD DR: THERESE/néstor JOB#: [id number] / [id number]
--- NOTE | 2020-11-02 23:59 | NUR ---
Patient is located in his room on assumption of care, sitting quietly in a chair. He is calm and compliant with assessments and medications whole. No agitation. Denies any hallucinations or delusions so far this shift. Denies any pain or discomfort. He appears to be sleeping comfortably at present time. Will continue to monitor.
[2020-11-03] MEDS: LEVOTHYROXINE 175 MCG TABLET PO SCH (05:02)
[2020-11-03 06:23] VITALS: BP 128/76
[2020-11-03] MEDS: NICOTINE 14MG PATCH. TD SCH (08:00)
[2020-11-03] MEDS: METOPROLOL SUCC 24HR ER 25 MG TAB.ER.24H. PO SCH (08:01)
[2020-11-03] MEDS: hydroCHLOROthiazide 25 MG TABLET PO SCH (08:01)
[2020-11-03] MEDS: CALCIUM POLYCARBOPHIL 625 MG TABLET PO SCH ×2 (08:01→20:03)
[2020-11-03] MEDS: metFORMIN 500 MG TABLET PO SCH ×2 (08:01→17:55)
[2020-11-03] MEDS: CALCIUM CARB/VIT D3 500/200 TABLET PO SCH (08:01)
[2020-11-03] MEDS: ASCORBIC ACID 500 MG TABLET PO SCH ×2 (08:02→20:01)
[2020-11-03] MEDS: TAMSULOSIN 0.4 MG CAP.ER.24H. PO SCH (08:02)
[2020-11-03] MEDS: BENZTROPINE MESYLATE 1 MG TABLET PO SCH (08:02)
[2020-11-03] MEDS: LOSARTAN 50 MG TABLET. PO SCH ×2 (08:02→20:01)
[2020-11-03] MEDS: HALOPERIDOL 5 MG TABLET PO SCH (08:02)
[2020-11-03] MEDS: FERROUS SULFATE 325 MG TABLET. PO SCH ×2 (08:02→20:02)
[2020-11-03] MEDS: chlorproMAZINE HCL 25 MG TABLET PO SCH ×2 (08:10→20:04)
[2020-11-03] MEDS: INSULIN LISPRO 300 UNITS/3 ML VIAL. SQ SCH ×3 (08:12→17:47)
[2020-11-03] MEDS: INSULIN GLARGINE SYRINGE. SQ SCH ×2 (08:13→20:07)
[2020-11-03] MEDS: KETOCONAZOLE 2% SHAMPOO 120ML BOTTLE. TP SCH (08:14)
--- NOTE | 2020-11-03 16:27 | NUR ---
PT HAS BEEN COMPLIANT WITH MEDICATIONS. PT IS PLEASANT TODAY. PT DOES GET DEMANDING AT TIME AND WILL CONTINUE TO REPEAT HIMSELF IF HE IS NOT HEARD UNTIL HE IS SPEAKING VERY LOUD. WILL CTM AND ASSESS NEEDED. NO OTHER BEHAVIORS WERE NOTED.
[2020-11-03 17:02] VITALS: BP 137/75
[2020-11-03] MEDS: DONEPEZIL HCL 10 MG TABLET PO SCH (19:59)
[2020-11-03] MEDS: cloZAPine 25 MG TABLET PO SCH (20:00)
[2020-11-03] MEDS: amLODIPine BESYLATE 10 MG TABLET PO SCH (20:01)
[2020-11-03] MEDS: DIVALPROEX 125 MG CAP.SPRINK PO SCH (20:03)
--- NOTE | 2020-11-03 20:29 | PN ---
DATE: 11/03/2020 SUBJECTIVE: The patient was seen today, met with the staff, chart reviewed and also covering for Dr. Rogers. The patient's behavior remains the same, slight improvement. The patient no longer hollering, but still irritable, rosas at times, getting into argument with the other residents. OBSERVATION: VITAL SIGNS: Temperature 97.1, blood pressure 128/76, pulse 79, respirations 16, O2 sat 97%. GENERAL: Slept about 8 hours last night. The patient's appetite is fair. CURRENT MEDICATIONS: Include Haldol 10 mg daily, Haldol Decanoate 100 mg IM monthly, Trileptal 900 mg twice a day, Clozaril 75 mg at night, Thorazine 50 mg daily and 300 mg at night, and Depakote 1000 mg at night. He is also on olanzapine 5 mg q. 2 hours p.r.n. The patient is not having any major side effects. LABORATORY DATA: The patient's lab reviewed. ASSESSMENT: 1. Schizoaffective disorder, bipolar type, with psychotic features. 2. Anxiety disorder, unspecified. 3. Mild cognitive disorder. PLAN: Continue with the current treatment. DMITRY LONDON MD DR: THERESE/néstor JOB#: [id number] / [id number]
--- NOTE | 2020-11-03 21:28 | NUR ---
Patient is sitting outside the [facility] on assumption of care, sitting quietly in a chair. In pleasant spirits. He is calm and compliant with assessments and medications whole. No agitation. Denies any hallucinations or delusions so far this shift. Denies any pain or discomfort. He appears to be sleeping comfortably at present time. Will continue to monitor.
[2020-11-04] MEDS: LEVOTHYROXINE 175 MCG TABLET PO SCH (05:06)
[2020-11-04 06:16] VITALS: BP 113/72
[2020-11-04] MEDS: INSULIN LISPRO 300 UNITS/3 ML VIAL. SQ SCH ×3 (07:25→17:00)
[2020-11-04] MEDS: CALCIUM CARB/VIT D3 500/200 TABLET PO SCH (08:07)
[2020-11-04] MEDS: LOSARTAN 50 MG TABLET. PO SCH ×2 (08:07→19:49)
[2020-11-04] MEDS: TAMSULOSIN 0.4 MG CAP.ER.24H. PO SCH (08:07)
[2020-11-04] MEDS: BENZTROPINE MESYLATE 1 MG TABLET PO SCH (08:07)
[2020-11-04] MEDS: CALCIUM POLYCARBOPHIL 625 MG TABLET PO SCH ×2 (08:08→19:47)
[2020-11-04] MEDS: METOPROLOL SUCC 24HR ER 25 MG TAB.ER.24H. PO SCH (08:08)
[2020-11-04] MEDS: FERROUS SULFATE 325 MG TABLET. PO SCH ×2 (08:08→19:49)
[2020-11-04] MEDS: HALOPERIDOL 5 MG TABLET PO SCH (08:08)
[2020-11-04] MEDS: metFORMIN 500 MG TABLET PO SCH ×2 (08:08→17:11)
[2020-11-04] MEDS: NICOTINE 14MG PATCH. TD SCH (08:09)
[2020-11-04] MEDS: hydroCHLOROthiazide 25 MG TABLET PO SCH (08:09)
[2020-11-04] MEDS: ASCORBIC ACID 500 MG TABLET PO SCH ×2 (08:09→19:47)
[2020-11-04] MEDS: chlorproMAZINE HCL 25 MG TABLET PO SCH ×2 (09:00→19:51)
[2020-11-04] MEDS: INSULIN GLARGINE SYRINGE. SQ SCH ×2 (09:00→19:54)
[2020-11-04 16:25] VITALS: BP 116/70
[2020-11-04] MEDS: amLODIPine BESYLATE 10 MG TABLET PO SCH (19:46)
[2020-11-04] MEDS: DONEPEZIL HCL 10 MG TABLET PO SCH (19:47)
[2020-11-04] MEDS: cloZAPine 25 MG TABLET PO SCH (19:48)
[2020-11-04] MEDS: DIVALPROEX 125 MG CAP.SPRINK PO SCH (19:50)
--- NOTE | 2020-11-04 21:54 | PN ---
DATE: 11/04/2020 SUBJECTIVE: The patient was seen today, met with the staff, chart reviewed and also covering for Dr. Rogers. The patient's behavior has improved. He is a lot quieter, not getting into any argument, not exhibiting any explosive behavior. OBSERVATION: VITAL SIGNS: Temperature 97.3, blood pressure 113/72, pulse 70, respirations 18, O2 sat 95%. GENERAL: Slept about 7 hours last night. The patient's appetite is fair. MEDICATIONS: The patient's current medications include Haldol 10 mg daily and Haldol Decanoate 100 mg IM monthly, Trileptal 900 mg twice a day, Clozaril 75 mg at night, chlorpromazine 50 mg daily, Depakote Sprinkles 1000 mg at night and chlorpromazine 300 mg at night. He is also on Aricept 10 mg at night, Cogentin 1 mg daily, trazodone 50 mg at night p.r.n. for sleep. The patient has no major side effects. LABORATORY DATA: The patient's lab reviewed. ASSESSMENT: 1. Schizoaffective disorder, bipolar type, with psychotic features. 2. Anxiety disorder, unspecified. 3. Mild cognitive disorder. PLAN: To continue with the current treatment. LENGTH OF STAY: 7 days. Awaiting for placement. DMITRY LONDON MD DR: THERESE/néstor JOB#: [id number] / [id number]
[2020-11-05] MEDS: LEVOTHYROXINE 175 MCG TABLET PO SCH (05:19)
[2020-11-05 06:23] VITALS: BP 131/78
[2020-11-05 06:54] LABS: BASO # 0.1 x10^3/uL (0.0-0.2); BASO % 1 % (0-3); EOS # 0.2 x10^3/uL (0.0-0.7); EOS % 2 % (0-3); HEMATOCRIT 30.1 % (39.0-53.0); HEMOGLOBIN 9.9 g/dL (13.0-17.5); LYMPH # 2.9 x10^3/uL (1.0-4.8); LYMPH % 40 % (24-48); MEAN CORPUSCULAR HEMOGLOBIN 32 pg (25-35); MEAN CORPUSCULAR HGB CONC 33 g/dL (31-37); MEAN CORPUSCULAR VOLUME 95 fL (79-100); MONO # 0.8 x10^3/uL (0.0-1.1); MONO % 11 % (0-9); NEUT # 3.3 x10^3uL (1.8-7.7); NEUT % 46 % (31-73); PLATELET COUNT 275 x10^3/uL (140-400); RED BLOOD COUNT 3.16 x10^6/uL (4.30-5.70); RED CELL DISTRIBUTION WIDTH 14.7 % (11.5-14.5); WHITE BLOOD COUNT 7.2 x10^3/uL (4.0-11.0)
[2020-11-05 07:00] LABS: ALBUMIN 3.2 g/dL (3.4-5.0); ALBUMIN/GLOBULIN RATIO 0.8 (1.0-1.7); CALCIUM 9.2 mg/dL (8.5-10.1); GFR 73.9; POTASSIUM 4.4 mmol/L (3.5-5.1); TOTAL BILIRUBIN 0.1 mg/dL (0.2-1.0); TOTAL PROTEIN 7.3 g/dL (6.4-8.2)
[2020-11-05] MEDS: INSULIN LISPRO 300 UNITS/3 ML VIAL. SQ SCH ×3 (08:00→17:00)
[2020-11-05] MEDS: METOPROLOL SUCC 24HR ER 25 MG TAB.ER.24H. PO SCH (08:40)
[2020-11-05] MEDS: hydroCHLOROthiazide 25 MG TABLET PO SCH (08:40)
[2020-11-05] MEDS: ASCORBIC ACID 500 MG TABLET PO SCH ×2 (08:40→20:55)
[2020-11-05] MEDS: NICOTINE 14MG PATCH. TD SCH (08:40)
[2020-11-05] MEDS: FERROUS SULFATE 325 MG TABLET. PO SCH ×2 (08:41→20:53)
[2020-11-05] MEDS: BENZTROPINE MESYLATE 1 MG TABLET PO SCH (08:41)
[2020-11-05] MEDS: HALOPERIDOL 5 MG TABLET PO SCH (08:41)
[2020-11-05] MEDS: CALCIUM POLYCARBOPHIL 625 MG TABLET PO SCH ×2 (08:41→20:53)
[2020-11-05] MEDS: CALCIUM CARB/VIT D3 500/200 TABLET PO SCH (08:41)
[2020-11-05] MEDS: TAMSULOSIN 0.4 MG CAP.ER.24H. PO SCH (08:41)
[2020-11-05] MEDS: LOSARTAN 50 MG TABLET. PO SCH ×2 (08:41→20:55)
[2020-11-05] MEDS: chlorproMAZINE HCL 25 MG TABLET PO SCH ×2 (08:42→21:00)
[2020-11-05] MEDS: metFORMIN 500 MG TABLET PO SCH ×2 (08:42→17:35)
[2020-11-05] MEDS: INSULIN GLARGINE SYRINGE. SQ SCH ×2 (08:48→21:08)
[2020-11-05] MEDS: KETOCONAZOLE 2% SHAMPOO 120ML BOTTLE. TP SCH (08:49)
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
[2020-11-05 15:47] VITALS: BP 178/70
[2020-11-05] MEDS: DONEPEZIL HCL 10 MG TABLET PO SCH (20:53)
[2020-11-05] MEDS: DIVALPROEX 125 MG CAP.SPRINK PO SCH (20:54)
[2020-11-05] MEDS: amLODIPine BESYLATE 10 MG TABLET PO SCH (20:54)
--- NOTE | 2020-11-05 20:55 | PN ---
DATE: 11/05/2020 SUBJECTIVE: The patient was seen today, met with the staff, chart reviewed and also covering for Dr. Rogers. Staff reports fluctuating behaviors, sometimes is pleasant, polite, compliant with medications and also has been very irritable, rosas, gets annoyed with all the noises and other clients approaching him, sometimes with explosive temper. OBSERVATION: VITAL SIGNS: Temperature 97.2, blood pressure 131/78, pulse 71, respirations 18, O2 sat 97%. GENERAL: Slept about 4 hours last night. The patient's appetite is fair. MEDICATIONS: The patient's current medications include Haldol 10 mg daily, Haldol Decanoate 100 mg IM monthly, Trileptal 900 mg twice a day, Clozaril to be increased to 100 mg at night, chlorpromazine 50 mg daily and 300 mg at night, Depakote Sprinkles 1000 mg at night. He is also on Aricept 10 mg at night, Cogentin 1 mg daily, trazodone 50 mg at night p.r.n. for sleep. The patient is not showing any major side effects. LABORATORY DATA: The patient's lab reviewed. ASSESSMENT: 1. Schizoaffective disorder, bipolar type, with psychotic features. 2. Anxiety disorder, unspecified. 3. Mild cognitive disorder. PLAN: To continue with the treatment. LENGTH OF STAY: 7 days. He is awaiting for placement. DMITRY LONDON MD DR: THERESE/néstor JOB#: [id number] / [id number]
[2020-11-05] MEDS: cloZAPine 100 MG TABLET PO SCH (20:59)
[2020-11-06] MEDS: LEVOTHYROXINE 175 MCG TABLET PO SCH (05:23)
[2020-11-06 06:15] VITALS: BP 129/77
[2020-11-06] MEDS: INSULIN LISPRO 300 UNITS/3 ML VIAL. SQ SCH ×3 (07:41→17:00)
[2020-11-06] MEDS: ASCORBIC ACID 500 MG TABLET PO SCH ×2 (08:37→19:52)
[2020-11-06] MEDS: HALOPERIDOL 5 MG TABLET PO SCH (08:37)
[2020-11-06] MEDS: BENZTROPINE MESYLATE 1 MG TABLET PO SCH (08:37)
[2020-11-06] MEDS: NICOTINE 14MG PATCH. TD SCH (08:37)
[2020-11-06] MEDS: chlorproMAZINE HCL 25 MG TABLET PO SCH ×2 (08:38→20:04)
[2020-11-06] MEDS: METOPROLOL SUCC 24HR ER 25 MG TAB.ER.24H. PO SCH (08:38)
[2020-11-06] MEDS: metFORMIN 500 MG TABLET PO SCH ×2 (08:38→17:26)
[2020-11-06] MEDS: CALCIUM POLYCARBOPHIL 625 MG TABLET PO SCH ×2 (08:38→19:52)
[2020-11-06] MEDS: FERROUS SULFATE 325 MG TABLET. PO SCH ×2 (08:39→19:51)
[2020-11-06] MEDS: LOSARTAN 50 MG TABLET. PO SCH ×2 (08:39→19:53)
[2020-11-06] MEDS: TAMSULOSIN 0.4 MG CAP.ER.24H. PO SCH (08:39)
[2020-11-06] MEDS: hydroCHLOROthiazide 25 MG TABLET PO SCH (08:39)
[2020-11-06] MEDS: CALCIUM CARB/VIT D3 500/200 TABLET PO SCH (08:39)
[2020-11-06] MEDS: INSULIN GLARGINE SYRINGE. SQ SCH ×2 (09:00→20:52)
--- NOTE | 2020-11-06 10:46 | NUR ---
Nursing note: Pt in his room at time of AM med pass and assessment. He is med compliant and cooperative. Pt denies having any pain/concerns. He is currently asleep in his bed. Will continue to monitor.
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
[2020-11-06 16:09] VITALS: BP 136/79
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
[2020-11-06] MEDS: DIVALPROEX 125 MG CAP.SPRINK PO SCH (19:51)
[2020-11-06] MEDS: amLODIPine BESYLATE 10 MG TABLET PO SCH (19:52)
[2020-11-06] MEDS: cloZAPine 100 MG TABLET PO SCH (19:52)
[2020-11-06] MEDS: DONEPEZIL HCL 10 MG TABLET PO SCH (19:52)
--- NOTE | 2020-11-06 23:35 | NUR ---
Nursing Note Pt in day room, seems drowsy, talks in a monotone voice. Takes po meds whole all in 1 swallow with water. Pt rambles in a word salad, with "get me a coke or a pepsi bitch" laced between the words. Pt continues to ramble during assessment with difficulty being redirected. Now resting.
[2020-11-07] MEDS: LEVOTHYROXINE 175 MCG TABLET PO SCH (05:47)
[2020-11-07 06:14] VITALS: BP 121/69
[2020-11-07] MEDS: INSULIN LISPRO 300 UNITS/3 ML VIAL. SQ SCH ×3 (08:00→17:00)
[2020-11-07] MEDS: METOPROLOL SUCC 24HR ER 25 MG TAB.ER.24H. PO SCH (08:09)
[2020-11-07] MEDS: NICOTINE 14MG PATCH. TD SCH (08:09)
[2020-11-07] MEDS: LOSARTAN 50 MG TABLET. PO SCH ×2 (08:10→21:04)
[2020-11-07] MEDS: ASCORBIC ACID 500 MG TABLET PO SCH ×2 (08:10→21:04)
[2020-11-07] MEDS: hydroCHLOROthiazide 25 MG TABLET PO SCH (08:10)
[2020-11-07] MEDS: FERROUS SULFATE 325 MG TABLET. PO SCH ×2 (08:10→21:04)
[2020-11-07] MEDS: BENZTROPINE MESYLATE 1 MG TABLET PO SCH (08:10)
[2020-11-07] MEDS: CALCIUM CARB/VIT D3 500/200 TABLET PO SCH (08:10)
[2020-11-07] MEDS: TAMSULOSIN 0.4 MG CAP.ER.24H. PO SCH (08:11)
[2020-11-07] MEDS: CHOLECALCIFEROL (VITAMIN D3) 50,000 UNIT CAPSULE PO SCH (08:11)
[2020-11-07] MEDS: HALOPERIDOL 5 MG TABLET PO SCH (08:11)
[2020-11-07] MEDS: metFORMIN 500 MG TABLET PO SCH ×2 (08:11→17:23)
[2020-11-07] MEDS: CALCIUM POLYCARBOPHIL 625 MG TABLET PO SCH ×2 (08:11→21:04)
[2020-11-07] MEDS: chlorproMAZINE HCL 25 MG TABLET PO SCH ×2 (08:12→21:08)
[2020-11-07] MEDS: KETOCONAZOLE 2% SHAMPOO 120ML BOTTLE. TP SCH (08:12)
[2020-11-07] MEDS: INSULIN GLARGINE SYRINGE. SQ SCH ×2 (09:00→21:09)
--- NOTE | 2020-11-07 13:15 | NUR ---
Nursing note: Pt in dining room at time of AM med pass and assessment. He was agitated and yelling out some, but was compliant with his meds and cooperative with assessment. Pt denies having any pain at time of assessment. He is currently sitting quietly in his room. Will continue to monitor.
[2020-11-07 16:18] VITALS: BP 146/75
[2020-11-07] MEDS: DONEPEZIL HCL 10 MG TABLET PO SCH (21:04)
[2020-11-07] MEDS: cloZAPine 100 MG TABLET PO SCH (21:04)
[2020-11-07] MEDS: DIVALPROEX 125 MG CAP.SPRINK PO SCH (21:05)
[2020-11-07] MEDS: amLODIPine BESYLATE 10 MG TABLET PO SCH (21:05)
--- NOTE | 2020-11-07 21:46 | PN ---
DATE: 11/06/2020 This is the late entry for the service date 11/06/2020. SUBJECTIVE: Staff reports continued behavior problems, hyperverbal, agitated easily, argumentative and also very paranoid. OBSERVATION: VITAL SIGNS: Temperature 97.7, blood pressure 129/77, pulse 82, respirations 18, O2 sat 95%. GENERAL: Slept about 4 hours last night. CURRENT MEDICATIONS: The patient is currently on Haldol 10 mg daily p.o., Haldol Decanoate 100 mg IM monthly, Trileptal 900 mg twice a day, Clozaril 100 mg at night, chlorpromazine 50 mg daily and 300 mg at night, Depakote Sprinkles 1000 mg at night and Aricept 10 mg at night. The patient is also on Cogentin 1 mg daily and trazodone 50 mg at night p.r.n. The patient is not exhibiting any major side effects to medications. LABORATORY DATA: The patient's lab reviewed. ASSESSMENT: 1. Schizoaffective disorder, bipolar type, with psychotic features. 2. Anxiety disorder, unspecified. 3. Mild cognitive disorder. PLAN: To continue with the treatment. LENGTH OF STAY: 7 days. DMITRY LONDON MD DR: THERESE/néstor JOB#: [id number] / [id number]
[2020-11-08] MEDS: LEVOTHYROXINE 175 MCG TABLET PO SCH (05:43)
[2020-11-08 05:56] VITALS: BP 170/90
[2020-11-08] MEDS: INSULIN LISPRO 300 UNITS/3 ML VIAL. SQ SCH ×3 (08:00→17:00)
[2020-11-08] MEDS: INSULIN GLARGINE SYRINGE. SQ SCH ×2 (08:41→21:00)
[2020-11-08] MEDS: NICOTINE 14MG PATCH. TD SCH (08:43)
[2020-11-08] MEDS: ASCORBIC ACID 500 MG TABLET PO SCH ×2 (08:44→21:26)
[2020-11-08] MEDS: hydroCHLOROthiazide 25 MG TABLET PO SCH (08:44)
[2020-11-08] MEDS: FERROUS SULFATE 325 MG TABLET. PO SCH ×2 (08:44→21:24)
[2020-11-08] MEDS: CALCIUM POLYCARBOPHIL 625 MG TABLET PO SCH ×2 (08:44→21:26)
[2020-11-08] MEDS: TAMSULOSIN 0.4 MG CAP.ER.24H. PO SCH (08:45)
[2020-11-08] MEDS: metFORMIN 500 MG TABLET PO SCH ×2 (08:45→17:24)
[2020-11-08] MEDS: chlorproMAZINE HCL 25 MG TABLET PO SCH ×2 (08:45→21:27)
[2020-11-08] MEDS: BENZTROPINE MESYLATE 1 MG TABLET PO SCH (08:45)
[2020-11-08] MEDS: CALCIUM CARB/VIT D3 500/200 TABLET PO SCH (08:45)
[2020-11-08] MEDS: HALOPERIDOL 5 MG TABLET PO SCH (08:45)
[2020-11-08] MEDS: LOSARTAN 50 MG TABLET. PO SCH ×2 (08:46→21:26)
[2020-11-08] MEDS: METOPROLOL SUCC 24HR ER 25 MG TAB.ER.24H. PO SCH (08:46)
--- NOTE | 2020-11-08 11:03 | NUR ---
WEEKLY ACTIVITY THERAPY NOTE Date of Admission: 10/10/2020 Date of AT Assessment: 10/11/20 Precipitating behaviors that initiated intake and admission: failure of placement Goal aimed: increase socialization and relaxation skills Initial Goal: Pt will participate in at least three individual or group Activity Therapy sessions per week. Goal changed 11/01: Pt will participate in at least three individual or group Activity Therapy sessions before discharge.Pt will participate in at least three individual or group Activity Therapy sessions before discharge. Weekly progress towards goal: did not achieve, zero Group participation level: none Weekly highlights: none Behaviors observed: withdrawn to room or sleeping Plan: no change to goal Beneficial adaptations:
--- NOTE | 2020-11-08 15:16 | NUR ---
PATIENT LOCATED IN A DINING ROOM EATING BREAKFAST, CALM AND COMPLIANT WITH MEDICATIONS, PLEASANT AND POLITE DURING CONVERSATION. PATIENT IS CURRENTLY LOCATED IN HIS ROOM SITTING QUIETLY , REQUESTED SNACK AND DRINK, NO DISTURBING BEHAVIOR NOTED AT THIS TIME.
[2020-11-08 16:37] VITALS: BP 139/88
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
[2020-11-08] MEDS: amLODIPine BESYLATE 10 MG TABLET PO SCH (21:24)
[2020-11-08] MEDS: DONEPEZIL HCL 10 MG TABLET PO SCH (21:24)
[2020-11-08] MEDS: cloZAPine 100 MG TABLET PO SCH (21:27)
[2020-11-08] MEDS: DIVALPROEX 125 MG CAP.SPRINK PO SCH (21:29)
[2020-11-09] MEDS: LEVOTHYROXINE 175 MCG TABLET PO SCH (05:32)
[2020-11-09 06:29] VITALS: BP 150/84
[2020-11-09] MEDS: INSULIN LISPRO 300 UNITS/3 ML VIAL. SQ SCH ×3 (08:00→17:00)
[2020-11-09] MEDS: INSULIN GLARGINE SYRINGE. SQ SCH ×2 (08:39→21:14)
[2020-11-09] MEDS: KETOCONAZOLE 2% SHAMPOO 120ML BOTTLE. TP SCH (08:43)
[2020-11-09] MEDS: CALCIUM CARB/VIT D3 500/200 TABLET PO SCH (08:46)
[2020-11-09] MEDS: ASCORBIC ACID 500 MG TABLET PO SCH ×2 (08:46→20:57)
[2020-11-09] MEDS: metFORMIN 500 MG TABLET PO SCH ×2 (08:46→17:17)
[2020-11-09] MEDS: HALOPERIDOL 5 MG TABLET PO SCH (08:46)
[2020-11-09] MEDS: NICOTINE 14MG PATCH. TD SCH (08:46)
[2020-11-09] MEDS: chlorproMAZINE HCL 25 MG TABLET PO SCH ×2 (08:46→20:59)
[2020-11-09] MEDS: BENZTROPINE MESYLATE 1 MG TABLET PO SCH (08:47)
[2020-11-09] MEDS: TAMSULOSIN 0.4 MG CAP.ER.24H. PO SCH (08:47)
[2020-11-09] MEDS: hydroCHLOROthiazide 25 MG TABLET PO SCH (08:47)
[2020-11-09] MEDS: METOPROLOL SUCC 24HR ER 25 MG TAB.ER.24H. PO SCH (08:47)
[2020-11-09] MEDS: FERROUS SULFATE 325 MG TABLET. PO SCH ×2 (08:48→20:55)
[2020-11-09] MEDS: CALCIUM POLYCARBOPHIL 625 MG TABLET PO SCH ×2 (08:48→20:56)
[2020-11-09] MEDS: LOSARTAN 50 MG TABLET. PO SCH ×2 (08:48→20:56)
--- NOTE | 2020-11-09 09:29 | PN ---
DATE: 11/07/2020 This is the late entry for the service date on 11/07/2020 by telehealth. SUBJECTIVE: Staff reports fluctuating symptoms, lately has been staying in room most of the time. The patient has been experiencing some involuntary movements, mostly of upper extremities. OBSERVATION: VITAL SIGNS: Temperature 96.9, blood pressure 161/69, pulse 67, respirations 16, O2 sat 100%. GENERAL: Slept about 6 hours last night. CURRENT MEDICATIONS: The patient's current medications include Haldol 10 mg p.o. daily, Haldol Decanoate 100 mg IM monthly, Trileptal 900 mg twice a day, trazodone 100 mg at night, chlorpromazine 50 mg daily and 300 mg at night, Depakote Sprinkles 1000 mg at night and Aricept 10 mg at night. The patient is not having any other medical issues at this time. LABORATORY DATA: Reviewed. ASSESSMENT: 1. Schizoaffective disorder, bipolar type, with psychotic features. 2. Anxiety disorder, unspecified. 3. Mild cognitive disorder. PLAN: To continue with the treatment. LENGTH OF STAY: 7 days. She is awaiting for placement. DMITRY LONDON MD DR: THERESE/néstor JOB#: [id number] / [id number]
--- NOTE | 2020-11-09 16:06 | NUR ---
PATIENT IS LOCATED IN A DINING ROOM UPON ASSESSMENT, COMPLIANT WITH MEDS, COOPERATIVE WITH ASSESSMENT. PATIENT IS OUT ON A PATIO SITTING QUIETLY, PATIENT REQUESTED TO HAVE A MEAL OUTSIDE. PATIENT WAS INFORMED THAT NO MEALS WILL BE PROVIDED OUT ON THE PATIO BUT HE MAY HAVE A SNACK AVAILABLE THIS TIME. PATIENT DID NOT MAKE ANY RESPOND BACK, CONTINUE TO SIT QUIETLY ON A BENCH.
[2020-11-09 16:26] VITALS: BP 159/78
[2020-11-09] MEDS: amLODIPine BESYLATE 10 MG TABLET PO SCH (20:55)
[2020-11-09] MEDS: DONEPEZIL HCL 10 MG TABLET PO SCH (20:56)
[2020-11-09] MEDS: cloZAPine 100 MG TABLET PO SCH (20:57)
[2020-11-09] MEDS: DIVALPROEX 125 MG CAP.SPRINK PO SCH (20:58)
--- NOTE | 2020-11-09 22:39 | PN ---
DATE: 11/09/2020 SUBJECTIVE: The patient was seen today, met with the staff, chart reviewed. The patient is still confused, rambling, but much calmer and has been compliant with the medications. OBSERVATION: VITAL SIGNS: Temperature 98.7, blood pressure 150/84, pulse 69, respirations 18, O2 sat 99%. GENERAL: Slept about 4 hours last night. The patient's appetite is fair. MEDICATIONS: The patient's current medications include Haldol 10 mg daily, Haldol Decanoate 100 mg IM monthly, Trileptal 900 mg twice a day, trazodone 100 mg at night, chlorpromazine 5 mg daily and 3 mg at night, Depakote Sprinkles 1000 mg at night and Aricept 10 mg at night and Clozaril 100 mg at night. The patient is not having any side effects. ASSESSMENT: 1. Schizoaffective disorder, bipolar type, with psychotic features. 2. Anxiety disorder, unspecified. 3. Mild cognitive disorder. PLAN: Continue with the treatment. LENGTH OF STAY: 7 days. The patient is awaiting for placement. DMITRY LONDON MD DR: THERESE/néstor JOB#: [id number] / [id number]
--- NOTE | 2020-11-09 22:43 | PN ---
DATE: 11/08/2020 This is the late entry for the service date, 11/08/2020. SUBJECTIVE: The patient was seen today, met with the staff, chart reviewed. The patient's behavior fluctuates. The patient tends to get irritable and rosas at times, tends to pace a lot, has difficulty with interpersonal relationships. The patient has been isolating himself lately. The patient also is having some involuntary movements of upper extremities. OBSERVATION: VITAL SIGNS: Temperature 98.3, blood pressure 170/90, pulse 91, respirations 18, O2 sat 98%. GENERAL: Slept about 6 hours last night. CURRENT MEDICATIONS: The patient's current medications include Haldol Decanoate 100 mg IM monthly, Haldol 10 mg daily, Trileptal 900 mg twice a day, and trazodone 100 mg at night. The patient is also taking chlorpromazine, has been on it for a long time, 50 mg daily and 300 mg at night. He is also on Depakote Sprinkles 1000 mg at night and Aricept 10 mg at night. The patient does not have any major side effects. LABORATORY DATA: The patient's lab reviewed. ASSESSMENT: 1. Schizoaffective disorder, bipolar type, with psychotic features. 2. Anxiety disorder, unspecified. 3. Mild cognitive disorder. PLAN: To continue with the treatment. LENGTH OF STAY: 7 days. DMITRY LONDON MD DR: THERESE/néstor JOB#: [id number] / [id number]
[2020-11-10] MEDS: LEVOTHYROXINE 175 MCG TABLET PO SCH (05:06)
[2020-11-10 06:48] VITALS: BP 144/86
[2020-11-10] MEDS: INSULIN LISPRO 300 UNITS/3 ML VIAL. SQ SCH ×3 (08:38→17:50)
[2020-11-10] MEDS: FERROUS SULFATE 325 MG TABLET. PO SCH ×2 (08:39→20:35)
[2020-11-10] MEDS: metFORMIN 500 MG TABLET PO SCH ×2 (08:39→17:04)
[2020-11-10] MEDS: TAMSULOSIN 0.4 MG CAP.ER.24H. PO SCH (08:39)
[2020-11-10] MEDS: HALOPERIDOL 5 MG TABLET PO SCH (08:39)
[2020-11-10] MEDS: METOPROLOL SUCC 24HR ER 25 MG TAB.ER.24H. PO SCH (08:39)
[2020-11-10] MEDS: ASCORBIC ACID 500 MG TABLET PO SCH ×2 (08:39→20:36)
[2020-11-10] MEDS: LOSARTAN 50 MG TABLET. PO SCH ×2 (08:40→20:36)
[2020-11-10] MEDS: BENZTROPINE MESYLATE 1 MG TABLET PO SCH (08:40)
[2020-11-10] MEDS: CALCIUM POLYCARBOPHIL 625 MG TABLET PO SCH ×2 (08:41→20:41)
[2020-11-10] MEDS: hydroCHLOROthiazide 25 MG TABLET PO SCH (08:41)
[2020-11-10] MEDS: NICOTINE 14MG PATCH. TD SCH (08:41)
[2020-11-10] MEDS: CALCIUM CARB/VIT D3 500/200 TABLET PO SCH (08:41)
[2020-11-10] MEDS: chlorproMAZINE HCL 25 MG TABLET PO SCH ×2 (08:45→20:42)
[2020-11-10] MEDS: INSULIN GLARGINE SYRINGE. SQ SCH ×2 (09:51→20:37)
[2020-11-10 15:44] VITALS: BP 153/78
--- NOTE | 2020-11-10 17:48 | NUR ---
Pt has been calm, cooperative, and pleasant during this shift. Pt has taken all meds whole without difficulty. Pt has eaten all meals in dining room but has stayed in his room or in the chair outside of his room during this shift. He participated in snack activity this afternoon. Pt has not displayed any behaviors of aggression, agitation, hallucinations, or delusions this shift.
[2020-11-10] MEDS: DIVALPROEX 125 MG CAP.SPRINK PO SCH (20:35)
[2020-11-10] MEDS: cloZAPine 100 MG TABLET PO SCH (20:36)
[2020-11-10] MEDS: amLODIPine BESYLATE 10 MG TABLET PO SCH (20:36)
[2020-11-10] MEDS: DONEPEZIL HCL 10 MG TABLET PO SCH (20:36)
--- NOTE | 2020-11-11 02:04 | NUR ---
Pt easy to arouse but noncompliant with meds or cares initially. Once pt more awake, pt compliant with meds, shower, and lotioned.
[2020-11-11] MEDS: LEVOTHYROXINE 175 MCG TABLET PO SCH (05:04)
[2020-11-11 06:33] VITALS: BP 166/92
[2020-11-11] MEDS: INSULIN LISPRO 300 UNITS/3 ML VIAL. SQ SCH ×3 (08:04→17:34)
[2020-11-11] MEDS: NICOTINE 14MG PATCH. TD SCH (08:05)
[2020-11-11] MEDS: ASCORBIC ACID 500 MG TABLET PO SCH ×2 (08:06→20:31)
[2020-11-11] MEDS: LOSARTAN 50 MG TABLET. PO SCH ×2 (08:06→20:32)
[2020-11-11] MEDS: metFORMIN 500 MG TABLET PO SCH ×2 (08:06→17:34)
[2020-11-11] MEDS: hydroCHLOROthiazide 25 MG TABLET PO SCH (08:06)
[2020-11-11] MEDS: FERROUS SULFATE 325 MG TABLET. PO SCH ×2 (08:07→20:31)
[2020-11-11] MEDS: CALCIUM CARB/VIT D3 500/200 TABLET PO SCH (08:07)
[2020-11-11] MEDS: TAMSULOSIN 0.4 MG CAP.ER.24H. PO SCH (08:07)
[2020-11-11] MEDS: CALCIUM POLYCARBOPHIL 625 MG TABLET PO SCH ×2 (08:07→20:32)
[2020-11-11] MEDS: METOPROLOL SUCC 24HR ER 25 MG TAB.ER.24H. PO SCH (08:07)
[2020-11-11] MEDS: BENZTROPINE MESYLATE 1 MG TABLET PO SCH (08:07)
[2020-11-11] MEDS: HALOPERIDOL 5 MG TABLET PO SCH (08:07)
[2020-11-11] MEDS: KETOCONAZOLE 2% SHAMPOO 120ML BOTTLE. TP SCH (08:08)
[2020-11-11] MEDS: INSULIN GLARGINE SYRINGE. SQ SCH ×2 (09:10→20:38)
[2020-11-11 15:54] VITALS: BP 147/82
--- NOTE | 2020-11-11 16:03 | NUR ---
Pt has been calm, cooperative, and pleasant this shift. Pt has come to dining room for both meals and has eaten well. Pt was found to have a lot of tissues and paper towels stuffed in his toilet this am; staff was able to clear out the clogged toilet. Pt keeps asking for 1-2 boxes of kleenex but because of this he is given a couple of tissues at a time instead of a whole box. Pt has not had any behaviors this shift. Pt has stayed in his room or sitting outside of his room in between meals.
[2020-11-11] MEDS: amLODIPine BESYLATE 10 MG TABLET PO SCH (20:31)
[2020-11-11] MEDS: DONEPEZIL HCL 10 MG TABLET PO SCH (20:31)
[2020-11-11] MEDS: DIVALPROEX 125 MG CAP.SPRINK PO SCH (20:32)
[2020-11-11] MEDS: cloZAPine 100 MG TABLET PO SCH (20:32)
[2020-11-11] MEDS: traZODone 50 MG TABLET. PO PRN (20:37)
[2020-11-11] MEDS: chlorproMAZINE HCL 25 MG TABLET PO SCH (20:37)
--- NOTE | 2020-11-11 22:00 | NUR ---
Pt siting in chair in his room at change of shift. Pt was sitting quietly in a chair when staff entered room. Pt was calm and compliant with assessments and medications whole. Pt politely asked for HS snack, which he ate independently. No agitation or hallucinations. Pt without aggressive behaviors. Denies any pain or discomfort.
--- NOTE | 2020-11-11 22:36 | PDOC ---
Exam Note: Devin Note: Late entry for 11/10/20. Please also refer to the separate dictated note~for this date of service dictated separately.~Patient seen individually. Discussed the patient with Nursing staff reviewed the chart.~Reviewed interim history and current functioning. Reviewed vital signs,~Labs/ Radiology~and current medicat ions noted below. Continue current treatment with the changes noted in the dictated addendum note Assessment: Vital Signs/I&O: Vital Signs Date Time Temp Pulse Resp B/P (MAP) Pulse Ox O2 Delivery O2 Flow Rate FiO2 11/11/20 20:32 66 147/82 11/11/20 15:54 97.8 18 96 11/11/20 06:33 Room Air I & O 11/10/20 11/10/20 11/11/20 15:00 23:00 07:00 Intake Total 840 ml 360 ml Balance 840 ml 360 ml Labs: Laboratory Tests Test 11/11/20 07:50 11/11/20 11:41 11/11/20 17:09 11/11/20 19:17 Glucose (Fingerstick) 123 mg/dL (70-99) H 185 mg/dL (70-99) H 110 mg/dL (70-99) H 218 mg/dL (70-99) H Current Medications: Meds: Laboratory Tests Test 11/11/20 07:50 11/11/20 11:41 11/11/20 17:09 11/11/20 19:17 Glucose (Fingerstick) 123 mg/dL 185 mg/dL 110 mg/dL 218 mg/dL Current Medications Medications (Trade) Dose Ordered Sig/Nancy Route PRN Reason Start Time Stop Time Status Last Admin Dose Admin Acetaminophen (Tylenol) 650 mg PRN Q6HRS PRN PO MILD PAIN / TEMP > 100.3'F 10/10/20 06:30 10/10/20 17:40 DC Multi-Ingredient Ointment (Analgesic [place]) 1 nayla PRN QID PRN TP MUSCLE PAIN 10/10/20 06:30 Al Hydroxide/Mg Hydroxide (Mylanta Plus Xs) 15 ml PRN AFTMEALHC PRN PO DYSPEPSIA 10/10/20 06:30 Magnesium Hydroxide (Milk Of Magnesia) 2,400 mg PRN QHS PRN PO CONSTIPATION 10/10/20 06:30 Nicotine (Nicoderm Cq 21mg Patch) 1 patch DAILY TD 10/10/20 09:00 10/18/20 01:35 DC 10/17/20 08:35 Influenza Virus Vaccine Quadrival (Fluzone Quad Syringe) 0.5 ml ONCE ONCE VAX IM 10/10/20 09:00 10/10/20 09:01 DC 10/10/20 14:04 Acetaminophen (Tylenol) 650 mg PRN DAILY PRN PO PAIN OR FEVER 10/10/20 07:45 10/10/20 17:40 DC Acetaminophen (Tylenol) 500 mg PRN Q6HRS PRN PO MILD PAIN / TEMP > 100.3'F 10/10/20 07:45 10/17/20 02:51 Amlodipine Besylate (Norvasc) 10 mg HS PO 10/10/20 21:00 11/11/20 20:31 Benztropine Mesylate (Cogentin) 1 mg DAILY PO 10/10/20 09:00 11/11/20 08:07 Calcium/Vitamin D (Oscal D 500mg/ 200uts) 1 tab DAILY PO 10/10/20 09:00 11/11/20 08:07 Calcium Polycarbophil (Fibercon) 625 mg BID PO 10/10/20 09:00 11/11/20 20:32 Clonidine HCl (Catapres) 0.1 mg PRN Q1HR PRN PO AGITATION 10/10/20 07:45 Donepezil HCl (Aricept) 10 mg HS PO 10/10/20 21:00 11/11/20 20:31 Ferrous Sulfate (Feosol) 325 mg BID PO 10/10/20 09:00 11/11/20 20:31 Hydrochlorothiazide (Hydrodiuril) 25 mg DAILY PO 10/10/20 09:00 11/11/20 08:06 Insulin Glargine (Lantus Syringe) 5 unit HS SQ 10/10/20 21:00 11/11/20 20:38 Ketoconazole (Nizoral 2% Shampoo) 1 nayla QODAY TP 10/10/20 09:00 11/11/20 08:08 Levothyroxine Sodium (Synthroid) 75 mcg DAILY06 PO 10/11/20 06:00 UNV Levothyroxine Sodium (Synthroid) 100 mcg DAILY PO 10/10/20 09:00 10/11/20 05:50 DC Losartan Potassium (Cozaar) 50 mg BID PO 10/10/20 09:00 11/11/20 20:32 Metformin HCl (Glucophage) 500 mg DAILYBFRSUP PO 10/10/20 17:00 11/11/20 17:34 Metformin HCl (Glucophage) 1,500 mg DAILY PO 10/10/20 09:00 11/11/20 08:06 Metoprolol Succinate (Toprol Xl) 25 mg DAILY PO 10/10/20 09:00 10/16/20 17:59 DC 10/16/20 08:36 Tamsulosin HCl (Flomax) 0.4 mg DAILY PO 10/10/20 09:30 11/11/20 08:07 Trazodone HCl (Desyrel) 50 mg PRN QHS PRN PO SLEEP AID 10/10/20 07:45 11/11/20 20:37 Ziprasidone (Geodon) 60 mg BID PO 10/10/20 09:30 10/13/20 14:38 DC 10/13/20 08:17 Chlorpromazine HCl (Thorazine) 50 mg DAILY PO 10/10/20 09:00 10/15/20 17:56 DC 10/15/20 08:23 Chlorpromazine HCl (Thorazine) 50 mg PRN Q6HRS PRN PO AGITATION 10/10/20 09:00 10/11/20 10:04 DC 10/11/20 01:38 Chlorpromazine HCl (Thorazine) 300 mg HS PO 10/10/20 21:00 11/11/20 20:37 Non-Formulary Medication (Diphenhydramine Hcl ) 1 cap Q6HRS PRN PO AGITATION 10/10/20 07:45 UNV Haloperidol Decanoate (Haldol Decanoate Im Extended Release) 100 mg QMONTH IM 10/26/20 09:00 10/26/20 09:00 Insulin Glargine (Lantus Syringe) 8 unit DAILY SQ 10/10/20 10:00 11/11/20 09:10 Non-Formulary Medication (Liothyronine Sodium (Cytomel)) 1 tab DAILY PO 10/10/20 09:00 10/11/20 07:29 DC Oxcarbazepine (Trileptal) 600 mg BID PO 10/10/20 09:30 10/22/20 17:52 DC 10/22/20 07:32 Valproic Acid (Depakene) 1,000 mg BID PO 10/10/20 09:30 10/10/20 20:12 DC 10/10/20 11:15 Non-Formulary Medication ([[id number]/ 2ML] ) 50 mg Q6HRS PRN IM AGITATION 10/10/20 07:45 UNV Non-Formulary Medication ([[id number]/ Ml] ) 50 mg Q6HRS PRN IM AGITATION 10/10/20 07:45 UNV Non-Formulary Medication (Semaglutide (Ozempic)) 1 mg WEEKLY SQ 10/10/20 09:00 10/29/20 13:15 DC Non-Formulary Medication (Vitamin D3/ Vitamin K2 (D3 + K2 Dots 1,000 Units Tab)) 1 tab DAILY PO 10/10/20 09:00 10/10/20 17:36 DC Insulin Human Lispro (HumaLOG) 0-4 UNITS TIDWMEALS SQ 10/10/20 17:00 10/16/20 12:00 Dextrose (Dextrose 50%-Water Syringe) 12.5 gm PRN Q15MIN PRN IV SEE COMMENTS 10/10/20 16:00 Vitamin D (Vitamin D3) 50,000 unit WEEKLY PO 10/10/20 17:30 11/07/20 08:11 Olanzapine (ZyPREXA ZYDIS) 5 mg PRN Q2HRS PRN PO PSYCHOSIS 10/10/20 18:00 10/26/20 00:51 Divalproex Sodium (Depakote Sprinkles) 1,000 mg HS PO 10/10/20 21:00 11/11/20 20:32 Levothyroxine Sodium (Synthroid) 175 mcg DAILY06 PO 10/11/20 07:30 11/11/20 05:04 Liothyronine Sodium (Cytomel) 50 mcg DAILY PO 10/11/20 09:00 10/11/20 10:48 DC Clozapine (Clozaril) 25 mg HS PO 10/11/20 21:00 10/15/20 17:52 DC 10/14/20 20:22 Ascorbic Acid (Vitamin C) 500 mg BID PO 10/11/20 21:00 11/11/20 20:31 Ziprasidone (Geodon) 60 mg BID PO 10/13/20 21:00 10/18/20 11:27 DC 10/18/20 09:14 Clozapine (Clozaril) 50 mg HS PO 10/15/20 21:00 10/22/20 17:52 DC 10/21/20 20:36 Metoprolol Succinate (Toprol Xl) 50 mg DAILY PO 10/16/20 18:00 11/11/20 08:07 Nicotine (Nicoderm Cq 14mg Patch) 1 patch DAILY TD 10/18/20 09:00 11/11/20 08:05 Ziprasidone (Geodon) 60 mg QHS PO 10/18/20 21:00 10/21/20 23:00 DC 10/21/20 20:36 Chlorpromazine HCl (Thorazine) 50 mg DAILY PO 10/19/20 18:00 11/10/20 18:21 DC 11/10/20 08:45 Clozapine (Clozaril) 75 mg HS PO 10/22/20 21:00 11/05/20 16:55 DC 11/04/20 19:48 Oxcarbazepine (Trileptal) 900 mg BID PO 10/22/20 21:00 11/11/20 20:32 Haloperidol Lactate (Haldol) 10 mg DAILY08 IM 10/25/20 08:00 11/01/20 10:27 DC 10/31/20 07:56 Haloperidol (Haldol) 10 mg DAILY PO 11/01/20 10:30 11/11/20 08:07 Clozapine (Clozaril) 100 mg HS PO 11/05/20 21:00 11/11/20 20:32 I have reviewed the current psychotropics carefully including drug interactions. Risk benefit ratio favors no change other than as noted in my dictated progress note. Diagnosis: Problems: (1) Schizoaffective disorder, bipolar type (2) Impulse control disorder, unspecified (3) Mild cognitive impairment (4) Anxiety disorder, unspecified (5) Bipolar disorder, current episode mixed, severe, with psychotic features KALEN REN MD Nov 11, 2020 22:36
[2020-11-12] MEDS: LEVOTHYROXINE 175 MCG TABLET PO SCH (05:58)
[2020-11-12 06:28] VITALS: BP 132/78
[2020-11-12 06:57] LABS: BASO % 0 % (0-3); EOS # 0.2 x10^3/uL (0.0-0.7); EOS % 2 % (0-3); HEMATOCRIT 32.4 % (39.0-53.0); HEMOGLOBIN 10.6 g/dL (13.0-17.5); LYMPH # 3.2 x10^3/uL (1.0-4.8); LYMPH % 30 % (24-48); MEAN CORPUSCULAR HEMOGLOBIN 31 pg (25-35); MEAN CORPUSCULAR HGB CONC 33 g/dL (31-37); MEAN CORPUSCULAR VOLUME 96 fL (79-100); MONO # 1.2 x10^3/uL (0.0-1.1); MONO % 11 % (0-9); NEUT # 6.2 x10^3uL (1.8-7.7); NEUT % 58 % (31-73); PLATELET COUNT 279 x10^3/uL (140-400); RED BLOOD COUNT 3.37 x10^6/uL (4.30-5.70); RED CELL DISTRIBUTION WIDTH 15.2 % (11.5-14.5); WHITE BLOOD COUNT 10.8 x10^3/uL (4.0-11.0)
[2020-11-12 07:22] LABS: ALBUMIN 3.2 g/dL (3.4-5.0); ALBUMIN/GLOBULIN RATIO 0.8 (1.0-1.7); CALCIUM 9.2 mg/dL (8.5-10.1); CREATININE 0.9 mg/dL (0.7-1.3); GFR 83.4; POTASSIUM 4.4 mmol/L (3.5-5.1); TOTAL BILIRUBIN 0.1 mg/dL (0.2-1.0); TOTAL PROTEIN 7.2 g/dL (6.4-8.2)
--- NOTE | 2020-11-12 07:49 | PDOC ---
Exam Note: Devin Note: This note is a late entry for 11/10/2020 covers elements not covered in my initial note. Subjective: Dr. Harrell had covered for me from 27 October till November, and I assumed care of the patients from 10 November. I have reviewed information and interim progress notes at some length with Dr. Harrell. The patient was seen individually in the evening of 11/10/2020 with Khushi MOON, discussed and reviewed the chart. He slept 5-1/4 hours previous night. The patient is calm, cooperative. I met with him in his room. He does have some mouth movements and tremors of his hands. Review of Systems: Ambulation impaired. No CV, , pulmonary, eye, ENT system symptoms on review. Mental Status Exam: The patient is oriented to himself and situation. He remembered my name even though he had seen me for many days. Speech is low in volume but rapid in rate and rhythm. Abstraction is fair. Computation is impaired. Language function is intact. Mood and affect remains somewhat labile, paranoid. No suicidal or homicidal ideation. Laboratory Data: Reviewed. Impression: Schizoaffective disorder bipolar type mixed with psychotic features. Anxiety disorder unspecified. Impulse control disorder unspecified. Plan: I have carefully reviewed drug interactions and risk-benefit ratio. Continue rest psychotropics unchanged. We will continue to gradually increase the Clozaril as tolerated with blood counts. Valproic acid level is therapeutic at 61. Assessment: Vital Signs/I&O: Vital Signs Date Time Temp Pulse Resp B/P (MAP) Pulse Ox O2 Delivery O2 Flow Rate FiO2 11/12/20 06:28 97.1 86 18 132/78 (96) 99 Room Air I & O 11/11/20 11/11/20 11/12/20 15:00 23:00 07:00 Intake Total 685 ml 445 ml Balance 685 ml 445 ml Labs: Laboratory Tests Test 11/11/20 07:50 11/11/20 11:41 11/11/20 17:09 11/11/20 19:17 Glucose (Fingerstick) 123 mg/dL (70-99) H 185 mg/dL (70-99) H 110 mg/dL (70-99) H 218 mg/dL (70-99) H Test 11/12/20 06:44 11/12/20 07:39 White Blood Count 10.8 x10^3/uL (4.0-11.0) Red Blood Count 3.37 x10^6/uL (4.30-5.70) L Hemoglobin 10.6 g/dL (13.0-17.5) L Hematocrit 32.4 % (39.0-53.0) L Mean Corpuscular Volume 96 fL (79-100) Mean Corpuscular Hemoglobin 31 pg (25-35) Mean Corpuscular Hemoglobin Concent 33 g/dL (31-37) Red Cell Distribution Width 15.2 % (11.5-14.5) H Platelet Count 279 x10^3/uL (140-400) Neutrophils (%) (Auto) 58 % (31-73) Lymphocytes (%) (Auto) 30 % (24-48) Monocytes (%) (Auto) 11 % (0-9) H Eosinophils (%) (Auto) 2 % (0-3) Basophils (%) (Auto) 0 % (0-3) Neutrophils # (Auto) 6.2 x10^3uL (1.8-7.7) Lymphocytes # (Auto) 3.2 x10^3/uL (1.0-4.8) Monocytes # (Auto) 1.2 x10^3/uL (0.0-1.1) H Eosinophils # (Auto) 0.2 x10^3/uL (0.0-0.7) Basophils # (Auto) 0.0 x10^3/uL (0.0-0.2) Glucose (Fingerstick) 66 mg/dL (70-99) L Current Medications: Meds: Laboratory Tests Test 11/11/20 07:50 11/11/20 11:41 11/11/20 17:09 11/11/20 19:17 Glucose (Fingerstick) 123 mg/dL 185 mg/dL 110 mg/dL 218 mg/dL Test 11/12/20 06:44 11/12/20 07:39 White Blood Count 10.8 x10^3/uL Red Blood Count 3.37 x10^6/uL Hemoglobin 10.6 g/dL Hematocrit 32.4 % Mean Corpuscular Volume 96 fL Mean Corpuscular Hemoglobin 31 pg Mean Corpuscular Hemoglobin Concent 33 g/dL Red Cell Distribution Width 15.2 % Platelet Count 279 x10^3/uL Neutrophils (%) (Auto) 58 % Lymphocytes (%) (Auto) 30 % Monocytes (%) (Auto) 11 % Eosinophils (%) (Auto) 2 % Basophils (%) (Auto) 0 % Neutrophils # (Auto) 6.2 x10^3uL Lymphocytes # (Auto) 3.2 x10^3/uL Monocytes # (Auto) 1.2 x10^3/uL Eosinophils # (Auto) 0.2 x10^3/uL Basophils # (Auto) 0.0 x10^3/uL Glucose (Fingerstick) 66 mg/dL Current Medications Medications (Trade) Dose Ordered Sig/Nancy Route PRN Reason Start Time Stop Time Status Last Admin Dose Admin Acetaminophen (Tylenol) 650 mg PRN Q6HRS PRN PO MILD PAIN / TEMP > 100.3'F 10/10/20 06:30 10/10/20 17:40 DC Multi-Ingredient Ointment (Analgesic [place]) 1 nayla PRN QID PRN TP MUSCLE PAIN 10/10/20 06:30 Al Hydroxide/Mg Hydroxide (Mylanta Plus Xs) 15 ml PRN AFTMEALHC PRN PO DYSPEPSIA 10/10/20 06:30 Magnesium Hydroxide (Milk Of Magnesia) 2,400 mg PRN QHS PRN PO CONSTIPATION 10/10/20 06:30 Nicotine (Nicoderm Cq 21mg Patch) 1 patch DAILY TD 10/10/20 09:00 10/18/20 01:35 DC 10/17/20 08:35 Influenza Virus Vaccine Quadrival (Fluzone Quad Syringe) 0.5 ml ONCE ONCE VAX IM 10/10/20 09:00 10/10/20 09:01 DC 10/10/20 14:04 Acetaminophen (Tylenol) 650 mg PRN DAILY PRN PO PAIN OR FEVER 10/10/20 07:45 10/10/20 17:40 DC Acetaminophen (Tylenol) 500 mg PRN Q6HRS PRN PO MILD PAIN / TEMP > 100.3'F 10/10/20 07:45 10/17/20 02:51 Amlodipine Besylate (Norvasc) 10 mg HS PO 10/10/20 21:00 11/11/20 20:31 Benztropine Mesylate (Cogentin) 1 mg DAILY PO 10/10/20 09:00 11/11/20 08:07 Calcium/Vitamin D (Oscal D 500mg/ 200uts) 1 tab DAILY PO 10/10/20 09:00 11/11/20 08:07 Calcium Polycarbophil (Fibercon) 625 mg BID PO 10/10/20 09:00 11/11/20 20:32 Clonidine HCl (Catapres) 0.1 mg PRN Q1HR PRN PO AGITATION 10/10/20 07:45 Donepezil HCl (Aricept) 10 mg HS PO 10/10/20 21:00 11/11/20 20:31 Ferrous Sulfate (Feosol) 325 mg BID PO 10/10/20 09:00 11/11/20 20:31 Hydrochlorothiazide (Hydrodiuril) 25 mg DAILY PO 10/10/20 09:00 11/11/20 08:06 Insulin Glargine (Lantus Syringe) 5 unit HS SQ 10/10/20 21:00 11/11/20 20:38 Ketoconazole (Nizoral 2% Shampoo) 1 nayla QODAY TP 10/10/20 09:00 11/11/20 08:08 Levothyroxine Sodium (Synthroid) 75 mcg DAILY06 PO 10/11/20 06:00 UNV Levothyroxine Sodium (Synthroid) 100 mcg DAILY PO 10/10/20 09:00 10/11/20 05:50 DC Losartan Potassium (Cozaar) 50 mg BID PO 10/10/20 09:00 11/11/20 20:32 Metformin HCl (Glucophage) 500 mg DAILYBFRSUP PO 10/10/20 17:00 11/11/20 17:34 Metformin HCl (Glucophage) 1,500 mg DAILY PO 10/10/20 09:00 11/11/20 08:06 Metoprolol Succinate (Toprol Xl) 25 mg DAILY PO 10/10/20 09:00 10/16/20 17:59 DC 10/16/20 08:36 Tamsulosin HCl (Flomax) 0.4 mg DAILY PO 10/10/20 09:30 11/11/20 08:07 Trazodone HCl (Desyrel) 50 mg PRN QHS PRN PO SLEEP AID 10/10/20 07:45 11/11/20 20:37 Ziprasidone (Geodon) 60 mg BID PO 10/10/20 09:30 10/13/20 14:38 DC 10/13/20 08:17 Chlorpromazine HCl (Thorazine) 50 mg DAILY PO 10/10/20 09:00 10/15/20 17:56 DC 10/15/20 08:23 Chlorpromazine HCl (Thorazine) 50 mg PRN Q6HRS PRN PO AGITATION 10/10/20 09:00 10/11/20 10:04 DC 10/11/20 01:38 Chlorpromazine HCl (Thorazine) 300 mg HS PO 10/10/20 21:00 11/11/20 20:37 Non-Formulary Medication (Diphenhydramine Hcl ) 1 cap Q6HRS PRN PO AGITATION 10/10/20 07:45 UNV Haloperidol Decanoate (Haldol Decanoate Im Extended Release) 100 mg QMONTH IM 10/26/20 09:00 10/26/20 09:00 Insulin Glargine (Lantus Syringe) 8 unit DAILY SQ 10/10/20 10:00 11/11/20 09:10 Non-Formulary Medication (Liothyronine Sodium (Cytomel)) 1 tab DAILY PO 10/10/20 09:00 10/11/20 07:29 DC Oxcarbazepine (Trileptal) 600 mg BID PO 10/10/20 09:30 10/22/20 17:52 DC 10/22/20 07:32 Valproic Acid (Depakene) 1,000 mg BID PO 10/10/20 09:30 10/10/20 20:12 DC 10/10/20 11:15 Non-Formulary Medication ([[id number]/ 2ML] ) 50 mg Q6HRS PRN IM AGITATION 10/10/20 07:45 UNV Non-Formulary Medication ([Hzmfrwetnbjq71bm/ Ml] ) 50 mg Q6HRS PRN IM AGITATION 10/10/20 07:45 UNV Non-Formulary Medication (Semaglutide (Ozempic)) 1 mg WEEKLY SQ 10/10/20 09:00 10/29/20 13:15 DC Non-Formulary Medication (Vitamin D3/ Vitamin K2 (D3 + K2 Dots 1,000 Units Tab)) 1 tab DAILY PO 10/10/20 09:00 10/10/20 17:36 DC Insulin Human Lispro (HumaLOG) 0-4 UNITS TIDWMEALS SQ 10/10/20 17:00 10/16/20 12:00 Dextrose (Dextrose 50%-Water Syringe) 12.5 gm PRN Q15MIN PRN IV SEE COMMENTS 10/10/20 16:00 Vitamin D (Vitamin D3) 50,000 unit WEEKLY PO 10/10/20 17:30 11/07/20 08:11 Olanzapine (ZyPREXA ZYDIS) 5 mg PRN Q2HRS PRN PO PSYCHOSIS 10/10/20 18:00 10/26/20 00:51 Divalproex Sodium (Depakote Sprinkles) 1,000 mg HS PO 10/10/20 21:00 11/11/20 20:32 Levothyroxine Sodium (Synthroid) 175 mcg DAILY06 PO 10/11/20 07:30 11/12/20 05:58 Liothyronine Sodium (Cytomel) 50 mcg DAILY PO 10/11/20 09:00 10/11/20 10:48 DC Clozapine (Clozaril) 25 mg HS PO 10/11/20 21:00 10/15/20 17:52 DC 10/14/20 20:22 Ascorbic Acid (Vitamin C) 500 mg BID PO 10/11/20 21:00 11/11/20 20:31 Ziprasidone (Geodon) 60 mg BID PO 10/13/20 21:00 10/18/20 11:27 DC 10/18/20 09:14 Clozapine (Clozaril) 50 mg HS PO 10/15/20 21:00 10/22/20 17:52 DC 10/21/20 20:36 Metoprolol Succinate (Toprol Xl) 50 mg DAILY PO 10/16/20 18:00 11/11/20 08:07 Nicotine (Nicoderm Cq 14mg Patch) 1 patch DAILY TD 10/18/20 09:00 11/11/20 08:05 Ziprasidone (Geodon) 60 mg QHS PO 10/18/20 21:00 10/21/20 23:00 DC 10/21/20 20:36 Chlorpromazine HCl (Thorazine) 50 mg DAILY PO 10/19/20 18:00 11/10/20 18:21 DC 11/10/20 08:45 Clozapine (Clozaril) 75 mg HS PO 10/22/20 21:00 11/05/20 16:55 DC 11/04/20 19:48 Oxcarbazepine (Trileptal) 900 mg BID PO 10/22/20 21:00 11/11/20 20:32 Haloperidol Lactate (Haldol) 10 mg DAILY08 IM 10/25/20 08:00 11/01/20 10:27 DC 10/31/20 07:56 Haloperidol (Haldol) 10 mg DAILY PO 11/01/20 10:30 11/11/20 08:07 Clozapine (Clozaril) 100 mg HS PO 11/05/20 21:00 11/11/20 20:32 I have reviewed the current psychotropics carefully including drug interactions. Risk benefit ratio favors no change other than as noted in my dictated progress note. Diagnosis: Problems: (1) Schizoaffective disorder, bipolar type (2) Impulse control disorder, unspecified (3) Mild cognitive impairment (4) Anxiety disorder, unspecified (5) Bipolar disorder, current episode mixed, severe, with psychotic features KALEN REN MD Nov 12, 2020 07:49
[2020-11-12] MEDS: INSULIN LISPRO 300 UNITS/3 ML VIAL. SQ SCH ×3 (07:58→16:47)
--- NOTE | 2020-11-12 08:21 | PDOC ---
Exam Note: Devin Note: This note is a late entry for 11/11/2020 covers elements not covered in my initial note. Subjective: The patient was seen individually in the evening of 11/11/2020 with Khushi MOON, discussed and reviewed the chart. He slept 7-1/2 hours previous night. The patient has done better. I met with him in his room. He is somewhat obsessive. Review of Systems: Ambulation impaired. No CV, , pulmonary, eye, ENT system symptoms on review. Mental Status Exam: The patient is oriented to himself and situation. Speech is low in volume but rapid in rate and rhythm. Abstraction is fair. Computation is impaired. Language function is intact. Mood and affect remains somewhat labile, paranoid. No suicidal or homicidal ideation. Laboratory Data: Reviewed. Impression: Schizoaffective disorder bipolar type mixed with psychotic features. Anxiety disorder unspecified. Impulse control disorder unspecified. Plan: No change from initial note. Assessment: Vital Signs/I&O: Vital Signs Date Time Temp Pulse Resp B/P (MAP) Pulse Ox O2 Delivery O2 Flow Rate FiO2 11/12/20 06:28 97.1 86 18 132/78 (96) 99 Room Air I & O 11/11/20 11/11/20 11/12/20 15:00 23:00 07:00 Intake Total 685 ml 445 ml Balance 685 ml 445 ml Labs: Laboratory Tests Test 11/11/20 11:41 11/11/20 17:09 11/11/20 19:17 11/12/20 06:44 Glucose (Fingerstick) 185 mg/dL (70-99) H 110 mg/dL (70-99) H 218 mg/dL (70-99) H White Blood Count 10.8 x10^3/uL (4.0-11.0) Red Blood Count 3.37 x10^6/uL (4.30-5.70) L Hemoglobin 10.6 g/dL (13.0-17.5) L Hematocrit 32.4 % (39.0-53.0) L Mean Corpuscular Volume 96 fL (79-100) Mean Corpuscular Hemoglobin 31 pg (25-35) Mean Corpuscular Hemoglobin Concent 33 g/dL (31-37) Red Cell Distribution Width 15.2 % (11.5-14.5) H Platelet Count 279 x10^3/uL (140-400) Neutrophils (%) (Auto) 58 % (31-73) Lymphocytes (%) (Auto) 30 % (24-48) Monocytes (%) (Auto) 11 % (0-9) H Eosinophils (%) (Auto) 2 % (0-3) Basophils (%) (Auto) 0 % (0-3) Neutrophils # (Auto) 6.2 x10^3uL (1.8-7.7) Lymphocytes # (Auto) 3.2 x10^3/uL (1.0-4.8) Monocytes # (Auto) 1.2 x10^3/uL (0.0-1.1) H Eosinophils # (Auto) 0.2 x10^3/uL (0.0-0.7) Basophils # (Auto) 0.0 x10^3/uL (0.0-0.2) Sodium Level 145 mmol/L (136-145) Potassium Level 4.4 mmol/L (3.5-5.1) Chloride Level 108 mmol/L (98-107) H Carbon Dioxide Level 33 mmol/L (21-32) H Anion Gap 4 (6-14) L Blood Urea Nitrogen 19 mg/dL (8-26) Creatinine 0.9 mg/dL (0.7-1.3) Estimated GFR (Cockcroft-Gault) 83.4 BUN/Creatinine Ratio 21 (6-20) H Glucose Level 60 mg/dL (70-99) L Calcium Level 9.2 mg/dL (8.5-10.1) Total Bilirubin 0.1 mg/dL (0.2-1.0) L Aspartate Amino Transferase (AST) 34 U/L (15-37) Alanine Aminotransferase (ALT) 45 U/L (16-63) Alkaline Phosphatase 96 U/L (46-116) Total Protein 7.2 g/dL (6.4-8.2) Albumin 3.2 g/dL (3.4-5.0) L Albumin/Globulin Ratio 0.8 (1.0-1.7) L Test 11/12/20 07:39 11/12/20 07:51 Glucose (Fingerstick) 66 mg/dL (70-99) L 88 mg/dL (70-99) Current Medications: Meds: Laboratory Tests Test 11/11/20 11:41 11/11/20 17:09 11/11/20 19:17 11/12/20 06:44 Glucose (Fingerstick) 185 mg/dL 110 mg/dL 218 mg/dL White Blood Count 10.8 x10^3/uL Red Blood Count 3.37 x10^6/uL Hemoglobin 10.6 g/dL Hematocrit 32.4 % Mean Corpuscular Volume 96 fL Mean Corpuscular Hemoglobin 31 pg Mean Corpuscular Hemoglobin Concent 33 g/dL Red Cell Distribution Width 15.2 % Platelet Count 279 x10^3/uL Neutrophils (%) (Auto) 58 % Lymphocytes (%) (Auto) 30 % Monocytes (%) (Auto) 11 % Eosinophils (%) (Auto) 2 % Basophils (%) (Auto) 0 % Neutrophils # (Auto) 6.2 x10^3uL Lymphocytes # (Auto) 3.2 x10^3/uL Monocytes # (Auto) 1.2 x10^3/uL Eosinophils # (Auto) 0.2 x10^3/uL Basophils # (Auto) 0.0 x10^3/uL Sodium Level 145 mmol/L Potassium Level 4.4 mmol/L Chloride Level 108 mmol/L Carbon Dioxide Level 33 mmol/L Anion Gap 4 Blood Urea Nitrogen 19 mg/dL Creatinine 0.9 mg/dL Estimated GFR (Cockcroft-Gault) 83.4 BUN/Creatinine Ratio 21 Glucose Level 60 mg/dL Calcium Level 9.2 mg/dL Total Bilirubin 0.1 mg/dL Aspartate Amino Transf (AST/SGOT) 34 U/L Alanine Aminotransferase (ALT/SGPT) 45 U/L Alkaline Phosphatase 96 U/L Total Protein 7.2 g/dL Albumin 3.2 g/dL Albumin/Globulin Ratio 0.8 Test 11/12/20 07:39 11/12/20 07:51 Glucose (Fingerstick) 66 mg/dL 88 mg/dL Current Medications Medications (Trade) Dose Ordered Sig/Nancy Route PRN Reason Start Time Stop Time Status Last Admin Dose Admin Acetaminophen (Tylenol) 650 mg PRN Q6HRS PRN PO MILD PAIN / TEMP > 100.3'F 10/10/20 06:30 10/10/20 17:40 DC Multi-Ingredient Ointment (Analgesic [place]) 1 nayla PRN QID PRN TP MUSCLE PAIN 10/10/20 06:30 Al Hydroxide/Mg Hydroxide (Mylanta Plus Xs) 15 ml PRN AFTMEALHC PRN PO DYSPEPSIA 10/10/20 06:30 Magnesium Hydroxide (Milk Of Magnesia) 2,400 mg PRN QHS PRN PO CONSTIPATION 10/10/20 06:30 Nicotine (Nicoderm Cq 21mg Patch) 1 patch DAILY TD 10/10/20 09:00 10/18/20 01:35 DC 10/17/20 08:35 Influenza Virus Vaccine Quadrival (Fluzone Quad [id number] Syringe) 0.5 ml ONCE ONCE VAX IM 10/10/20 09:00 10/10/20 09:01 DC 10/10/20 14:04 Acetaminophen (Tylenol) 650 mg PRN DAILY PRN PO PAIN OR FEVER 10/10/20 07:45 10/10/20 17:40 DC Acetaminophen (Tylenol) 500 mg PRN Q6HRS PRN PO MILD PAIN / TEMP > 100.3'F 10/10/20 07:45 10/17/20 02:51 Amlodipine Besylate (Norvasc) 10 mg HS PO 10/10/20 21:00 11/11/20 20:31 Benztropine Mesylate (Cogentin) 1 mg DAILY PO 10/10/20 09:00 11/11/20 08:07 Calcium/Vitamin D (Oscal D 500mg/ 200uts) 1 tab DAILY PO 10/10/20 09:00 11/11/20 08:07 Calcium Polycarbophil (Fibercon) 625 mg BID PO 10/10/20 09:00 11/11/20 20:32 Clonidine HCl (Catapres) 0.1 mg PRN Q1HR PRN PO AGITATION 10/10/20 07:45 Donepezil HCl (Aricept) 10 mg HS PO 10/10/20 21:00 11/11/20 20:31 Ferrous Sulfate (Feosol) 325 mg BID PO 10/10/20 09:00 11/11/20 20:31 Hydrochlorothiazide (Hydrodiuril) 25 mg DAILY PO 10/10/20 09:00 11/11/20 08:06 Insulin Glargine (Lantus Syringe) 5 unit HS SQ 10/10/20 21:00 11/11/20 20:38 Ketoconazole (Nizoral 2% Shampoo) 1 nayla QODAY TP 10/10/20 09:00 11/11/20 08:08 Levothyroxine Sodium (Synthroid) 75 mcg DAILY06 PO 10/11/20 06:00 UNV Levothyroxine Sodium (Synthroid) 100 mcg DAILY PO 10/10/20 09:00 10/11/20 05:50 DC Losartan Potassium (Cozaar) 50 mg BID PO 10/10/20 09:00 11/11/20 20:32 Metformin HCl (Glucophage) 500 mg DAILYBFRSUP PO 10/10/20 17:00 11/11/20 17:34 Metformin HCl (Glucophage) 1,500 mg DAILY PO 10/10/20 09:00 11/11/20 08:06 Metoprolol Succinate (Toprol Xl) 25 mg DAILY PO 10/10/20 09:00 10/16/20 17:59 DC 10/16/20 08:36 Tamsulosin HCl (Flomax) 0.4 mg DAILY PO 10/10/20 09:30 11/11/20 08:07 Trazodone HCl (Desyrel) 50 mg PRN QHS PRN PO SLEEP AID 10/10/20 07:45 11/11/20 20:37 Ziprasidone (Geodon) 60 mg BID PO 10/10/20 09:30 10/13/20 14:38 DC 10/13/20 08:17 Chlorpromazine HCl (Thorazine) 50 mg DAILY PO 10/10/20 09:00 10/15/20 17:56 DC 10/15/20 08:23 Chlorpromazine HCl (Thorazine) 50 mg PRN Q6HRS PRN PO AGITATION 10/10/20 09:00 10/11/20 10:04 DC 10/11/20 01:38 Chlorpromazine HCl (Thorazine) 300 mg HS PO 10/10/20 21:00 11/11/20 20:37 Non-Formulary Medication (Diphenhydramine Hcl ) 1 cap Q6HRS PRN PO AGITATION 10/10/20 07:45 UNV Haloperidol Decanoate (Haldol Decanoate Im Extended Release) 100 mg QMONTH IM 10/26/20 09:00 10/26/20 09:00 Insulin Glargine (Lantus Syringe) 8 unit DAILY SQ 10/10/20 10:00 11/11/20 09:10 Non-Formulary Medication (Liothyronine Sodium (Cytomel)) 1 tab DAILY PO 10/10/20 09:00 10/11/20 07:29 DC Oxcarbazepine (Trileptal) 600 mg BID PO 10/10/20 09:30 10/22/20 17:52 DC 10/22/20 07:32 Valproic Acid (Depakene) 1,000 mg BID PO 10/10/20 09:30 10/10/20 20:12 DC 10/10/20 11:15 Non-Formulary Medication ([[id number]/ 2ML] ) 50 mg Q6HRS PRN IM AGITATION 10/10/20 07:45 UNV Non-Formulary Medication ([Hcywqwpvlhyj14by/ Ml] ) 50 mg Q6HRS PRN IM AGITATION 10/10/20 07:45 UNV Non-Formulary Medication (Semaglutide (Ozempic)) 1 mg WEEKLY SQ 10/10/20 09:00 10/29/20 13:15 DC Non-Formulary Medication (Vitamin D3/ Vitamin K2 (D3 + K2 Dots 1,000 Units Tab)) 1 tab DAILY PO 10/10/20 09:00 10/10/20 17:36 DC Insulin Human Lispro (HumaLOG) 0-4 UNITS TIDWMEALS SQ 10/10/20 17:00 10/16/20 12:00 Dextrose (Dextrose 50%-Water Syringe) 12.5 gm PRN Q15MIN PRN IV SEE COMMENTS 10/10/20 16:00 Vitamin D (Vitamin D3) 50,000 unit WEEKLY PO 10/10/20 17:30 11/07/20 08:11 Olanzapine (ZyPREXA ZYDIS) 5 mg PRN Q2HRS PRN PO PSYCHOSIS 10/10/20 18:00 10/26/20 00:51 Divalproex Sodium (Depakote Sprinkles) 1,000 mg HS PO 10/10/20 21:00 11/11/20 20:32 Levothyroxine Sodium (Synthroid) 175 mcg DAILY06 PO 10/11/20 07:30 11/12/20 05:58 Liothyronine Sodium (Cytomel) 50 mcg DAILY PO 10/11/20 09:00 10/11/20 10:48 DC Clozapine (Clozaril) 25 mg HS PO 10/11/20 21:00 10/15/20 17:52 DC 10/14/20 20:22 Ascorbic Acid (Vitamin C) 500 mg BID PO 10/11/20 21:00 11/11/20 20:31 Ziprasidone (Geodon) 60 mg BID PO 10/13/20 21:00 10/18/20 11:27 DC 10/18/20 09:14 Clozapine (Clozaril) 50 mg HS PO 10/15/20 21:00 10/22/20 17:52 DC 10/21/20 20:36 Metoprolol Succinate (Toprol Xl) 50 mg DAILY PO 10/16/20 18:00 11/11/20 08:07 Nicotine (Nicoderm Cq 14mg Patch) 1 patch DAILY TD 10/18/20 09:00 11/11/20 08:05 Ziprasidone (Geodon) 60 mg QHS PO 10/18/20 21:00 10/21/20 23:00 DC 10/21/20 20:36 Chlorpromazine HCl (Thorazine) 50 mg DAILY PO 10/19/20 18:00 11/10/20 18:21 DC 11/10/20 08:45 Clozapine (Clozaril) 75 mg HS PO 10/22/20 21:00 11/05/20 16:55 DC 11/04/20 19:48 Oxcarbazepine (Trileptal) 900 mg BID PO 10/22/20 21:00 11/11/20 20:32 Haloperidol Lactate (Haldol) 10 mg DAILY08 IM 10/25/20 08:00 11/01/20 10:27 DC 10/31/20 07:56 Haloperidol (Haldol) 10 mg DAILY PO 11/01/20 10:30 11/11/20 08:07 Clozapine (Clozaril) 100 mg HS PO 11/05/20 21:00 11/11/20 20:32 I have reviewed the current psychotropics carefully including drug interactions. Risk benefit ratio favors no change other than as noted in my dictated progress note. Diagnosis: Problems: (1) Schizoaffective disorder, bipolar type (2) Impulse control disorder, unspecified (3) Mild cognitive impairment (4) Anxiety disorder, unspecified (5) Bipolar disorder, current episode mixed, severe, with psychotic features KALEN REN MD Nov 12, 2020 08:21
[2020-11-12] MEDS: INSULIN GLARGINE SYRINGE. SQ SCH (09:00)
[2020-11-12] MEDS: metFORMIN 500 MG TABLET PO SCH ×2 (10:08→16:57)
[2020-11-12] MEDS: CALCIUM POLYCARBOPHIL 625 MG TABLET PO SCH ×2 (10:08→20:33)
[2020-11-12] MEDS: ASCORBIC ACID 500 MG TABLET PO SCH ×2 (10:09→20:34)
[2020-11-12] MEDS: HALOPERIDOL 5 MG TABLET PO SCH (10:09)
[2020-11-12] MEDS: CALCIUM CARB/VIT D3 500/200 TABLET PO SCH (10:09)
[2020-11-12] MEDS: TAMSULOSIN 0.4 MG CAP.ER.24H. PO SCH (10:09)
[2020-11-12] MEDS: LOSARTAN 50 MG TABLET. PO SCH ×2 (10:09→20:45)
[2020-11-12] MEDS: FERROUS SULFATE 325 MG TABLET. PO SCH ×2 (10:09→20:33)
[2020-11-12] MEDS: NICOTINE 14MG PATCH. TD SCH (10:10)
[2020-11-12] MEDS: BENZTROPINE MESYLATE 1 MG TABLET PO SCH (10:10)
[2020-11-12] MEDS: METOPROLOL SUCC 24HR ER 25 MG TAB.ER.24H. PO SCH (10:10)
[2020-11-12] MEDS: hydroCHLOROthiazide 25 MG TABLET PO SCH (10:10)
--- NOTE | 2020-11-12 10:34 | NUR ---
Held patients Lantus this am due to low blood sugar will reassess administration at next blood sugar check. Did administer metformin this am. Patient seems to be really sedated this am will continue to monitor and assess patients behavior and level of consciousness. Patient took his medicine without any issues this am. Patient is currently in his bed resting.
[2020-11-12 16:12] VITALS: BP 161/74
[2020-11-12] MEDS: DIVALPROEX 125 MG CAP.SPRINK PO SCH (20:33)
[2020-11-12] MEDS: DONEPEZIL HCL 10 MG TABLET PO SCH (20:34)
[2020-11-12] MEDS: amLODIPine BESYLATE 10 MG TABLET PO SCH (20:41)
[2020-11-12] MEDS: cloZAPine 25 MG TABLET PO SCH (20:41)
[2020-11-12] MEDS: chlorproMAZINE HCL 25 MG TABLET PO SCH (20:44)
[2020-11-12] MEDS: cloZAPine 100 MG TABLET PO SCH (20:47)
--- NOTE | 2020-11-12 22:24 | PDOC ---
Exam Note: Devin Note: Please also refer to the separate dictated note~for this date of service dictated separately.~Patient seen individually. Discussed the patient with Nursing staff reviewed the chart.~Reviewed interim history and current functioning. Reviewed vital signs,~Labs/ Radiology~and current medications noted below. Continue current treatment with the changes noted in the dictated addendum note Assessment: Vital Signs/I&O: Vital Signs Date Time Temp Pulse Resp B/P (MAP) Pulse Ox O2 Delivery O2 Flow Rate FiO2 11/12/20 20:45 81 169/80 11/12/20 16:12 97.1 16 98 11/12/20 06:28 Room Air I & O 11/11/20 11/11/20 11/12/20 15:00 23:00 07:00 Intake Total 685 ml 445 ml Balance 685 ml 445 ml Labs: Laboratory Tests Test 11/12/20 06:44 11/12/20 07:39 11/12/20 07:51 11/12/20 11:48 White Blood Count 10.8 x10^3/uL (4.0-11.0) Red Blood Count 3.37 x10^6/uL (4.30-5.70) L Hemoglobin 10.6 g/dL (13.0-17.5) L Hematocrit 32.4 % (39.0-53.0) L Mean Corpuscular Volume 96 fL (79-100) Mean Corpuscular Hemoglobin 31 pg (25-35) Mean Corpuscular Hemoglobin Concent 33 g/dL (31-37) Red Cell Distribution Width 15.2 % (11.5-14.5) H Platelet Count 279 x10^3/uL (140-400) Neutrophils (%) (Auto) 58 % (31-73) Lymphocytes (%) (Auto) 30 % (24-48) Monocytes (%) (Auto) 11 % (0-9) H Eosinophils (%) (Auto) 2 % (0-3) Basophils (%) (Auto) 0 % (0-3) Neutrophils # (Auto) 6.2 x10^3uL (1.8-7.7) Lymphocytes # (Auto) 3.2 x10^3/uL (1.0-4.8) Monocytes # (Auto) 1.2 x10^3/uL (0.0-1.1) H Eosinophils # (Auto) 0.2 x10^3/uL (0.0-0.7) Basophils # (Auto) 0.0 x10^3/uL (0.0-0.2) Sodium Level 145 mmol/L (136-145) Potassium Level 4.4 mmol/L (3.5-5.1) Chloride Level 108 mmol/L (98-107) H Carbon Dioxide Level 33 mmol/L (21-32) H Anion Gap 4 (6-14) L Blood Urea Nitrogen 19 mg/dL (8-26) Creatinine 0.9 mg/dL (0.7-1.3) Estimated GFR (Cockcroft-Gault) 83.4 BUN/Creatinine Ratio 21 (6-20) H Glucose Level 60 mg/dL (70-99) L Calcium Level 9.2 mg/dL (8.5-10.1) Total Bilirubin 0.1 mg/dL (0.2-1.0) L Aspartate Amino Transferase (AST) 34 U/L (15-37) Alanine Aminotransferase (ALT) 45 U/L (16-63) Alkaline Phosphatase 96 U/L (46-116) Total Protein 7.2 g/dL (6.4-8.2) Albumin 3.2 g/dL (3.4-5.0) L Albumin/Globulin Ratio 0.8 (1.0-1.7) L Glucose (Fingerstick) 66 mg/dL (70-99) L 88 mg/dL (70-99) 155 mg/dL (70-99) H Test 11/12/20 16:44 11/12/20 19:09 Glucose (Fingerstick) 150 mg/dL (70-99) H 265 mg/dL (70-99) H Current Medications: Meds: Laboratory Tests Test 11/12/20 06:44 11/12/20 07:39 11/12/20 07:51 11/12/20 11:48 White Blood Count 10.8 x10^3/uL Red Blood Count 3.37 x10^6/uL Hemoglobin 10.6 g/dL Hematocrit 32.4 % Mean Corpuscular Volume 96 fL Mean Corpuscular Hemoglobin 31 pg Mean Corpuscular Hemoglobin Concent 33 g/dL Red Cell Distribution Width 15.2 % Platelet Count 279 x10^3/uL Neutrophils (%) (Auto) 58 % Lymphocytes (%) (Auto) 30 % Monocytes (%) (Auto) 11 % Eosinophils (%) (Auto) 2 % Basophils (%) (Auto) 0 % Neutrophils # (Auto) 6.2 x10^3uL Lymphocytes # (Auto) 3.2 x10^3/uL Monocytes # (Auto) 1.2 x10^3/uL Eosinophils # (Auto) 0.2 x10^3/uL Basophils # (Auto) 0.0 x10^3/uL Sodium Level 145 mmol/L Potassium Level 4.4 mmol/L Chloride Level 108 mmol/L Carbon Dioxide Level 33 mmol/L Anion Gap 4 Blood Urea Nitrogen 19 mg/dL Creatinine 0.9 mg/dL Estimated GFR (Cockcroft-Gault) 83.4 BUN/Creatinine Ratio 21 Glucose Level 60 mg/dL Calcium Level 9.2 mg/dL Total Bilirubin 0.1 mg/dL Aspartate Amino Transf (AST/SGOT) 34 U/L Alanine Aminotransferase (ALT/SGPT) 45 U/L Alkaline Phosphatase 96 U/L Total Protein 7.2 g/dL Albumin 3.2 g/dL Albumin/Globulin Ratio 0.8 Glucose (Fingerstick) 66 mg/dL 88 mg/dL 155 mg/dL Test 11/12/20 16:44 11/12/20 19:09 Glucose (Fingerstick) 150 mg/dL 265 mg/dL Current Medications Medications (Trade) Dose Ordered Sig/Nancy Route PRN Reason Start Time Stop Time Status Last Admin Dose Admin Acetaminophen (Tylenol) 650 mg PRN Q6HRS PRN PO MILD PAIN / TEMP > 100.3'F 10/10/20 06:30 10/10/20 17:40 DC Multi-Ingredient Ointment (Analgesic [place]) 1 nayla PRN QID PRN TP MUSCLE PAIN 10/10/20 06:30 Al Hydroxide/Mg Hydroxide (Mylanta Plus Xs) 15 ml PRN AFTMEALHC PRN PO DYSPEPSIA 10/10/20 06:30 Magnesium Hydroxide (Milk Of Magnesia) 2,400 mg PRN QHS PRN PO CONSTIPATION 10/10/20 06:30 Nicotine (Nicoderm Cq 21mg Patch) 1 patch DAILY TD 10/10/20 09:00 10/18/20 01:35 DC 10/17/20 08:35 Influenza Virus Vaccine Quadrival (Fluzone Quad [id number] Syringe) 0.5 ml ONCE ONCE VAX IM 10/10/20 09:00 10/10/20 09:01 DC 10/10/20 14:04 Acetaminophen (Tylenol) 650 mg PRN DAILY PRN PO PAIN OR FEVER 10/10/20 07:45 10/10/20 17:40 DC Acetaminophen (Tylenol) 500 mg PRN Q6HRS PRN PO MILD PAIN / TEMP > 100.3'F 10/10/20 07:45 10/17/20 02:51 Amlodipine Besylate (Norvasc) 10 mg HS PO 10/10/20 21:00 11/12/20 20:41 Benztropine Mesylate (Cogentin) 1 mg DAILY PO 10/10/20 09:00 11/12/20 10:10 Calcium/Vitamin D (Oscal D 500mg/ 200uts) 1 tab DAILY PO 10/10/20 09:00 11/12/20 10:09 Calcium Polycarbophil (Fibercon) 625 mg BID PO 10/10/20 09:00 11/12/20 20:33 Clonidine HCl (Catapres) 0.1 mg PRN Q1HR PRN PO AGITATION 10/10/20 07:45 Donepezil HCl (Aricept) 10 mg HS PO 10/10/20 21:00 11/12/20 20:34 Ferrous Sulfate (Feosol) 325 mg BID PO 10/10/20 09:00 11/12/20 20:33 Hydrochlorothiazide (Hydrodiuril) 25 mg DAILY PO 10/10/20 09:00 11/12/20 10:10 Insulin Glargine (Lantus Syringe) 5 unit HS SQ 10/10/20 21:00 11/12/20 20:55 DC 11/11/20 20:38 Ketoconazole (Nizoral 2% Shampoo) 1 nayla QODAY TP 10/10/20 09:00 11/11/20 08:08 Levothyroxine Sodium (Synthroid) 75 mcg DAILY06 PO 10/11/20 06:00 UNV Levothyroxine Sodium (Synthroid) 100 mcg DAILY PO 10/10/20 09:00 10/11/20 05:50 DC Losartan Potassium (Cozaar) 50 mg BID PO 10/10/20 09:00 11/12/20 20:45 Metformin HCl (Glucophage) 500 mg DAILYBFRSUP PO 10/10/20 17:00 11/12/20 16:57 Metformin HCl (Glucophage) 1,500 mg DAILY PO 10/10/20 09:00 11/12/20 10:08 Metoprolol Succinate (Toprol Xl) 25 mg DAILY PO 10/10/20 09:00 10/16/20 17:59 DC 10/16/20 08:36 Tamsulosin HCl (Flomax) 0.4 mg DAILY PO 10/10/20 09:30 11/12/20 10:09 Trazodone HCl (Desyrel) 50 mg PRN QHS PRN PO SLEEP AID 10/10/20 07:45 11/11/20 20:37 Ziprasidone (Geodon) 60 mg BID PO 10/10/20 09:30 10/13/20 14:38 DC 10/13/20 08:17 Chlorpromazine HCl (Thorazine) 50 mg DAILY PO 10/10/20 09:00 10/15/20 17:56 DC 10/15/20 08:23 Chlorpromazine HCl (Thorazine) 50 mg PRN Q6HRS PRN PO AGITATION 10/10/20 09:00 10/11/20 10:04 DC 10/11/20 01:38 Chlorpromazine HCl (Thorazine) 300 mg HS PO 10/10/20 21:00 11/12/20 20:44 Non-Formulary Medication (Diphenhydramine Hcl ) 1 cap Q6HRS PRN PO AGITATION 10/10/20 07:45 UNV Haloperidol Decanoate (Haldol Decanoate Im Extended Release) 100 mg QMONTH IM 10/26/20 09:00 10/26/20 09:00 Insulin Glargine (Lantus Syringe) 8 unit DAILY SQ 10/10/20 10:00 11/12/20 20:55 DC 11/11/20 09:10 Non-Formulary Medication (Liothyronine Sodium (Cytomel)) 1 tab DAILY PO 10/10/20 09:00 10/11/20 07:29 DC Oxcarbazepine (Trileptal) 600 mg BID PO 10/10/20 09:30 10/22/20 17:52 DC 10/22/20 07:32 Valproic Acid (Depakene) 1,000 mg BID PO 10/10/20 09:30 10/10/20 20:12 DC 10/10/20 11:15 Non-Formulary Medication ([[id number]/ 2ML] ) 50 mg Q6HRS PRN IM AGITATION 10/10/20 07:45 UNV Non-Formulary Medication ([Hrzvvcotlhqq00bd/ Ml] ) 50 mg Q6HRS PRN IM AGITATION 10/10/20 07:45 UNV Non-Formulary Medication (Semaglutide (Ozempic)) 1 mg WEEKLY SQ 10/10/20 09:00 10/29/20 13:15 DC Non-Formulary Medication (Vitamin D3/ Vitamin K2 (D3 + K2 Dots 1,000 Units Tab)) 1 tab DAILY PO 10/10/20 09:00 10/10/20 17:36 DC Insulin Human Lispro (HumaLOG) 0-4 UNITS TIDWMEALS SQ 10/10/20 17:00 10/16/20 12:00 Dextrose (Dextrose 50%-Water Syringe) 12.5 gm PRN Q15MIN PRN IV SEE COMMENTS 10/10/20 16:00 Vitamin D (Vitamin D3) 50,000 unit WEEKLY PO 10/10/20 17:30 11/07/20 08:11 Olanzapine (ZyPREXA ZYDIS) 5 mg PRN Q2HRS PRN PO PSYCHOSIS 10/10/20 18:00 10/26/20 00:51 Divalproex Sodium (Depakote Sprinkles) 1,000 mg HS PO 10/10/20 21:00 11/12/20 20:33 Levothyroxine Sodium (Synthroid) 175 mcg DAILY06 PO 10/11/20 07:30 11/12/20 05:58 Liothyronine Sodium (Cytomel) 50 mcg DAILY PO 10/11/20 09:00 10/11/20 10:48 DC Clozapine (Clozaril) 25 mg HS PO 10/11/20 21:00 10/15/20 17:52 DC 10/14/20 20:22 Ascorbic Acid (Vitamin C) 500 mg BID PO 10/11/20 21:00 11/12/20 20:34 Ziprasidone (Geodon) 60 mg BID PO 10/13/20 21:00 10/18/20 11:27 DC 10/18/20 09:14 Clozapine (Clozaril) 50 mg HS PO 10/15/20 21:00 10/22/20 17:52 DC 10/21/20 20:36 Metoprolol Succinate (Toprol Xl) 50 mg DAILY PO 10/16/20 18:00 11/12/20 10:10 Nicotine (Nicoderm Cq 14mg Patch) 1 patch DAILY TD 10/18/20 09:00 11/12/20 10:10 Ziprasidone (Geodon) 60 mg QHS PO 10/18/20 21:00 10/21/20 23:00 DC 10/21/20 20:36 Chlorpromazine HCl (Thorazine) 50 mg DAILY PO 10/19/20 18:00 11/10/20 18:21 DC 11/10/20 08:45 Clozapine (Clozaril) 75 mg HS PO 10/22/20 21:00 11/05/20 16:55 DC 11/04/20 19:48 Oxcarbazepine (Trileptal) 900 mg BID PO 10/22/20 21:00 11/12/20 20:34 Haloperidol Lactate (Haldol) 10 mg DAILY08 IM 10/25/20 08:00 11/01/20 10:27 DC 10/31/20 07:56 Haloperidol (Haldol) 10 mg DAILY PO 11/01/20 10:30 11/12/20 10:09 Clozapine (Clozaril) 100 mg HS PO 11/05/20 21:00 11/12/20 18:34 DC 11/11/20 20:32 Clozapine (Clozaril) 100 mg HS PO 11/12/20 21:00 11/12/20 20:47 Clozapine (Clozaril) 25 mg HS PO 11/12/20 21:00 11/12/20 20:41 Current Medications Medications (Trade) Dose Ordered Sig/Nancy Route PRN Reason Start Time Stop Time Status Last Admin Dose Admin Clozapine (Clozaril) 100 mg HS PO 11/12/20 21:00 11/12/20 20:47 Clozapine (Clozaril) 25 mg HS PO 11/12/20 21:00 11/12/20 20:41 I have reviewed the current psychotropics carefully including drug interactions. Risk benefit ratio favors no change other than as noted in my dictated progress note. Diagnosis: Problems: (1) Schizoaffective disorder, bipolar type (2) Impulse control disorder, unspecified (3) Mild cognitive impairment (4) Anxiety disorder, unspecified (5) Bipolar disorder, current episode mixed, severe, with psychotic features KALEN REN MD Nov 12, 2020 22:24
--- NOTE | 2020-11-12 23:15 | NUR ---
PT SITTING UP IN ROOM AT TIME OF ASSESSMENT. POLITE AND INTERACTIVE. TOOK HS PILLS WHOLE WITHOUT DIFFICULTY. PT REPORTS HE HAD A GOOD DAY. ATE HS SNACK INDEPENDENTLY.
[2020-11-13] MEDS: LEVOTHYROXINE 175 MCG TABLET PO SCH (05:04)
--- NOTE | 2020-11-13 05:47 | NUR ---
PT REQUESTING MEETING WITH [facility] TO DISCUSS DC PLANNING. LEFT VM FOR MYKEL TO FOLLOW UP.
[2020-11-13 06:26] VITALS: BP 130/81
[2020-11-13] MEDS: INSULIN LISPRO 300 UNITS/3 ML VIAL. SQ SCH ×3 (08:00→17:00)
[2020-11-13] MEDS: BENZTROPINE MESYLATE 1 MG TABLET PO SCH (08:00)
[2020-11-13] MEDS: CALCIUM POLYCARBOPHIL 625 MG TABLET PO SCH ×2 (08:00→21:20)
[2020-11-13] MEDS: LOSARTAN 50 MG TABLET. PO SCH ×2 (08:00→21:21)
[2020-11-13] MEDS: FERROUS SULFATE 325 MG TABLET. PO SCH ×2 (08:01→21:20)
[2020-11-13] MEDS: metFORMIN 500 MG TABLET PO SCH ×2 (08:01→17:02)
[2020-11-13] MEDS: TAMSULOSIN 0.4 MG CAP.ER.24H. PO SCH (08:01)
[2020-11-13] MEDS: ASCORBIC ACID 500 MG TABLET PO SCH ×2 (08:01→21:21)
[2020-11-13] MEDS: METOPROLOL SUCC 24HR ER 25 MG TAB.ER.24H. PO SCH (08:01)
[2020-11-13] MEDS: hydroCHLOROthiazide 25 MG TABLET PO SCH (08:01)
[2020-11-13] MEDS: CALCIUM CARB/VIT D3 500/200 TABLET PO SCH (08:01)
[2020-11-13] MEDS: NICOTINE 14MG PATCH. TD SCH (08:02)
[2020-11-13] MEDS: HALOPERIDOL 5 MG TABLET PO SCH (08:02)
--- NOTE | 2020-11-13 08:55 | PDOC ---
Exam Note: Devin Note: This note is a late entry for 11/12/2020 covers elements not covered in my initial note. Subjective: The patient was seen individually in the evening of 11/12/2020 with Alysha MOON, discussed and reviewed the chart. He slept 6 hours previous night. The patient has been somewhat sedated, otherwise, cooperative. Absolute neutrophil count is unremarkable today. I met with him in his room. Review of Systems: Positive for tremors and mouth movements. Ambulation impaired. No CV, , pulmonary, eye, ENT system symptoms on review. Mental Status Exam: The patient is oriented to himself and situation. Speech is low in volume but rapid in rate and rhythm. Abstraction is fair. Computation is impaired. Language function is intact. Mood and affect remains somewhat labile, paranoid. No suicidal or homicidal ideation. Laboratory Data: Reviewed. Impression: Schizoaffective disorder bipolar type mixed with psychotic features. Anxiety disorder unspecified. Impulse control disorder unspecified. Plan: Increase Clozaril to 125 mg h.s. which is an increment of 25 mg a day since absolute neutrophil count is unremarkable. Maintain rest psychotropics unchanged. We will further reduce the Thorazine after he stabilizes on the increased Clozaril. Assessment: Vital Signs/I&O: Vital Signs Date Time Temp Pulse Resp B/P (MAP) Pulse Ox O2 Delivery O2 Flow Rate FiO2 11/13/20 08:01 73 130/81 11/13/20 06:26 98.1 16 96 11/12/20 06:28 Room Air I & O 11/12/20 11/12/20 11/13/20 15:00 23:00 07:00 Intake Total 840 ml 600 ml Balance 840 ml 600 ml Labs: Laboratory Tests Test 11/12/20 11:48 11/12/20 16:44 11/12/20 19:09 11/13/20 07:32 Glucose (Fingerstick) 155 mg/dL (70-99) H 150 mg/dL (70-99) H 265 mg/dL (70-99) H 177 mg/dL (70-99) H Current Medications: Meds: Laboratory Tests Test 11/12/20 11:48 11/12/20 16:44 11/12/20 19:09 11/13/20 07:32 Glucose (Fingerstick) 155 mg/dL 150 mg/dL 265 mg/dL 177 mg/dL Current Medications Medications (Trade) Dose Ordered Sig/Nancy Route PRN Reason Start Time Stop Time Status Last Admin Dose Admin Acetaminophen (Tylenol) 650 mg PRN Q6HRS PRN PO MILD PAIN / TEMP > 100.3'F 10/10/20 06:30 10/10/20 17:40 DC Multi-Ingredient Ointment (Analgesic [place]) 1 nayla PRN QID PRN TP MUSCLE PAIN 10/10/20 06:30 Al Hydroxide/Mg Hydroxide (Mylanta Plus Xs) 15 ml PRN AFTMEALHC PRN PO DYSPEPSIA 10/10/20 06:30 Magnesium Hydroxide (Milk Of Magnesia) 2,400 mg PRN QHS PRN PO CONSTIPATION 10/10/20 06:30 Nicotine (Nicoderm Cq 21mg Patch) 1 patch DAILY TD 10/10/20 09:00 10/18/20 01:35 DC 10/17/20 08:35 Influenza Virus Vaccine Quadrival (Fluzone Quad Syringe) 0.5 ml ONCE ONCE VAX IM 10/10/20 09:00 10/10/20 09:01 DC 10/10/20 14:04 Acetaminophen (Tylenol) 650 mg PRN DAILY PRN PO PAIN OR FEVER 10/10/20 07:45 10/10/20 17:40 DC Acetaminophen (Tylenol) 500 mg PRN Q6HRS PRN PO MILD PAIN / TEMP > 100.3'F 10/10/20 07:45 10/17/20 02:51 Amlodipine Besylate (Norvasc) 10 mg HS PO 10/10/20 21:00 11/12/20 20:41 Benztropine Mesylate (Cogentin) 1 mg DAILY PO 10/10/20 09:00 11/13/20 08:00 Calcium/Vitamin D (Oscal D 500mg/ 200uts) 1 tab DAILY PO 10/10/20 09:00 11/13/20 08:01 Calcium Polycarbophil (Fibercon) 625 mg BID PO 10/10/20 09:00 11/13/20 08:00 Clonidine HCl (Catapres) 0.1 mg PRN Q1HR PRN PO AGITATION 10/10/20 07:45 Donepezil HCl (Aricept) 10 mg HS PO 10/10/20 21:00 4/12/21 20:34 Ferrous Sulfate (Feosol) 325 mg BID PO 10/10/20 09:00 11/13/20 08:01 Hydrochlorothiazide (Hydrodiuril) 25 mg DAILY PO 10/10/20 09:00 11/13/20 08:01 Insulin Glargine (Lantus Syringe) 5 unit HS SQ 10/10/20 21:00 11/12/20 20:55 DC 11/11/20 20:38 Ketoconazole (Nizoral 2% Shampoo) 1 nayla QODAY TP 10/10/20 09:00 11/11/20 08:08 Levothyroxine Sodium (Synthroid) 75 mcg DAILY06 PO 10/11/20 06:00 UNV Levothyroxine Sodium (Synthroid) 100 mcg DAILY PO 10/10/20 09:00 10/11/20 05:50 DC Losartan Potassium (Cozaar) 50 mg BID PO 10/10/20 09:00 11/13/20 08:00 Metformin HCl (Glucophage) 500 mg DAILYBFRSUP PO 10/10/20 17:00 11/12/20 16:57 Metformin HCl (Glucophage) 1,500 mg DAILY PO 10/10/20 09:00 11/13/20 08:01 Metoprolol Succinate (Toprol Xl) 25 mg DAILY PO 10/10/20 09:00 10/16/20 17:59 DC 10/16/20 08:36 Tamsulosin HCl (Flomax) 0.4 mg DAILY PO 10/10/20 09:30 11/13/20 08:01 Trazodone HCl (Desyrel) 50 mg PRN QHS PRN PO SLEEP AID 10/10/20 07:45 11/11/20 20:37 Ziprasidone (Geodon) 60 mg BID PO 10/10/20 09:30 10/13/20 14:38 DC 10/13/20 08:17 Chlorpromazine HCl (Thorazine) 50 mg DAILY PO 10/10/20 09:00 10/15/20 17:56 DC 10/15/20 08:23 Chlorpromazine HCl (Thorazine) 50 mg PRN Q6HRS PRN PO AGITATION 10/10/20 09:00 10/11/20 10:04 DC 10/11/20 01:38 Chlorpromazine HCl (Thorazine) 300 mg HS PO 10/10/20 21:00 11/12/20 20:44 Non-Formulary Medication (Diphenhydramine Hcl ) 1 cap Q6HRS PRN PO AGITATION 10/10/20 07:45 UNV Haloperidol Decanoate (Haldol Decanoate Im Extended Release) 100 mg QMONTH IM 10/26/20 09:00 10/26/20 09:00 Insulin Glargine (Lantus Syringe) 8 unit DAILY SQ 10/10/20 10:00 11/12/20 20:55 DC 11/11/20 09:10 Non-Formulary Medication (Liothyronine Sodium (Cytomel)) 1 tab DAILY PO 10/10/20 09:00 10/11/20 07:29 DC Oxcarbazepine (Trileptal) 600 mg BID PO 10/10/20 09:30 10/22/20 17:52 DC 10/22/20 07:32 Valproic Acid (Depakene) 1,000 mg BID PO 10/10/20 09:30 10/10/20 20:12 DC 10/10/20 11:15 Non-Formulary Medication ([[id number]/ 2ML] ) 50 mg Q6HRS PRN IM AGITATION 10/10/20 07:45 UNV Non-Formulary Medication ([[id number]/ Ml] ) 50 mg Q6HRS PRN IM AGITATION 10/10/20 07:45 UNV Non-Formulary Medication (Semaglutide (Ozempic)) 1 mg WEEKLY SQ 10/10/20 09:00 10/29/20 13:15 DC Non-Formulary Medication (Vitamin D3/ Vitamin K2 (D3 + K2 Dots 1,000 Units Tab)) 1 tab DAILY PO 10/10/20 09:00 10/10/20 17:36 DC Insulin Human Lispro (HumaLOG) 0-4 UNITS TIDWMEALS SQ 10/10/20 17:00 10/16/20 12:00 Dextrose (Dextrose 50%-Water Syringe) 12.5 gm PRN Q15MIN PRN IV SEE COMMENTS 10/10/20 16:00 Vitamin D (Vitamin D3) 50,000 unit WEEKLY PO 10/10/20 17:30 4/7/21 08:11 Olanzapine (ZyPREXA ZYDIS) 5 mg PRN Q2HRS PRN PO PSYCHOSIS 10/10/20 18:00 10/26/20 00:51 Divalproex Sodium (Depakote Sprinkles) 1,000 mg HS PO 10/10/20 21:00 11/12/20 20:33 Levothyroxine Sodium (Synthroid) 175 mcg DAILY06 PO 10/11/20 07:30 11/13/20 05:04 Liothyronine Sodium (Cytomel) 50 mcg DAILY PO 10/11/20 09:00 10/11/20 10:48 DC Clozapine (Clozaril) 25 mg HS PO 10/11/20 21:00 10/15/20 17:52 DC 10/14/20 20:22 Ascorbic Acid (Vitamin C) 500 mg BID PO 10/11/20 21:00 11/13/20 08:01 Ziprasidone (Geodon) 60 mg BID PO 10/13/20 21:00 10/18/20 11:27 DC 10/18/20 09:14 Clozapine (Clozaril) 50 mg HS PO 10/15/20 21:00 10/22/20 17:52 DC 10/21/20 20:36 Metoprolol Succinate (Toprol Xl) 50 mg DAILY PO 10/16/20 18:00 11/13/20 08:01 Nicotine (Nicoderm Cq 14mg Patch) 1 patch DAILY TD 10/18/20 09:00 11/13/20 08:02 Ziprasidone (Geodon) 60 mg QHS PO 10/18/20 21:00 10/21/20 23:00 DC 10/21/20 20:36 Chlorpromazine HCl (Thorazine) 50 mg DAILY PO 10/19/20 18:00 11/10/20 18:21 DC 11/10/20 08:45 Clozapine (Clozaril) 75 mg HS PO 10/22/20 21:00 11/05/20 16:55 DC 11/04/20 19:48 Oxcarbazepine (Trileptal) 900 mg BID PO 10/22/20 21:00 11/13/20 08:02 Haloperidol Lactate (Haldol) 10 mg DAILY08 IM 10/25/20 08:00 11/01/20 10:27 DC 10/31/20 07:56 Haloperidol (Haldol) 10 mg DAILY PO 11/01/20 10:30 11/13/20 08:02 Clozapine (Clozaril) 100 mg HS PO 11/05/20 21:00 11/12/20 18:34 DC 11/11/20 20:32 Clozapine (Clozaril) 100 mg HS PO 11/12/20 21:00 11/12/20 20:47 Clozapine (Clozaril) 25 mg HS PO 11/12/20 21:00 11/12/20 20:41 Current Medications Medications (Trade) Dose Ordered Sig/Nancy Route PRN Reason Start Time Stop Time Status Last Admin Dose Admin Clozapine (Clozaril) 100 mg HS PO 11/12/20 21:00 11/12/20 20:47 Clozapine (Clozaril) 25 mg HS PO 11/12/20 21:00 11/12/20 20:41 I have reviewed the current psychotropics carefully including drug interactions. Risk benefit ratio favors no change other than as noted in my dictated progress note. Diagnosis: Problems: (1) Schizoaffective disorder, bipolar type (2) Impulse control disorder, unspecified (3) Mild cognitive impairment (4) Anxiety disorder, unspecified (5) Bipolar disorder, current episode mixed, severe, with psychotic features KALEN REN MD Nov 13, 2020 08:55
[2020-11-13] MEDS: KETOCONAZOLE 2% SHAMPOO 120ML BOTTLE. TP SCH (09:05)
--- NOTE | 2020-11-13 16:16 | NUR ---
NURSING NOTE PT WAS A&O TO SELF. PT IS DEMANDING WITH MEALS/DRINKS. PT WAS TIRED AND SLEEPING THIS AM AFTER BREAKFAST. PT CURRENTLY SITTING IN HALLWAY, CONSTANTLY ASKING ABOUT DISCHARGE AND SPEAKING WITH SOCIAL WORK. PT DENIED PAIN THIS AM. PT HAS BEEN REDIRECTABLE THUS FAR. RED MANTILLA
[2020-11-13 16:24] VITALS: BP 144/74
--- NOTE | 2020-11-13 16:55 | NUR ---
SW spoke with pt last night before dinner. Pt wanted to know about discharge and SW let him know that pt will discharge hopefully on . SW spoke with the facility and is working on a transport time. Pt wanted to know if he was going back to [facility], and SW informed him no, he would be discharge back to [facility]. Pt requested that SW call Natalie because he is concerned about the $2500 he has and wants to make sure no one is touching his money; pt five minutes later then stated he had $10k and wanted to make sure it was safe. [facility] will follow up on transport, call pt guardian and then follow up with pt once it has all be completed.
[2020-11-13] MEDS: cloZAPine 100 MG TABLET PO SCH (21:20)
[2020-11-13] MEDS: DIVALPROEX 125 MG CAP.SPRINK PO SCH (21:20)
[2020-11-13] MEDS: cloZAPine 25 MG TABLET PO SCH (21:20)
[2020-11-13] MEDS: DONEPEZIL HCL 10 MG TABLET PO SCH (21:21)
[2020-11-13] MEDS: amLODIPine BESYLATE 10 MG TABLET PO SCH (21:21)
[2020-11-13] MEDS: chlorproMAZINE HCL 25 MG TABLET PO SCH (21:24)
--- NOTE | 2020-11-13 22:04 | PDOC ---
Exam Note: Devin Note: Please also refer to the separate dictated note~for this date of service dictated separately.~Patient seen individually. Discussed the patient with Nursing staff reviewed the chart.~Reviewed interim history and current functioning. Reviewed vital signs,~Labs/ Radiology~and current medications noted below. Continue current treatment with the changes noted in the dictated addendum note Assessment: Vital Signs/I&O: Vital Signs Date Time Temp Pulse Resp B/P (MAP) Pulse Ox O2 Delivery O2 Flow Rate FiO2 11/13/20 21:21 69 144/74 11/13/20 16:24 98.4 20 98 11/12/20 06:28 Room Air I & O 11/12/20 11/12/20 11/13/20 15:00 23:00 07:00 Intake Total 840 ml 600 ml Balance 840 ml 600 ml Labs: Laboratory Tests Test 11/13/20 07:32 11/13/20 11:44 11/13/20 16:43 11/13/20 19:11 Glucose (Fingerstick) 177 mg/dL (70-99) H 201 mg/dL (70-99) H 192 mg/dL (70-99) H 245 mg/dL (70-99) H Current Medications: Meds: Laboratory Tests Test 11/13/20 07:32 11/13/20 11:44 11/13/20 16:43 11/13/20 19:11 Glucose (Fingerstick) 177 mg/dL 201 mg/dL 192 mg/dL 245 mg/dL Current Medications Medications (Trade) Dose Ordered Sig/Nancy Route PRN Reason Start Time Stop Time Status Last Admin Dose Admin Acetaminophen (Tylenol) 650 mg PRN Q6HRS PRN PO MILD PAIN / TEMP > 100.3'F 10/10/20 06:30 10/10/20 17:40 DC Multi-Ingredient Ointment (Analgesic [place]) 1 nayla PRN QID PRN TP MUSCLE PAIN 10/10/20 06:30 Al Hydroxide/Mg Hydroxide (Mylanta Plus Xs) 15 ml PRN AFTMEALHC PRN PO DYSPEPSIA 10/10/20 06:30 Magnesium Hydroxide (Milk Of Magnesia) 2,400 mg PRN QHS PRN PO CONSTIPATION 10/10/20 06:30 Nicotine (Nicoderm Cq 21mg Patch) 1 patch DAILY TD 10/10/20 09:00 10/18/20 01:35 DC 10/17/20 08:35 Influenza Virus Vaccine Quadrival (Fluzone Quad Syringe) 0.5 ml ONCE ONCE VAX IM 10/10/20 09:00 10/10/20 09:01 DC 10/10/20 14:04 Acetaminophen (Tylenol) 650 mg PRN DAILY PRN PO PAIN OR FEVER 10/10/20 07:45 10/10/20 17:40 DC Acetaminophen (Tylenol) 500 mg PRN Q6HRS PRN PO MILD PAIN / TEMP > 100.3'F 10/10/20 07:45 10/17/20 02:51 Amlodipine Besylate (Norvasc) 10 mg HS PO 10/10/20 21:00 11/13/20 21:21 Benztropine Mesylate (Cogentin) 1 mg DAILY PO 10/10/20 09:00 11/13/20 08:00 Calcium/Vitamin D (Oscal D 500mg/ 200uts) 1 tab DAILY PO 10/10/20 09:00 11/13/20 08:01 Calcium Polycarbophil (Fibercon) 625 mg BID PO 10/10/20 09:00 11/13/20 21:20 Clonidine HCl (Catapres) 0.1 mg PRN Q1HR PRN PO AGITATION 10/10/20 07:45 Donepezil HCl (Aricept) 10 mg HS PO 10/10/20 21:00 11/13/20 21:21 Ferrous Sulfate (Feosol) 325 mg BID PO 10/10/20 09:00 11/13/20 21:20 Hydrochlorothiazide (Hydrodiuril) 25 mg DAILY PO 10/10/20 09:00 11/13/20 08:01 Insulin Glargine (Lantus Syringe) 5 unit HS SQ 10/10/20 21:00 11/12/20 20:55 DC 11/11/20 20:38 Ketoconazole (Nizoral 2% Shampoo) 1 nayla QODAY TP 10/10/20 09:00 11/13/20 09:05 Levothyroxine Sodium (Synthroid) 75 mcg DAILY06 PO 10/11/20 06:00 UNV Levothyroxine Sodium (Synthroid) 100 mcg DAILY PO 10/10/20 09:00 10/11/20 05:50 DC Losartan Potassium (Cozaar) 50 mg BID PO 10/10/20 09:00 11/13/20 21:21 Metformin HCl (Glucophage) 500 mg DAILYBFRSUP PO 10/10/20 17:00 11/13/20 17:02 Metformin HCl (Glucophage) 1,500 mg DAILY PO 10/10/20 09:00 11/13/20 08:01 Metoprolol Succinate (Toprol Xl) 25 mg DAILY PO 10/10/20 09:00 10/16/20 17:59 DC 10/16/20 08:36 Tamsulosin HCl (Flomax) 0.4 mg DAILY PO 10/10/20 09:30 11/13/20 08:01 Trazodone HCl (Desyrel) 50 mg PRN QHS PRN PO SLEEP AID 10/10/20 07:45 11/11/20 20:37 Ziprasidone (Geodon) 60 mg BID PO 10/10/20 09:30 10/13/20 14:38 DC 10/13/20 08:17 Chlorpromazine HCl (Thorazine) 50 mg DAILY PO 10/10/20 09:00 10/15/20 17:56 DC 10/15/20 08:23 Chlorpromazine HCl (Thorazine) 50 mg PRN Q6HRS PRN PO AGITATION 10/10/20 09:00 10/11/20 10:04 DC 10/11/20 01:38 Chlorpromazine HCl (Thorazine) 300 mg HS PO 10/10/20 21:00 11/13/20 21:24 Non-Formulary Medication (Diphenhydramine Hcl ) 1 cap Q6HRS PRN PO AGITATION 10/10/20 07:45 UNV Haloperidol Decanoate (Haldol Decanoate Im Extended Release) 100 mg QMONTH IM 10/26/20 09:00 10/26/20 09:00 Insulin Glargine (Lantus Syringe) 8 unit DAILY SQ 10/10/20 10:00 11/12/20 20:55 DC 11/11/20 09:10 Non-Formulary Medication (Liothyronine Sodium (Cytomel)) 1 tab DAILY PO 10/10/20 09:00 10/11/20 07:29 DC Oxcarbazepine (Trileptal) 600 mg BID PO 10/10/20 09:30 10/22/20 17:52 DC 10/22/20 07:32 Valproic Acid (Depakene) 1,000 mg BID PO 10/10/20 09:30 10/10/20 20:12 DC 10/10/20 11:15 Non-Formulary Medication ([Foqlcjbatvad08rd/ 2ML] ) 50 mg Q6HRS PRN IM AGITATION 10/10/20 07:45 UNV Non-Formulary Medication ([Fvwjajjwxbre46hr/ Ml] ) 50 mg Q6HRS PRN IM AGITATION 10/10/20 07:45 UNV Non-Formulary Medication (Semaglutide (Ozempic)) 1 mg WEEKLY SQ 10/10/20 09:00 10/29/20 13:15 DC Non-Formulary Medication (Vitamin D3/ Vitamin K2 (D3 + K2 Dots 1,000 Units Tab)) 1 tab DAILY PO 10/10/20 09:00 10/10/20 17:36 DC Insulin Human Lispro (HumaLOG) 0-4 UNITS TIDWMEALS SQ 10/10/20 17:00 10/16/20 12:00 Dextrose (Dextrose 50%-Water Syringe) 12.5 gm PRN Q15MIN PRN IV SEE COMMENTS 10/10/20 16:00 Vitamin D (Vitamin D3) 50,000 unit WEEKLY PO 10/10/20 17:30 11/07/20 08:11 Olanzapine (ZyPREXA ZYDIS) 5 mg PRN Q2HRS PRN PO PSYCHOSIS 10/10/20 18:00 10/26/20 00:51 Divalproex Sodium (Depakote Sprinkles) 1,000 mg HS PO 10/10/20 21:00 11/13/20 21:20 Levothyroxine Sodium (Synthroid) 175 mcg DAILY06 PO 10/11/20 07:30 11/13/20 05:04 Liothyronine Sodium (Cytomel) 50 mcg DAILY PO 10/11/20 09:00 10/11/20 10:48 DC Clozapine (Clozaril) 25 mg HS PO 10/11/20 21:00 10/15/20 17:52 DC 10/14/20 20:22 Ascorbic Acid (Vitamin C) 500 mg BID PO 10/11/20 21:00 11/13/20 21:21 Ziprasidone (Geodon) 60 mg BID PO 10/13/20 21:00 10/18/20 11:27 DC 10/18/20 09:14 Clozapine (Clozaril) 50 mg HS PO 10/15/20 21:00 10/22/20 17:52 DC 10/21/20 20:36 Metoprolol Succinate (Toprol Xl) 50 mg DAILY PO 10/16/20 18:00 11/13/20 08:01 Nicotine (Nicoderm Cq 14mg Patch) 1 patch DAILY TD 10/18/20 09:00 11/13/20 08:02 Ziprasidone (Geodon) 60 mg QHS PO 10/18/20 21:00 10/21/20 23:00 DC 10/21/20 20:36 Chlorpromazine HCl (Thorazine) 50 mg DAILY PO 10/19/20 18:00 11/10/20 18:21 DC 11/10/20 08:45 Clozapine (Clozaril) 75 mg HS PO 10/22/20 21:00 11/05/20 16:55 DC 11/04/20 19:48 Oxcarbazepine (Trileptal) 900 mg BID PO 10/22/20 21:00 11/13/20 21:20 Haloperidol Lactate (Haldol) 10 mg DAILY08 IM 10/25/20 08:00 11/01/20 10:27 DC 10/31/20 07:56 Haloperidol (Haldol) 10 mg DAILY PO 11/01/20 10:30 11/13/20 08:02 Clozapine (Clozaril) 100 mg HS PO 11/05/20 21:00 11/12/20 18:34 DC 11/11/20 20:32 Clozapine (Clozaril) 100 mg HS PO 11/12/20 21:00 11/13/20 21:20 Clozapine (Clozaril) 25 mg HS PO 11/12/20 21:00 11/13/20 21:20 I have reviewed the current psychotropics carefully including drug interactions. Risk benefit ratio favors no change other than as noted in my dictated progress note. Diagnosis: Problems: (1) Schizoaffective disorder, bipolar type (2) Impulse control disorder, unspecified (3) Mild cognitive impairment (4) Anxiety disorder, unspecified (5) Bipolar disorder, current episode mixed, severe, with psychotic features KALEN REN MD Nov 13, 2020 22:04
[2020-11-14] MEDS: LEVOTHYROXINE 175 MCG TABLET PO SCH (04:54)
[2020-11-14 06:41] VITALS: BP 179/66
[2020-11-14] MEDS: ASCORBIC ACID 500 MG TABLET PO SCH ×2 (07:36→19:49)
[2020-11-14] MEDS: LOSARTAN 50 MG TABLET. PO SCH ×2 (07:37→19:52)
[2020-11-14] MEDS: METOPROLOL SUCC 24HR ER 25 MG TAB.ER.24H. PO SCH (07:37)
[2020-11-14] MEDS: NICOTINE 14MG PATCH. TD SCH (07:38)
[2020-11-14] MEDS: metFORMIN 500 MG TABLET PO SCH ×2 (07:38→17:06)
[2020-11-14] MEDS: TAMSULOSIN 0.4 MG CAP.ER.24H. PO SCH (07:38)
[2020-11-14] MEDS: FERROUS SULFATE 325 MG TABLET. PO SCH ×2 (07:38→19:49)
[2020-11-14] MEDS: HALOPERIDOL 5 MG TABLET PO SCH (07:38)
[2020-11-14] MEDS: CALCIUM CARB/VIT D3 500/200 TABLET PO SCH (07:38)
[2020-11-14] MEDS: hydroCHLOROthiazide 25 MG TABLET PO SCH (07:38)
[2020-11-14] MEDS: BENZTROPINE MESYLATE 1 MG TABLET PO SCH (07:38)
[2020-11-14] MEDS: CALCIUM POLYCARBOPHIL 625 MG TABLET PO SCH ×2 (07:38→19:49)
--- NOTE | 2020-11-14 07:52 | PDOC ---
Exam Note: Devin Note: This note is a late entry for 11/13/2020 covers elements not covered in my initial note. Subjective: The patient was seen individually in the evening of 11/13/2020 with Arabella Parham RN, discussed and reviewed the chart. He slept 6-1/4 hours previous night. The patient remains withdrawn to his room this evening but earlier in the day he was quite agitated, loud, demanding threatening, wanting to see the social service staff for his discharge. He still has dyskinetic movements of his tongue and hand tremors. I had got a call from [facility] about discharge possibly for later this week. He has been cooperative. Review of Systems: Positive for tremors and mouth movements. Ambulation impaired. No CV, , pulmonary, eye, ENT system symptoms on review. Mental Status Exam: The patient is oriented to himself and situation. Speech coherent, rapid at times. Abstraction is fair. Computation is impaired. Language function is intact. Attention span is short. Mood and affect remains somewhat anxious, labile. Laboratory Data: Reviewed. Impression: Schizoaffective disorder bipolar type mixed with psychotic features. Anxiety disorder unspecified. Impulse control disorder unspecified. Plan: Continue current psychotropics. We will try and reduce Thorazine further as we increase the Clozaril, much of this can be done back at the skilled nursing. Assessment: Vital Signs/I&O: Vital Signs Date Time Temp Pulse Resp B/P (MAP) Pulse Ox O2 Delivery O2 Flow Rate FiO2 11/14/20 07:37 73 179/66 11/14/20 06:41 97.6 16 100 11/12/20 06:28 Room Air I & O 11/13/20 11/13/20 11/14/20 15:00 23:00 07:00 Intake Total 960 ml 360 ml Balance 960 ml 360 ml Labs: Laboratory Tests Test 11/13/20 11:44 11/13/20 16:43 11/13/20 19:11 11/14/20 07:47 Glucose (Fingerstick) 201 mg/dL (70-99) H 192 mg/dL (70-99) H 245 mg/dL (70-99) H 148 mg/dL (70-99) H Current Medications: Meds: Laboratory Tests Test 11/13/20 11:44 11/13/20 16:43 11/13/20 19:11 11/14/20 07:47 Glucose (Fingerstick) 201 mg/dL 192 mg/dL 245 mg/dL 148 mg/dL Current Medications Medications (Trade) Dose Ordered Sig/Nancy Route PRN Reason Start Time Stop Time Status Last Admin Dose Admin Acetaminophen (Tylenol) 650 mg PRN Q6HRS PRN PO MILD PAIN / TEMP > 100.3'F 10/10/20 06:30 10/10/20 17:40 DC Multi-Ingredient Ointment (Analgesic [place]) 1 nayla PRN QID PRN TP MUSCLE PAIN 10/10/20 06:30 Al Hydroxide/Mg Hydroxide (Mylanta Plus Xs) 15 ml PRN AFTMEALHC PRN PO DYSPEPSIA 10/10/20 06:30 Magnesium Hydroxide (Milk Of Magnesia) 2,400 mg PRN QHS PRN PO CONSTIPATION 10/10/20 06:30 Nicotine (Nicoderm Cq 21mg Patch) 1 patch DAILY TD 10/10/20 09:00 10/18/20 01:35 DC 10/17/20 08:35 Influenza Virus Vaccine Quadrival (Fluzone Quad Syringe) 0.5 ml ONCE ONCE VAX IM 10/10/20 09:00 10/10/20 09:01 DC 10/10/20 14:04 Acetaminophen (Tylenol) 650 mg PRN DAILY PRN PO PAIN OR FEVER 10/10/20 07:45 10/10/20 17:40 DC Acetaminophen (Tylenol) 500 mg PRN Q6HRS PRN PO MILD PAIN / TEMP > 100.3'F 10/10/20 07:45 10/17/20 02:51 Amlodipine Besylate (Norvasc) 10 mg HS PO 10/10/20 21:00 11/13/20 21:21 Benztropine Mesylate (Cogentin) 1 mg DAILY PO 10/10/20 09:00 11/14/20 07:38 Calcium/Vitamin D (Oscal D 500mg/ 200uts) 1 tab DAILY PO 10/10/20 09:00 11/14/20 07:38 Calcium Polycarbophil (Fibercon) 625 mg BID PO 10/10/20 09:00 11/14/20 07:38 Clonidine HCl (Catapres) 0.1 mg PRN Q1HR PRN PO AGITATION 10/10/20 07:45 Donepezil HCl (Aricept) 10 mg HS PO 10/10/20 21:00 11/13/20 21:21 Ferrous Sulfate (Feosol) 325 mg BID PO 10/10/20 09:00 11/14/20 07:38 Hydrochlorothiazide (Hydrodiuril) 25 mg DAILY PO 10/10/20 09:00 11/14/20 07:38 Insulin Glargine (Lantus Syringe) 5 unit HS SQ 10/10/20 21:00 11/12/20 20:55 DC 11/11/20 20:38 Ketoconazole (Nizoral 2% Shampoo) 1 nayla QODAY TP 10/10/20 09:00 11/13/20 09:05 Levothyroxine Sodium (Synthroid) 75 mcg DAILY06 PO 10/11/20 06:00 UNV Levothyroxine Sodium (Synthroid) 100 mcg DAILY PO 10/10/20 09:00 10/11/20 05:50 DC Losartan Potassium (Cozaar) 50 mg BID PO 10/10/20 09:00 11/14/20 07:37 Metformin HCl (Glucophage) 500 mg DAILYBFRSUP PO 10/10/20 17:00 11/13/20 17:02 Metformin HCl (Glucophage) 1,500 mg DAILY PO 10/10/20 09:00 11/14/20 07:38 Metoprolol Succinate (Toprol Xl) 25 mg DAILY PO 10/10/20 09:00 10/16/20 17:59 DC 10/16/20 08:36 Tamsulosin HCl (Flomax) 0.4 mg DAILY PO 10/10/20 09:30 11/14/20 07:38 Trazodone HCl (Desyrel) 50 mg PRN QHS PRN PO SLEEP AID 10/10/20 07:45 11/11/20 20:37 Ziprasidone (Geodon) 60 mg BID PO 10/10/20 09:30 10/13/20 14:38 DC 10/13/20 08:17 Chlorpromazine HCl (Thorazine) 50 mg DAILY PO 10/10/20 09:00 10/15/20 17:56 DC 10/15/20 08:23 Chlorpromazine HCl (Thorazine) 50 mg PRN Q6HRS PRN PO AGITATION 10/10/20 09:00 10/11/20 10:04 DC 10/11/20 01:38 Chlorpromazine HCl (Thorazine) 300 mg HS PO 10/10/20 21:00 11/13/20 21:24 Non-Formulary Medication (Diphenhydramine Hcl ) 1 cap Q6HRS PRN PO AGITATION 10/10/20 07:45 UNV Haloperidol Decanoate (Haldol Decanoate Im Extended Release) 100 mg QMONTH IM 10/26/20 09:00 10/26/20 09:00 Insulin Glargine (Lantus Syringe) 8 unit DAILY SQ 10/10/20 10:00 11/12/20 20:55 DC 11/11/20 09:10 Non-Formulary Medication (Liothyronine Sodium (Cytomel)) 1 tab DAILY PO 10/10/20 09:00 10/11/20 07:29 DC Oxcarbazepine (Trileptal) 600 mg BID PO 10/10/20 09:30 10/22/20 17:52 DC 10/22/20 07:32 Valproic Acid (Depakene) 1,000 mg BID PO 10/10/20 09:30 10/10/20 20:12 DC 10/10/20 11:15 Non-Formulary Medication ([Bpozwdqpbwvi76ib/ 2ML] ) 50 mg Q6HRS PRN IM AGITATION 10/10/20 07:45 UNV Non-Formulary Medication ([Dfzwzsrowtfs06px/ Ml] ) 50 mg Q6HRS PRN IM AGITATION 10/10/20 07:45 UNV Non-Formulary Medication (Semaglutide (Ozempic)) 1 mg WEEKLY SQ 10/10/20 09:00 10/29/20 13:15 DC Non-Formulary Medication (Vitamin D3/ Vitamin K2 (D3 + K2 Dots 1,000 Units Tab)) 1 tab DAILY PO 10/10/20 09:00 10/10/20 17:36 DC Insulin Human Lispro (HumaLOG) 0-4 UNITS TIDWMEALS SQ 10/10/20 17:00 10/16/20 12:00 Dextrose (Dextrose 50%-Water Syringe) 12.5 gm PRN Q15MIN PRN IV SEE COMMENTS 10/10/20 16:00 Vitamin D (Vitamin D3) 50,000 unit WEEKLY PO 10/10/20 17:30 11/07/20 08:11 Olanzapine (ZyPREXA ZYDIS) 5 mg PRN Q2HRS PRN PO PSYCHOSIS 10/10/20 18:00 10/26/20 00:51 Divalproex Sodium (Depakote Sprinkles) 1,000 mg HS PO 10/10/20 21:00 11/13/20 21:20 Levothyroxine Sodium (Synthroid) 175 mcg DAILY06 PO 10/11/20 07:30 11/14/20 04:54 Liothyronine Sodium (Cytomel) 50 mcg DAILY PO 10/11/20 09:00 10/11/20 10:48 DC Clozapine (Clozaril) 25 mg HS PO 10/11/20 21:00 10/15/20 17:52 DC 10/14/20 20:22 Ascorbic Acid (Vitamin C) 500 mg BID PO 10/11/20 21:00 11/14/20 07:36 Ziprasidone (Geodon) 60 mg BID PO 10/13/20 21:00 10/18/20 11:27 DC 10/18/20 09:14 Clozapine (Clozaril) 50 mg HS PO 10/15/20 21:00 10/22/20 17:52 DC 10/21/20 20:36 Metoprolol Succinate (Toprol Xl) 50 mg DAILY PO 10/16/20 18:00 11/14/20 07:37 Nicotine (Nicoderm Cq 14mg Patch) 1 patch DAILY TD 10/18/20 09:00 11/14/20 07:38 Ziprasidone (Geodon) 60 mg QHS PO 10/18/20 21:00 10/21/20 23:00 DC 10/21/20 20:36 Chlorpromazine HCl (Thorazine) 50 mg DAILY PO 10/19/20 18:00 11/10/20 18:21 DC 11/10/20 08:45 Clozapine (Clozaril) 75 mg HS PO 10/22/20 21:00 11/05/20 16:55 DC 11/04/20 19:48 Oxcarbazepine (Trileptal) 900 mg BID PO 10/22/20 21:00 11/14/20 07:37 Haloperidol Lactate (Haldol) 10 mg DAILY08 IM 10/25/20 08:00 11/01/20 10:27 DC 10/31/20 07:56 Haloperidol (Haldol) 10 mg DAILY PO 11/01/20 10:30 11/14/20 07:38 Clozapine (Clozaril) 100 mg HS PO 11/05/20 21:00 11/12/20 18:34 DC 11/11/20 20:32 Clozapine (Clozaril) 100 mg HS PO 11/12/20 21:00 11/13/20 21:20 Clozapine (Clozaril) 25 mg HS PO 11/12/20 21:00 11/13/20 21:20 I have reviewed the current psychotropics carefully including drug interactions. Risk benefit ratio favors no change other than as noted in my dictated progress note. Diagnosis: Problems: (1) Schizoaffective disorder, bipolar type (2) Impulse control disorder, unspecified (3) Mild cognitive impairment (4) Anxiety disorder, unspecified (5) Bipolar disorder, current episode mixed, severe, with psychotic features KALEN REN MD Nov 14, 2020 07:52
[2020-11-14] MEDS: INSULIN LISPRO 300 UNITS/3 ML VIAL. SQ SCH ×3 (08:00→17:00)
[2020-11-14] MEDS: CHOLECALCIFEROL (VITAMIN D3) 50,000 UNIT CAPSULE PO SCH (08:01)
--- NOTE | 2020-11-14 13:24 | NUR ---
NURSING NOTE PT CALM AND COOPERATIVE WITH ALL CARES THUS FAR. NO BEHAVIOR NOTED TODAY. RED MANTILLA.
--- NOTE | 2020-11-14 14:51 | NUR ---
GENESIS received a call from Ying at [facility] re: pt discharge for tomorrow. 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 GENESIS questioned if that would be okay for them as a facility and she reports that they get late transports for admissions all the time. GENESIS questioned if they needed anything in particular re: discharge orders. They would just like to have the paperwork SARA to prepare before pt gets there. GENESIS will pass this on to nursing and finalize discharge plans with pt guardian.
--- NOTE | 2020-11-14 15:02 | NUR ---
[facility] Social Work Discharge Planning Form Patient Name OLGA LIDIA MCCABE Admit Date: 10 October 2020 DISCHARGE PLAN Discharge Destination: Pt to return to [facility] Assessment: Completed Level II Assessment: Completed Transportation: Facility to pick pt up around 2000 per their request. Special Instructions/Notes: Please fax discharge orders, discharge medication list and discharge summary to the fax number listed below. DISCHARGE TO FACILITY Facility: [facility] Address: [address] [place] [address] Contact Name: Ying Rodriguez SW: Contact Name: Please call with nursing report; ask for the unit nurse: PCP: Dr. Lc Cao
[2020-11-14 15:54] VITALS: BP 160/84
[2020-11-14] MEDS: cloZAPine 100 MG TABLET PO SCH (19:49)
[2020-11-14] MEDS: cloZAPine 25 MG TABLET PO SCH (19:49)
[2020-11-14] MEDS: DONEPEZIL HCL 10 MG TABLET PO SCH (19:50)
[2020-11-14] MEDS: amLODIPine BESYLATE 10 MG TABLET PO SCH (19:50)
[2020-11-14] MEDS: DIVALPROEX 125 MG CAP.SPRINK PO SCH (19:51)
[2020-11-14] MEDS: chlorproMAZINE HCL 25 MG TABLET PO SCH (19:53)
--- NOTE | 2020-11-14 22:04 | PDOC ---
Exam Note: Devin Note: Please also refer to the separate dictated note~for this date of service dictated separately.~Patient seen individually. Discussed the patient with Nursing staff reviewed the chart.~Reviewed interim history and current functioning. Reviewed vital signs,~Labs/ Radiology~and current medications noted below. Continue current treatment with the changes noted in the dictated addendum note Assessment: Vital Signs/I&O: Vital Signs Date Time Temp Pulse Resp B/P (MAP) Pulse Ox O2 Delivery O2 Flow Rate FiO2 11/14/20 19:52 67 160/84 11/14/20 15:54 97.6 18 99 11/12/20 06:28 Room Air I & O 11/13/20 11/13/20 11/14/20 15:00 23:00 07:00 Intake Total 960 ml 360 ml Balance 960 ml 360 ml Labs: Laboratory Tests Test 11/14/20 07:47 11/14/20 11:52 11/14/20 16:39 11/14/20 19:30 Glucose (Fingerstick) 148 mg/dL (70-99) H 124 mg/dL (70-99) H 161 mg/dL (70-99) H 274 mg/dL (70-99) H Current Medications: Meds: Laboratory Tests Test 11/14/20 07:47 11/14/20 11:52 11/14/20 16:39 11/14/20 19:30 Glucose (Fingerstick) 148 mg/dL 124 mg/dL 161 mg/dL 274 mg/dL Current Medications Medications (Trade) Dose Ordered Sig/Nancy Route PRN Reason Start Time Stop Time Status Last Admin Dose Admin Acetaminophen (Tylenol) 650 mg PRN Q6HRS PRN PO MILD PAIN / TEMP > 100.3'F 10/10/20 06:30 10/10/20 17:40 DC Multi-Ingredient Ointment (Analgesic [place]) 1 nayla PRN QID PRN TP MUSCLE PAIN 10/10/20 06:30 Al Hydroxide/Mg Hydroxide (Mylanta Plus Xs) 15 ml PRN AFTMEALHC PRN PO DYSPEPSIA 10/10/20 06:30 Magnesium Hydroxide (Milk Of Magnesia) 2,400 mg PRN QHS PRN PO CONSTIPATION 10/10/20 06:30 Nicotine (Nicoderm Cq 21mg Patch) 1 patch DAILY TD 10/10/20 09:00 10/18/20 01:35 DC 10/17/20 08:35 Influenza Virus Vaccine Quadrival (Fluzone Quad Syringe) 0.5 ml ONCE ONCE VAX IM 10/10/20 09:00 10/10/20 09:01 DC 10/10/20 14:04 Acetaminophen (Tylenol) 650 mg PRN DAILY PRN PO PAIN OR FEVER 10/10/20 07:45 10/10/20 17:40 DC Acetaminophen (Tylenol) 500 mg PRN Q6HRS PRN PO MILD PAIN / TEMP > 100.3'F 10/10/20 07:45 10/17/20 02:51 Amlodipine Besylate (Norvasc) 10 mg HS PO 10/10/20 21:00 11/14/20 19:50 Benztropine Mesylate (Cogentin) 1 mg DAILY PO 10/10/20 09:00 11/14/20 20:10 DC 11/14/20 07:38 Calcium/Vitamin D (Oscal D 500mg/ 200uts) 1 tab DAILY PO 10/10/20 09:00 11/14/20 07:38 Calcium Polycarbophil (Fibercon) 625 mg BID PO 10/10/20 09:00 11/14/20 19:49 Clonidine HCl (Catapres) 0.1 mg PRN Q1HR PRN PO AGITATION 10/10/20 07:45 Donepezil HCl (Aricept) 10 mg HS PO 10/10/20 21:00 11/14/20 19:50 Ferrous Sulfate (Feosol) 325 mg BID PO 10/10/20 09:00 11/14/20 19:49 Hydrochlorothiazide (Hydrodiuril) 25 mg DAILY PO 10/10/20 09:00 11/14/20 07:38 Insulin Glargine (Lantus Syringe) 5 unit HS SQ 10/10/20 21:00 11/12/20 20:55 DC 11/11/20 20:38 Ketoconazole (Nizoral 2% Shampoo) 1 nayla QODAY TP 10/10/20 09:00 11/13/20 09:05 Levothyroxine Sodium (Synthroid) 75 mcg DAILY06 PO 10/11/20 06:00 UNV Levothyroxine Sodium (Synthroid) 100 mcg DAILY PO 10/10/20 09:00 10/11/20 05:50 DC Losartan Potassium (Cozaar) 50 mg BID PO 10/10/20 09:00 11/14/20 19:52 Metformin HCl (Glucophage) 500 mg DAILYBFRSUP PO 10/10/20 17:00 11/14/20 17:06 Metformin HCl (Glucophage) 1,500 mg DAILY PO 10/10/20 09:00 11/14/20 07:38 Metoprolol Succinate (Toprol Xl) 25 mg DAILY PO 10/10/20 09:00 10/16/20 17:59 DC 10/16/20 08:36 Tamsulosin HCl (Flomax) 0.4 mg DAILY PO 10/10/20 09:30 11/14/20 07:38 Trazodone HCl (Desyrel) 50 mg PRN QHS PRN PO SLEEP AID 10/10/20 07:45 11/11/20 20:37 Ziprasidone (Geodon) 60 mg BID PO 10/10/20 09:30 10/13/20 14:38 DC 10/13/20 08:17 Chlorpromazine HCl (Thorazine) 50 mg DAILY PO 10/10/20 09:00 10/15/20 17:56 DC 10/15/20 08:23 Chlorpromazine HCl (Thorazine) 50 mg PRN Q6HRS PRN PO AGITATION 10/10/20 09:00 10/11/20 10:04 DC 10/11/20 01:38 Chlorpromazine HCl (Thorazine) 300 mg HS PO 10/10/20 21:00 11/14/20 19:53 Non-Formulary Medication (Diphenhydramine Hcl ) 1 cap Q6HRS PRN PO AGITATION 10/10/20 07:45 UNV Haloperidol Decanoate (Haldol Decanoate Im Extended Release) 100 mg QMONTH IM 10/26/20 09:00 10/26/20 09:00 Insulin Glargine (Lantus Syringe) 8 unit DAILY SQ 10/10/20 10:00 11/12/20 20:55 DC 11/11/20 09:10 Non-Formulary Medication (Liothyronine Sodium (Cytomel)) 1 tab DAILY PO 10/10/20 09:00 10/11/20 07:29 DC Oxcarbazepine (Trileptal) 600 mg BID PO 10/10/20 09:30 10/22/20 17:52 DC 10/22/20 07:32 Valproic Acid (Depakene) 1,000 mg BID PO 10/10/20 09:30 10/10/20 20:12 DC 10/10/20 11:15 Non-Formulary Medication ([Efwlwjenqqnh25jj/ 2ML] ) 50 mg Q6HRS PRN IM AGITATION 10/10/20 07:45 UNV Non-Formulary Medication ([Daytrdyrnkeo03bz/ Ml] ) 50 mg Q6HRS PRN IM AGITATION 10/10/20 07:45 UNV Non-Formulary Medication (Semaglutide (Ozempic)) 1 mg WEEKLY SQ 10/10/20 09:00 10/29/20 13:15 DC Non-Formulary Medication (Vitamin D3/ Vitamin K2 (D3 + K2 Dots 1,000 Units Tab)) 1 tab DAILY PO 10/10/20 09:00 10/10/20 17:36 DC Insulin Human Lispro (HumaLOG) 0-4 UNITS TIDWMEALS SQ 10/10/20 17:00 10/16/20 12:00 Dextrose (Dextrose 50%-Water Syringe) 12.5 gm PRN Q15MIN PRN IV SEE COMMENTS 10/10/20 16:00 Vitamin D (Vitamin D3) 50,000 unit WEEKLY PO 10/10/20 17:30 11/14/20 08:01 Olanzapine (ZyPREXA ZYDIS) 5 mg PRN Q2HRS PRN PO PSYCHOSIS 10/10/20 18:00 10/26/20 00:51 Divalproex Sodium (Depakote Sprinkles) 1,000 mg HS PO 10/10/20 21:00 11/14/20 19:51 Levothyroxine Sodium (Synthroid) 175 mcg DAILY06 PO 10/11/20 07:30 11/14/20 04:54 Liothyronine Sodium (Cytomel) 50 mcg DAILY PO 10/11/20 09:00 10/11/20 10:48 DC Clozapine (Clozaril) 25 mg HS PO 10/11/20 21:00 10/15/20 17:52 DC 10/14/20 20:22 Ascorbic Acid (Vitamin C) 500 mg BID PO 10/11/20 21:00 11/14/20 19:49 Ziprasidone (Geodon) 60 mg BID PO 10/13/20 21:00 10/18/20 11:27 DC 10/18/20 09:14 Clozapine (Clozaril) 50 mg HS PO 10/15/20 21:00 10/22/20 17:52 DC 10/21/20 20:36 Metoprolol Succinate (Toprol Xl) 50 mg DAILY PO 10/16/20 18:00 11/14/20 07:37 Nicotine (Nicoderm Cq 14mg Patch) 1 patch DAILY TD 10/18/20 09:00 11/14/20 07:38 Ziprasidone (Geodon) 60 mg QHS PO 10/18/20 21:00 10/21/20 23:00 DC 10/21/20 20:36 Chlorpromazine HCl (Thorazine) 50 mg DAILY PO 10/19/20 18:00 11/10/20 18:21 DC 11/10/20 08:45 Clozapine (Clozaril) 75 mg HS PO 10/22/20 21:00 11/05/20 16:55 DC 11/04/20 19:48 Oxcarbazepine (Trileptal) 900 mg BID PO 10/22/20 21:00 11/14/20 19:50 Haloperidol Lactate (Haldol) 10 mg DAILY08 IM 10/25/20 08:00 11/01/20 10:27 DC 10/31/20 07:56 Haloperidol (Haldol) 10 mg DAILY PO 11/01/20 10:30 11/14/20 07:38 Clozapine (Clozaril) 100 mg HS PO 11/05/20 21:00 11/12/20 18:34 DC 11/11/20 20:32 Clozapine (Clozaril) 100 mg HS PO 11/12/20 21:00 11/14/20 19:49 Clozapine (Clozaril) 25 mg HS PO 11/12/20 21:00 11/14/20 19:49 Benztropine Mesylate (Cogentin) 1.5 mg DAILY PO 11/15/20 09:00 I have reviewed the current psychotropics carefully including drug interactions. Risk benefit ratio favors no change other than as noted in my dictated progress note. Diagnosis: Problems: (1) Schizoaffective disorder, bipolar type (2) Impulse control disorder, unspecified (3) Mild cognitive impairment (4) Anxiety disorder, unspecified (5) Bipolar disorder, current episode mixed, severe, with psychotic features KALEN REN MD Nov 14, 2020 22:04
--- NOTE | 2020-11-14 23:26 | NUR ---
Pt located in the dayroom this evening sitting calmly. Pt pleasant and interactive. Compliant with whole medications and shower.
[2020-11-15] MEDS ORDERED: CHOL500021 PO (01:13)
[2020-11-15] MEDS ORDERED: ASCO500C PO (01:13)
[2020-11-15] MEDS ORDERED: DIVA125C2 PO (01:14)
[2020-11-15] MEDS ORDERED: HALO10TA PO (01:15)
[2020-11-15] MEDS ORDERED: INSU100C SQ (01:17)
[2020-11-15] MEDS ORDERED: MAGN24003 PO (01:19)
[2020-11-15] MEDS ORDERED: MAG-124 PO (01:19)
[2020-11-15] MEDS ORDERED: NICO1PAT25 TD (01:20)
[2020-11-15] MEDS ORDERED: METH57CR17 TP (01:20)
[2020-11-15] MEDS ORDERED: OLAN5TAB99 PO (01:21)
[2020-11-15] MEDS ORDERED: CLOZ100T PO (01:21)
[2020-11-15] MEDS: LEVOTHYROXINE 175 MCG TABLET PO SCH (05:49)
[2020-11-15 06:30] VITALS: BP 163/89
--- NOTE | 2020-11-15 07:12 | PDOC ---
Exam Note: Devin Note: This note is a late entry for 11/14/2020 covers elements not covered in my initial note. Subjective: The patient was seen individually in the evening of 11/14/2020 with Arabella Parham RN, discussed and reviewed the chart. He slept 6-1/2 hours previous night. Overall the patient remains is doing better, more cooperative, less paranoid but his left hand tremors are significant. Review of Systems: Positive for tremors and mouth movements. Ambulation impaired. No CV, , pulmonary, eye, ENT system symptoms on review. Mental Status Exam: The patient is oriented to himself and situation. I met with him in his room. He was obsessing about discharge plans. I addressed this with him. Speech coherent, rapid at times. Abstraction is fair. Computation is impaired. Language function is intact. Attention span is short. Mood and affect remains somewhat anxious, labile. Laboratory Data: Reviewed. Impression: Schizoaffective disorder bipolar type mixed with psychotic features. Anxiety disorder unspecified. Impulse control disorder unspecified. Plan: Continue current psychotropics. We will increase the Cogentin from 1 mg daily to 1.5 mg daily. Assessment: Vital Signs/I&O: Vital Signs Date Time Temp Pulse Resp B/P (MAP) Pulse Ox O2 Delivery O2 Flow Rate FiO2 11/15/20 06:30 97.2 64 16 163/89 (113) 97 11/12/20 06:28 Room Air I & O 11/14/20 11/14/20 11/15/20 15:00 23:00 07:00 Intake Total 720 ml 560 ml Balance 720 ml 560 ml Labs: Laboratory Tests Test 11/14/20 07:47 11/14/20 11:52 11/14/20 16:39 11/14/20 19:30 Glucose (Fingerstick) 148 mg/dL (70-99) H 124 mg/dL (70-99) H 161 mg/dL (70-99) H 274 mg/dL (70-99) H Current Medications: Meds: Laboratory Tests Test 11/14/20 07:47 11/14/20 11:52 11/14/20 16:39 11/14/20 19:30 Glucose (Fingerstick) 148 mg/dL 124 mg/dL 161 mg/dL 274 mg/dL Current Medications Medications (Trade) Dose Ordered Sig/Nancy Route PRN Reason Start Time Stop Time Status Last Admin Dose Admin Acetaminophen (Tylenol) 650 mg PRN Q6HRS PRN PO MILD PAIN / TEMP > 100.3'F 10/10/20 06:30 10/10/20 17:40 DC Multi-Ingredient Ointment (Analgesic [place]) 1 nayla PRN QID PRN TP MUSCLE PAIN 10/10/20 06:30 Al Hydroxide/Mg Hydroxide (Mylanta Plus Xs) 15 ml PRN AFTMEALHC PRN PO DYSPEPSIA 10/10/20 06:30 Magnesium Hydroxide (Milk Of Magnesia) 2,400 mg PRN QHS PRN PO CONSTIPATION 10/10/20 06:30 Nicotine (Nicoderm Cq 21mg Patch) 1 patch DAILY TD 10/10/20 09:00 10/18/20 01:35 DC 10/17/20 08:35 Influenza Virus Vaccine Quadrival (Fluzone Quad [id number] Syringe) 0.5 ml ONCE ONCE VAX IM 10/10/20 09:00 10/10/20 09:01 DC 10/10/20 14:04 Acetaminophen (Tylenol) 650 mg PRN DAILY PRN PO PAIN OR FEVER 10/10/20 07:45 10/10/20 17:40 DC Acetaminophen (Tylenol) 500 mg PRN Q6HRS PRN PO MILD PAIN / TEMP > 100.3'F 10/10/20 07:45 10/17/20 02:51 Amlodipine Besylate (Norvasc) 10 mg HS PO 10/10/20 21:00 11/14/20 19:50 Benztropine Mesylate (Cogentin) 1 mg DAILY PO 10/10/20 09:00 11/14/20 20:10 DC 11/14/20 07:38 Calcium/Vitamin D (Oscal D 500mg/ 200uts) 1 tab DAILY PO 10/10/20 09:00 11/14/20 07:38 Calcium Polycarbophil (Fibercon) 625 mg BID PO 10/10/20 09:00 11/14/20 19:49 Clonidine HCl (Catapres) 0.1 mg PRN Q1HR PRN PO AGITATION 10/10/20 07:45 Donepezil HCl (Aricept) 10 mg HS PO 10/10/20 21:00 11/14/20 19:50 Ferrous Sulfate (Feosol) 325 mg BID PO 10/10/20 09:00 11/14/20 19:49 Hydrochlorothiazide (Hydrodiuril) 25 mg DAILY PO 10/10/20 09:00 11/14/20 07:38 Insulin Glargine (Lantus Syringe) 5 unit HS SQ 10/10/20 21:00 11/12/20 20:55 DC 11/11/20 20:38 Ketoconazole (Nizoral 2% Shampoo) 1 nayla QODAY TP 10/10/20 09:00 11/13/20 09:05 Levothyroxine Sodium (Synthroid) 75 mcg DAILY06 PO 10/11/20 06:00 UNV Levothyroxine Sodium (Synthroid) 100 mcg DAILY PO 10/10/20 09:00 10/11/20 05:50 DC Losartan Potassium (Cozaar) 50 mg BID PO 10/10/20 09:00 11/14/20 19:52 Metformin HCl (Glucophage) 500 mg DAILYBFRSUP PO 10/10/20 17:00 11/14/20 17:06 Metformin HCl (Glucophage) 1,500 mg DAILY PO 10/10/20 09:00 11/14/20 07:38 Metoprolol Succinate (Toprol Xl) 25 mg DAILY PO 10/10/20 09:00 10/16/20 17:59 DC 10/16/20 08:36 Tamsulosin HCl (Flomax) 0.4 mg DAILY PO 10/10/20 09:30 11/14/20 07:38 Trazodone HCl (Desyrel) 50 mg PRN QHS PRN PO SLEEP AID 10/10/20 07:45 11/11/20 20:37 Ziprasidone (Geodon) 60 mg BID PO 10/10/20 09:30 10/13/20 14:38 DC 10/13/20 08:17 Chlorpromazine HCl (Thorazine) 50 mg DAILY PO 10/10/20 09:00 10/15/20 17:56 DC 10/15/20 08:23 Chlorpromazine HCl (Thorazine) 50 mg PRN Q6HRS PRN PO AGITATION 10/10/20 09:00 10/11/20 10:04 DC 10/11/20 01:38 Chlorpromazine HCl (Thorazine) 300 mg HS PO 10/10/20 21:00 11/14/20 19:53 Non-Formulary Medication (Diphenhydramine Hcl ) 1 cap Q6HRS PRN PO AGITATION 10/10/20 07:45 UNV Haloperidol Decanoate (Haldol Decanoate Im Extended Release) 100 mg QMONTH IM 10/26/20 09:00 10/26/20 09:00 Insulin Glargine (Lantus Syringe) 8 unit DAILY SQ 10/10/20 10:00 11/12/20 20:55 DC 11/11/20 09:10 Non-Formulary Medication (Liothyronine Sodium (Cytomel)) 1 tab DAILY PO 10/10/20 09:00 10/11/20 07:29 DC Oxcarbazepine (Trileptal) 600 mg BID PO 10/10/20 09:30 10/22/20 17:52 DC 10/22/20 07:32 Valproic Acid (Depakene) 1,000 mg BID PO 10/10/20 09:30 10/10/20 20:12 DC 10/10/20 11:15 Non-Formulary Medication ([Vblqaclgnyga45pg/ 2ML] ) 50 mg Q6HRS PRN IM AGITATION 10/10/20 07:45 UNV Non-Formulary Medication ([Wisigeueliyu16og/ Ml] ) 50 mg Q6HRS PRN IM AGITATION 10/10/20 07:45 UNV Non-Formulary Medication (Semaglutide (Ozempic)) 1 mg WEEKLY SQ 10/10/20 09:00 10/29/20 13:15 DC Non-Formulary Medication (Vitamin D3/ Vitamin K2 (D3 + K2 Dots 1,000 Units Tab)) 1 tab DAILY PO 10/10/20 09:00 10/10/20 17:36 DC Insulin Human Lispro (HumaLOG) 0-4 UNITS TIDWMEALS SQ 10/10/20 17:00 10/16/20 12:00 Dextrose (Dextrose 50%-Water Syringe) 12.5 gm PRN Q15MIN PRN IV SEE COMMENTS 10/10/20 16:00 Vitamin D (Vitamin D3) 50,000 unit WEEKLY PO 10/10/20 17:30 11/14/20 08:01 Olanzapine (ZyPREXA ZYDIS) 5 mg PRN Q2HRS PRN PO PSYCHOSIS 10/10/20 18:00 10/26/20 00:51 Divalproex Sodium (Depakote Sprinkles) 1,000 mg HS PO 10/10/20 21:00 11/14/20 19:51 Levothyroxine Sodium (Synthroid) 175 mcg DAILY06 PO 10/11/20 07:30 11/15/20 05:49 Liothyronine Sodium (Cytomel) 50 mcg DAILY PO 10/11/20 09:00 10/11/20 10:48 DC Clozapine (Clozaril) 25 mg HS PO 10/11/20 21:00 10/15/20 17:52 DC 10/14/20 20:22 Ascorbic Acid (Vitamin C) 500 mg BID PO 10/11/20 21:00 11/14/20 19:49 Ziprasidone (Geodon) 60 mg BID PO 10/13/20 21:00 10/18/20 11:27 DC 10/18/20 09:14 Clozapine (Clozaril) 50 mg HS PO 10/15/20 21:00 10/22/20 17:52 DC 10/21/20 20:36 Metoprolol Succinate (Toprol Xl) 50 mg DAILY PO 10/16/20 18:00 11/14/20 07:37 Nicotine (Nicoderm Cq 14mg Patch) 1 patch DAILY TD 10/18/20 09:00 11/14/20 07:38 Ziprasidone (Geodon) 60 mg QHS PO 10/18/20 21:00 10/21/20 23:00 DC 10/21/20 20:36 Chlorpromazine HCl (Thorazine) 50 mg DAILY PO 10/19/20 18:00 11/10/20 18:21 DC 11/10/20 08:45 Clozapine (Clozaril) 75 mg HS PO 10/22/20 21:00 11/05/20 16:55 DC 11/04/20 19:48 Oxcarbazepine (Trileptal) 900 mg BID PO 10/22/20 21:00 11/14/20 19:50 Haloperidol Lactate (Haldol) 10 mg DAILY08 IM 10/25/20 08:00 11/01/20 10:27 DC 10/31/20 07:56 Haloperidol (Haldol) 10 mg DAILY PO 11/01/20 10:30 11/14/20 07:38 Clozapine (Clozaril) 100 mg HS PO 11/05/20 21:00 11/12/20 18:34 DC 11/11/20 20:32 Clozapine (Clozaril) 100 mg HS PO 11/12/20 21:00 11/14/20 19:49 Clozapine (Clozaril) 25 mg HS PO 11/12/20 21:00 11/14/20 19:49 Benztropine Mesylate (Cogentin) 1.5 mg DAILY PO 11/15/20 09:00 I have reviewed the current psychotropics carefully including drug interactions. Risk benefit ratio favors no change other than as noted in my dictated progress note. Diagnosis: Problems: (1) Schizoaffective disorder, bipolar type (2) Impulse control disorder, unspecified (3) Mild cognitive impairment (4) Anxiety disorder, unspecified (5) Bipolar disorder, current episode mixed, severe, with psychotic features KALNE REN MD Nov 15, 2020 07:12
[2020-11-15] MEDS: INSULIN LISPRO 300 UNITS/3 ML VIAL. SQ SCH ×3 (08:00→16:59)
[2020-11-15] MEDS: LOSARTAN 50 MG TABLET. PO SCH ×2 (08:36→19:26)
[2020-11-15] MEDS: NICOTINE 14MG PATCH. TD SCH (08:36)
[2020-11-15] MEDS: METOPROLOL SUCC 24HR ER 25 MG TAB.ER.24H. PO SCH (08:36)
[2020-11-15] MEDS: TAMSULOSIN 0.4 MG CAP.ER.24H. PO SCH (08:36)
[2020-11-15] MEDS: CALCIUM CARB/VIT D3 500/200 TABLET PO SCH (08:36)
[2020-11-15] MEDS: hydroCHLOROthiazide 25 MG TABLET PO SCH (08:37)
[2020-11-15] MEDS: CALCIUM POLYCARBOPHIL 625 MG TABLET PO SCH ×2 (08:37→19:30)
[2020-11-15] MEDS: FERROUS SULFATE 325 MG TABLET. PO SCH ×2 (08:37→19:24)
[2020-11-15] MEDS: HALOPERIDOL 5 MG TABLET PO SCH (08:37)
[2020-11-15] MEDS: ASCORBIC ACID 500 MG TABLET PO SCH ×2 (08:37→19:24)
[2020-11-15] MEDS: metFORMIN 500 MG TABLET PO SCH ×2 (08:37→16:58)
[2020-11-15] MEDS: KETOCONAZOLE 2% SHAMPOO 120ML BOTTLE. TP SCH (08:39)
[2020-11-15] MEDS ORDERED: BENZTROPINE MESYLATE 1 MG TABLET PO SCH (09:00)
--- NOTE | 2020-11-15 15:07 | NUR ---
PATIENT IS IN A DINING ROOM EATING BREAKFAST AT THE TIME OF ASSESSMENT. PATIENT DEMANDING TO BE DISCHARGE THIS MORNING AND DEMANDING HIS TRANSPORTATION. PATIENT WAS INFORMED THAT HE WILL BE DISCHARGED LATER TODAY AND TRANSPORTATION IS COMING TO PICK HIM UP THIS EVENING. PATIENT IS COMPLIANT WITH ASSESSMENT AND MED ADMINISTRATION.
[2020-11-15 16:22] VITALS: BP 156/72
[2020-11-15] MEDS: cloZAPine 25 MG TABLET PO SCH (19:24)
[2020-11-15] MEDS: DIVALPROEX 125 MG CAP.SPRINK PO SCH (19:24)
[2020-11-15] MEDS: DONEPEZIL HCL 10 MG TABLET PO SCH (19:25)
[2020-11-15] MEDS: cloZAPine 100 MG TABLET PO SCH (19:25)
[2020-11-15 19:26] VITALS: BP 156/72
[2020-11-15] MEDS: amLODIPine BESYLATE 10 MG TABLET PO SCH (19:26)
[2020-11-15] MEDS: chlorproMAZINE HCL 25 MG TABLET PO SCH (19:29)
--- NOTE | 2020-11-15 21:54 | NUR ---
Tobacco Discharge Note [facility] Tobacco Hotline called with patient prior to discharge, pt. refused Tobacco cessation medication listed with current medications for discharge. pt refused Transition Record was faxed to follow-up provider with the following elements: Reason for admission, procedures, tests, principal diagnosis, pending studies, patient instructions, 23/02 contact information for unit, phone number to obtain pending test results, plan for follow-up care, physician follow-up, advanced directive information, and medication list with dose, duration and instructions. This information was included in the following documents: History and physical, lab results, study results, progress notes, social work planning form, DC instruction form, patient visit summary, and medication reconciliation form. Date & time record faxed:11/15/2020 01:30 Record faxed to: [facility]
--- NOTE | 2020-11-15 22:27 | PDOC ---
Exam Note: Devin Note: Please also refer to the separate dictated note~for this date of service dictated separately.~Patient seen individually. Discussed the patient with Nursing staff reviewed the chart.~Reviewed interim history and current functioning. Reviewed vital signs,~Labs/ Radiology~and current medications noted below. Continue current treatment with the changes noted in the dictated addendum note Assessment: Vital Signs/I&O: Vital Signs Date Time Temp Pulse Resp B/P (MAP) Pulse Ox O2 Delivery O2 Flow Rate FiO2 11/15/20 19:26 84 156/72 11/15/20 16:22 98.7 20 95 Room Air I & O 11/14/20 11/14/20 11/15/20 15:00 23:00 07:00 Intake Total 720 ml 560 ml Balance 720 ml 560 ml Labs: Laboratory Tests Test 11/15/20 07:58 11/15/20 11:39 11/15/20 16:49 11/15/20 19:21 Glucose (Fingerstick) 130 mg/dL (70-99) H 177 mg/dL (70-99) H 115 mg/dL (70-99) H 213 mg/dL (70-99) H Current Medications: Meds: Laboratory Tests Test 11/15/20 07:58 11/15/20 11:39 11/15/20 16:49 11/15/20 19:21 Glucose (Fingerstick) 130 mg/dL 177 mg/dL 115 mg/dL 213 mg/dL Current Medications Medications (Trade) Dose Ordered Sig/Nancy Route PRN Reason Start Time Stop Time Status Last Admin Dose Admin Acetaminophen (Tylenol) 650 mg PRN Q6HRS PRN PO MILD PAIN / TEMP > 100.3'F 10/10/20 06:30 10/10/20 17:40 DC Multi-Ingredient Ointment (Analgesic [place]) 1 nayla PRN QID PRN TP MUSCLE PAIN 10/10/20 06:30 11/15/20 22:02 DC Al Hydroxide/Mg Hydroxide (Mylanta Plus Xs) 15 ml PRN AFTMEALHC PRN PO DYSPEPSIA 10/10/20 06:30 11/15/20 22:02 DC Magnesium Hydroxide (Milk Of Magnesia) 2,400 mg PRN QHS PRN PO CONSTIPATION 10/10/20 06:30 11/15/20 22:02 DC Nicotine (Nicoderm Cq 21mg Patch) 1 patch DAILY TD 10/10/20 09:00 10/18/20 01:35 DC 10/17/20 08:35 Influenza Virus Vaccine Quadrival (Fluzone Quad Syringe) 0.5 ml ONCE ONCE VAX IM 10/10/20 09:00 10/10/20 09:01 DC 10/10/20 14:04 Acetaminophen (Tylenol) 650 mg PRN DAILY PRN PO PAIN OR FEVER 10/10/20 07:45 10/10/20 17:40 DC Acetaminophen (Tylenol) 500 mg PRN Q6HRS PRN PO MILD PAIN / TEMP > 100.3'F 10/10/20 07:45 11/15/20 22:02 DC 10/17/20 02:51 Amlodipine Besylate (Norvasc) 10 mg HS PO 10/10/20 21:00 11/15/20 22:02 DC 11/15/20 19:26 Benztropine Mesylate (Cogentin) 1 mg DAILY PO 10/10/20 09:00 11/14/20 20:10 DC 11/14/20 07:38 Calcium/Vitamin D (Oscal D 500mg/ 200uts) 1 tab DAILY PO 10/10/20 09:00 11/15/20 22:02 DC 11/15/20 08:36 Calcium Polycarbophil (Fibercon) 625 mg BID PO 10/10/20 09:00 11/15/20 22:02 DC 11/15/20 19:30 Clonidine HCl (Catapres) 0.1 mg PRN Q1HR PRN PO AGITATION 10/10/20 07:45 11/15/20 22:02 DC Donepezil HCl (Aricept) 10 mg HS PO 10/10/20 21:00 11/15/20 22:02 DC 11/15/20 19:25 Ferrous Sulfate (Feosol) 325 mg BID PO 10/10/20 09:00 11/15/20 22:02 DC 11/15/20 19:24 Hydrochlorothiazide (Hydrodiuril) 25 mg DAILY PO 10/10/20 09:00 11/15/20 22:02 DC 11/15/20 08:37 Insulin Glargine (Lantus Syringe) 5 unit HS SQ 10/10/20 21:00 11/12/20 20:55 DC 11/11/20 20:38 Ketoconazole (Nizoral 2% Shampoo) 1 nayla QODAY TP 10/10/20 09:00 11/15/20 22:02 DC 11/15/20 08:39 Levothyroxine Sodium (Synthroid) 75 mcg DAILY06 PO 10/11/20 06:00 UNV Levothyroxine Sodium (Synthroid) 100 mcg DAILY PO 10/10/20 09:00 10/11/20 05:50 DC Losartan Potassium (Cozaar) 50 mg BID PO 10/10/20 09:00 11/15/20 22:02 DC 11/15/20 19:26 Metformin HCl (Glucophage) 500 mg DAILYBFRSUP PO 10/10/20 17:00 11/15/20 22:02 DC 11/15/20 16:58 Metformin HCl (Glucophage) 1,500 mg DAILY PO 10/10/20 09:00 11/15/20 22:02 DC 11/15/20 08:37 Metoprolol Succinate (Toprol Xl) 25 mg DAILY PO 10/10/20 09:00 10/16/20 17:59 DC 10/16/20 08:36 Tamsulosin HCl (Flomax) 0.4 mg DAILY PO 10/10/20 09:30 11/15/20 22:02 DC 11/15/20 08:36 Trazodone HCl (Desyrel) 50 mg PRN QHS PRN PO SLEEP AID 10/10/20 07:45 11/15/20 22:02 DC 11/11/20 20:37 Ziprasidone (Geodon) 60 mg BID PO 10/10/20 09:30 10/13/20 14:38 DC 10/13/20 08:17 Chlorpromazine HCl (Thorazine) 50 mg DAILY PO 10/10/20 09:00 10/15/20 17:56 DC 10/15/20 08:23 Chlorpromazine HCl (Thorazine) 50 mg PRN Q6HRS PRN PO AGITATION 10/10/20 09:00 10/11/20 10:04 DC 10/11/20 01:38 Chlorpromazine HCl (Thorazine) 300 mg HS PO 10/10/20 21:00 11/15/20 22:02 DC 11/15/20 19:29 Non-Formulary Medication (Diphenhydramine Hcl ) 1 cap Q6HRS PRN PO AGITATION 10/10/20 07:45 UNV Haloperidol Decanoate (Haldol Decanoate Im Extended Release) 100 mg QMONTH IM 10/26/20 09:00 11/15/20 22:02 DC 10/26/20 09:00 Insulin Glargine (Lantus Syringe) 8 unit DAILY SQ 10/10/20 10:00 11/12/20 20:55 DC 11/11/20 09:10 Non-Formulary Medication (Liothyronine Sodium (Cytomel)) 1 tab DAILY PO 10/10/20 09:00 10/11/20 07:29 DC Oxcarbazepine (Trileptal) 600 mg BID PO 10/10/20 09:30 10/22/20 17:52 DC 10/22/20 07:32 Valproic Acid (Depakene) 1,000 mg BID PO 10/10/20 09:30 10/10/20 20:12 DC 10/10/20 11:15 Non-Formulary Medication ([Duukbhlhmnbi70hs/ 2ML] ) 50 mg Q6HRS PRN IM AGITATION 10/10/20 07:45 UNV Non-Formulary Medication ([Nwdlzyoqnvlu98qk/ Ml] ) 50 mg Q6HRS PRN IM AGITATION 10/10/20 07:45 UNV Non-Formulary Medication (Semaglutide (Ozempic)) 1 mg WEEKLY SQ 10/10/20 09:00 10/29/20 13:15 DC Non-Formulary Medication (Vitamin D3/ Vitamin K2 (D3 + K2 Dots 1,000 Units Tab)) 1 tab DAILY PO 10/10/20 09:00 10/10/20 17:36 DC Insulin Human Lispro (HumaLOG) 0-4 UNITS TIDWMEALS SQ 10/10/20 17:00 11/15/20 22:02 DC 10/16/20 12:00 Dextrose (Dextrose 50%-Water Syringe) 12.5 gm PRN Q15MIN PRN IV SEE COMMENTS 10/10/20 16:00 11/15/20 22:02 DC Vitamin D (Vitamin D3) 50,000 unit WEEKLY PO 10/10/20 17:30 11/15/20 22:02 DC 11/14/20 08:01 Olanzapine (ZyPREXA ZYDIS) 5 mg PRN Q2HRS PRN PO PSYCHOSIS 10/10/20 18:00 11/15/20 22:02 DC 10/26/20 00:51 Divalproex Sodium (Depakote Sprinkles) 1,000 mg HS PO 10/10/20 21:00 11/15/20 22:02 DC 11/15/20 19:24 Levothyroxine Sodium (Synthroid) 175 mcg DAILY06 PO 10/11/20 07:30 11/15/20 22:02 DC 11/15/20 05:49 Liothyronine Sodium (Cytomel) 50 mcg DAILY PO 10/11/20 09:00 10/11/20 10:48 DC Clozapine (Clozaril) 25 mg HS PO 10/11/20 21:00 10/15/20 17:52 DC 10/14/20 20:22 Ascorbic Acid (Vitamin C) 500 mg BID PO 10/11/20 21:00 11/15/20 22:02 DC 11/15/20 19:24 Ziprasidone (Geodon) 60 mg BID PO 10/13/20 21:00 10/18/20 11:27 DC 10/18/20 09:14 Clozapine (Clozaril) 50 mg HS PO 10/15/20 21:00 10/22/20 17:52 DC 10/21/20 20:36 Metoprolol Succinate (Toprol Xl) 50 mg DAILY PO 10/16/20 18:00 11/15/20 22:02 DC 11/15/20 08:36 Nicotine (Nicoderm Cq 14mg Patch) 1 patch DAILY TD 10/18/20 09:00 11/15/20 22:02 DC 11/15/20 08:36 Ziprasidone (Geodon) 60 mg QHS PO 10/18/20 21:00 10/21/20 23:00 DC 10/21/20 20:36 Chlorpromazine HCl (Thorazine) 50 mg DAILY PO 10/19/20 18:00 11/10/20 18:21 DC 11/10/20 08:45 Clozapine (Clozaril) 75 mg HS PO 10/22/20 21:00 11/05/20 16:55 DC 11/04/20 19:48 Oxcarbazepine (Trileptal) 900 mg BID PO 10/22/20 21:00 11/15/20 22:02 DC 11/15/20 19:25 Haloperidol Lactate (Haldol) 10 mg DAILY08 IM 10/25/20 08:00 11/01/20 10:27 DC 10/31/20 07:56 Haloperidol (Haldol) 10 mg DAILY PO 11/01/20 10:30 11/15/20 22:02 DC 11/15/20 08:37 Clozapine (Clozaril) 100 mg HS PO 11/05/20 21:00 11/12/20 18:34 DC 11/11/20 20:32 Clozapine (Clozaril) 100 mg HS PO 11/12/20 21:00 11/15/20 22:02 DC 11/15/20 19:25 Clozapine (Clozaril) 25 mg HS PO 11/12/20 21:00 11/15/20 22:02 DC 11/15/20 19:24 Benztropine Mesylate (Cogentin) 1.5 mg DAILY PO 11/15/20 09:00 11/15/20 22:02 DC 11/15/20 08:39 Current Medications Medications (Trade) Dose Ordered Sig/Nancy Route PRN Reason Start Time Stop Time Status Last Admin Dose Admin Benztropine Mesylate (Cogentin) 1.5 mg DAILY PO 11/15/20 09:00 11/15/20 22:02 DC 11/15/20 08:39 I have reviewed the current psychotropics carefully including drug interactions. Risk benefit ratio favors no change other than as noted in my dictated progress note. Diagnosis: Problems: (1) Schizoaffective disorder, bipolar type (2) Impulse control disorder, unspecified (3) Mild cognitive impairment (4) Anxiety disorder, unspecified (5) Bipolar disorder, current episode mixed, severe, with psychotic features KALEN REN MD Nov 15, 2020 22:27
--- NOTE | 2020-11-16 21:14 | DS ---
DATE OF DISCHARGE: 11/15/2020 DISCHARGE SUMMARY/PSYCHIATRIC PROGRESS NOTE This late entry date of service 11/15/2020 covers elements not covered in my initial note. REASON FOR ADMISSION: Briefly, the patient is a 70-year-old -[place] male referred to us from [facility] where he presented at the Emergency Room from the facility, he was residing on account of extremely psychotic mental status changes. He was refusing medications, being verbally aggressive, expressing suicidal ideation, agitated, combative, hallucinating and delusional. He has a long history of schizoaffective disorder, bipolar type, had failed outpatient psychiatric interventions resulting in this referral. SIGNIFICANT FINDINGS AND CLINICAL COURSE: Following admission, the patient was seen daily individually by myself from a psychiatric standpoint, medical followup with Dr. Faria/Dr. Davis The patient was extremely agitated, psychotic, yelling, screaming, quite difficult to redirect following admission. Adjustments were made in his psychotropics and he finally seemed to respond to a combination of Clozaril 125 mg at bedtime and this was being gradually increased with a plan to gradually taper the Thorazine and Haldol. We had initiated some reduction of the Thorazine and at discharge, he was on 300 mg at bedtime, but this could be gradually tapered as the Clozaril is increased outpatient. He is also on Haldol 10 mg daily, Aricept 10 mg a day, Trileptal 900 mg b.i.d. as a mood stabilizer, trazodone 50 mg at bedtime p.r.n., Depakote Sprinkles 1000 mg at bedtime. Valproic acid level was 61. Absolute neutrophil counts were stable on the Clozaril. He is also on Cogentin 1.5 mg daily for his tremors extrapyramidal side effects. CONDITION AT DISCHARGE: Improved prior to discharge. REVIEW OF SYSTEMS: Positive for the tremors. No CV, , pulmonary, eye system symptoms on review. MENTAL STATUS EXAM: Reasonably oriented. Speech is coherent, rapid at times. Abstraction fair, computation impaired, language function intact, attention span short. Mood and affect remain somewhat labile, but improved. No suicidal or homicidal ideation at discharge. FINAL DIAGNOSES: Schizoaffective disorder, bipolar type, mixed with psychotic features; anxiety disorder, unspecified; impulse control disorder, unspecified. Rest unchanged from admission. DISCHARGE MEDICATIONS: Please refer to the MRAD. DISCHARGE INSTRUCTIONS: Outpatient psychiatric and medical followup at the senior care. Time for discharge day management greater than 30 minutes. KALEN REN MD DR: EVA/néstor JOB#: [id number] / [id number]
== END 2020-11-15 22:01 | DRG 885 ==
LOC: GEROPSY 06:18
PROVIDERS: ADMIT Psychiatry & Neurology Psychiatry; ATTEND Psychiatry & Neurology Psychiatry
DX: F25.0 Schizoaffective disorder, bipolar type (principal); F63.9 Impulse disorder, unspecified; E03.9 Hypothyroidism, unspecified; E11.9 Type 2 diabetes mellitus without complications; F02.80 Dementia in other diseases classified elsewhere, unspecified severity, without behavioral disturbance, psychotic disturbance, mood disturbance, and anxiety; F09 Unspecified mental disorder due to known physiological condition; F17.200 Nicotine dependence, unspecified, uncomplicated; F41.9 Anxiety disorder, unspecified; G20 Parkinson's disease; G24.4 Idiopathic orofacial dystonia; I10 Essential (primary) hypertension; Z79.899 Other long term (current) drug therapy; Z91.19 Patient's noncompliance with other medical treatment and regimen; M19.90 Unspecified osteoarthritis, unspecified site; Z20.822 Contact with and (suspected) exposure to COVID-19
CPT/HCPCS: 36415; 80053; 80164; 82947; 83540; 83550; 84436; 84439; 84443; 84480; 84481; 85025; 90471; 90686; J1630; J1631; J1815; Q0161; U0003; U0005